=== PATIENT | male | born 1945 | race Caucasian/White ===

== ENCOUNTER → 2016-08-08 | Outpatient (CLI) | payer MEDICARE, BC ==
[~2016-08-08] MED LIST: CAPT50TA PO; HYDR-2768 PO; METO50TA PO; TRAM50 PO
[2016-08-08 08:03] LABS: MEAN CELL VOLUME 104.6 FL (80.0-100.0); MEAN CORPUSCULAR HEMOGLOBIN 34.8 PG (27.0-34.0); MEAN CORPUSCULAR HGB CONC 33.3 % (32.0-36.0); PLATELET COUNT 184 TH/MM3 (150-450); RED BLOOD COUNT 3.83 MIL/MM3 (4.50-5.90); RED CELL DISTRIBUTION WIDTH 15.1 % (11.6-17.2); REVIEW FLAG FINAL; WHITE BLOOD COUNT 9.4 TH/MM3 (4.0-11.0)
[2016-08-08 08:28] LABS: ALKALINE PHOSPHATASE 94 U/L (45-117); HDL CHOLESTEROL 29.1 MG/DL (40.0-60.0); TOTAL BILIRUBIN ADULT 0.7 MG/DL (0.2-1.0)
[2016-08-08 08:46] LABS: ALT (GPT) 36 U/L (12-78); ANION GAP 8 MEQ/L (5-15); AST (GOT) 52 U/L (15-37); BICARBONATE 21.8 MEQ/L (21.0-32.0); BLOOD UREA NITROGEN 36 MG/DL (7-18); CHLORIDE 108 MEQ/L (98-107); GLOMERULAR FILTRATION RATE 25 ML/MIN (>89); GLUCOSE,FASTING 95 MG/DL (74-99); LDL CHOLESTEROL 47 MG/DL (0-99); SODIUM (NA) 138 MEQ/L (136-145)
[2016-08-08 08:48] LABS: POTASSIUM 4.4 MEQ/L (3.5-5.1)
== END ==
LOC: CLAB 07:34
PROVIDERS: ATTEND Family Medicine
DX: I10 Essential (primary) hypertension (principal); E78.4 Other hyperlipidemia; N18.3 Chronic kidney disease, stage 3 (moderate); D64.9 Anemia, unspecified
CPT/HCPCS: 36415; 80053; 80061; 84443; 85027

== ENCOUNTER → 2017-02-06 | Outpatient (CLI) | payer MEDICARE, BC ==
[2017-02-06 09:53] LABS: AUTOMATED NEUTROPHIL # 4.1 TH/MM3 (1.8-7.7); BASOPHIL % 0.6 % (0.0-2.0); EOSINOPHIL # 0.1 TH/MM3 (0-0.4); EOSINOPHIL % 1.1 % (0.0-4.0); HEMATOCRIT 32.7 % (39.0-51.0); HEMO FLAGS DIFF FINAL; LYMPH % 32.8 % (9.0-44.0); LYMPHOCYTE # 2.5 TH/MM3 (1.0-4.8); MEAN CELL VOLUME 116.2 FL (80.0-100.0); MEAN CORPUSCULAR HGB CONC 34.4 % (32.0-36.0); MONO % 10.8 % (0.0-8.0); NEUT % 54.7 % (16.0-70.0); PLATELET COUNT 255 TH/MM3 (150-450); RED BLOOD COUNT 2.81 MIL/MM3 (4.50-5.90); RED CELL DISTRIBUTION WIDTH 12.8 % (11.6-17.2); RETIC % 1.6 % (0.4-3.0); REVIEW FLAG FINAL; WHITE BLOOD COUNT 7.5 TH/MM3 (4.0-11.0)
[2017-02-06 10:47] LABS: FERRITIN 861 NG/ML (26-388); TRANSFERRIN IRON PROFILE 172 MG/DL (200-360)
== END ==
LOC: CLAB 09:10
PROVIDERS: ATTEND Family Medicine
DX: D64.9 Anemia, unspecified (principal)
CPT/HCPCS: 36415; 82607; 82728; 82746; 83010; 83540; 83550; 85025; 85044; 86880

== ENCOUNTER 2017-02-28 07:28 | Inpatient (IN) | payer MEDICARE, BC ==
[2017-02-28] VITALS (12 sets, daily range): BP systolic 93–135; BP diastolic 58–85; PULSE 131–164; RESP 14–30; TEMP 97.8–99.4; O2SAT 96–100
[~2017-02-28] VITALS: Ht 175.3 cm; Wt 79.6 kg
[2017-02-28] MEDS ORDERED: SODIUM CHLOR 0.9% 1000 ML INJ 1,000 ML IV SCH ×2 (09:03)
[2017-02-28] MEDS ORDERED: PANTOPRAZOLE INJ 80 MG in SODIUM CHLORIDE 0.9% INJ 35 ML IV ONE (09:03)
--- NOTE | 2017-02-28 09:09 | PD ---
HPI Chief Complaint: GI Complaint Time Seen by Provider: 08:52 Travel History International Travel<30 days: No Contact w/Intl Traveler<30days: No Traveled to known affect area: No History of Present Illness HPI 71-year-old male complains of severe nausea and diarrhea and black tarry stool. Patient states that the symptoms started 2 days ago. Patient denies abdominal pain. Patient has poor appetite for the past 2 days. Patient denies any headache. Patient denies any chest pain or shortness of breath. Patient denies abdominal pain. Patient denies any focal weakness or numbness of extremity. Vision has history hypertension. Patient takes Advil occasionally. Patient has history of bleeding ulcer in the past. Patient's hearing impaired. PFSH Past Medical History Cardiovascular Problems: Yes (HTN) Diminished Hearing: Yes Gastrointestinal Disorders: Yes (bleeding ulcer) Hypertension: Yes Immune Disorder: Yes Musculoskeletal: Yes (states problems with left knee) Tetanus Vaccination: Unknown Influenza Vaccination: No ?: Not Past Surgical History Joint Replacement: Yes (LEFT KNEE) Tonsillectomy: Yes Social History Alcohol Use: No Tobacco Use: No Substance Use: No Allergies-Medications (Allergen,Severity, Reaction): Coded Allergies: No Known Allergies (Verified Allergy, Unknown, 02/28/17) Reported Meds & Prescriptions Reported Meds & Active Scripts Active Ultram (Tramadol HCl) 50 Mg Tab 50 Mg PO Q6H PRN 3 Days FOR PAIN Reported Hctz (Hydrochlorothiazide) 25 Mg Tab 25 Mg PO DAILY Metoprolol Tartrate 50 mg (Metoprolol Tartrate) 50 Mg Tab 50 Mg PO BID Capoten (Captopril) 50 Mg Tab 50 Mg PO TID Review of Systems General / Constitutional: No: Fever Eyes: No: Visual changes HENT: No: Headaches Cardiovascular: No: Chest Pain or Discomfort Respiratory: No: Shortness of Breath Gastrointestinal: Positive: Nausea, Diarrhea, Hematochezia, No: Abdominal Pain Genitourinary: No: Dysuria Musculoskeletal: No: Pain Skin: No Rash Neurologic: No: Weakness Psychiatric: No: Depression Endocrine: No: Polydipsia Hematologic/Lymphatic: No: Easy Bruising Physical Exam Narrative GENERAL: Well-nourished, well-developed patient. SKIN: Focused skin assessment warm/dry. HEAD: Normocephalic. EYES: No scleral icterus. No injection or drainage. NECK: Supple, trachea midline. No JVD or lymphadenopathy. CARDIOVASCULAR: Regular rate and rhythm without murmurs, gallops, or rubs. RESPIRATORY: Breath sounds equal bilaterally. No accessory muscle use. GASTROINTESTINAL: Abdomen soft, non-tender, nondistended. Rectal exam: Patient has black tarry stool per rectum. Hemoccult positive. MUSCULOSKELETAL: No cyanosis, or edema. BACK: Nontender without obvious deformity. No CVA tenderness. Neurologic exam normal. Data Data Last Documented VS Vital Signs Date Time Temp Pulse Resp B/P (MAP) Pulse Ox O2 Delivery O2 Flow Rate FiO2 02/28/17 11:30 154 18 126/63 (84) 99 Room Air 02/28/17 07:36 97.8 Orders Orders Electrocardiogram (02/28/17 ) Complete Blood Count With Diff (02/28/17 09:03) Comprehensive Metabolic Panel (02/28/17 09:03) Lipase (02/28/17 09:03) Prothrombin Time / Inr (Pt) (02/28/17:) Act Partial Throm Time (Ptt) (02/28/17 09:03) Urinalysis - C+S If Indicated (02/28/17 09:03) Type And Screen (02/28/17 09:03) Ecg Monitoring (02/28/17:03) Iv Access Insert/Monitor (02/28/17:) Oximetry (02/28/17 09:03) Ondansetron Inj (Zofran Inj) (02/28/17 09:15) Sodium Chlor 0.9% 1000 Ml Inj (Ns 1000 M (02/28/17 09:03) Sodium Chlor 0.9% 1000 Ml Inj (Ns 1000 M (02/28/17 09:03) Sodium Chloride 0.9% Flush (Ns Flush) (02/28/17 09:15) Sodium Chloride 0.9... W/Pantoprazole In (02/28/17 09:03) Sodium Chloride 0.9... W/Pantoprazole In (02/28/17 09:03) Sodium Bicarbonate 8.4% Inj (Sodium Bica (02/28/17 12:30) Insulin Human Regular Inj (Novolin R Inj (02/28/17 12:30) Dextrose 50% In Maciej (Vial) Inj (D50w (Vi (02/28/17 12:30) Calcium Gluconate Inj (Calcium Gluconate (02/28/17 12:30) Red Blood Cells (Rbc) (02/28/17 12:30) Blood Product Administration (02/28/17 12:30) Sodium Chlor 0.9% 250 Ml Inj (Ns 250 Ml (02/28/17 12:30) Ct Abd/Pel W/O Iv Contrast (02/28/17 12:39) Labs Laboratory Tests Test 02/28/17 09:15 White Blood Count 17.4 TH/MM3 Red Blood Count 1.96 MIL/MM3 Hemoglobin 7.6 GM/DL Hematocrit 23.1 % Mean Corpuscular Volume 117.7 FL Mean Corpuscular Hemoglobin 38.5 PG Mean Corpuscular Hemoglobin Concent 32.7 % Red Cell Distribution Width 13.1 % Platelet Count 289 TH/MM3 Mean Platelet Volume 9.2 FL Neutrophils (%) (Auto) 83.9 % Lymphocytes (%) (Auto) 11.3 % Monocytes (%) (Auto) 4.7 % Eosinophils (%) (Auto) 0.0 % Basophils (%) (Auto) 0.1 % Neutrophils # (Auto) 14.6 TH/MM3 Lymphocytes # (Auto) 2.0 TH/MM3 Monocytes # (Auto) 0.8 TH/MM3 Eosinophils # (Auto) 0.0 TH/MM3 Basophils # (Auto) 0.0 TH/MM3 CBC Comment AUTO DIFF Differential Total Cells Counted 100 Neutrophils % (Manual) 80 % Lymphocytes % 14 % Monocytes % 5 % Neutrophils # (Manual) 14.1 TH/MM3 Metamyelocytes 1 % Differential Comment FINAL DIFF MANUAL Platelet Estimate NORMAL Platelet Morphology Comment NORMAL Prothrombin Time 12.5 SEC Prothromb Time International Ratio 1.1 RATIO Activated Partial Thromboplast Time 27.5 SEC Blood Urea Nitrogen 92 MG/DL Creatinine 2.47 MG/DL Random Glucose 140 MG/DL Total Protein 5.9 GM/DL Albumin 2.6 GM/DL Calcium Level 8.7 MG/DL Alkaline Phosphatase 76 U/L Aspartate Amino Transf (AST/SGOT) 21 U/L Alanine Aminotransferase (ALT/SGPT) 18 U/L Total Bilirubin 0.4 MG/DL Sodium Level 143 MEQ/L Potassium Level 5.7 MEQ/L Chloride Level 116 MEQ/L Carbon Dioxide Level 14.0 MEQ/L Anion Gap 13 MEQ/L Estimat Glomerular Filtration Rate 26 ML/MIN Lipase 282 U/L MDM Medical Decision Making Medical Screen Exam Complete: Yes Emergency Medical Condition: Yes Interpretation(s) 12:18 PM. CBC WBC 17.4. Hemoglobin 7.6 hematocrit 23.1. MCV is 117.7. 83 neutrophil. Potassium 5.7. Chloride 116. Bicarbonate 14. BUN 92. Creatinine 2.47. Differential Diagnosis Differential diagnosis including GI bleed, anemia, dehydration, electrolyte imbalance. Narrative Course 71-year-old male with severe nausea, diarrhea and black tarry stool. Hemoccult positive. Normal saline solution 1 L IV bolus. Normal saline solution 1 25 cc an hour. Protonix bolus and drip given. PRBC, 1 unit transfusion now. Sodium bicarbonate one amp IV given now. Calcium gluconate 1 g IV now. Novolin R 10 units IV given now. D50 25 mEq IV given now. Diagnosis Primary Impression: GI bleed Qualified Codes: K92.2 - Gastrointestinal hemorrhage, unspecified Additional Impressions: Acute worsening of stage 4 chronic kidney disease Hyperkalemia Metabolic acidosis Mateo Guerin MD Feb 28, 2017 09:09
[2017-02-28] MEDS ORDERED: ONDANSETRON HCL 4 MG/2 ML VIAL IVP ONE (09:15)
[2017-02-28] MEDS ORDERED: SODIUM CHLORIDE 0.9% FLUSH 10 ML FLUSH IVF PRN (09:15)
[2017-02-28 09:39] LABS: AUTOMATED NEUTROPHIL # 14.6 TH/MM3 (1.8-7.7); BASOPHIL % 0.1 % (0.0-2.0); HEMATOCRIT 23.1 % (39.0-51.0); LYMPH % 11.3 % (9.0-44.0); MEAN CELL VOLUME 117.7 FL (80.0-100.0); MEAN CORPUSCULAR HEMOGLOBIN 38.5 PG (27.0-34.0); MEAN CORPUSCULAR HGB CONC 32.7 % (32.0-36.0); MONO % 4.7 % (0.0-8.0); NEUT % 83.9 % (16.0-70.0); PLATELET COUNT 289 TH/MM3 (150-450); RED BLOOD COUNT 1.96 MIL/MM3 (4.50-5.90); RED CELL DISTRIBUTION WIDTH 13.1 % (11.6-17.2); WHITE BLOOD COUNT 17.4 TH/MM3 (4.0-11.0)
[2017-02-28 09:41] LABS: HEMO FLAGS AUTO DIFF
[2017-02-28 09:48] LABS: APTT (PATIENT) 27.5 SEC (24.3-30.1); INTERNATIONAL NORMALIZED RATIO 1.1 RATIO; PROTHROMBIN TIME - PATIENT 12.5 SEC (9.8-11.6)
[2017-02-28 09:59] LABS: ANION GAP 13 MEQ/L (5-15); AST (GOT) 21 U/L (15-37); BLOOD UREA NITROGEN 92 MG/DL (7-18); CHLORIDE 116 MEQ/L (98-107); GLOMERULAR FILTRATION RATE 26 ML/MIN (>89); POTASSIUM 5.7 MEQ/L (3.5-5.1); SODIUM (NA) 143 MEQ/L (136-145)
[2017-02-28] MEDS: PANTOPRAZOLE INJ 80 MG in SODIUM CHLORIDE 0.9% INJ 100 ML IV SCH ×2 (09:59→20:24)
[2017-02-28 10:00] LABS: ALT (GPT) 18 U/L (12-78)
[2017-02-28 10:02] LABS: ALKALINE PHOSPHATASE 76 U/L (45-117); TOTAL BILIRUBIN ADULT 0.4 MG/DL (0.2-1.0)
[2017-02-28 10:12] LABS: METAMYELOCYTES 1 % (0-1); NEUTROPHIL # MANUAL DIFF 14.1 TH/MM3 (1.8-7.7); PLATELET ESTIMATE SMEAR NORMAL (NORMAL); PLATELET MORPHOLOGY NORMAL (NORMAL); POLYS (SEG NEUTROPHILS) 80 % (16-70); SCAN/DIFF FINAL DIFF MANUAL; WBC DIFF SAMPLE 100
[2017-02-28] MEDS ORDERED: DEXTROSE 50% IN WATER 50 ML VIAL(D50) IV PUSH ONE (12:30)
[2017-02-28] MEDS ORDERED: INSULIN HUMAN REGULAR 1,000 UNITS/10 ML VIAL IV PUSH ONE (12:30)
[2017-02-28] MEDS ORDERED: SODIUM BICARBONATE 8.4% INJ 50 MEQ/50 ML SYR IV PUSH ONE (12:30)
[2017-02-28] MEDS ORDERED: SODIUM CHLOR 0.9% 250 ML INJ 250 ML IV ONE (12:30)
[2017-02-28] MEDS ORDERED: CALCIUM GLUCONATE INJ 1 GM in DEXTROSE 5% IN WATER 100ML INJ 100 ML IV ONE ×2 (12:30)
[2017-02-28 14:09] LABS: BACTERIA, URINE MOD /hpf; BLOOD, URINE LARGE (NEG); GLUCOSE,URINE NEG (NEG); HYALINE CAST, URINE 1 /lpf (RARE); KETONE, URINE NEG (NEG); MUCUS URINE FEW /lpf (OCC); NITRITE,URINE POS (NEG); URINE COLOR LIGHT-YELLOW (YELLW/STRAW)
[2017-02-28 14:10] LABS: COMMENT (UR) CULTURE INDICATED; CULTURE IF INDICATED CULTURE INDICATED
[2017-02-28] MEDS ORDERED: NALOXONE HCL 0.4 MG/ML AMP IV PUSH PRN (14:30)
[2017-02-28] MEDS ORDERED: SODIUM CHLOR 0.9% 1000 ML INJ 1,000 ML IV ONE ×2 (14:30)
[2017-02-28] MEDS ORDERED: SODIUM CHLORIDE 0.9% FLUSH 10 ML FLUSH IV FLUSH PRN (14:30)
[2017-02-28] MEDS ORDERED: ONDANSETRON HCL 4 MG/2 ML VIAL IVP PRN (14:30)
--- NOTE | 2017-02-28 14:34 | HHI.HP ---
[facility] [place] Physician Luiza Khan MD Admission Diagnosis GI bleed. Acute and chronic kidney disease. Metabolic acidosis. Diagnoses: Chief Complaint: Weakness Travel History International Travel<30 Days: No Contact w/Intl Traveler <30 Da: No Traveled to Known Affected Are: No Sepsis Criteria SIRS Criteria (2 or more): Heart rate over 90, WBC > 15139, < 4000 or > 10% bands Severe Sepsis (+one): Organ Dysfunction, Hypotension Criteria Outcome: Meets severe sepsis criteria History of Present Illness Patient is a 71-year-old gentleman who complains of 2 days of nausea, vomiting, anorexia. Patient not having abdominal pain but did have increased emesis. He had a left knee arthritis which was causing her more pain and so he had began to the [facility] over the last several days. He does have a history of bleeding ulcer but denies any recent endoscopy. 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 He lives with his significant other who initially called 911 when the patient was so weak and dizzy and pale however the patient refused to go when able and services arrived. She was going to drive him herself to the hospital but he could not make it from the front door to the car and so 911 was called back and the patient was then brought by emergency services to the emergency room. Again he denies any pain. He has been seen in the emergency room and does have a black tarry stools on exam and these are Hemoccult positive. Patient is anemic, tachycardic, pale and complaining of nausea. He isn't started on Protonix and feels a bit better. IV fluids have been started and the patient was given calcium gluconate and insulin for hyperkalemia, the patient was admitted to the hospital for the same Review of Systems Constitutional: COMPLAINS OF: Dizziness, DENIES: Diaphoretic episodes, Fatigue , Fever, Weight gain, Weight loss, Chills, Change in appetite, Night Sweats Endocrine: DENIES: Heat/cold intolerance, Polydipsia, Polyuria, Polyphagia Eyes: DENIES: Blurred vision, Diplopia, Eye inflammation, Eye pain, Vision loss , Photosensitivity, Double Vision Ears, nose, mouth, throat: DENIES: Tinnitus, Hearing loss, Vertigo, Nasal discharge, Oral lesions, Throat pain, Hoarseness, Ear Pain, Running Nose, Epistaxis, Sinus Pain, Toothache, Odynophagia Respiratory: DENIES: Apneas, Cough, Snoring, Wheezing, Hemoptysis, Sputum production, Shortness of breath Cardiovascular: DENIES: Chest pain, Palpitations, Syncope, Dyspnea on Exertion , PND, Lower Extremity Edema, Orthopnea, Claudication Gastrointestinal: COMPLAINS OF: Black stools, Bloody stools, Diarrhea, Nausea, Vomiting, DENIES: Abdominal pain, Constipation, Difficulty Swallowing, Anorexia Genitourinary: DENIES: Sexual dysfunction, Urinary frequency, Urinary incontinence, Urgency, Hematuria, Dysuria, Nocturia, Penile Discharge, Testicular Pain, Testicular Swelling Musculoskeletal: DENIES: Joint pain, Muscle aches, Stiffness, Joint Swelling, Back pain, Neck pain Immunologic/allergic: DENIES: Eczema, Urticaria Neurologic: DENIES: Abnormal gait, Headache, Localized weakness, Paresthesias, Seizures, Speech Problems, Tremor, Poor Balance Psychiatric: DENIES: Anxiety, Confusion, Mood changes, Depression, Hallucinations, Agitation, Suicidal Ideation, Homicidal Ideation, Delusions Except as stated in HPI: all other systems reviewed are Neg Past Family Social History Past Medical History Chronic kidney disease Hypertension Arthritis Past Surgical History Left knee replacements Tonsillectomy Reported Medications Reviewed in the EMR, patient also admits to taking NSAIDs twice a day for 2 weeks due to joint pain Allergies: Coded Allergies: No Known Allergies (Verified Allergy, Unknown, 02/28/17) Active Ordered Medications Reviewed in the EMR Family History patient does not recall Social History Lives with his significant other no current tobacco or alcohol dependency although he has been sober since 2008 Physical Exam Vital Signs Vital Signs Date Time Temp Pulse Resp B/P (MAP) Pulse Ox O2 Delivery O2 Flow Rate FiO2 02/28/17 11:30 154 18 126/63 (84) 99 Room Air 02/28/17 10:03 96 Room Air 02/28/17 07:42 149 18 128/72 (90) 97 Room Air 02/28/17 07:36 97.8 157 30 128/72 (90) Physical Exam GENERAL: This is a frail, pale gentleman with dry mucous membranes SKIN: No rashes, ecchymoses or lesions. Cool and dry. HEAD: Atraumatic. Normocephalic. No temporal or scalp tenderness. EYES: Pupils equal round and reactive. Extraocular motions intact. No scleral icterus. No injection or drainage. ENT: Nose without bleeding, purulent drainage or septal hematoma. Throat without erythema, tonsillar hypertrophy or exudate. Uvula midline. Airway patent. NECK: Trachea midline. No JVD or lymphadenopathy. Supple, nontender, no meningeal signs. CARDIOVASCULAR: Regular rate and rhythm without murmurs, gallops, or rubs. RESPIRATORY: Clear to auscultation. Breath sounds equal bilaterally. No wheezes , rales, or rhonchi. GASTROINTESTINAL: Abdomen soft, non-tender, nondistended. No hepato-splenomegaly , or palpable masses. No guarding. MUSCULOSKELETAL: Extremities without clubbing, cyanosis, or edema. No joint tenderness, effusion, or edema noted. No calf tenderness. Negative Homans sign bilaterally. NEUROLOGICAL: Awake and alert. Cranial nerves II through XII intact. Motor and sensory grossly within normal limits. Five out of 5 muscle strength in all muscle groups. Normal speech. Laboratory Laboratory Tests Test 02/28/17 09:15 02/28/17 13:30 White Blood Count 17.4 Red Blood Count 1.96 Hemoglobin 7.6 Hematocrit 23.1 Mean Corpuscular Volume 117.7 Mean Corpuscular Hemoglobin 38.5 Mean Corpuscular Hemoglobin Concent 32.7 Red Cell Distribution Width 13.1 Platelet Count 289 Mean Platelet Volume 9.2 Neutrophils (%) (Auto) 83.9 Lymphocytes (%) (Auto) 11.3 Monocytes (%) (Auto) 4.7 Eosinophils (%) (Auto) 0.0 Basophils (%) (Auto) 0.1 Neutrophils # (Auto) 14.6 Lymphocytes # (Auto) 2.0 Monocytes # (Auto) 0.8 Eosinophils # (Auto) 0.0 Basophils # (Auto) 0.0 CBC Comment AUTO DIFF Differential Total Cells Counted 100 Neutrophils % (Manual) 80 Lymphocytes % 14 Monocytes % 5 Neutrophils # (Manual) 14.1 Metamyelocytes 1 Differential Comment FINAL DIFF MANUAL Platelet Estimate NORMAL Platelet Morphology Comment NORMAL Prothrombin Time 12.5 Prothromb Time International Ratio 1.1 Activated Partial Thromboplast Time 27.5 Blood Urea Nitrogen 92 Creatinine 2.47 Random Glucose 140 Total Protein 5.9 Albumin 2.6 Calcium Level 8.7 Alkaline Phosphatase 76 Aspartate Amino Transf (AST/SGOT) 21 Alanine Aminotransferase (ALT/SGPT) 18 Total Bilirubin 0.4 Sodium Level 143 Potassium Level 5.7 Chloride Level 116 Carbon Dioxide Level 14.0 Anion Gap 13 Estimat Glomerular Filtration Rate 26 Lipase 282 Urine Color LIGHT-YELLOW Urine Turbidity HAZY Urine pH 5.0 Urine Specific [place] 1.013 Urine Protein NEG Urine Glucose (UA) NEG Urine Ketones NEG Urine Occult Blood LARGE Urine Nitrite POS Urine Bilirubin NEG Urine Urobilinogen LESS THAN 2.0 Urine Leukocyte Esterase LARGE Urine RBC 16 Urine WBC 52 Urine Bacteria MOD Urine Hyaline Casts 1 Urine Mucus FEW Microscopic Urinalysis Comment CULTURE INDICATED Date/Time Source Procedure Growth Status 02/28/17 13:30 Urine Clean Catch Urine Culture Pending Received Result Diagram: 02/28/1791402/28/[address] abdomen and pelvis Caprini VTE Risk Assessment Caprini VTE Risk Assessment: Mod/High Risk (score >= 2) VTE Pharm Contraindication: Active bleeding Caprini Risk Assessment Model Point Value = 1 Point Value = 2 Point Value = 3 Point Value = 5 Age 41-60 Minor surgery BMI > 25 kg/m2 Swollen legs Varicose veins or History of unexplained or recurrent spontaneous Oral contraceptives or hormone replacement Sepsis (< 1 month) Serious lung disease, including pneumonia (< 1 month) Abnormal pulmonary function Acute myocardial infarction Congestive heart failure (< 1 month) History of inflammatory bowel disease Medical patient at bed rest Age 61-74 Arthroscopic surgery Major open surgery (> 45 min) Laparoscopic surgery (> 45 min) Malignancy Confined to bed (> 72 hours) Immobilizing plaster cast Central venous access Age >= 75 History of VTE Family history of VTE Factor V Leiden Prothrombin [id number] Lupus anticoagulant Anticardiolipin antibodies Elevated serum homocysteine Heparin-induced thrombocytopenia Other congenital or acquired thrombophilia Stroke (< 1 month) Elective arthroplasty Hip, pelvis, or leg fracture Acute spinal cord injury (< 1 month) Prophylaxis Regimen Total Risk Factor Score Risk Level Prophylaxis Regimen 0-1 Low Early ambulation 2 Moderate Order ONE of the following: *Sequential Compression Device (SCD) *Heparin 5000 units SQ BID 3-4 Higher Order ONE of the following medications: *Heparin 5000 units SQ TID *Enoxaparin/Lovenox 40 mg SQ daily (WT < 150 kg, CrCl > 30 mL/min) *Enoxaparin/Lovenox 30 mg SQ daily (WT < 150 kg, CrCl > 10-29 mL/min) *Enoxaparin/Lovenox 30 mg SQ BID (WT < 150 kg, CrCl > 30 mL/min) AND/OR *Sequential Compression Device (SCD) 5 or more Highest Order ONE of the following medications: *Heparin 5000 units SQ TID (Preferred with Epidurals) *Enoxaparin/Lovenox 40 mg SQ daily (WT < 150 kg, CrCl > 30 mL/min) *Enoxaparin/Lovenox 30 mg SQ daily (WT < 150 kg, CrCl > 10-29 mL/min) *Enoxaparin/Lovenox 30 mg SQ BID (WT < 150 kg, CrCl > 30 mL/min) AND *Sequential Compression Device (SCD) Assessment and Plan Problem List: (1) Volume depletion ICD Code: E86.9 - Volume depletion, unspecified Plan: Continue aggressive hydration and follow electrolytes Patient currently meets severe sepsis per protocol with hypotension, leukocytosis and tachycardia and evidence of worsening renal function. 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 Probably due to prerenal issues related to volume loss as well NSAID use DC NSAIDs, continue IV hydration Avoid further nephrotoxic injury (4) Tachycardia ICD Code: R00.0 - Tachycardia, unspecified Plan: Continue with telemetry Correct electrolytes Continue volume replacement (5) HTN (hypertension) ICD Code: I10 - Essential (primary) hypertension Plan: Relative hypotension due to volume loss, continue to hold metoprolol, Capoten and hydrochlorothiazide and resume when patient stable (6) GI bleed ICD Code: K92.2 - Gastrointestinal hemorrhage, unspecified Status: Acute Plan: Likely due to NSAIDs Patient with a history of ulcers related to aspirin Patient never had an endoscopy done per his own report Consult GI, continue Protonix drip and follow hemoglobin for transfusion needs (7) Metabolic acidosis ICD Code: E87.2 - Acidosis; N18.4 - Chronic kidney disease, stage 4 (severe) Status: Acute Plan: Secondary to acute kidney injury continue to replace hydration and to recover kidney Bicarbonate (8) Hyperkalemia ICD Code: E87.5 - Hyperkalemia; N18.4 - Chronic kidney disease, stage 4 (severe ) Status: Acute Plan: secondary to acute kidney injury, Status post insulin dextrose in the ER, will follow to correct Assessment and Plan Plan of care to be determined by Hospital course Code Status Full code Discussed Condition With ER Murray Guerin Patient and significant other Physician Certification 2 Midnight Certification Type: Admission for Inpatient Services Order for Inpatient Services The services are ordered in accordance with Medicare regulations or non- Medicare payer requirements, as applicable. In the case of services not specified as inpatient-only, they are appropriately provided as inpatient services in accordance with the 2-midnight benchmark. Estimated LOS (days): 4 4 days is the estimated time the patient will need to remain in the hospital, assuming treatment plan goals are met and no additional complications. Post-Hospital Plan: Home Problem Qualifiers (1) GI bleed: Qualified Codes: K92.2 - Gastrointestinal hemorrhage, unspecified Kayla Neal MD Feb 28, 2017 14:34
[2017-02-28] MEDS ORDERED: cefTRIAXone INJ 1,000 MG in SODIUM CHLORIDE 0.9% INJ 100 ML IV SCH (15:00)
[2017-02-28 15:28] LABS: MEAN CELL VOLUME 111.8 FL (80.0-100.0); MEAN CORPUSCULAR HGB CONC 33.1 % (32.0-36.0); PLATELET COUNT 171 TH/MM3 (150-450); RED CELL DISTRIBUTION WIDTH 16.7 % (11.6-17.2); WHITE BLOOD COUNT 13.5 TH/MM3 (4.0-11.0)
[2017-02-28 15:29] LABS: REVIEW FLAG FINAL
[2017-02-28 15:31] LABS: HEMATOCRIT 20.2 % (39.0-51.0)
[2017-02-28] MEDS: SODIUM CHLOR 0.9% 1000 ML INJ 1,000 ML IV SCH (15:40)
--- NOTE | 2017-02-28 15:48 | RADRPT ---
EXAM DATE/TIME: 02/28/2017 15:14 [facility] COMPARISON: No previous studies available for comparison. INDICATIONS : Abdomen pain. ORAL CONTRAST: No oral contrast ingested. RADIATION DOSE: 6.67 CTDIvol (mGy) MEDICAL HISTORY : Cardiovascular disease. Hypertension. SURGICAL HISTORY : None. ENCOUNTER: Initial ACUITY: 1 day PAIN SCALE: 4/10 LOCATION: Bilateral abdomen TECHNIQUE: Volumetric scanning of the abdomen and pelvis was performed. Using automated exposure control and ad justment of the mA and/or kV according to patient size, radiation dose was kept as low as reasonably achievable to obtain optimal diagnostic quality images. DICOM format image data is available electro nically for review and comparison. FINDINGS: LOWER LUNGS: The visualized lower lungs are clear. LIVER: Homogeneous density without lesion. There is no dilation of the biliary tree. Innumerable gallstones in the dependent portion of the gallbladder lumen. SPLEEN: Normal size without lesion. PANCREAS: Within normal limits. KIDNEYS: Normal in size and shape. There is no mass, stone, or hydronephrosis. ADRENAL GLANDS: Within normal limits. VASCULAR: There is no aortic aneurysm. BOWEL/MESENTERY: The stomach, small bowel, and colon demonstrate no acute abnormality. There is no free intraperitone al air or fluid. Diverticular disease throughout the colon without concomitant evidence of diverticul itis. ABDOMINAL WALL: Within normal limits. RETROPERITONEUM: There is no lymphadenopathy. BLADDER: No wall thickening or mass. REPRODUCTIVE: Within normal limits. INGUINAL: There is no lymphadenopathy or hernia. MUSCULOSKELETAL: Suspect bilateral pars fractures at L5. Otherwise intact. CONCLUSION: 1. Cholelithiasis with mild gallbladder distention but no pericholecystic fluid. 2. Diverticular disease throughout the colon without concomitant evidence of diverticulitis. 3. 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 Onesimo Oliveira MD on February 28, 2017 at 15:41 Board Certified Radiologist. This report was verified electronically.
[2017-02-28 15:51] LABS: BICARBONATE 16.1 MEQ/L (21.0-32.0); POTASSIUM 4.3 MEQ/L (3.5-5.1)
[2017-02-28] MEDS ORDERED: SODIUM BICARBONATE 8.4% INJ 75 MEQ in SODIUM CHLOR 0.45% 1000 ML INJ 1,000 ML IV SCH (16:00)
--- NOTE | 2017-02-28 16:18 | RADRPT ---
EXAM DATE/TIME: 02/28/2017 15:56 [facility] COMPARISON: CT ABDOMEN & PELVIS W/O CONTRAST, February 28, 2017, 15:14. INDICATIONS : Increased BUN/creatinine. MEDICAL HISTORY : Hypertension. Bleeding ulcer. SURGICAL HISTORY : Thyroidectomy. Total knee replacement, left. ENCOUNTER: Initial ACUITY: 1 day PAIN SCORE: 0/10 LOCATION: Bilateral flank MEASUREMENTS: RIGHT KIDNEY: 10.3 x 4.0 x 4.4 cm LEFT KIDNEY: 10.2 x 4.5 x 5.1 cm FINDINGS: RIGHT KIDNEY: Renal cortex is normal in thickness and echotexture. No hydronephrosis, stone, or mass. LEFT KIDNEY: Renal cortex is normal in thickness and echotexture. No hydronephrosis, stone, or mass. BLADDER: Within normal limits given the degree of distension. There is a stone in the gallbladder. CONCLUSION: 1. Normal ultrasound of the urinary system. There is no hydronephrosis. 2. Cholelithiasis. Roger Rosas MD on February 28, 2017 at 16:15 Board Certified Radiologist. This report was verified electronically.
[2017-02-28] MEDS: SODIUM CHLORIDE 0.9% FLUSH 10 ML FLUSH IV FLUSH SCH (20:24)
[2017-02-28 20:31] LABS: HEMATOCRIT 21.9 % (39.0-51.0)
[2017-02-28 20:32] LABS: REVIEW FLAG FINAL
[2017-02-28] MEDS ORDERED: METOPROLOL TARTRATE 5 MG/5 ML VIAL IV PUSH ONE (21:45)
[2017-03-01] VITALS (20 sets, daily range): BP systolic 100–147; BP diastolic 55–85; PULSE 101–156; RESP 10–33; TEMP 98–99.4; O2SAT 94–100
[2017-03-01] MEDS: SODIUM CHLOR 0.9% 1000 ML INJ 1,000 ML IV SCH (01:17)
[2017-03-01 04:57] LABS: AUTOMATED NEUTROPHIL # 13.3 TH/MM3 (1.8-7.7); BASOPHIL # 0.1 TH/MM3 (0-0.2); BASOPHIL % 0.3 % (0.0-2.0); HEMATOCRIT 22.8 % (39.0-51.0); HEMO FLAGS DIFF FINAL; LYMPH % 9.3 % (9.0-44.0); LYMPHOCYTE # 1.5 TH/MM3 (1.0-4.8); MEAN CELL VOLUME 102.9 FL (80.0-100.0); MEAN CORPUSCULAR HEMOGLOBIN 35.4 PG (27.0-34.0); MEAN CORPUSCULAR HGB CONC 34.3 % (32.0-36.0); MONO % 5.1 % (0.0-8.0); NEUT % 85.3 % (16.0-70.0); PLATELET COUNT 147 TH/MM3 (150-450); RED BLOOD COUNT 2.21 MIL/MM3 (4.50-5.90); RED CELL DISTRIBUTION WIDTH 23.1 % (11.6-17.2); WHITE BLOOD COUNT 15.7 TH/MM3 (4.0-11.0)
[2017-03-01 06:30] LABS: BICARBONATE 16.5 MEQ/L (21.0-32.0); POTASSIUM 4.6 MEQ/L (3.5-5.1)
[2017-03-01] MEDS: PANTOPRAZOLE INJ 80 MG in SODIUM CHLORIDE 0.9% INJ 100 ML IV SCH ×2 (06:43→18:12)
[2017-03-01] MEDS: SODIUM CHLORIDE 0.9% FLUSH 10 ML FLUSH IV FLUSH SCH (09:13)
[2017-03-01] MEDS: PIPERACIL-TAZO 2.25 GM PREMIX 50 ML IV SCH ×2 (09:53→17:45)
[2017-03-01] MEDS: SODIUM BICARBONATE 8.4% INJ 100 MEQ in DEXTROSE 5% IN WATE 1000ML INJ 1,000 ML IV SCH ×2 (09:54)
[2017-03-01] MEDS ORDERED: PROPOFOL 200 MG/20 ML AMP IV ONE (12:00)
[2017-03-01] MEDS ORDERED: ESMOLOL HCL 100 MG/10 ML VIAL IV ONE (12:00)
[2017-03-01] MEDS ORDERED: ROCURONIUM INJ 50 MG/5 ML SYRINGE IV PUSH ONE (12:00)
[2017-03-01] MEDS ORDERED: PHENYLEPH/NS 1000 MCG/10 ML SYR IV ONE (12:00)
[2017-03-01] MEDS ORDERED: SUCCINYLCHOLINE CHLORIDE 100 MG/5 ML SYRINGE IV PUSH ONE (12:00)
[2017-03-01] MEDS ORDERED: LIDOCAINE HCL 1% PF 5 ML SYRINGE OTHER ONE (12:00)
--- NOTE | 2017-03-01 13:02 | EKG ---
Date Performed: 02/28/2017 Time Performed: 07:44:54 PTAGE: 71 years EKG: Supraventricular tachycardia with rate of 149; this could be either sinus tachycardia or a paroxysmal supraventricular tachycardia Nonspecific ST-T changes, which may be rate related PREVIOUS TRACING : 03/01/2009 13.53 Since previous tracing, heart rate has increased from 115 to 149. Kevin no longer borderline leftward. There are no findings here to suggest inferior infar ct age indeterminate as read on previous tracing or possible anteroseptal infarct of undetermined age . Clinical correlation is recommended. DOCTOR: Haseeb Grimes Interpretating Date/Time 03/01/2017 13:00:59
--- NOTE | 2017-03-01 13:03 | EKG ---
Date Performed: 02/28/2017 Time Performed: 19:14:58 PTAGE: 71 years EKG: Sinus tachycardia Poor initial anterior forces in V1 and V2 with small Q-wave in V3 Cannot exclude septal myocardial infarction of undetermined age Nonspecific ST-T changes Abnormal ECG PREVIOUS TRACING : 02/28/2017 07.44 Since previous tracing, heart rate has decreaesd from 149 t o 129, and the rhythm is sinus. There are poor initial anteroseptal forces are still present. DOCTOR: Haseeb Grimes Interpretating Date/Time 03/01/2017 13:02:24
--- NOTE | 2017-03-01 13:04 | EKG ---
Date Performed: 02/28/2017 Time Performed: 20:44:44 PTAGE: 71 years EKG: Probable sinus tachycardia. Possible anteroseptal infarct - age undetermined Abnormal ECG PREVIOUS TRACING : 02/28/2017 19.14 Since previous tracing, heart rate has increased from 129 t o 144; otherwise, no significant change. DOCTOR: Haseeb Grimes Interpretating Date/Time 03/01/2017 13:03:01
--- NOTE | 2017-03-01 13:10 | PD.CONS ---
HPI Service Nephrology Consult Requested By Dr. Neal Reason for Consult Acute renal failure Primary Care Physician Luiza Khan MD History of Present Illness Patient is a 71-year-old male with history of osteoarthritis left knee injury in his younger years and he has severe arthritis which was not controlled with Ultram started using Advil and noticed to have increasing heart rate, he noticed the black stools as well and this has been going on for the past 3 days, patient came in with a creatinine of 2.47 and it has declined to 1.9 after receiving blood transfusion for hemoglobin of 6.7, he denies knowledge of kidney stones he states he has been passing urine Review of Systems Constitutional: COMPLAINS OF: Fatigue Respiratory: COMPLAINS OF: Shortness of breath Cardiovascular: COMPLAINS OF: Palpitations Gastrointestinal: COMPLAINS OF: Nausea Psychiatric: COMPLAINS OF: Anxiety Past Family Social History Allergies: Coded Allergies: Fish Containing Products (Verified Allergy, Unknown, Skin Discoloration, 02/28/17) Red all over No Known Allergies (Verified Allergy, Unknown, 02/28/17) broccoli (Verified Allergy, Unknown, 02/28/17) Past Medical History Chronic kidney disease Hypertension Arthritis Past Surgical History Left knee surgery Tonsillectomy Reported Medications Reported Meds & Active Scripts Active Ultram (Tramadol HCl) 50 Mg Tab 50 Mg PO Q6H PRN 3 Days FOR PAIN Reported Hctz (Hydrochlorothiazide) 25 Mg Tab 25 Mg PO DAILY Metoprolol Tartrate 50 mg (Metoprolol Tartrate) 50 Mg Tab 50 Mg PO BID Capoten (Captopril) 50 Mg Tab 50 Mg PO TID Active Ordered Medications Current Medications Medications (Trade) Dose Ordered Sig/Mary Route Start Time Stop Time Status Last Admin Pantoprazole Sodium 80 mg/ Sodium Chloride 100 ml @ 10 mls/hr Q10H IV 02/28/17 09:03 03/01/17 06:43 (NS Flush) 2 ml UNSCH PRN IV FLUSH 02/28/17 14:30 (NS Flush) 2 ml BID IV FLUSH 02/28/17 21:00 03/01/17 09:13 (Tylenol) 650 mg Q4H PRN PO 02/28/17 14:30 (Zofran Inj) 4 mg Q6H PRN IVP 02/28/17 14:30 (Narcan Inj) 0.4 mg UNSCH PRN IV PUSH 02/28/17 14:30 Piperacillin Sod/ Tazobactam Sod 50 ml @ 100 mls/hr Q8H IV 03/01/17 09:00 03/01/17 09:53 Sodium Bicarbonate 100 meq/Dextrose 1,100 ml @ 42 mls/hr Q24H IV 03/01/17 09:00 03/01/17 09:54 Family History Noncontributory Social History He used to drink but quit in 2008 Denies Smoking Physical Exam Vital Signs Vital Signs Date Time Temp Pulse Resp B/P (MAP) Pulse Ox O2 Delivery O2 Flow Rate FiO2 03/01/17 09:00 99 21 03/01/17 07:00 99 Room Air 21 03/01/17 04:00 99.3 129 23 108/69 (82) 100 03/01/17 00:15 99.4 130 22 105/69 100 03/01/17 00:00 99.4 130 22 105/69 (81) 100 02/28/17 23:15 100 21 02/28/17 23:15 99.4 131 21 93/58 100 02/28/17 20:00 97.9 154 21 130/85 (100) 100 02/28/17 19:00 100 Room Air 02/28/17 18:25 99.0 135 14 133/66 (88) 100 02/28/17 14:58 98.4 138 18 132/64 100 02/28/17 14:42 98.5 146 18 135/61 98 02/28/17 14:30 98.4 164 18 135/61 (85) 100 Room Air 02/28/17 13:30 98.5 157 18 115/65 (82) 100 Room Air Physical Exam GENERAL: Well-nourished, well-developed patient. SKIN: Warm and dry. HEAD: Normocephalic. EYES: No scleral icterus. No injection or drainage. NECK: Supple, trachea midline. No JVD or lymphadenopathy. CARDIOVASCULAR: Tachycardia. RESPIRATORY: Breath sounds equal bilaterally. No accessory muscle use. GASTROINTESTINAL: Abdomen soft, mild epigastric tenderness, nondistended. EXTREMITIES: No cyanosis, or edema. NEUROLOGICAL: Awake, alert, and oriented x 3. Non-focal. Laboratory Laboratory Tests Test 02/28/17 13:30 02/28/17 15:03 02/28/17 20:10 03/01/17 04:39 Urine Color LIGHT-YELLOW Urine Turbidity HAZY Urine pH 5.0 Urine Specific [place] 1.013 Urine Protein NEG Urine Glucose (UA) NEG Urine Ketones NEG Urine Occult Blood LARGE Urine Nitrite POS Urine Bilirubin NEG Urine Urobilinogen LESS THAN 2.0 Urine Leukocyte Esterase LARGE Urine RBC 16 Urine WBC 52 Urine Bacteria MOD Urine Hyaline Casts 1 Urine Mucus FEW Microscopic Urinalysis Comment CULTURE INDICATED White Blood Count 13.5 15.7 Red Blood Count 1.80 2.21 Hemoglobin 6.7 7.2 7.8 Hematocrit 20.2 21.9 22.8 Mean Corpuscular Volume 111.8 102.9 Mean Corpuscular Hemoglobin 37.0 35.4 Mean Corpuscular Hemoglobin Concent 33.1 34.3 Red Cell Distribution Width 16.7 23.1 Platelet Count 171 147 Mean Platelet Volume 9.4 9.9 Blood Urea Nitrogen 87 79 Creatinine 2.22 1.99 Random Glucose 141 106 Calcium Level 8.5 7.6 Sodium Level 146 151 Potassium Level 4.3 4.6 Chloride Level 118 123 Carbon Dioxide Level 16.1 16.5 Anion Gap 12 12 Estimat Glomerular Filtration Rate 29 33 Lactic Acid Level 3.3 Total Creatine Kinase 43 Neutrophils (%) (Auto) 85.3 Lymphocytes (%) (Auto) 9.3 Monocytes (%) (Auto) 5.1 Eosinophils (%) (Auto) 0.0 Basophils (%) (Auto) 0.3 Neutrophils # (Auto) 13.3 Lymphocytes # (Auto) 1.5 Monocytes # (Auto) 0.8 Eosinophils # (Auto) 0.0 Basophils # (Auto) 0.1 CBC Comment DIFF FINAL Differential Comment Date/Time Source Procedure Growth Status 02/28/17 15:05 Blood Peripheral Aerobic Blood Culture - Preliminary NO GROWTH IN 1 DAY Resulted 02/28/17 15:05 Blood Peripheral Anaerobic Blood Culture - Preliminary NO GROWTH IN 1 DAY Resulted 02/28/17 13:30 Urine Clean Catch Urine Culture Pending Received Result Diagram: 03/01/17 0439 03/01/17 0439 Imaging Last Impressions Abdomen/Pelvis CT 02/28/17 9109 Signed Impressions: Service Date/Time: Thursday, February 28, 2017 15:14 - CONCLUSION: 1. Cholelithiasis with mild gallbladder distention but no pericholecystic fluid. 2. Diverticular disease throughout the colon without concomitant evidence of diverticulitis. 3. 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 Onesimo Oliveira MD Renal Ultrasound 02/28/17 0000 Signed Impressions: Service Date/Time: Thursday, February 28, 2017 15:56 - CONCLUSION: 1. Normal ultrasound of the urinary system. There is no hydronephrosis. 2. Cholelithiasis. 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
[2017-03-01] MEDS ORDERED: FUROSEMIDE 20 MG/2 ML VIAL IV PUSH ONE (14:45)
[2017-03-01 14:46] LABS: REVIEW FLAG FINAL
[2017-03-01] MEDS ORDERED: ACETAMINOPHEN 325 MG TAB PO PRN (15:00)
[2017-03-01] MEDS ORDERED: SODIUM CHLOR 0.9% 250 ML INJ 250 ML IV ONE ×3 (15:00→21:15)
[2017-03-01] MEDS ORDERED: diphenhydrAMINE HCL 25 MG CAP PO PRN (15:00)
--- NOTE | 2017-03-01 15:34 | HHI.PR ---
Subjective Remarks PAtient is having dark tarry stools. Patient feels very tired, denies cp/sob. Significant other is at bedside. Objective Vitals Vital Signs Date Time Temp Pulse Resp B/P (MAP) Pulse Ox O2 Delivery O2 Flow Rate FiO2 03/01/17 12:00 98.9 144 26 106/65 (79) 99 03/01/17 09:00 99 21 03/01/17 08:00 98.3 132 33 109/75 (86) 100 03/01/17 07:00 99 Room Air 21 03/01/17 04:00 99.3 129 23 108/69 (82) 100 03/01/17 00:15 99.4 130 22 105/69 100 03/01/17 00:00 99.4 130 22 105/69 (81) 100 02/28/17 23:15 100 21 02/28/17 23:15 99.4 131 21 93/58 100 02/28/17 20:00 97.9 154 21 130/85 (100) 100 02/28/17 19:00 100 Room Air 02/28/17 18:25 99.0 135 14 133/66 (88) 100 I/O 02/28/17 02/28/17 02/28/17 03/01/17 03/01/17 03/01/17 07:00 15:00 23:00 07:00 15:00 23:00 Intake Total 1035 ml 5320 ml 500 ml 631 ml Output Total 125 ml 1000 ml Balance 1035 ml 5195 ml -500 ml 631 ml Intake IV Total 1035 ml 4670 ml 100 ml 631 ml Packed Cells 400 ml 400 ml Blood Product IV Normal Saline Flush 250 ml Output Urine Total 125 ml 1000 ml # Bowel Movements 1 10 Result Diagram: 03/01/17 1420 03/01/17 0439 Imaging Last Impressions Abdomen/Pelvis CT 02/28/17 1239 Signed Impressions: Service Date/Time: Tuesday, February 28, 2017 15:14 - CONCLUSION: 1. Cholelithiasis with mild gallbladder distention but no pericholecystic fluid. 2. Diverticular disease throughout the colon without concomitant evidence of diverticulitis. 3. 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 Onesimo Oliveira MD Renal Ultrasound 02/28/17 0000 Signed Impressions: Service Date/Time: Tuesday, February 28, 2017 15:56 - CONCLUSION: 1. Normal ultrasound of the urinary system. There is no hydronephrosis. 2. Cholelithiasis. Roger Rosas MD Objective Remarks Awake and alert, nad Pale skin and conjunctiva S1S2 RRR, no MRG Clear lungs BL Abdomen soft, nt, nd no edema in lower extremities Medications and IVs Current Medications Medications (Trade) Dose Ordered Sig/Mary Route Start Time Stop Time Status Last Admin Pantoprazole Sodium 80 mg/ Sodium Chloride 100 ml @ 10 mls/hr Q10H IV 02/28/17 09:03 03/01/17 06:43 (NS Flush) 2 ml UNSCH PRN IV FLUSH 02/28/17 14:30 (NS Flush) 2 ml BID IV FLUSH 02/28/17 21:00 03/01/17 09:13 (Tylenol) 650 mg Q4H PRN PO 02/28/17 14:30 (Zofran Inj) 4 mg Q6H PRN IVP 02/28/17 14:30 (Narcan Inj) 0.4 mg UNSCH PRN IV PUSH 02/28/17 14:30 Piperacillin Sod/ Tazobactam Sod 50 ml @ 100 mls/hr Q8H IV 03/01/17 09:00 03/01/17 09:53 Sodium Bicarbonate 100 meq/Dextrose 1,100 ml @ 42 mls/hr Q24H IV 03/01/17 09:00 03/01/17 09:54 Sodium Chloride 250 ml @ 15 mls/hr ONCE ONCE IV 03/01/17 15:00 03/02/17 07:39 (Tylenol) 650 mg Q4H PRN PO 03/01/17 15:00 (Benadryl) 25 mg Q4H PRN PO 03/01/17 15:00 Urinary Catheter: No Vascular Central Line Catheter: No A/P Problem List: (1) Volume depletion ICD Code: E86.9 - Volume depletion, unspecified Plan: Continue aggressive hydration and follow electrolytes Patient currently meets severe sepsis per protocol with hypotension, leukocytosis and tachycardia and evidence of worsening renal function. 03/01 urine culture is growing gram-negative rods. The patient initially has been started on IV Rocephin, I will switch the antibiotics to IV Zosyn. (2) Anemia due to GI blood loss ICD Code: D50.0 - Iron deficiency anemia secondary to blood loss (chronic) Plan: 03/01 the patient is status post fusion of 2 units of packed blood cells with appropriate response initially. Patient still tachycardic with normal globin dropped from 7.8-6.1. I will order the transfusion of 2 units of leukocyte reduced packed red blood cells. I will also give 2 units of FFP and 2 g of IV calcium chloride after the transfusion of 2 units of packed red blood cells. (3) CRISTOBAL (acute kidney injury) ICD Code: N17.9 - Acute kidney failure, unspecified Plan: patient with chronic kidney disease and evidence acute kidney injury with hyperkalemia and acidosis Will discuss with nephrology Renal ultrasound showed normal ultrasound of the urinary systems and no hydronephrosis. Probably due to prerenal issues related to volume loss as well NSAID use DC NSAIDs, continue IV fluids Monitor BUN/creatinine, strict I's and O's, avoid nephrotoxins. (4) Tachycardia ICD Code: R00.0 - Tachycardia, unspecified Plan: Continue with telemetry Correct electrolytes Continue volume replacement (5) HTN (hypertension) ICD Code: I10 - Essential (primary) hypertension Plan: Relative hypotension due to volume loss, continue to hold metoprolol, Capoten and hydrochlorothiazide and resume when patient stable. 03/01 will give 500 mL of IV normal saline bolus. (6) GI bleed ICD Code: K92.2 - Gastrointestinal hemorrhage, unspecified Status: Acute Plan: Likely due to NSAIDs Patient with a history of ulcers related to aspirin Patient never had an endoscopy done per his own report Consult GI, continue Protonix drip and follow hemoglobin for transfusion needs (7) Metabolic acidosis ICD Code: E87.2 - Acidosis; N18.4 - Chronic kidney disease, stage 4 (severe) Status: Acute Plan: Secondary to acute kidney injury continue to replace hydration and to recover kidney Bicarbonate (8) Hyperkalemia ICD Code: E87.5 - Hyperkalemia; N18.4 - Chronic kidney disease, stage 4 (severe ) Status: Acute Plan: secondary to acute kidney injury, Status post insulin dextrose in the ER, potassium now within normal range. Assessment and Plan on PPI for GI prophylaxis. DVT prophylaxis: SCD's, chemoprophylaxis contraindicated given active GI bleed. Problem Qualifiers (1) HTN (hypertension): Qualified Codes: I10 - Essential (primary) hypertension (2) GI bleed: Qualified Codes: K92.2 - Gastrointestinal hemorrhage, unspecified Fred Ramirez MD Mar 01, 2017 15:33
--- NOTE | 2017-03-01 17:18 | PD.CONS ---
HPI History of Present Illness This is a 71 year old male with a history of bleeding ulcer, who came to the emergency room for severe generalized fatigue, nausea, decreased appetite, and black tarry stool. He reports a history of left knee pain related to arthritis and has been taking Advil 1 tab twice a day for the pain. On , he was having severe generalized weakness with associated dizziness. Around that same time, he started having nausea without vomiting and black tarry stool. He denies any heartburn or reflux and denies any abdominal pain. His significant other called 911 and they came and recommended him going to the emergency room, but he refused to go. He was going to have his bring him, but he was so weak, that he could not ambulate to the car and therefore they called [facility] back to transport him to the hospital. On admission (02/28), he was noted to have H/ H of 7.6/23.1. This then dropped to 6.7/20.2 a few hours later and he was transfused 2 units of PRBC. His H/H came up to 7.8/22.8, but then dropped to 6.1/18.0. An additional 2 units of PRBC have been ordered. The patient is not having any nausea or vomiting. The nurse reports that he is having black tarry stool. He is in Sinus Tach with a HR of 140's. B/P 106/65. He has a remote history of bleeding ulcer, but states this was years ago and has not had a recent EGD. (Devi Rolon) PFSH Past Medical History Chronic kidney disease Hypertension Arthritis PUD Past Surgical History Left knee replacements Tonsillectomy EGD (Devi Rolon) Coded Allergies: Fish Containing Products (Verified Allergy, Unknown, Skin Discoloration, 02/28/17) Red all over No Known Allergies (Verified Allergy, Unknown, 02/28/17) broccoli (Verified Allergy, Unknown, 02/28/17) Medications Allergies Coded Allergies Type Severity Reaction Last Updated Verified Fish Containing Products Allergy Unknown Skin Discoloration 02/28/17 Yes No Known Allergies Allergy Unknown 02/28/17 Yes broccoli Allergy Unknown 02/28/17 Yes Active Scripts Medications Dose Route/Sig Max Daily Dose Days Date Category Dose Instructions Ultram (Tramadol HCl) 50 Mg Tab 50 Mg PO Q6H PRN 3 03/29/15 Rx FOR PAIN Hctz (Hydrochlorothiazide) 25 Mg Tab 25 Mg PO DAILY 03/29/15 Reported Metoprolol Tartrate 50 mg (Metoprolol Tartrate) 50 Mg Tab 50 Mg PO BID 03/29/15 Reported Capoten (Captopril) 50 Mg Tab 50 Mg PO TID 02/20/09 Reported Advil 1 tab BID Family History Mother from [place] Father from complications after a fall Social History No tobacco, ETOH, illicit drug use. (Devi Rolon) Review of Systems Constitutional: COMPLAINS OF: Fatigue Cardiovascular: COMPLAINS OF: Palpitations, DENIES: Chest pain Gastrointestinal: COMPLAINS OF: Black stools, Diarrhea, Nausea, DENIES: Abdominal pain, Bloody stools, Constipation, Vomiting, Heartburn, Hematemesis Musculoskeletal: COMPLAINS OF: Joint pain Hematologic/lymphatic: COMPLAINS OF: Bruising Neurologic: DENIES: Headache Psychiatric: DENIES: Confusion (Devi Rolon) GI Exam Vitals I&O Vital Signs Date Time Temp Pulse Resp B/P (MAP) Pulse Ox O2 Delivery O2 Flow Rate FiO2 03/01/17 12:00 98.9 144 26 106/65 (79) 99 03/01/17 09:00 99 21 03/01/17 08:00 98.3 132 33 109/75 (86) 100 03/01/17 07:00 99 Room Air 21 03/01/17 04:00 99.3 129 23 108/69 (82) 100 03/01/17 00:15 99.4 130 22 105/69 100 03/01/17 00:00 99.4 130 22 105/69 (81) 100 02/28/17 23:15 100 21 02/28/17 23:15 99.4 131 21 93/58 100 02/28/17 20:00 97.9 154 21 130/85 (100) 100 02/28/17 19:00 100 Room Air 02/28/17 18:25 99.0 135 14 133/66 (88) 100 I/O 02/28/17 02/28/17 02/28/17 03/01/17 03/01/17 03/01/17 07:00 15:00 23:00 07:00 15:00 23:00 Intake Total 1035 ml 5320 ml 500 ml 631 ml Output Total 125 ml 1000 ml Balance 1035 ml 5195 ml -500 ml 631 ml Intake IV Total 1035 ml 4670 ml 100 ml 631 ml Packed Cells 400 ml 400 ml Blood Product IV Normal Saline Flush 250 ml Output Urine Total 125 ml 1000 ml # Bowel Movements 1 10 Imaging Last Impressions Abdomen/Pelvis CT 02/28/17 1239 Signed Impressions: Service Date/Time: Tuesday, February 28, 2017 15:14 - CONCLUSION: 1. Cholelithiasis with mild gallbladder distention but no pericholecystic fluid. 2. Diverticular disease throughout the colon without concomitant evidence of diverticulitis. 3. 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 Onesimo Oliveira MD Renal Ultrasound 02/28/17 0000 Signed Impressions: Service Date/Time: Tuesday, February 28, 2017 15:56 - CONCLUSION: 1. Normal ultrasound of the urinary system. There is no hydronephrosis. 2. Cholelithiasis. Roger Rosas MD Laboratory Test 02/28/17 20:10 03/01/17 04:39 03/01/17 14:20 Hemoglobin 7.2 GM/DL 7.8 GM/DL 6.1 GM/DL Hematocrit 21.9 % 22.8 % 18.0 % White Blood Count 15.7 TH/MM3 Red Blood Count 2.21 MIL/MM3 Mean Corpuscular Volume 102.9 FL Mean Corpuscular Hemoglobin 35.4 PG Mean Corpuscular Hemoglobin Concent 34.3 % Red Cell Distribution Width 23.1 % Platelet Count 147 TH/MM3 Mean Platelet Volume 9.9 FL Neutrophils (%) (Auto) 85.3 % Lymphocytes (%) (Auto) 9.3 % Monocytes (%) (Auto) 5.1 % Eosinophils (%) (Auto) 0.0 % Basophils (%) (Auto) 0.3 % Neutrophils # (Auto) 13.3 TH/MM3 Lymphocytes # (Auto) 1.5 TH/MM3 Monocytes # (Auto) 0.8 TH/MM3 Eosinophils # (Auto) 0.0 TH/MM3 Basophils # (Auto) 0.1 TH/MM3 CBC Comment DIFF FINAL Differential Comment Blood Urea Nitrogen 79 MG/DL Creatinine 1.99 MG/DL Random Glucose 106 MG/DL Calcium Level 7.6 MG/DL Sodium Level 151 MEQ/L Potassium Level 4.6 MEQ/L Chloride Level 123 MEQ/L Carbon Dioxide Level 16.5 MEQ/L Anion Gap 12 MEQ/L Estimat Glomerular Filtration Rate 33 ML/MIN Date/Time Source Procedure Growth Status 02/28/17 15:05 Blood Peripheral Aerobic Blood Culture - Preliminary NO GROWTH IN 1 DAY Resulted 02/28/17 15:05 Blood Peripheral Anaerobic Blood Culture - Preliminary NO GROWTH IN 1 DAY Resulted 02/28/17 13:30 Urine Clean Catch Urine Culture - Preliminary Gram Negative [place] Resulted Physical Examination HEENT: Normocephalic; atraumatic; no jaundice. CHEST: CTA CARDIAC: ST 140's, 106/65 ABDOMEN: Soft, nondistended, nontender; no hepatosplenomegaly; bowel sounds are present in all four quadrants. EXTREMITIES: No clubbing, cyanosis, or edema. SKIN: Generalized pallor MET[employer] PR[employer]IVE COATING: Lethargic. (Devi Rolon) Assessment and Plan Plan ASSESSMENT: - Upper GIB. Remote hx of bleeding ulcer. Pt has been taking Advil for knee pain (1 tab BID). Started having severe fatigue and lightheadedness with nausea and black tarry stools on . On admission (02/28), he was noted to have H/H of 7.6/23.1---> 6.7/20.2 a few hours later, s/p 2 units of PRBC. His H/H came up to 7.8/22.8, but then dropped to 6.1/18.0. An additional 2 units of PRBC have been ordered. Nurse reports black tarry stool today. Tachycardic with HR in 140's, B/P 106/65. Protonix Gtt. - Severe anemia, acute blood loss. S/P 2 units, getting additional 2 today for HH of 6.1/18.0, pt is tachycardic. - Acute on chronic kidney disease. Creat 1.99. IVF. - HTN, now borderline hypotensive PLAN: - Plan for egd - Obtain consents - NPO - Protonix Gtt - Monitor HH q6h - Transfuse as needed - Supportive care - Further recommendations to follow based on results of above - Pt seen and examined by Dr. Queen and myself and this note is written on his behalf (Devi Rolon) Physician Comments Seen and examined, plan as above. Will follow up with you Thank you for the consult. (Therese Queen MD) Devi Rolon Mar 01, 2017 17:18 Therese Queen MD Mar 01, 2017 18:21
[2017-03-01] MEDS: CALCIUM CHLORIDE INJ 2 GM in SODIUM CHLORIDE 0.9% INJ 100 ML IV ONE ×2 (17:45→23:22)
--- NOTE | 2017-03-01 19:57 | PD.PROCEDR ---
GI Procedure PROCEDURE PERFORMED upper endoscopy with bleeding control by injection of Epi and ablation with heat , Bx INDICATION FOR PROCEDURE I was called because the patient is tachycardic and blood heme was checked hemoglobin was still low consistent with active bleeding PROCEDURE: The procedure, risks and benefits were discussed with Mr. Zepeda and informed consent was obtained. Anesthesia sedated him with Diprivan. He was placed in the left lateral decubitus position. EGD: The Pentax videoscope was introduced through the oropharynx and advanced to the second portion of the duodenum under direct visualization. Retroflexion was performed in the stomach, there was significant blood in the stomach and in the duodenum after cleaning the blood carefully in the stomach and the duodenum there was a large ulcer in the duodenum actively bleeding with large amount this was injected with 12 cc of epinephrine then ablated with heat multiple application with complete control of the bleeding site looked good without any active bleeding, biopsy was done from antrum from the gastric ulcer. FINDINGS: Gastric ulcer no active bleeding biopsy from the antrum Large duodenal ulcers one was actively bleeding this was treated with ablation by heat and injection with epinephrine with complete control of the bleeding ESTIMATED BLOOD LOSS: 15-20 cc SPECIMENS REMOVED: Antrum COMPLICATIONS: None IMPRESSION: Gastric ulcers nonbleeding Multiple large duodenal ulcers with active bleeding treated as above with ablation and injection PLAN: Keep patient intubated Keep nothing by mouth Continue PPI Will give patient 2 units of packed RBC and 1 unit of FFP's Monitor H&H Tomasz Thornton MD Mar 01, 2017 19:57
[2017-03-01] MEDS ORDERED: PROPOFOL 500 MG/50 ML INJ 50 ML ONE (20:21)
[2017-03-01] MEDS ORDERED: PROPOFOL 1000 MG/100 ML INJ 100 ML IV PRN (21:00)
[2017-03-01] MEDS ORDERED: DILTIAZEM HCL 25 MG/5 ML VIAL IV ONE (21:30)
[2017-03-01] MEDS: PROPOFOL 1000 MG/100 ML INJ 100 ML IV PRN (21:30)
[2017-03-01 21:47] LABS: BLOOD GAS BASE EXCESS -10.5 mmol/L (-2-2); BLOOD GAS CARBOXYHEMOGLOBIN 1.4 % (0-4); BLOOD GAS HCO3 14 mmol/L (22-26); BLOOD GAS METHEMOGLOBIN 1.1 % (0-2); BLOOD GAS O2 HGB SATURATION 95 % (90-100); BLOOD GAS OXYGEN CONTENT 14.6 Vol % (12.0-20.0); BLOOD GAS PCO2 23 mmHg (38-42); BLOOD GAS PO2 94 mmHg (61-120); BLOOD GAS TOTAL HGB 10.8 G/DL (12.0-16.0); CRITICAL VALUE YES; DRAW SITE LT FEMORAL; FIO2 40 %; NUMBER OF ARTERIAL PUNCTURES 1; OXYGEN DEVICE VENTILATOR; STAT NO; TEMP CORR TO 98.6; VENT SETTINGS 10/450/IT0.9/6PEEP
--- NOTE | 2017-03-01 21:59 | PD.CONS ---
[facility] Service Critical Care Medicine Consult Requested By Primary Care Physician Luiza Khan MD History of Present Illness History of Present Illness 71-year-old male who presented with 2 days of nausea vomiting. He had been taking Advil for a few days for knee pain. He has a history of bleeding peptic ulcers previously and a prior history of alcohol abuse however has been sober since 2008. Patient was also tachycardic since arrival with heart rate 130s to 150s sinus tachycardia. Patient was hyperkalemic on arrival. His hemoglobin dropped and he was transfused 2 units PRBCs and subsequently was evaluated by GI and underwent EGD which revealed multiple bleeding gastric ulcers which were cauterized. Patient was left intubated and transferred back to [facility]. Dr. Kebede from anesthesia contacted me regarding leaving him intubated overnight in view of concern for rebleeding and significant tachycardia. When I evaluated the patient in the ICU he was sedated with propofol, orally intubated on mechanical ventilation. He was getting his third unit of PRBCs with orders for 2 more units to be transfused. His heart rate was in the 150s. He was given Cardizem 20 mg IV with which his ventricular rate came down to 120s and he was noted to be in sinus tachycardia as evidenced by presence of P waves on EKG. Jimenez catheter was placed for accurate intake output. Critical care consult was requested by [facility] for respiratory failure requiring mechanical ventilation. History was obtained by reviewing records and discussion with Dr. Kebede and ICU nursing staff. ROS - General unable to be obtained as patient is sedated, orally intubated on mechanical ventilation. PFSH Past Family Social History Past Medical History Chronic kidney disease Hypertension Arthritis Past Surgical History Left knee replacements Tonsillectomy Reported Medications Reviewed in the EMR, patient also admits to taking NSAIDs twice a day for 2 weeks due to joint pain Allergies: Coded Allergies: No Known Allergies (Verified Allergy, Unknown, 02/28/17) Active Ordered Medications Reviewed in the EMR Family History patient does not recall Social History Lives with his significant other no current tobacco or alcohol dependency although he has been sober since 2008 Physical Exam Vital Signs Vital Signs Date Time Temp Pulse Resp B/P (MAP) Pulse Ox O2 Delivery O2 Flow Rate FiO2 03/01/17 21:08 98.0 154 21 147/ 98 03/01/17 18:05 98.4 141 19 105/66 100 03/01/17 17:50 98.2 141 22 108/65 100 03/01/17 16:15 98.6 145 16 100/60 100 03/01/17 16:00 99.2 150 23 100/55 100 03/01/17 16:00 98.4 154 24 101/61 (74) 100 03/01/17 12:00 98.9 144 26 106/65 (79) 99 03/01/17 09:00 99 21 03/01/17 08:00 98.3 132 33 109/75 (86) 100 03/01/17 07:00 99 Room Air 21 03/01/17 04:00 99.3 129 23 108/69 (82) 100 03/01/17 00:15 99.4 130 22 105/69 100 03/01/17 00:00 99.4 130 22 105/69 (81) 100 02/28/17 23:15 100 21 02/28/17 23:15 99.4 131 21 93/58 100 Physical Exam HEENT/ Neuro: Sedated, orally intubated, Pallor present, no icterus, tongue/ mucosa moist Neck: No JVD Chest/Pulm: on mech vent, good air entry bilaterally, no wheezing or crackles CVS: S1-S2 regular, no murmur GI/abdomen: soft, nontender, bowel sounds sluggish Extremities: warm bilaterally, no edema Laboratory Laboratory Tests Test 03/01/17 04:39 03/01/17 14:20 White Blood Count 15.7 Red Blood Count 2.21 Hemoglobin 7.8 6.1 Hematocrit 22.8 18.0 Mean Corpuscular Volume 102.9 Mean Corpuscular Hemoglobin 35.4 Mean Corpuscular Hemoglobin Concent 34.3 Red Cell Distribution Width 23.1 Platelet Count 147 Mean Platelet Volume 9.9 Neutrophils (%) (Auto) 85.3 Lymphocytes (%) (Auto) 9.3 Monocytes (%) (Auto) 5.1 Eosinophils (%) (Auto) 0.0 Basophils (%) (Auto) 0.3 Neutrophils # (Auto) 13.3 Lymphocytes # (Auto) 1.5 Monocytes # (Auto) 0.8 Eosinophils # (Auto) 0.0 Basophils # (Auto) 0.1 CBC Comment DIFF FINAL Differential Comment Blood Urea Nitrogen 79 Creatinine 1.99 Random Glucose 106 Calcium Level 7.6 Sodium Level 151 Potassium Level 4.6 Chloride Level 123 Carbon Dioxide Level 16.5 Anion Gap 12 Estimat Glomerular Filtration Rate 33 Date/Time Source Procedure Growth Status 02/28/17 15:05 Blood Peripheral Aerobic Blood Culture - Preliminary NO GROWTH IN 1 DAY Resulted 02/28/17 15:05 Blood Peripheral Anaerobic Blood Culture - Preliminary NO GROWTH IN 1 DAY Resulted 02/28/17 13:30 Urine Clean Catch Urine Culture - Preliminary Gram Negative Chito Resulted Result Diagram: 03/01/17 1420 03/01/17 0439 Imaging CXR portable which was personally reviewed: ET tube above glenis, lung berry with no obvious infiltrates. Last Impressions Abdomen/Pelvis CT 02/28/17 1239 Signed Impressions: Service Date/Time: Tuesday, February 28, 2017 15:14 - CONCLUSION: 1. Cholelithiasis with mild gallbladder distention but no pericholecystic fluid. 2. Diverticular disease throughout the colon without concomitant evidence of diverticulitis. 3. 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 Onesimo Oliveira MD Renal Ultrasound 02/28/17 0000 Signed Impressions: Service Date/Time: Tuesday, February 28, 2017 15:56 - CONCLUSION: 1. Normal ultrasound of the urinary system. There is no hydronephrosis. 2. Cholelithiasis. Roger Rosas MD Assessment and Plan Assessment and Plan Upper GI bleed Gastric ulcers Sinus tachycardia Respiratory failure on mechanical ventilation Hyperchloremic non-anion gap metabolic acidosis Arthritis CKD Plan: Neuro: Sedation with propofol, daily sedation vacation. Neurochecks. Cardiovascular: IV hydration, watch for hypotension. Appears to be in sinus tachycardia. Check TSH to evaluate for hyperthyroidism. Is on beta mandy at home. We will initiate Lopressor 2.5 mg IV every 6 hourly. Pulmonary: Continue mechanical ventilation, vent bundle. Bronchodilators as needed. C Pap trials daily starting tomorrow to decide extubation. GI/liver: Nothing by mouth for now. GI following. Status post EGD which revealed bleeding gastric ulcers status post cauterization. Continue Protonix drip Renal/: IV hydration, strict intake output, monitor and replete electrolytes, follow BUN/creatinine. Jimenez catheterization for accurate intake output. Repeat UA and urine culture. Continue bicarbonate drip ID: Continue Zosyn for empiric antibiotic coverage for gram-negative UTI. Follow-up cultures. Endocrine: Check TSH to evaluate for hyperthyroidism due to tachycardia with heart rate 150s. SSI for glycemic control if needed Heme: Follow CBC Prophylaxis: SCDs. No heparin or Lovenox in view of GI bleed. Protonix gtt. Condition critical. Time spent on critical care excluding procedures 50 minutes Jean Ballard MD Mar 01, 2017 21:59
[2017-03-01] MEDS: METOPROLOL TARTRATE 5 MG/5 ML VIAL IV PUSH SCH (22:04)
--- NOTE | 2017-03-01 22:11 | RADRPT ---
EXAM DATE/TIME: 03/01/2017 21:42 [place] COMPARISON: CT ABDOMEN & PELVIS W/O CONTRAST, February 28, 2017, 15:14. INDICATIONS : Post intubation. MEDICAL HISTORY : Cardiovascular disease. Hypertension. SURGICAL HISTORY : None. ENCOUNTER: Subsequent ACUITY: 2 days PAIN SCORE: 0/10 LOCATION: Bilateral chest FINDINGS: Portable AP view of the chest demonstrates a normal-sized cardiac silhouette. Endotracheal tube is pr esent with distal tip at the aortic knob level measuring approximately 5.7 cm from the glenis. Lungs are underinflated with atelectasis at the bases. No effusion or pneumothorax is appreciated. The bone s and soft tissues demonstrate no acute finding. CONCLUSION: Endotracheal tube in appropriate position with tip measuring 5.7 cm from the glenis. Roger Rosas MD on March 01, 2017 at 22:08 Board Certified Radiologist. This report was verified electronically.
[2017-03-01 22:39] LABS: BACTERIA, URINE MANY /hpf; BLOOD, URINE LARGE (NEG); COMMENT (UR) CATH-CULTURE IND; CULTURE IF INDICATED CATH CULTURE IND; GLUCOSE,URINE NEG (NEG); KETONE, URINE NEG (NEG); NITRITE,URINE NEG (NEG); URINE COLOR RED (YELLW/STRAW)
[2017-03-02] VITALS (16 sets, daily range): BP systolic 94–121; BP diastolic 56–85; PULSE 69–105; RESP 12–20; TEMP 98–99; O2SAT 97–100
[2017-03-02 00:19] LABS: AUTOMATED NEUTROPHIL # 24.3 TH/MM3 (1.8-7.7); BASOPHIL % 0.1 % (0.0-2.0); HEMATOCRIT 41.1 % (39.0-51.0); LYMPH % 4.5 % (9.0-44.0); LYMPHOCYTE # 1.2 TH/MM3 (1.0-4.8); MEAN CELL VOLUME 91.3 FL (80.0-100.0); MEAN CORPUSCULAR HGB CONC 32.8 % (32.0-36.0); MONO % 7.4 % (0.0-8.0); PLATELET COUNT 137 TH/MM3 (150-450); RED CELL DISTRIBUTION WIDTH 18.4 % (11.6-17.2); WHITE BLOOD COUNT 27.6 TH/MM3 (4.0-11.0)
[2017-03-02 00:22] LABS: HEMO FLAGS AUTO DIFF
[2017-03-02 00:42] LABS: CREATINE KINASE 231 U/L (39-308)
[2017-03-02] MEDS: PANTOPRAZOLE INJ 80 MG in SODIUM CHLORIDE 0.9% INJ 100 ML IV SCH ×2 (01:07→14:15)
[2017-03-02 01:09] LABS: CKMB 22.9 NG/ML (0.5-3.6)
[2017-03-02 01:21] LABS: SCAN/DIFF AUTO DIFF CONFIRMED
[2017-03-02] MEDS: PIPERACIL-TAZO 2.25 GM PREMIX 50 ML IV SCH ×2 (01:32→08:53)
[2017-03-02] MEDS: PROPOFOL 1000 MG/100 ML INJ 100 ML IV PRN ×3 (02:22→21:05)
[2017-03-02] MEDS: METOPROLOL TARTRATE 5 MG/5 ML VIAL IV PUSH SCH ×5 (04:38→22:03)
[2017-03-02 05:23] LABS: AUTOMATED NEUTROPHIL # 17.7 TH/MM3 (1.8-7.7); BASOPHIL % 0.2 % (0.0-2.0); EOSINOPHIL % 0.2 % (0.0-4.0); HEMATOCRIT 37.3 % (39.0-51.0); LYMPH % 7.1 % (9.0-44.0); LYMPHOCYTE # 1.5 TH/MM3 (1.0-4.8); MEAN CELL VOLUME 88.1 FL (80.0-100.0); MEAN CORPUSCULAR HEMOGLOBIN 31.1 PG (27.0-34.0); MEAN CORPUSCULAR HGB CONC 35.3 % (32.0-36.0); MONO % 7.5 % (0.0-8.0); PLATELET COUNT 92 TH/MM3 (150-450); RED BLOOD COUNT 4.23 MIL/MM3 (4.50-5.90); RED CELL DISTRIBUTION WIDTH 17.5 % (11.6-17.2); WHITE BLOOD COUNT 20.8 TH/MM3 (4.0-11.0)
[2017-03-02 05:39] LABS: BICARBONATE 13.8 MEQ/L (21.0-32.0); CALCIUM-PROTEIN CORRECTED 8.7 MG/DL (8.5-10.1); MAGNESIUM 1.1 MG/DL (1.5-2.5); POTASSIUM 3.4 MEQ/L (3.5-5.1)
[2017-03-02 05:53] LABS: HEMO FLAGS AUTO DIFF
[2017-03-02 07:55] LABS: BANDS 4 % (0-6); BLASTS 1 % (0-0); CORRECTED NUCLEATED RBC 2 /100 WBC (0-0); METAMYELOCYTES 2 % (0-1); NEUTROPHIL # MANUAL DIFF 17.3 TH/MM3 (1.8-7.7); OVALOCYTES 2+ (NORMAL); POLYS (SEG NEUTROPHILS) 77 % (16-70); WBC DIFF SAMPLE 100
[2017-03-02 07:56] LABS: PLATELET ESTIMATE SMEAR LOW (NORMAL); PLATELET MORPHOLOGY NORMAL (NORMAL)
[2017-03-02 07:57] LABS: BURR CELLS 1+ (NORMAL); SCAN/DIFF FINAL DIFF MANUAL
[2017-03-02] MEDS ORDERED: EPINEPHrine HCL (1:10,000) 1 MG/10 ML SYRINGE OTHER ONE (08:13)
--- NOTE | 2017-03-02 08:29 | MB ---
cc: MADISON WATERS MD DATE OF CONSULTATION: 03/02/2017 DATE OF : 1945 REASON FOR CONSULTATION Elevated cardiac enzymes. HISTORY OF PRESENT ILLNESS Mr. Zepeda is a 71-year-old man you has prior history of alcohol abuse. He presented with nausea and vomiting. He was found to have bleeding peptic ulcers and has received multiple transfusions this visit. He was scoped by GI and found to have multiple bleeding gastric ulcers that were cauterized. Cardiology was consulted for evaluation of his elevated troponin. The patient after his GI procedure was quite tachycardic with heart rate into the 150s. He remains intubated at this time and thus is unable to give any history. PAST MEDICAL HISTORY Per the record includes: 1. Chronic kidney disease. 2. Hypertension. 3. Arthritis. PAST SURGICAL HISTORY 1. Left knee replacement. 2. Tonsillectomy. ALLERGIES No known drug allergies. MEDICATIONS Current medications: Per the record. SOCIAL HISTORY Positive for former alcohol dependency, though he has reportedly been sober since 2008. FAMILY HISTORY Unable to obtain. REVIEW OF SYSTEMS Unable to obtain. PHYSICAL EXAMINATION VITAL SIGNS: 98.4, 103, 16, 118/72. GENERAL: In general he is a well-appearing man who is in no apparent distress on the ventilator. He is arousable. NECK: Free from JVD. LUNGS: Clear to auscultation. CARDIOVASCULAR: Normal S1 and S2, mildly tachycardic. ABDOMEN: Soft. EXTREMITIES: Free from edema. LABORATORY Lab values are significant for: White count 7.9, hemoglobin 12. Creatinine 1.99. AST 52, ALT 36. LDL is 47. Vitamin-B12 greater than 2000. Folate greater than 20. Total CK 231, CK-MB 23. Troponin 5.7. EKG EKG from 02/28/2017 does show probable sinus tachycardia and possible anteroseptal infarct age indeterminate. IMPRESSIONS/RECOMMENDATIONS 1. Elevated troponin: The patient clearly has had a non-ST elevation WA. It appears most likely to be a secondary WA related to tachycardia, GI bleed with a hemoglobin as low as 6.1, and renal insufficiency with a creatinine of 2.5 on 02/28/2017. The patient is currently a poor/not revascularization candidate secondary to these co-morbid conditions. Thus at this time I would continue medical management. Aspirin and Plavix are felt relatively contraindicated given his GI bleed and multiple transfusions, particularly as this seems to be a demand-mediated situation. I would consider stress testing prior to discharge if he is stable, though we may elect to do this as an outpatient pending the patient's preference once he has recovered. 2. GI bleed: As above. The patient is status post GI bleed, multiple transfusions and cautery of a gastric ulcer. 3. Renal insufficiency: This is being managed by the primary team and is slowly improving. 4. Respiratory failure: The patient remains sedated and intubated per critical care medicine. Murray Mishra/RUDI /8:04 AM /8:16 AM
--- NOTE | 2017-03-02 09:32 | HHI.CCPN ---
Subjective Remarks/Hospital Course 71-year-old male who presented with 2 days of nausea vomiting. He had been taking Advil for a few days for knee pain. He has a history of bleeding peptic ulcers previously and a prior history of alcohol abuse however has been sober since 2008. Patient was also tachycardic since arrival with heart rate 130s to 150s sinus tachycardia. Patient was hyperkalemic on arrival. His hemoglobin dropped and he was transfused 2 units PRBCs and subsequently was evaluated by GI and underwent EGD which revealed multiple bleeding gastric ulcers which were cauterized. Patient was left intubated and transferred back to [facility]. Dr. Kebede from anesthesia contacted me regarding leaving him intubated overnight in view of concern for rebleeding and significant tachycardia. When I evaluated the patient in the ICU he was sedated with propofol, orally intubated on mechanical ventilation. He was getting his third unit of PRBCs with orders for 2 more units to be transfused. His heart rate was in the 150s. He was given Cardizem 20 mg IV with which his ventricular rate came down to 120s and he was noted to be in sinus tachycardia as evidenced by presence of P waves on EKG. Jimenez catheter was placed for accurate intake output. Critical care consult was requested by [facility] for respiratory failure requiring mechanical ventilation. History was obtained by reviewing records and discussion with Dr. Kebede and ICU nursing staff. 03/02: Pulse rate decreasing after multiple transfusions of RBCs and FFP. CRISTOBAL persists but resolving. Enzyme spill from demand ischemia but underlying CAD is likely. Gas exchange acceptable. Patient has a painful left knee operated [place] [address] Kartik Wiggins, for which he consumes NSAIDs. Objective Vital Signs Date Time Temp Pulse Resp B/P (MAP) Pulse Ox O2 Delivery O2 Flow Rate FiO2 03/02/17 07:00 100 Mechanical Ventilator 40 03/02/17 04:00 99.0 101 16 109/75 (86) Intake and Output 03/02/17 03/02/17 03/03/17 08:00 16:00 00:00 Intake Total 1083 ml Output Total 800 ml Balance 283 ml Result Diagram: 03/02/17 0415 03/02/17 0415 Other Results Laboratory Tests Test 03/01/17 21:35 Blood Gas Puncture Site LT FEMORAL Blood Gas Patient Temperature 98.6 Blood Gas HCO3 14 mmol/L (22-26) Blood Gas Base Excess -10.5 mmol/L (-2-2) Blood Gas Oxygen Saturation 95 % (90-100) Arterial Blood pH 7.39 (7.380-7.420) Arterial Blood Partial Pressure CO2 23 mmHg (38-42) Arterial Blood Partial Pressure O2 94 mmHg (61-120) Arterial Blood Oxygen Content 14.6 Vol % (12.0-20.0) Arterial Blood Carboxyhemoglobin 1.4 % (0-4) Arterial Blood Methemoglobin 1.1 % (0-2) Blood Gas Hemoglobin 10.8 G/DL (12.0-16.0) Oxygen Delivery Device VENTILATOR Blood Gas Ventilator Setting 10/450/IT0.9/6PEEP Blood Gas Inspired Oxygen 40 % Imaging CXR portable which was personally reviewed: ET tube above glenis, lung berry with no obvious infiltrates. Last Impressions Abdomen/Pelvis CT 02/28/17 1239 Signed Impressions: Service Date/Time: Tuesday, February 28, 2017 15:14 - CONCLUSION: 1. Cholelithiasis with mild gallbladder distention but no pericholecystic fluid. 2. Diverticular disease throughout the colon without concomitant evidence of diverticulitis. 3. 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 Onesimo Oliveira MD Renal Ultrasound 02/28/17 0000 Signed Impressions: Service Date/Time: Tuesday, February 28, 2017 15:56 - CONCLUSION: 1. Normal ultrasound of the urinary system. There is no hydronephrosis. 2. Cholelithiasis. Roger Rosas MD Objective Remarks HEENT/ Neuro: Sedated, orally intubated,no icterus, tongue/ mucosa moist Neck: Orally intubated. No JVD Chest/Pulm: On mech vent, good air entry bilaterally, no wheezing or crackles CVS: S1-S2 regular, no murmur or rub. No JVD. GI/abdomen: soft, nontender, bowel sounds present, no guarding. Extremities: warm bilaterally, no edema, well perfused. Neuro: Moves 4 limbs. KAVITA. A/P Assessment and Plan Assessment: Upper GI bleed, duodenal, active Gastric ulcers Sinus tachycardia, NSTEMI Respiratory failure on mechanical ventilation Hyperchloremic non-anion gap metabolic acidosis Arthritis CKD Plan: Neuro: Sedation with propofol, daily sedation vacation. Neurochecks. Cardiovascular: IV hydration, watch for hypotension. Appears to be in sinus tachycardia. Continue beta mandy. We will initiate Lopressor 5 mg IV every 6 hourly. Pulmonary: Continue mechanical ventilation, vent bundle. Bronchodilators as needed. C Pap trials daily. GI/liver: Nothing by mouth for now. GI following. Status post EGD which revealed bleeding duodenal ulcers status post cauterization. Continue Protonix drip Renal/: IV hydration, strict intake output, monitor and replete electrolytes, follow BUN/creatinine. Jimenez catheterization for accurate intake output. Repeat UA and urine culture. ID: Continue Zosyn for empiric antibiotic coverage for gram-negative UTI. Follow-up cultures. Endocrine: Check TSH to evaluate for hyperthyroidism due to tachycardia with heart rate 150s. SSI for glycemic control if needed Heme: Follow CBC Prophylaxis: SCDs. No heparin or Lovenox in view of GI bleed. Protonix gtt. Overall impression: Patient critically ill after massive UGI hemorrhage and hypovolemic shock with cardiac enzyme spill and metabolic acidosis. Will restart beta mandy, follow Trop, confirm if colonoscopy still necessary, watch for new bleeding. Critical care 44 mins Sukhjinder Kimble MD Mar 02, 2017 09:32
[2017-03-02] MEDS: cefTRIAXone INJ 1,000 MG in SODIUM CHLORIDE 0.9% INJ 100 ML IV SCH (10:14)
[2017-03-02] MEDS: MAGNESIUM SULFATE 1 GM PREMIX 100 ML IV SCH ×2 (10:14→12:24)
[2017-03-02 11:25] LABS: HEMATOCRIT 35.3 % (39.0-51.0); REVIEW FLAG FINAL
[2017-03-02] MEDS: HYDROmorphone HCL PF 1 MG/ML VIAL IV PUSH PRN (12:23)
[2017-03-02 14:40] LABS: BICARBONATE 17.7 MEQ/L (21.0-32.0); POTASSIUM 3.6 MEQ/L (3.5-5.1)
[2017-03-02] MEDS ORDERED: LACTATED RINGER'S 1000 ML INJ 1,000 ML IV ONE (17:00)
--- NOTE | 2017-03-02 18:13 | HHI.NPPN ---
Subjective History of Present Illness 71 Year old with ARF/CKD GI bleed Additional Remarks post EGD Review of Systems General Constitutional: Fatigue Objective Data Data 03/02/17 03/03/17 19:00 07:00 Intake Total 96 ml Balance 96 ml IV Total 96 ml Vital Signs Date Time Temp Pulse Resp B/P (MAP) Pulse Ox O2 Delivery O2 Flow Rate FiO2 03/02/17 16:08 100 40 03/02/17 16:00 40 03/02/17 16:00 98.3 69 12 96/58 (71) 100 03/02/17 12:30 40 03/02/17 12:00 40 03/02/17 12:00 98.0 98 18 113/74 (87) 100 03/02/17 11:35 100 40 03/02/17 09:38 97 40 03/02/17 09:37 40 03/02/17 09:37 40 03/02/17 09:33 100 40 03/02/17 09:00 40 03/02/17 08:00 40 03/02/17 08:00 98.4 93 16 110/71 (84) 100 03/02/17 07:00 100 Mechanical Ventilator 40 03/02/17 04:12 100 40 03/02/17 04:00 40 03/02/17 04:00 99.0 101 16 109/75 (86) 100 03/02/17 01:25 100 40 03/02/17 00:40 98.4 103 16 118/72 100 03/02/17 00:01 98.2 104 20 121/85 03/02/17 00:00 98.7 105 18 113/78 (90) 100 03/02/17 00:00 40 03/01/17 23:04 98.3 101 22 103/74 100 03/01/17 22:43 100 40 03/01/17 22:33 98.1 102 18 101/71 100 03/01/17 22:01 98.0 130 25 114/77 100 03/01/17 21:46 98.0 135 24 122/85 94 03/01/17 21:45 97 40 03/01/17 21:08 98.0 154 21 147/ 98 03/01/17 21:08 100 40 03/01/17 20:15 Mechanical Ventilator 40 03/01/17 20:15 40 03/01/17 20:15 98.0 156 10 111/69 (83) 100 -: 03/02/17 1045 03/02/17 1045 Microbiology 03/01/17 Urine Culture - Preliminary, Resulted No growth. Physical Exam General Appearance: Well Developed, Well Nourished Neck Neck Exam: Neck Supple Pulmonary Resp Exam: Clear Bilaterally, Breath Sounds Equal Cardiology CV Exam: Regular, Normal Sinus Rhythm Gastrointestinal/Abdomen GI Exam: Soft, Non-Tender, Bowel Sounds Present Extremeties Extremities Exam: No Edema Assessment/Plan Problem List: (1) CRISTOBAL (acute kidney injury) ICD Codes: N17.9 - Acute kidney failure, unspecified Plan: His creatinine has been fluctuating it was high in March at 2.36 Patient has CKD which is improving showing a combination of acute renal failure due to GI bleed Gastric and Duodenal ulcer Intubated Cr 1.9 Metabolic acidosis due to volume loss hyperchloremic on NaHCO3 150 CC/HR (2) Anemia due to GI blood loss 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
[2017-03-02] MEDS: CHLORHEXIDINE 0.12% (ORAL KIT) 15 ML CUP MT SCH (20:00)
[2017-03-02] MEDS: SODIUM CHLORIDE 0.9% FLUSH 10 ML FLUSH IV FLUSH SCH ×2 (21:00→22:04)
[2017-03-02 21:49] LABS: HEMATOCRIT 33.3 % (39.0-51.0)
[2017-03-02 21:50] LABS: REVIEW FLAG FINAL
[2017-03-02] MEDS: SODIUM BICARBONATE 8.4% INJ 100 MEQ in DEXTROSE 5% IN WATE 1000ML INJ 1,000 ML IV SCH ×2 (22:03)
--- NOTE | 2017-03-02 23:46 | HHI.GIFU ---
Subjective Remarks Intubated and sedated Objective Vitals I&O Vital Signs Date Time Temp Pulse Resp B/P (MAP) Pulse Ox O2 Delivery O2 Flow Rate FiO2 03/02/17 20:15 100 40 03/02/17 20:15 100 Ventilator 40 03/02/17 16:08 100 40 03/02/17 16:00 40 03/02/17 16:00 98.3 69 12 96/58 (71) 100 03/02/17 12:30 40 03/02/17 12:00 40 03/02/17 12:00 98.0 98 18 113/74 (87) 100 03/02/17 11:35 100 40 03/02/17 09:38 97 40 03/02/17 09:37 40 03/02/17 09:37 40 03/02/17 09:33 100 40 03/02/17 09:00 40 03/02/17 08:00 40 03/02/17 08:00 98.4 93 16 110/71 (84) 100 03/02/17 07:00 100 Mechanical Ventilator 40 03/02/17 04:12 100 40 03/02/17 04:00 40 03/02/17 04:00 99.0 101 16 109/75 (86) 100 03/02/17 01:25 100 40 03/02/17 00:40 98.4 103 16 118/72 100 03/02/17 00:01 98.2 104 20 121/85 03/02/17 00:00 98.7 105 18 113/78 (90) 100 03/02/17 00:00 40 I/O 03/02/17 03/02/17 03/02/17 03/03/17 03/03/17 03/03/17 07:00 15:00 23:00 07:00 15:00 23:00 Intake Total 1597 ml 96 ml 2238 ml Output Total 800 ml 800 ml Balance 797 ml 96 ml 1438 ml IV Total 698 ml 96 ml 2238 ml Packed Cells 400 ml FFP 199 ml Blood Product IV Normal Saline Flush 300 ml Output Urine Total 800 ml 800 ml # Bowel Movements 1 1 Laboratory Laboratory Tests Test 03/02/17 00:07 03/02/17 04:15 03/02/17 05:05 03/02/17 10:45 White Blood Count 27.6 20.8 Red Blood Count 4.50 4.23 Hemoglobin 13.5 13.2 12.3 Hematocrit 41.1 37.3 35.3 Mean Corpuscular Volume 91.3 88.1 Mean Corpuscular Hemoglobin 30.0 31.1 Mean Corpuscular Hemoglobin Concent 32.8 35.3 Red Cell Distribution Width 18.4 17.5 Platelet Count 137 92 Mean Platelet Volume 9.5 10.4 Neutrophils (%) (Auto) 88.0 85.0 Lymphocytes (%) (Auto) 4.5 7.1 Monocytes (%) (Auto) 7.4 7.5 Eosinophils (%) (Auto) 0.0 0.2 Basophils (%) (Auto) 0.1 0.2 Neutrophils # (Auto) 24.3 17.7 Lymphocytes # (Auto) 1.2 1.5 Monocytes # (Auto) 2.0 1.6 Eosinophils # (Auto) 0.0 0.0 Basophils # (Auto) 0.0 0.0 CBC Comment AUTO DIFF AUTO DIFF Differential Comment AUTO DIFF CONFIRMED FINAL DIFF MANUAL Total Creatine Kinase 231 Creatine Kinase MB 22.9 Troponin I 5.73 5.97 5.72 Thyroid Stimulating Hormone 3rd Gen 0.968 Differential Total Cells Counted 100 Neutrophils % (Manual) 77 Band Neutrophils % 4 Lymphocytes % 9 Monocytes % 7 Neutrophils # (Manual) 17.3 Metamyelocytes 2 Nucleated Red Blood Cells 2 Atypical Lymphocytes Blastocytes 1 Platelet Estimate LOW Platelet Morphology Comment NORMAL Ovalocytes 2+ Grey Cells 1+ Blood Urea Nitrogen 56 60 Creatinine 1.55 1.93 Random Glucose 98 112 Total Protein 4.1 Albumin 2.0 Calcium Level 7.0 8.3 Phosphorus Level 2.6 Magnesium Level 1.1 Alkaline Phosphatase 57 Aspartate Amino Transf (AST/SGOT) 73 Alanine Aminotransferase (ALT/SGPT) 39 Total Bilirubin 1.0 Sodium Level 151 148 Potassium Level 3.4 3.6 Chloride Level 123 120 Carbon Dioxide Level 13.8 17.7 Anion Gap 14 10 Estimat Glomerular Filtration Rate 44 34 Protein Corrected Calcium 8.7 Nasal Screen MRSA (PCR) MRSA NOT DETECTED Test 03/02/17 21:18 Hemoglobin 11.7 Hematocrit 33.3 Date/Time Source Procedure Growth Status 02/28/17 15:05 Blood Peripheral Aerobic Blood Culture - Preliminary NO GROWTH IN 2 DAYS Resulted 02/28/17 15:05 Blood Peripheral Anaerobic Blood Culture - Preliminary NO GROWTH IN 2 DAYS Resulted 03/01/17 21:20 Urine Catheterized Urine Urine Culture - Preliminary No growth. Resulted Imaging Last Impressions Chest X-Ray 03/01/17 0000 Signed Impressions: Service Date/Time: Wednesday, March 01, 2017 21:42 - CONCLUSION: Endotracheal tube in appropriate position with tip measuring 5.7 cm from the glenis. Roger Rosas MD Abdomen/Pelvis CT 02/28/17 1239 Signed Impressions: Service Date/Time: Tuesday, February 28, 2017 15:14 - CONCLUSION: 1. Cholelithiasis with mild gallbladder distention but no pericholecystic fluid. 2. Diverticular disease throughout the colon without concomitant evidence of diverticulitis. 3. 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 Onesimo Oliveira MD Renal Ultrasound 02/28/17 0000 Signed Impressions: Service Date/Time: Tuesday, February 28, 2017 15:56 - CONCLUSION: 1. Normal ultrasound of the urinary system. There is no hydronephrosis. 2. Cholelithiasis. Roger Rosas MD Physical Exam HEENT: normocephalic; atraumatic; no jaundice. NECK: Neck is supple. CHEST: Chest is clear to auscultation and percussion. CARDIAC: Regular rate and rhythm with no murmur gallop or rubs. ABDOMEN: Soft, nondistended, nontender; no hepatosplenomegaly; bowel sounds are present in all four quadrants. EXTREMITIES: No clubbing, cyanosis, or edema. SKIN: Normal; no rash; no jaundice. Assessment and Plan Plan ASSESSMENT: - Upper GIB. Remote hx of bleeding ulcer. Pt has been taking Advil for knee pain (1 tab BID). Started having severe fatigue and lightheadedness with nausea and black tarry stools on . On admission (02/28), he was noted to have H/H of 7.6/23.1---> 6.7/20.2 a few hours later, s/p 2 units of PRBC. His H/H came up to 7.8/22.8, but then dropped to 6.1/18.0. An additional 2 units of PRBC have been ordered. Nurse reports black tarry stool today. Tachycardic with HR in 140's, B/P 106/65. Protonix Gtt. - Severe anemia, acute blood loss. S/P 2 units, getting additional 2 today for HH of 6.1/18.0, pt is tachycardic. - Acute on chronic kidney disease. Creat 1.99. IVF. - HTN, now borderline hypotensive PLAN: -Patient was found to have a gastric ulcer and duodenal ulcer on EGD, no evidence of active bleeding at this point - Protonix Gtt - Monitor HH q6h - Transfuse as needed - Supportive care - Further recommendations to follow based on results of above Joe Awad MD Mar 02, 2017 23:46
[2017-03-03] VITALS (18 sets, daily range): BP systolic 91–113; BP diastolic 53–69; PULSE 66–91; RESP 12–22; TEMP 98.4–98.8; O2SAT 96–100
[2017-03-03] MEDS: METOPROLOL TARTRATE 5 MG/5 ML VIAL IV PUSH SCH ×4 (03:09→21:59)
[2017-03-03] MEDS: PANTOPRAZOLE INJ 80 MG in SODIUM CHLORIDE 0.9% INJ 100 ML IV SCH ×3 (03:10→16:30)
[2017-03-03] MEDS: PROPOFOL 1000 MG/100 ML INJ 100 ML IV PRN (03:17)
[2017-03-03] MEDS: HYDROmorphone HCL PF 1 MG/ML VIAL IV PUSH PRN ×4 (03:34→23:27)
[2017-03-03 04:13] LABS: HEMATOCRIT 32.3 % (39.0-51.0); REVIEW FLAG FINAL
[2017-03-03 04:34] LABS: BICARBONATE 23.6 MEQ/L (21.0-32.0); POTASSIUM 3.1 MEQ/L (3.5-5.1)
[2017-03-03] MEDS: POTASSIUM CHLOR 10 MEQ PREMIX 100 ML IV SCH ×3 (05:23→09:39)
[2017-03-03] MEDS: SODIUM BICARBONATE 8.4% INJ 100 MEQ in DEXTROSE 5% IN WATE 1000ML INJ 1,000 ML IV SCH ×4 (05:25→13:00)
[2017-03-03 05:42] LABS: MAGNESIUM 1.5 MG/DL (1.5-2.5)
--- NOTE | 2017-03-03 07:43 | PD.CARD.PN ---
Subjective Subjective Remarks On vent Objective Medications Current Medications Medications (Trade) Dose Ordered Sig/Mary Route Start Time Stop Time Status Last Admin Pantoprazole Sodium 80 mg/ Sodium Chloride 100 ml @ 10 mls/hr Q10H IV 02/28/17 09:03 03/03/17 03:10 (NS Flush) 2 ml UNSCH PRN IV FLUSH 02/28/17 14:30 (NS Flush) 2 ml BID IV FLUSH 02/28/17 21:00 03/02/17 22:04 (Tylenol) 650 mg Q4H PRN PO 02/28/17 14:30 (Zofran Inj) 4 mg Q6H PRN IVP 02/28/17 14:30 (Narcan Inj) 0.4 mg UNSCH PRN IV PUSH 02/28/17 14:30 Sodium Bicarbonate 100 meq/Dextrose 1,100 ml @ 150 mls/hr Q7H20M IV 03/01/17 09:00 03/03/17 05:25 (Tylenol) 650 mg Q4H PRN PO 03/01/17 15:00 (Benadryl) 25 mg Q4H PRN PO 03/01/17 15:00 (Peridex 0.12% Liq) 15 ml BID@08,20 MT 03/02/17 08:00 03/02/17 20:00 Propofol 100 ml @ 7.944 mls/ hr TITRATE PRN IV 03/01/17 21:45 03/03/17 03:17 (Lopressor Inj) 5 mg Q6H IV PUSH 03/02/17 10:00 03/03/17 03:09 Ceftriaxone Sodium 1000 mg/ Sodium Chloride 100 ml @ 200 mls/hr Q24H IV 03/02/17 10:00 03/02/17 10:14 (Dilaudid Pf Inj) 1 mg Q3H PRN IV PUSH 03/02/17 12:30 03/03/17 03:34 Potassium Chloride 100 ml @ 100 mls/hr Q1H IV 03/03/17 06:00 03/03/17 08:59 03/03/17 06:55 Vital Signs / I&O Vital Signs Date Time Temp Pulse Resp B/P (MAP) Pulse Ox O2 Delivery O2 Flow Rate FiO2 03/03/17 07:24 100 35 03/03/17 06:00 74 03/03/17 04:02 100 40 03/03/17 04:00 98.5 74 16 91/53 (66) 100 03/03/17 04:00 74 03/03/17 04:00 40 03/03/17 02:00 66 03/03/17 00:56 100 40 03/03/17 00:00 98.6 84 12 94/56 (69) 100 03/03/17 00:00 40 03/03/17 00:00 82 03/02/17 22:00 88 03/02/17 20:15 100 40 03/02/17 20:15 100 Ventilator 40 03/02/17 20:00 99.0 84 12 94/56 (69) 100 03/02/17 20:00 100 Mechanical Ventilator 40 03/02/17 20:00 84 03/02/17 20:00 40 03/02/17 16:08 100 40 03/02/17 16:00 40 03/02/17 16:00 98.3 69 12 96/58 (71) 100 03/02/17 12:30 40 03/02/17 12:00 40 03/02/17 12:00 98.0 98 18 113/74 (87) 100 03/02/17 11:35 100 40 03/02/17 09:38 97 40 03/02/17 09:37 40 03/02/17 09:37 40 03/02/17 09:33 100 40 03/02/17 09:00 40 03/02/17 08:00 40 03/02/17 08:00 98.4 93 16 110/71 (84) 100 I/O 03/02/17 03/02/17 03/02/17 03/03/17 03/03/17 03/03/17 07:00 15:00 23:00 07:00 15:00 23:00 Intake Total 1597 ml 96 ml 2304 ml 776 ml Output Total 800 ml 800 ml 450 ml Balance 797 ml 96 ml 1504 ml 326 ml IV Total 698 ml 96 ml 2304 ml 776 ml Packed Cells 400 ml FFP 199 ml Blood Product IV Normal Saline Flush 300 ml Output Urine Total 800 ml 800 ml 450 ml # Bowel Movements 1 1 1 Physical Exam GENERAL: Well developed, well nourished. No acute distress. HEENT: Jugular venous pressure is normal. CHEST: Lungs clear to auscultation bilaterally. Unlabored respiratory effort. CARDIAC: Regular rate and rhythm without S3, S4, or murmur. ABDOMEN: Soft, nontender, no hepatosplenomegaly. Bowel sounds present. EXTREMITIES: No clubbing, cyanosis, or edema. Laboratory Laboratory Tests Test 03/02/17 10:45 03/02/17 21:18 03/03/17 03:56 Hemoglobin 12.3 GM/DL 11.7 GM/DL 11.3 GM/DL Hematocrit 35.3 % 33.3 % 32.3 % Blood Urea Nitrogen 60 MG/DL 43 MG/DL Creatinine 1.93 MG/DL 1.91 MG/DL Random Glucose 112 MG/DL 120 MG/DL Calcium Level 8.3 MG/DL 7.7 MG/DL Sodium Level 148 MEQ/L 147 MEQ/L Potassium Level 3.6 MEQ/L 3.1 MEQ/L Chloride Level 120 MEQ/L 113 MEQ/L Carbon Dioxide Level 17.7 MEQ/L 23.6 MEQ/L Anion Gap 10 MEQ/L 10 MEQ/L Estimat Glomerular Filtration Rate 34 ML/MIN 35 ML/MIN Troponin I 5.72 NG/ML 5.08 NG/ML Magnesium Level 1.5 MG/DL Imaging Last 72 hours Impressions Chest X-Ray 03/01/17 0000 Signed Impressions: Service Date/Time: Wednesday, March 01, 2017 21:42 - CONCLUSION: Endotracheal tube in appropriate position with tip measuring 5.7 cm from the glenis. Roger Rosas MD Abdomen/Pelvis CT 02/28/17 1239 Signed Impressions: Service Date/Time: Tuesday, February 28, 2017 15:14 - CONCLUSION: 1. Cholelithiasis with mild gallbladder distention but no pericholecystic fluid. 2. Diverticular disease throughout the colon without concomitant evidence of diverticulitis. 3. 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 Onesimo Oliveira MD Assessment and Plan Assessment and Plan 1. NSTEMI: Etiology: Ischemia vs Secondary--tachycardia, GI bleed -ECHO pending -BP too low for BB, aspirin contraindicated with GIB 2. GI bleed: GIB multiple transfusions and cautery of a gastric ulcer. 3. Renal insufficiency: slowly improving. 4. Respiratory failure: vent 5. Lipids- NPO-so no statin, check labs Lili Jean MD Mar 03, 2017 07:43
[2017-03-03] MEDS: CHLORHEXIDINE 0.12% (ORAL KIT) 15 ML CUP MT SCH ×2 (08:00→20:00)
[2017-03-03] MEDS: SODIUM CHLORIDE 0.9% FLUSH 10 ML FLUSH IV FLUSH SCH (09:00)
[2017-03-03] MEDS: cefTRIAXone INJ 1,000 MG in SODIUM CHLORIDE 0.9% INJ 100 ML IV SCH (09:41)
[2017-03-03 10:03] LABS: HEMATOCRIT 34.2 % (39.0-51.0)
[2017-03-03 10:06] LABS: REVIEW FLAG FINAL
[2017-03-03 10:11] LABS: HDL CHOLESTEROL 23.3 MG/DL (40.0-60.0)
[2017-03-03 10:12] LABS: LDL CHOLESTEROL ND MG/DL (0-99)
--- NOTE | 2017-03-03 12:32 | HHI.CCPN ---
Subjective Remarks/Hospital Course 71-year-old male who presented with 2 days of nausea vomiting. He had been taking Advil for a few days for knee pain. He has a history of bleeding peptic ulcers previously and a prior history of alcohol abuse however has been sober since 2008. Patient was also tachycardic since arrival with heart rate 130s to 150s sinus tachycardia. Patient was hyperkalemic on arrival. His hemoglobin dropped and he was transfused 2 units PRBCs and subsequently was evaluated by GI and underwent EGD which revealed multiple bleeding gastric ulcers which were cauterized. Patient was left intubated and transferred back to [facility]. Dr. Kebede from anesthesia contacted me regarding leaving him intubated overnight in view of concern for rebleeding and significant tachycardia. When I evaluated the patient in the ICU he was sedated with propofol, orally intubated on mechanical ventilation. He was getting his third unit of PRBCs with orders for 2 more units to be transfused. His heart rate was in the 150s. He was given Cardizem 20 mg IV with which his ventricular rate came down to 120s and he was noted to be in sinus tachycardia as evidenced by presence of P waves on EKG. Jimenez catheter was placed for accurate intake output. Critical care consult was requested by [facility] for respiratory failure requiring mechanical ventilation. History was obtained by reviewing records and discussion with Dr. Kebede and ICU nursing staff. 03/02: Pulse rate decreasing after multiple transfusions of RBCs and FFP. CRISTOBAL persists but resolving. Enzyme spill from demand ischemia but underlying CAD is likely. Gas exchange acceptable. Patient has a painful left knee [place] [address] Kartik Wiggins, for which he consumes NSAIDs. 03/03: Extubated, breathing comfortably. Renal function slowly improving - still reflects renal injury. Pulse rate well controlled. Hgb consistent. Objective Vital Signs Date Time Temp Pulse Resp B/P (MAP) Pulse Ox O2 Delivery O2 Flow Rate FiO2 03/03/17 12:00 98.4 66 16 108/69 (82) 100 03/03/17 10:35 Nasal Cannula 4.00 03/03/17 08:29 35 Intake and Output 03/03/17 03/03/17 03/04/17 08:00 16:00 00:00 Intake Total 776 ml Output Total 450 ml Balance 326 ml Result Diagram: 03/03/17 0937 03/03/17 0356 Other Results Microbiology Date/Time Source Procedure Growth Status 03/01/17 21:20 Urine Catheterized Urine Urine Culture - Final NO GROWTH IN 48 HOURS. Complete 02/28/17 13:30 Urine Clean Catch Urine Culture - Final Escherichia Coli Klebsiella Pneumoniae Complete Imaging CXR portable which was personally reviewed: ET tube above glenis, lung berry with no obvious infiltrates. Last Impressions Abdomen/Pelvis CT 02/28/17 1239 Signed Impressions: Service Date/Time: Tuesday, February 28, 2017 15:14 - CONCLUSION: 1. Cholelithiasis with mild gallbladder distention but no pericholecystic fluid. 2. Diverticular disease throughout the colon without concomitant evidence of diverticulitis. 3. 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 Onesimo Oliveira MD Renal Ultrasound 02/28/17 0000 Signed Impressions: Service Date/Time: Tuesday, February 28, 2017 15:56 - CONCLUSION: 1. Normal ultrasound of the urinary system. There is no hydronephrosis. 2. Cholelithiasis. Roger Rosas MD Objective Remarks HEENT: Normal. Neck: Airway widely patent. No JVD Chest/Pulm: Few secretions, good air entry bilaterally, no wheezing or crackles CVS: S1-S2 regular, no murmur or rub. No JVD. GI/abdomen: Soft, nontender, bowel sounds present, no guarding. Extremities: Warm bilaterally, no edema, well perfused. Neuro: Moves 4 limbs. KAVITA. Conversant. A/P Assessment and Plan Assessment: Upper GI bleed, duodenal, active Gastric ulcers Sinus tachycardia, NSTEMI Respiratory failure on mechanical ventilation Hyperchloremic non-anion gap metabolic acidosis Arthritis CKD Plan: Neuro: Hold sedation. Cardiovascular: Continue IV beta mandy; lopressor 5 mg IV every 6 hourly. Convert to PO when OK with GI for meds. Pulmonary: Continue mechanical ventilation, vent bundle. Bronchodilators as needed. C Pap trials daily. GI/liver: Nothing by mouth for now. GI following. Status post EGD which revealed bleeding duodenal ulcers status post cauterization. Continue Protonix drip Renal/: IV hydration, strict intake output, monitor and replete electrolytes, follow BUN/creatinine. Jimenez catheterization for accurate intake output. Repeat UA and urine culture. ID: Continue Ceftriaxone for empiric antibiotic coverage for gram-negative UTI X 5 days. Follow-up cultures. Endocrine: SSI for glycemic control if needed Heme: Follow Hgb Prophylaxis: SCDs. No heparin or Lovenox in view of GI bleed. Protonix gtt. Overall impression: Patient was critically ill after massive UGI hemorrhage and hypovolemic shock with cardiac enzyme spill. Will restart beta mandy, follow Trop, confirm if colonoscopy still necessary, watch for new bleeding. Breathing well after extubation. Chronic left knee pain - neeeds ortho outpatient appt for left knee pain/arthritis. Transfer in [facility]. Sukhjinder Kimble MD Mar 03, 2017 12:32
--- NOTE | 2017-03-03 14:28 | HHI.NPPN ---
Subjective History of Present Illness 71 Year old with ARF/CKD GI bleed Additional Remarks doing well Review of Systems General Constitutional: Fatigue Objective Data Data Vital Signs Date Time Temp Pulse Resp B/P (MAP) Pulse Ox O2 Delivery O2 Flow Rate FiO2 03/03/17 12:00 98.4 66 16 108/69 (82) 100 03/03/17 12:00 76 03/03/17 10:35 100 Nasal Cannula 4.00 03/03/17 10:35 100 Nasal Cannula 4 03/03/17 10:35 100 Nasal Cannula 4.00 03/03/17 10:00 70 03/03/17 08:29 35 03/03/17 08:00 35 03/03/17 08:00 98.8 74 12 113/68 (83) 100 03/03/17 08:00 74 03/03/17 07:45 Nasal Cannula 35 03/03/17 07:45 100 35 03/03/17 07:24 100 35 03/03/17 07:00 100 Mechanical Ventilator 35 03/03/17 06:00 74 03/03/17 04:02 100 40 03/03/17 04:00 98.5 74 16 91/53 (66) 100 03/03/17 04:00 74 03/03/17 04:00 40 03/03/17 02:00 66 03/03/17 00:56 100 40 03/03/17 00:00 98.6 84 12 94/56 (69) 100 03/03/17 00:00 40 03/03/17 00:00 82 03/02/17 22:00 88 03/02/17 20:15 100 40 03/02/17 20:15 100 Ventilator 40 03/02/17 20:00 99.0 84 12 94/56 (69) 100 03/02/17 20:00 100 Mechanical Ventilator 40 03/02/17 20:00 84 03/02/17 20:00 40 03/02/17 16:08 100 40 03/02/17 16:00 40 03/02/17 16:00 98.3 69 12 96/58 (71) 100 -: 03/03/17 0937 03/03/17 0356 Physical Exam General Appearance: Well Developed, Well Nourished Neck Neck Exam: Neck Supple Pulmonary Resp Exam: Clear Bilaterally, Breath Sounds Equal Cardiology CV Exam: Regular, Normal Sinus Rhythm Gastrointestinal/Abdomen GI Exam: Soft, Non-Tender, Bowel Sounds Present Extremeties Extremities Exam: No Edema Assessment/Plan Problem List: (1) CRISTOBAL (acute kidney injury) ICD Codes: N17.9 - Acute kidney failure, unspecified Plan: His creatinine has been fluctuating it was high in March at 2.36 Patient has CKD which is improving showing a combination of acute renal failure due to GI bleed Gastric and Duodenal ulcer extubated UTI dark colored urine on Ceftriaxone Cr 1.9 Metabolic acidosis resolved change IVF NS (2) Anemia due to GI blood loss 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
--- NOTE | 2017-03-03 14:34 | EKG ---
Date Performed: 03/02/2017 Time Performed: 10:32:14 PTAGE: 71 years EKG: Sinus rhythm . Anteroseptal infarct - age undetermined Lateral T wave changes may be due to myocardial ischemia Lo w QRS voltages in limb leads Abnormal ECG PREVIOUS TRACING : 03/02/2017 10.29 Compared to prior tracing no significant change DOCTOR: Korey Prasad Interpretating Date/Time 03/03/2017 14:27:04
[2017-03-03] MEDS: SODIUM CHLOR 0.9% 1000 ML INJ 1,000 ML IV SCH (15:06)
--- NOTE | 2017-03-03 16:23 | HHI.GIFU ---
Subjective Remarks Resting in bed. No active bleeding. Wants to eat. Nurse reports that he was extubated earlier today. (Devi Rolon) Objective Vitals I&O Vital Signs Date Time Temp Pulse Resp B/P (MAP) Pulse Ox O2 Delivery O2 Flow Rate FiO2 03/03/17 12:00 98.4 66 16 108/69 (82) 100 03/03/17 12:00 76 03/03/17 10:35 100 Nasal Cannula 4.00 03/03/17 10:35 100 Nasal Cannula 4 03/03/17 10:35 100 Nasal Cannula 4.00 03/03/17 10:00 70 03/03/17 08:29 35 03/03/17 08:00 35 03/03/17 08:00 98.8 74 12 113/68 (83) 100 03/03/17 08:00 74 03/03/17 07:45 Nasal Cannula 35 03/03/17 07:45 100 35 03/03/17 07:24 100 35 03/03/17 07:00 100 Mechanical Ventilator 35 03/03/17 06:00 74 03/03/17 04:02 100 40 03/03/17 04:00 98.5 74 16 91/53 (66) 100 03/03/17 04:00 74 03/03/17 04:00 40 03/03/17 02:00 66 03/03/17 00:56 100 40 03/03/17 00:00 98.6 84 12 94/56 (69) 100 03/03/17 00:00 40 03/03/17 00:00 82 03/02/17 22:00 88 03/02/17 20:15 100 40 03/02/17 20:15 100 Ventilator 40 03/02/17 20:00 99.0 84 12 94/56 (69) 100 03/02/17 20:00 100 Mechanical Ventilator 40 03/02/17 20:00 84 03/02/17 20:00 40 I/O 03/02/17 03/02/17 03/02/17 03/03/17 03/03/17 03/03/17 07:00 15:00 23:00 07:00 15:00 23:00 Intake Total 1597 ml 96 ml 2304 ml 776 ml 1276 ml Output Total 800 ml 800 ml 450 ml Balance 797 ml 96 ml 1504 ml 326 ml 1276 ml IV Total 698 ml 96 ml 2304 ml 776 ml 1276 ml Packed Cells 400 ml FFP 199 ml Blood Product IV Normal Saline Flush 300 ml Output Urine Total 800 ml 800 ml 450 ml # Bowel Movements 1 1 1 Laboratory Laboratory Tests Test 03/02/17 21:18 03/03/17 03:56 03/03/17 09:37 Hemoglobin 11.7 11.3 12.0 Hematocrit 33.3 32.3 34.2 Blood Urea Nitrogen 43 Creatinine 1.91 Random Glucose 120 Calcium Level 7.7 Magnesium Level 1.5 Sodium Level 147 Potassium Level 3.1 Chloride Level 113 Carbon Dioxide Level 23.6 Anion Gap 10 Estimat Glomerular Filtration Rate 35 Troponin I 5.08 Triglycerides Level 302 Cholesterol Level 73 LDL Cholesterol HDL Cholesterol 23.3 Cholesterol/HDL Ratio 3.13 Date/Time Source Procedure Growth Status 02/28/17 15:05 Blood Peripheral Aerobic Blood Culture - Preliminary NO GROWTH IN 3 DAYS Resulted 02/28/17 15:05 Blood Peripheral Anaerobic Blood Culture - Preliminary NO GROWTH IN 3 DAYS Resulted 03/01/17 21:20 Urine Catheterized Urine Urine Culture - Final NO GROWTH IN 48 HOURS. Complete Imaging Last Impressions Chest X-Ray 03/01/17 0000 Signed Impressions: Service Date/Time: Wednesday, March 01, 2017 21:42 - CONCLUSION: Endotracheal tube in appropriate position with tip measuring 5.7 cm from the glenis. Roger Rosas MD Abdomen/Pelvis CT 02/28/17 1239 Signed Impressions: Service Date/Time: Tuesday, February 28, 2017 15:14 - CONCLUSION: 1. Cholelithiasis with mild gallbladder distention but no pericholecystic fluid. 2. Diverticular disease throughout the colon without concomitant evidence of diverticulitis. 3. 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 Onesimo Oliveira MD Renal Ultrasound 02/28/17 0000 Signed Impressions: Service Date/Time: Tuesday, February 28, 2017 15:56 - CONCLUSION: 1. Normal ultrasound of the urinary system. There is no hydronephrosis. 2. Cholelithiasis. Roger Rosas MD Physical Exam HEENT: Normocephalic; atraumatic; no jaundice. NECK: Neck is supple. CHEST: CTA CARDIAC: Regular rate and rhythm with no murmur gallop or rubs. ABDOMEN: Soft, nondistended, nontender; no hepatosplenomegaly; bowel sounds are present in all four quadrants. : Jimenez catheter with dark urine with large amount black sediment EXTREMITIES: No clubbing, cyanosis, or edema. SKIN: Normal; no rash; no jaundice. (Devi Rolon) Assessment and Plan Plan ASSESSMENT: - Upper GIB. Remote hx of bleeding ulcer. Pt has been taking Advil for knee pain (1 tab BID). Started having severe fatigue and lightheadedness with nausea and black tarry stools on . On admission (02/28), he was noted to have H/H of 7.6/23.1---> 6.7/20.2 a few hours later, s/p 2 units of PRBC. His H/H came up to 7.8/22.8, but then dropped to 6.1/18.0. S/P EGD (03/01/17)---> Gastric ulcers nonbleeding Multiple large duodenal ulcers with active bleeding treated as above with ablation and injection. Pt was extubated earlier today. Clear liquid diet ordered, but has not started yet. Protonix Gtt. S /P 7 units PRBC, 1 unit FFP. HH is stable 12.0/34.2. No active bleeding. - Severe anemia, acute blood loss. S/P 6 units PRBC, 1 unit FFP. HH 12.0/ 34.2. - Acute on chronic kidney disease. Creat 1.91. IVF. - Elevated Troponin. 5.08. Per attending. - HTN, now borderline hypotensive PLAN: - Clear liquids - D/C Protonix Gtt - Protonix 40mg IV BID - Monitor HH - Transfuse as needed - Supportive care - Further recommendations to follow based on results of above - Pt seen and examined by Dr. Awad and myself and this note is written on his behalf (Devi Rolon) Physician Comments Patient seen and examined Agree with above Continue with current supportive care Monitor labs (Joe Awad MD) Devi Rolon Mar 03, 2017 16:23 Joe Awad MD Mar 03, 2017 23:39
[2017-03-03 21:36] LABS: REVIEW FLAG FINAL
[2017-03-03 22:01] LABS: BICARBONATE 24.3 MEQ/L (21.0-32.0); POTASSIUM 3.3 MEQ/L (3.5-5.1)
[2017-03-03 22:28] LABS: CALCIUM-PROTEIN CORRECTED 8.7 MG/DL (8.5-10.1)
[2017-03-04] VITALS (9 sets, daily range): BP systolic 101–131; BP diastolic 58–85; PULSE 86–111; RESP 20–26; TEMP 98.3–99.8; O2SAT 89–96
[2017-03-04] MEDS: SODIUM CHLOR 0.9% 1000 ML INJ 1,000 ML IV SCH ×3 (01:16→21:00)
[2017-03-04] MEDS: METOPROLOL TARTRATE 5 MG/5 ML VIAL IV PUSH SCH ×2 (03:17→08:23)
[2017-03-04] MEDS: HYDROmorphone HCL PF 1 MG/ML VIAL IV PUSH PRN ×6 (03:35→21:48)
[2017-03-04 05:14] LABS: BASOPHIL % 0.2 % (0.0-2.0); EOSINOPHIL % 0.4 % (0.0-4.0); HEMATOCRIT 32.6 % (39.0-51.0); LYMPH % 13.1 % (9.0-44.0); LYMPHOCYTE # 1.2 TH/MM3 (1.0-4.8); MEAN CELL VOLUME 91.5 FL (80.0-100.0); MEAN CORPUSCULAR HEMOGLOBIN 31.3 PG (27.0-34.0); MEAN CORPUSCULAR HGB CONC 34.2 % (32.0-36.0); MONO % 7.7 % (0.0-8.0); NEUT % 78.6 % (16.0-70.0); PLATELET COUNT 99 TH/MM3 (150-450); RED BLOOD COUNT 3.56 MIL/MM3 (4.50-5.90); RED CELL DISTRIBUTION WIDTH 17.9 % (11.6-17.2); WHITE BLOOD COUNT 8.9 TH/MM3 (4.0-11.0)
[2017-03-04 05:26] LABS: HEMO FLAGS AUTO DIFF
[2017-03-04 05:30] LABS: BICARBONATE 25.9 MEQ/L (21.0-32.0); POTASSIUM 3.2 MEQ/L (3.5-5.1)
[2017-03-04 05:42] LABS: CALCIUM-PROTEIN CORRECTED 8.6 MG/DL (8.5-10.1)
[2017-03-04] MEDS: PANTOPRAZOLE SODIUM 40 MG VIAL IV PUSH SCH ×2 (06:00→17:31)
[2017-03-04] MEDS: PANTOPRAZOLE INJ 80 MG in SODIUM CHLORIDE 0.9% INJ 100 ML IV SCH ×3 (07:16→23:03)
--- NOTE | 2017-03-04 07:31 | PD.CARD.PN ---
Subjective Subjective Remarks pt without complaints- denies CP prior to event Objective Medications Current Medications Medications (Trade) Dose Ordered Sig/Mary Route Start Time Stop Time Status Last Admin Pantoprazole Sodium 80 mg/ Sodium Chloride 100 ml @ 10 mls/hr Q10H IV 02/28/17 09:03 03/04/17 07:16 (NS Flush) 2 ml UNSCH PRN IV FLUSH 02/28/17 14:30 (NS Flush) 2 ml BID IV FLUSH 02/28/17 21:00 03/03/17 09:00 (Tylenol) 650 mg Q4H PRN PO 02/28/17 14:30 (Zofran Inj) 4 mg Q6H PRN IVP 02/28/17 14:30 (Narcan Inj) 0.4 mg UNSCH PRN IV PUSH 02/28/17 14:30 (Tylenol) 650 mg Q4H PRN PO 03/01/17 15:00 (Benadryl) 25 mg Q4H PRN PO 03/01/17 15:00 (Peridex 0.12% Liq) 15 ml BID@08,20 MT 03/02/17 08:00 03/02/17 20:00 Propofol 100 ml @ 7.944 mls/ hr TITRATE PRN IV 03/01/17 21:45 03/03/17 03:17 (Lopressor Inj) 5 mg Q6H IV PUSH 03/02/17 10:00 03/04/17 03:17 Ceftriaxone Sodium 1000 mg/ Sodium Chloride 100 ml @ 200 mls/hr Q24H IV 03/02/17 10:00 03/03/17 09:41 (Dilaudid Pf Inj) 1 mg Q3H PRN IV PUSH 03/02/17 12:30 03/04/17 06:59 Sodium Chloride 1,000 ml @ 100 mls/hr Q10H IV 03/03/17 15:00 03/04/17 01:16 (Protonix Inj) 40 mg Q12H IV PUSH 03/03/17 18:00 Vital Signs / I&O Vital Signs Date Time Temp Pulse Resp B/P (MAP) Pulse Ox O2 Delivery O2 Flow Rate FiO2 03/04/17 06:00 94 03/04/17 04:00 99.8 90 20 101/58 (72) 89 03/04/17 04:00 90 03/04/17 02:00 86 03/04/17 00:00 98.8 90 26 110/62 (78) 96 03/04/17 00:00 90 03/03/17 22:00 90 03/03/17 21:46 98 21 03/03/17 20:00 86 22 103/59 (74) 96 03/03/17 20:00 86 03/03/17 20:00 Room Air 03/03/17 18:00 87 03/03/17 16:00 98.8 91 20 107/61 (76) 100 03/03/17 16:00 91 03/03/17 14:00 81 03/03/17 12:00 98.4 66 16 108/69 (82) 100 03/03/17 12:00 76 03/03/17 10:35 100 Nasal Cannula 4.00 03/03/17 10:35 100 Nasal Cannula 4 03/03/17 10:35 100 Nasal Cannula 4.00 03/03/17 10:00 70 03/03/17 08:29 35 03/03/17 08:00 35 03/03/17 08:00 98.8 74 12 113/68 (83) 100 03/03/17 08:00 74 03/03/17 07:45 Nasal Cannula 35 03/03/17 07:45 100 35 I/O 03/03/17 03/03/17 03/03/17 03/04/17 03/04/17 03/04/17 07:00 15:00 23:00 07:00 15:00 23:00 Intake Total 776 ml 2564 ml 480 ml Output Total 450 ml 525 ml 450 ml Balance 326 ml 2039 ml 30 ml Intake Oral 480 ml 480 ml IV Total 776 ml 2084 ml Output Urine Total 450 ml 525 ml 450 ml # Bowel Movements 1 0 1 Physical Exam GENERAL: Well developed, well nourished. No acute distress. HEENT: Jugular venous pressure is normal. CHEST: Lungs clear to auscultation bilaterally. Unlabored respiratory effort. CARDIAC: Regular rate and rhythm without S3, S4, or murmur. ABDOMEN: Soft, nontender, no hepatosplenomegaly. Bowel sounds present. EXTREMITIES: No clubbing, cyanosis, or edema. Laboratory Laboratory Tests Test 03/03/17 09:37 03/03/17 20:33 03/04/17 04:17 Hemoglobin 12.0 GM/DL 11.0 GM/DL 11.1 GM/DL Hematocrit 34.2 % 32.0 % 32.6 % Blood Urea Nitrogen 34 MG/DL 29 MG/DL Creatinine 1.75 MG/DL 1.64 MG/DL Random Glucose 94 MG/DL 90 MG/DL Total Protein 4.4 GM/DL 4.4 GM/DL Calcium Level 7.2 MG/DL 7.1 MG/DL Sodium Level 143 MEQ/L 144 MEQ/L Potassium Level 3.3 MEQ/L 3.2 MEQ/L Chloride Level 108 MEQ/L 109 MEQ/L Carbon Dioxide Level 24.3 MEQ/L 25.9 MEQ/L Anion Gap 11 MEQ/L 9 MEQ/L Estimat Glomerular Filtration Rate 39 ML/MIN 42 ML/MIN Protein Corrected Calcium 8.7 MG/DL 8.6 MG/DL White Blood Count 8.9 TH/MM3 Red Blood Count 3.56 MIL/MM3 Mean Corpuscular Volume 91.5 FL Mean Corpuscular Hemoglobin 31.3 PG Mean Corpuscular Hemoglobin Concent 34.2 % Red Cell Distribution Width 17.9 % Platelet Count 99 TH/MM3 Mean Platelet Volume 10.5 FL Neutrophils (%) (Auto) 78.6 % Lymphocytes (%) (Auto) 13.1 % Monocytes (%) (Auto) 7.7 % Eosinophils (%) (Auto) 0.4 % Basophils (%) (Auto) 0.2 % Neutrophils # (Auto) 7.0 TH/MM3 Lymphocytes # (Auto) 1.2 TH/MM3 Monocytes # (Auto) 0.7 TH/MM3 Eosinophils # (Auto) 0.0 TH/MM3 Basophils # (Auto) 0.0 TH/MM3 CBC Comment AUTO DIFF Phosphorus Level 2.8 MG/DL Assessment and Plan Assessment and Plan 1. NSTEMI: Etiology: Ischemia vs Secondary--tachycardia, GI bleed -ECHO still pending -BP too low for BB, aspirin contraindicated with GIB - consider nuc or cath when recovered, consider out patient 2. GI bleed: GIB multiple transfusions and cautery of a gastric ulcer. 3. Renal insufficiency: slowly improving. 4. Respiratory failure: extubated 5. Lipids- Lili Jean MD Mar 04, 2017 07:30
[2017-03-04 07:48] LABS: PLATELET ESTIMATE SMEAR LOW (NORMAL); PLATELET MORPHOLOGY ENLARGED (NORMAL); SCAN/DIFF AUTO DIFF CONFIRMED
[2017-03-04] MEDS: CHLORHEXIDINE 0.12% (ORAL KIT) 15 ML CUP MT SCH ×3 (08:00→23:12)
[2017-03-04] MEDS: cefTRIAXone INJ 1,000 MG in SODIUM CHLORIDE 0.9% INJ 100 ML IV SCH (08:23)
[2017-03-04] MEDS: SODIUM CHLORIDE 0.9% FLUSH 10 ML FLUSH IV FLUSH SCH ×2 (08:23→21:00)
--- NOTE | 2017-03-04 10:33 | HHI.CCPN ---
Subjective Remarks/Hospital Course 71-year-old male who presented with 2 days of nausea vomiting. He had been taking Advil for a few days for knee pain. He has a history of bleeding peptic ulcers previously and a prior history of alcohol abuse however has been sober since 2008. Patient was also tachycardic since arrival with heart rate 130s to 150s sinus tachycardia. Patient was hyperkalemic on arrival. His hemoglobin dropped and he was transfused 2 units PRBCs and subsequently was evaluated by GI and underwent EGD which revealed multiple bleeding gastric ulcers which were cauterized. Patient was left intubated and transferred back to [facility]. Dr. Kebede from anesthesia contacted me regarding leaving him intubated overnight in view of concern for rebleeding and significant tachycardia. When I evaluated the patient in the ICU he was sedated with propofol, orally intubated on mechanical ventilation. He was getting his third unit of PRBCs with orders for 2 more units to be transfused. His heart rate was in the 150s. He was given Cardizem 20 mg IV with which his ventricular rate came down to 120s and he was noted to be in sinus tachycardia as evidenced by presence of P waves on EKG. Jimenez catheter was placed for accurate intake output. Critical care consult was requested by [facility] for respiratory failure requiring mechanical ventilation. History was obtained by reviewing records and discussion with Dr. Kebede and ICU nursing staff. 03/02: Pulse rate decreasing after multiple transfusions of RBCs and FFP. CRISTOBAL persists but resolving. Enzyme spill from demand ischemia but underlying CAD is likely. Gas exchange acceptable. Patient has a painful left knee [place] [address] Kartik Wiggins, for which he consumes NSAIDs. 03/03: Extubated, breathing comfortably. Renal function slowly improving - still reflects renal injury. Pulse rate well controlled. Hgb consistent. 03/04: Hgb stable s/p massive duodenal ulcer bleed and NSTEMI. He was in profound shock on arrival. Platelets 99,000. CRISTOBAL resolving. Patient has been consuming NSAID for chronic left knee pain. Needs ortho referral - seen by [facility] in past. Multiple gastric and duodenal ulcers found at EGD. Objective Vital Signs Date Time Temp Pulse Resp B/P (MAP) Pulse Ox O2 Delivery O2 Flow Rate FiO2 03/04/17 09:10 95 21 03/04/17 08:00 98.6 108 21 109/60 (76) 03/04/17 08:00 Room Air 03/03/17 10:35 4.00 Intake and Output 03/04/17 03/04/17 03/05/17 08:00 16:00 00:00 Intake Total 480 ml Output Total 450 ml Balance 30 ml Result Diagram: 03/04/17 0417 03/04/17 0417 Other Results Microbiology Date/Time Source Procedure Growth Status 03/01/17 21:20 Urine Catheterized Urine Urine Culture - Final NO GROWTH IN 48 HOURS. Complete Imaging CXR portable which was personally reviewed: ET tube above glenis, lung berry with no obvious infiltrates. Last Impressions Abdomen/Pelvis CT 02/28/17 1239 Signed Impressions: Service Date/Time: Tuesday, February 28, 2017 15:14 - CONCLUSION: 1. Cholelithiasis with mild gallbladder distention but no pericholecystic fluid. 2. Diverticular disease throughout the colon without concomitant evidence of diverticulitis. 3. 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 Onesimo Oliveira MD Renal Ultrasound 02/28/17 0000 Signed Impressions: Service Date/Time: Tuesday, February 28, 2017 15:56 - CONCLUSION: 1. Normal ultrasound of the urinary system. There is no hydronephrosis. 2. Cholelithiasis. Roger Rosas MD Objective Remarks HEENT: Normal. Neck: Airway widely patent. Supple. Chest/Pulm: Few secretions, good air entry bilaterally, no wheezing or crackles CVS: S1-S2 regular, no murmur or rub. No JVD. GI/abdomen: Soft, nontender, bowel sounds present, no guarding. Extremities: Warm bilaterally, no edema, well perfused. Neuro: Moves 4 limbs. KAVITA. Conversant. Alert. A/P Assessment and Plan Assessment: Upper GI bleed, duodenal, active -> EGD, laser Gastric ulcers Sinus tachycardia, NSTEMI Respiratory failure on mechanical ventilation Hyperchloremic non-anion gap metabolic acidosis Arthritis CKD Plan: Neuro: Hold sedation. Cardiovascular: Continue IV beta mandy; lopressor 5 mg IV every 6 hourly. Convert to PO when OK with GI for meds. Pulmonary: Continue mechanical ventilation, vent bundle. Bronchodilators as needed. C Pap trials daily. GI/liver: Nothing by mouth for now. GI following. Status post EGD which revealed bleeding duodenal ulcers status post cauterization. Continue Protonix drip Renal/: IV hydration, strict intake output, monitor and replete electrolytes, follow BUN/creatinine. Jimenez catheterization for accurate intake output. Repeat UA and urine culture. ID: Continue Ceftriaxone for empiric antibiotic coverage for gram-negative UTI X 5 days. Follow-up cultures. Endocrine: SSI for glycemic control if needed Heme: Follow Hgb Prophylaxis: SCDs. No heparin or Lovenox in view of GI bleed. Protonix gtt. Overall impression: Patient was critically ill after massive UGI hemorrhage and hypovolemic shock with cardiac enzyme spill. Will restart beta mandy, follow Trop, confirm if colonoscopy still necessary, watch for new bleeding. Breathing well after extubation. Chronic left knee pain - needs ortho outpatient appt for left knee pain/arthritis. Transfer. Sukhjinder Kimble MD Mar 04, 2017 10:33
[2017-03-04] MEDS: METOPROLOL TARTRATE 25 MG TAB PO SCH ×2 (11:00→21:07)
--- NOTE | 2017-03-04 14:52 | HHI.NPPN ---
Subjective History of Present Illness 71 Year old with ARF/CKD GI bleed Additional Remarks doing well Review of Systems General Constitutional: Fatigue Objective Data Data Vital Signs Date Time Temp Pulse Resp B/P (MAP) Pulse Ox O2 Delivery O2 Flow Rate FiO2 03/04/17 14:00 20 03/04/17 12:00 98.3 90 21 115/69 (84) 95 03/04/17 09:10 95 21 03/04/17 08:00 98.6 108 21 109/60 (76) 92 03/04/17 08:00 Room Air 03/04/17 08:00 109 03/04/17 06:00 94 03/04/17 04:00 99.8 90 20 101/58 (72) 89 03/04/17 04:00 90 03/04/17 02:00 86 03/04/17 00:00 98.8 90 26 110/62 (78) 96 03/04/17 00:00 90 03/03/17 22:00 90 03/03/17 21:46 98 21 03/03/17 20:00 86 22 103/59 (74) 96 03/03/17 20:00 86 03/03/17 20:00 Room Air 03/03/17 18:00 87 03/03/17 16:00 98.8 91 20 107/61 (76) 100 03/03/17 16:00 91 -: 03/04/17 0417 03/04/17 0417 Physical Exam General Appearance: Well Developed, Well Nourished Neck Neck Exam: Neck Supple Pulmonary Resp Exam: Clear Bilaterally, Breath Sounds Equal Cardiology CV Exam: Regular, Normal Sinus Rhythm Gastrointestinal/Abdomen GI Exam: Soft, Non-Tender, Bowel Sounds Present Extremeties Extremities Exam: No Edema Assessment/Plan Problem List: (1) CRISTOBAL (acute kidney injury) ICD Codes: N17.9 - Acute kidney failure, unspecified Plan: His creatinine has been fluctuating it was high in March at 2.36 Patient has CKD which is improving showing a combination of acute renal failure due to GI bleed Gastric and Duodenal ulcer extubated UTI dark colored urine on Ceftriaxone Cr 1.6 K low replace will follow as needed (2) Anemia due to GI blood loss 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
[2017-03-04] MEDS ORDERED: POTASSIUM CHLORIDE 8 MEQ CONTROLLED RELEASE TAB PO ONE (15:00)
--- NOTE | 2017-03-04 16:21 | HHI.GIFU ---
Subjective Remarks Pt resting in bed in NAD, family at bedside. Denies bleeding, abd pain. Tolerating clears. (Serena Anton) Objective Vitals I&O Vital Signs Date Time Temp Pulse Resp B/P (MAP) Pulse Ox O2 Delivery O2 Flow Rate FiO2 03/04/17 14:00 20 03/04/17 12:00 98.3 90 21 115/69 (84) 95 03/04/17 09:10 95 21 03/04/17 08:00 98.6 108 21 109/60 (76) 92 03/04/17 08:00 Room Air 03/04/17 08:00 109 03/04/17 06:00 94 03/04/17 04:00 99.8 90 20 101/58 (72) 89 03/04/17 04:00 90 03/04/17 02:00 86 03/04/17 00:00 98.8 90 26 110/62 (78) 96 03/04/17 00:00 90 03/03/17 22:00 90 03/03/17 21:46 98 21 03/03/17 20:00 86 22 103/59 (74) 96 03/03/17 20:00 86 03/03/17 20:00 Room Air 03/03/17 18:00 87 I/O 03/03/17 03/03/17 03/03/17 03/04/17 03/04/17 03/04/17 07:00 15:00 23:00 07:00 15:00 23:00 Intake Total 776 ml 2564 ml 480 ml Output Total 450 ml 525 ml 450 ml Balance 326 ml 2039 ml 30 ml Intake Oral 480 ml 480 ml IV Total 776 ml 2084 ml Output Urine Total 450 ml 525 ml 450 ml # Bowel Movements 1 0 1 Laboratory Laboratory Tests Test 03/03/17 20:33 03/04/17 04:17 Hemoglobin 11.0 11.1 Hematocrit 32.0 32.6 Blood Urea Nitrogen 34 29 Creatinine 1.75 1.64 Random Glucose 94 90 Total Protein 4.4 4.4 Calcium Level 7.2 7.1 Sodium Level 143 144 Potassium Level 3.3 3.2 Chloride Level 108 109 Carbon Dioxide Level 24.3 25.9 Anion Gap 11 9 Estimat Glomerular Filtration Rate 39 42 Protein Corrected Calcium 8.7 8.6 White Blood Count 8.9 Red Blood Count 3.56 Mean Corpuscular Volume 91.5 Mean Corpuscular Hemoglobin 31.3 Mean Corpuscular Hemoglobin Concent 34.2 Red Cell Distribution Width 17.9 Platelet Count 99 Mean Platelet Volume 10.5 Neutrophils (%) (Auto) 78.6 Lymphocytes (%) (Auto) 13.1 Monocytes (%) (Auto) 7.7 Eosinophils (%) (Auto) 0.4 Basophils (%) (Auto) 0.2 Neutrophils # (Auto) 7.0 Lymphocytes # (Auto) 1.2 Monocytes # (Auto) 0.7 Eosinophils # (Auto) 0.0 Basophils # (Auto) 0.0 CBC Comment AUTO DIFF Differential Comment AUTO DIFF CONFIRMED Platelet Estimate LOW Platelet Morphology Comment ENLARGED Phosphorus Level 2.8 Date/Time Source Procedure Growth Status 02/28/17 15:05 Blood Peripheral Aerobic Blood Culture - Preliminary NO GROWTH IN 4 DAYS Resulted 02/28/17 15:05 Blood Peripheral Anaerobic Blood Culture - Preliminary NO GROWTH IN 4 DAYS Resulted 03/01/17 21:20 Urine Catheterized Urine Urine Culture - Final NO GROWTH IN 48 HOURS. Complete Physical Exam HEENT: Normocephalic; atraumatic; no jaundice. CHEST: CTA CARDIAC: Regular rate and rhythm with no murmur gallop or rubs. ABDOMEN: Soft, nondistended, nontender; no hepatosplenomegaly; bowel sounds are present in all four quadrants. : Jimenez catheter with dark urine with large amount black sediment EXTREMITIES: No clubbing, cyanosis; BUE edema SKIN: Normal; no rash; no jaundice. (Serena Anton [facility]) Assessment and Plan Plan ASSESSMENT: - Upper GIB. Remote hx of bleeding ulcer. Pt has been taking Advil for knee pain (1 tab BID). Started having severe fatigue and lightheadedness with nausea and black tarry stools on . On admission (02/28), he was noted to have H/H of 7.6/23.1---> 6.7/20.2 a few hours later, s/p 2 units of PRBC. His H/H came up to 7.8/22.8, but then dropped to 6.1/18.0. S/P EGD (03/01/17)---> Gastric ulcers nonbleeding Multiple large duodenal ulcers with active bleeding treated as above with ablation and injection. path benign No abd pain today, tolerating clears. on IV protonix - Severe anemia, acute blood loss. HH stable - Acute on chronic kidney disease. - Elevated Troponin. 5.08. Per attending. - HTN, now borderline hypotensive PLAN: - full liquids - cont IV protonix - Monitor HH - Transfuse as needed - Supportive care - Pt seen and examined by Dr. Awad and myself and this note is written on his behalf (Serena Anton) Physician Comments Patient seen and examined Agree with above Continue with current supportive care Monitor labs Patient stable from a GI standpoint therefore we shall sign off Patient to follow-up with GI post discharge (Joe Awad MD) Serena Anton Mar 04, 2017 16:21 Joe Awad MD Mar 04, 2017 22:32
--- NOTE | 2017-03-04 17:15 | ECHRPT ---
Indication: ?LV FUNC, EVAL WALL MOTION ABNORMALITIES CONCLUSIONS Normal left ventricular size. Wall thickness is normal. The left ventricular systolic function is severely reduced with an estimated ejection fraction in th e range of 30-35%. There is diffuse global hypokinesis with distinct regional wall motion abnormalities. [id number] mitral valve regurgitation. Mild mitral annular calcification. Mild thickening of the mitral valve leaflets. Aortic valve sclerosis is present. Mild aortic valve regurgitation. There is mild to moderate tricuspid valve regurgitation. The estimated pulmonary arterial pressure is 56.8 mmHg. BP: 113 / 74 HR: Rhythm: Sinus MEASUREMENTS (Male / Female) Normal Values Technical Quality:Fair 2D ECHO LV Diastolic Diameter PLAX 5.1 cm 4.2 - 5.9 / 3.9 - 5.3 cm LV Systolic Diameter PLAX 4.5 cm IVS Diastolic Thickness 0.8 cm 0.6 - 1.0 / 0.6 - 0.9 cm LVPW Diastolic Thickness 0.8 cm 0.6 - 1.0 / 0.6 - 0.9 cm LV Relative Wall Thickness 0.3 LVOT Diameter 1.7 cm Aortic Root Diameter 3.4 cm LA Systolic Diameter LX 3.1 cm 3.0 - 4.0 / 2.7 - 3.8 cm M-MODE AV Cusp Separation MM 2.0 cm DOPPLER AV Peak Velocity 111.0 cm/s AV Peak Gradient 4.9 mmHg AV Mean Gradient 3.0 mmHg AV Velocity Time Integral 19.9 cm AI Peak Velocity 332.0 cm/s AI Peak Gradient 44.1 mmHg AI Pressure Half Time 176.0 ms LVOT Peak Velocity 66.2 cm/s LVOT Peak Gradient 1.8 mmHg LVOT Velocity Time Integral 12.6 cm AV Area Cont Eq vti 1.4 cm AV Area Cont Eq pk 1.4 cm Mitral E Point Velocity 74.0 cm/s Mitral A Point Velocity 94.8 cm/s Mitral E to A Ratio 0.8 LV E' Lateral Velocity 12.7 cm/s Mitral E to LV E' Lateral Ratio 5.8 LV E' Septal Velocity 18.7 cm/s Mitral E to LV E' Septal Ratio 4.0 TR Peak Velocity 342.0 cm/s TR Peak Gradient 46.8 mmHg Right Atrial Pressure 10.0 mmHg Pulmonary Artery Systolic Pressu 56.8 mmHg Right Ventricular Systolic Press 56.8 mmHg PV Peak Velocity 59.4 cm/s PV Peak Gradient 1.4 mmHg FINDINGS LEFT VENTRICLE Normal left ventricular size. Wall thickness is normal. The left ventricular systolic function is severely reduced with an estimated ejection fraction of 20 %. There is extensive apical akinesis, the base is spared. Appears sggestive of apical ballooning syndr ome. RIGHT VENTRICLE Normal right ventricular size and systolic function. LEFT ATRIUM The left atrial size is normal. RIGHT ATRIUM The right atrial size is normal. ATRIAL SEPTUM Normal atrial septal thickness without atrial level shunting by limited color doppler interrogation. AORTA The aortic root and proximal ascending aorta are normal in size on limited imaging. MITRAL VALVE [id number] mitral valve regurgitation. Mild mitral annular calcification. Mild thickening of the mitral valve leaflets. AORTIC VALVE Aortic valve sclerosis is present. Mild aortic valve regurgitation. TRICUSPID VALVE There is mild to moderate tricuspid valve regurgitation. The estimated pulmonary arterial pressure is 56.8 mmHg. PULMONARY VALVE No pulmonary valve regurgitation or stenosis. VESSELS The inferior vena cava is normal in size. PERICARDIUM No pericardial effusion. James Martini MD (Electronically Signed) Final Date:04 March 2017 17:14
--- NOTE | 2017-03-04 18:51 | RADRPT ---
EXAM DATE/TIME: 03/04/2017 17:29 [place] COMPARISON: No previous studies available for comparison. INDICATIONS : Bilateral arm swelling. MEDICAL HISTORY : Renal calculi. Arthritis. Palpitations. HTN. Dyspnea. Joint pain. Anxiety. SURGICAL HISTORY : Tonsillectomy.Total knee replacement, left. Blood transfusions. ENCOUNTER: Initial ACUITY: 4 - 6 days PAIN SCORE: 8/10 LOCATION: Bilateral arm. FINDINGS: RIGHT UPPER EXTREMITY: There is spontaneous flow documented in the brachial, basilic, cephalic, axillary, and subclavian vei ns. The vessels are compressible and augmentation response is documented. No filling defects are se en. The flow is phasic with respiration. Direction of flow in the jugular vein is caudal. LEFT UPPER EXTREMITY: There is thrombus seen in the left basilic and cephalic veins. There is spontaneous flow documented i n the brachial, axillary, and subclavian veins. Direction of flow in the jugular vein is caudal. CONCLUSION: Occlusive thrombus seen in the left basilic and cephalic veins. No thrombus is seen on the right side . Roger Key MD on March 04, 2017 at 18:47 Board Certified Radiologist. This report was verified electronically.
[2017-03-05] VITALS (8 sets, daily range): BP systolic 96–128; BP diastolic 54–81; PULSE 96–120; RESP 17–23; TEMP 98.9–100.9; O2SAT 94–98
[2017-03-05 04:54] LABS: AUTOMATED NEUTROPHIL # 12.1 TH/MM3 (1.8-7.7); BASOPHIL # 0.1 TH/MM3 (0-0.2); BASOPHIL % 0.5 % (0.0-2.0); EOSINOPHIL % 0.2 % (0.0-4.0); HEMATOCRIT 37.2 % (39.0-51.0); LYMPH % 8.1 % (9.0-44.0); LYMPHOCYTE # 1.2 TH/MM3 (1.0-4.8); MEAN CELL VOLUME 90.7 FL (80.0-100.0); MEAN CORPUSCULAR HEMOGLOBIN 31.2 PG (27.0-34.0); MEAN CORPUSCULAR HGB CONC 34.4 % (32.0-36.0); NEUT % 82.2 % (16.0-70.0); PLATELET COUNT 81 TH/MM3 (150-450); RED CELL DISTRIBUTION WIDTH 19.5 % (11.6-17.2); WHITE BLOOD COUNT 14.8 TH/MM3 (4.0-11.0)
[2017-03-05 04:56] LABS: HEMO FLAGS AUTO DIFF
[2017-03-05 05:17] LABS: BICARBONATE 21.7 MEQ/L (21.0-32.0); POTASSIUM 3.8 MEQ/L (3.5-5.1)
[2017-03-05] MEDS: PANTOPRAZOLE SODIUM 40 MG VIAL IV PUSH SCH ×2 (05:28→18:01)
[2017-03-05] MEDS: HYDROmorphone HCL PF 1 MG/ML VIAL IV PUSH PRN ×5 (05:34→21:02)
[2017-03-05 05:36] LABS: CALCIUM-PROTEIN CORRECTED 8.2 MG/DL (8.5-10.1)
[2017-03-05 06:38] LABS: PLATELET ESTIMATE SMEAR LOW (NORMAL); PLATELET MORPHOLOGY ENLARGED (NORMAL); SCAN/DIFF AUTO DIFF CONFIRMED
--- NOTE | 2017-03-05 06:48 | PD.CARD.PN ---
Subjective Subjective Remarks pt without complaints- denies CP prior to event Objective Medications Current Medications Medications (Trade) Dose Ordered Sig/Mary Route Start Time Stop Time Status Last Admin Pantoprazole Sodium 80 mg/ Sodium Chloride 100 ml @ 10 mls/hr Q10H IV 02/28/17 09:03 03/04/17 07:16 (NS Flush) 2 ml UNSCH PRN IV FLUSH 02/28/17 14:30 (NS Flush) 2 ml BID IV FLUSH 02/28/17 21:00 03/03/17 09:00 (Tylenol) 650 mg Q4H PRN PO 02/28/17 14:30 (Zofran Inj) 4 mg Q6H PRN IVP 02/28/17 14:30 (Narcan Inj) 0.4 mg UNSCH PRN IV PUSH 02/28/17 14:30 (Tylenol) 650 mg Q4H PRN PO 03/01/17 15:00 (Benadryl) 25 mg Q4H PRN PO 03/01/17 15:00 (Peridex 0.12% Liq) 15 ml BID@08,20 MT 03/02/17 08:00 03/02/17 20:00 Propofol 100 ml @ 7.944 mls/ hr TITRATE PRN IV 03/01/17 21:45 03/03/17 03:17 Ceftriaxone Sodium 1000 mg/ Sodium Chloride 100 ml @ 200 mls/hr Q24H IV 03/02/17 10:00 03/04/17 08:23 (Dilaudid Pf Inj) 1 mg Q3H PRN IV PUSH 03/02/17 12:30 03/05/17 05:34 Sodium Chloride 1,000 ml @ 100 mls/hr Q10H IV 03/03/17 15:00 03/04/17 10:23 (Protonix Inj) 40 mg Q12H IV PUSH 03/03/17 18:00 03/05/17 05:28 (Lopressor) 25 mg Q12HR PO 03/04/17 10:30 03/04/17 21:07 Vital Signs / I&O Vital Signs Date Time Temp Pulse Resp B/P (MAP) Pulse Ox O2 Delivery O2 Flow Rate FiO2 03/05/17 04:00 100.9 116 20 109/71 (84) 94 03/05/17 00:00 99.8 96 20 124/73 (90) 95 03/04/17 20:00 99.2 111 20 127/75 (92) 96 03/04/17 19:00 96 Room Air 03/04/17 16:00 98.4 100 22 131/85 (100) 96 03/04/17 14:00 20 03/04/17 12:00 98.3 90 21 115/69 (84) 95 03/04/17 09:10 95 21 03/04/17 08:00 98.6 108 21 109/60 (76) 92 03/04/17 08:00 Room Air 03/04/17 08:00 109 I/O 03/04/17 03/04/17 03/04/17 03/05/17 03/05/17 03/05/17 07:00 15:00 23:00 07:00 15:00 23:00 Intake Total 480 ml 2150 ml 1072 ml Output Total 450 ml 525 ml 400 ml Balance 30 ml 1625 ml 672 ml Intake Oral 480 ml 1000 ml 200 ml IV Total 1150 ml 872 ml Output Urine Total 450 ml 525 ml 400 ml # Bowel Movements 1 0 0 Physical Exam GENERAL: Well developed, well nourished. No acute distress. HEENT: Jugular venous pressure is normal. CHEST: Lungs clear to auscultation bilaterally. Unlabored respiratory effort. CARDIAC: Regular rate and rhythm without S3, S4, or murmur. ABDOMEN: Soft, nontender, no hepatosplenomegaly. Bowel sounds present. EXTREMITIES: No clubbing, cyanosis, + edema. Laboratory Laboratory Tests Test 03/05/17 04:39 White Blood Count 14.8 TH/MM3 Red Blood Count 4.10 MIL/MM3 Hemoglobin 12.8 GM/DL Hematocrit 37.2 % Mean Corpuscular Volume 90.7 FL Mean Corpuscular Hemoglobin 31.2 PG Mean Corpuscular Hemoglobin Concent 34.4 % Red Cell Distribution Width 19.5 % Platelet Count 81 TH/MM3 Mean Platelet Volume 10.3 FL Neutrophils (%) (Auto) 82.2 % Lymphocytes (%) (Auto) 8.1 % Monocytes (%) (Auto) 9.0 % Eosinophils (%) (Auto) 0.2 % Basophils (%) (Auto) 0.5 % Neutrophils # (Auto) 12.1 TH/MM3 Lymphocytes # (Auto) 1.2 TH/MM3 Monocytes # (Auto) 1.3 TH/MM3 Eosinophils # (Auto) 0.0 TH/MM3 Basophils # (Auto) 0.1 TH/MM3 CBC Comment AUTO DIFF Differential Comment AUTO DIFF CONFIRMED Platelet Estimate LOW Platelet Morphology Comment ENLARGED Hematology Comments Blood Urea Nitrogen 22 MG/DL Creatinine 1.52 MG/DL Random Glucose 92 MG/DL Total Protein 4.9 GM/DL Calcium Level 7.0 MG/DL Sodium Level 141 MEQ/L Potassium Level 3.8 MEQ/L Chloride Level 108 MEQ/L Carbon Dioxide Level 21.7 MEQ/L Anion Gap 11 MEQ/L Estimat Glomerular Filtration Rate 45 ML/MIN Protein Corrected Calcium 8.2 MG/DL Imaging Last 72 hours Impressions Upper Extremity Ultrasound 03/04/17 0000 Signed Impressions: Service Date/Time: Saturday, March 04, 2017 17:29 - CONCLUSION: Occlusive thrombus seen in the left basilic and cephalic veins. No thrombus is seen on the right side. Roger Key MD Assessment and Plan Assessment and Plan 1. NSTEMI: Etiology: Ischemia vs Secondary--tachycardia, GI bleed -ECHO EF= 35%global HK, flat elevation of trop @5 -BP too low for BB, aspirin contraindicated with GIB - out patient ischemia work up as he is not a cath candidate with active GIB 2. Cardiomyopathy- on BB change to coreg -no BREANNE with CKD -sodium and fluid limitations=> decrease IVF -add lasix 3. GI bleed: GIB multiple transfusions and cautery of a gastric ulcer. 4. Renal insufficiency: slowly improving. 5. Respiratory failure: extubated Lili Jean MD Mar 05, 2017 06:48
[2017-03-05] MEDS: SODIUM CHLOR 0.9% 1000 ML INJ 1,000 ML IV SCH (07:00)
[2017-03-05] MEDS: PANTOPRAZOLE INJ 80 MG in SODIUM CHLORIDE 0.9% INJ 100 ML IV SCH ×2 (09:03→18:01)
[2017-03-05] MEDS: CARVEDILOL 6.25 MG TAB PO SCH ×3 (10:10→21:02)
[2017-03-05] MEDS: cefTRIAXone INJ 1,000 MG in SODIUM CHLORIDE 0.9% INJ 100 ML IV SCH (10:11)
[2017-03-05] MEDS: POTASSIUM CHLORIDE 10 MEQ CONTROLLED RELEASE TAB PO SCH (10:11)
[2017-03-05] MEDS: FUROSEMIDE 20 MG TAB PO SCH (10:11)
[2017-03-05] MEDS: SODIUM CHLORIDE 0.9% FLUSH 10 ML FLUSH IV FLUSH SCH ×2 (10:15→21:00)
--- NOTE | 2017-03-05 11:22 | HHI.PR ---
Subjective Remarks Patient's cognition is improving. He has bilateral upper extremity swelling. Occlusive Thrombus is present at the left cephalic and basilic arteries, patient is not a good candidate for blood thinners recent GI hemorrhage and hemorrhagic shock. Objective Vital Signs Date Time Temp Pulse Resp B/P (MAP) Pulse Ox O2 Delivery O2 Flow Rate FiO2 03/05/17 08:08 96 03/05/17 04:00 100.9 116 20 109/71 (84) 94 03/05/17 00:00 99.8 96 20 124/73 (90) 95 03/04/17 20:00 99.2 111 20 127/75 (92) 96 03/04/17 19:00 96 Room Air 03/04/17 16:00 98.4 100 22 131/85 (100) 96 03/04/17 14:00 20 03/04/17 12:00 98.3 90 21 115/69 (84) 95 I/O 03/04/17 03/04/17 03/04/17 03/05/17 03/05/17 03/05/17 07:00 15:00 23:00 07:00 15:00 23:00 Intake Total 480 ml 2150 ml 1072 ml Output Total 450 ml 525 ml 400 ml Balance 30 ml 1625 ml 672 ml Intake Oral 480 ml 1000 ml 200 ml IV Total 1150 ml 872 ml Output Urine Total 450 ml 525 ml 400 ml # Bowel Movements 1 0 0 Result Diagram: 03/05/179 03/05/17438 Objective Remarks GENERAL: NAD, A&Ox3 HEAD: Normocephalic. NECK: Supple, trachea midline. No lymphadenopathy. EYES: No scleral icterus. No injection or drainage. CARDIOVASCULAR: Regular rate and rhythm without murmurs, gallops, or rubs. RESPIRATORY: Breath sounds equal bilaterally. No accessory muscle use. GASTROINTESTINAL: Abdomen soft, non-tender, nondistended. MUSCULOSKELETAL: No cyanosis, or edema. Upper extremity edema SKIN: Warm and dry. NEURO: No focal neurological deficitis. 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) (4) HTN (hypertension) ICD Code: I10 - Essential (primary) hypertension Assessment and Plan Assessment and Plan 71-year-old male admitted secondary to acute upper GI bleed with hemorrhagic shock Upper GI bleed Acute blood loss anemia Hemorrhagic shock Gastric ulcers Status post EGD with laser therapy Bleeding appears to have stopped Continue to monitor CBC Sinus tachycardia, NSTEMI Hemorrhagic related Follow on telemetry Continue beta mandy Left cephalic thrombus Left basilic thrombus Not a candidate for blood thinners at this point Follow clinically Respiratory failure on mechanical ventilation Status post extubation Doing well off vent Stable for transfer out of ICU Upper extremity edema Discontinue IV fluids 1 time IV Lasix Hyperchloremic non-anion gap metabolic acidosis Resolving well Follow labs Left knee osteoarthritis Follows outpatient Acute kidney injury on chronic kidney disease Improving Discontinue Jimenez catheter Continue to monitor renal function DVT prophylaxis SCDs Problem Qualifiers (1) HTN (hypertension): Qualified Codes: I10 - Essential (primary) hypertension Moo Lozada MD Mar 05, 2017 11:22
[2017-03-05] MEDS ORDERED: FUROSEMIDE 20 MG/2 ML VIAL IV PUSH ONE (12:00)
[2017-03-05] MEDS: ACETAMINOPHEN 325 MG TAB PO PRN (15:41)
[2017-03-05] MEDS: CHLORHEXIDINE 0.12% (ORAL KIT) 15 ML CUP MT SCH (19:47)
[2017-03-06] VITALS (8 sets, daily range): BP systolic 105–118; BP diastolic 47–76; PULSE 88–123; RESP 14–24; TEMP 98.9–102.3; O2SAT 93–99
[2017-03-06] MEDS: HYDROmorphone HCL PF 1 MG/ML VIAL IV PUSH PRN ×7 (00:06→21:24)
[2017-03-06] MEDS: PANTOPRAZOLE INJ 80 MG in SODIUM CHLORIDE 0.9% INJ 100 ML IV SCH ×2 (04:42→14:27)
[2017-03-06 05:43] LABS: HEMATOCRIT 35.7 % (39.0-51.0); MEAN CELL VOLUME 91.2 FL (80.0-100.0); MEAN CORPUSCULAR HEMOGLOBIN 30.7 PG (27.0-34.0); MEAN CORPUSCULAR HGB CONC 33.7 % (32.0-36.0); PLATELET COUNT 100 TH/MM3 (150-450); RED BLOOD COUNT 3.92 MIL/MM3 (4.50-5.90); RED CELL DISTRIBUTION WIDTH 20.2 % (11.6-17.2); WHITE BLOOD COUNT 16.3 TH/MM3 (4.0-11.0)
[2017-03-06 05:45] LABS: HEMO FLAGS AUTO DIFF
[2017-03-06] MEDS: PANTOPRAZOLE SODIUM 40 MG VIAL IV PUSH SCH ×2 (05:49→17:21)
[2017-03-06 06:09] LABS: BICARBONATE 22.6 MEQ/L (21.0-32.0); CALCIUM-PROTEIN CORRECTED 8.1 MG/DL (8.5-10.1); POTASSIUM 4.2 MEQ/L (3.5-5.1); TOTAL BILIRUBIN ADULT 1.2 MG/DL (0.2-1.0)
--- NOTE | 2017-03-06 07:24 | PD.CARD.PN ---
Subjective Subjective Remarks pt without complaints Objective Medications Current Medications Medications (Trade) Dose Ordered Sig/Mary Route Start Time Stop Time Status Last Admin Pantoprazole Sodium 80 mg/ Sodium Chloride 100 ml @ 10 mls/hr Q10H IV 02/28/17 09:03 03/04/17 07:16 (NS Flush) 2 ml UNSCH PRN IV FLUSH 02/28/17 14:30 (NS Flush) 2 ml BID IV FLUSH 02/28/17 21:00 03/05/17 21:00 (Tylenol) 650 mg Q4H PRN PO 02/28/17 14:30 03/05/17 15:41 (Zofran Inj) 4 mg Q6H PRN IVP 02/28/17 14:30 (Narcan Inj) 0.4 mg UNSCH PRN IV PUSH 02/28/17 14:30 (Tylenol) 650 mg Q4H PRN PO 03/01/17 15:00 (Benadryl) 25 mg Q4H PRN PO 03/01/17 15:00 (Peridex 0.12% Liq) 15 ml BID@08,20 MT 03/02/17 08:00 03/02/17 20:00 Propofol 100 ml @ 7.944 mls/ hr TITRATE PRN IV 03/01/17 21:45 03/03/17 03:17 Ceftriaxone Sodium 1000 mg/ Sodium Chloride 100 ml @ 200 mls/hr Q24H IV 03/02/17 10:00 03/05/17 10:11 (Dilaudid Pf Inj) 1 mg Q3H PRN IV PUSH 03/02/17 12:30 03/06/17 05:50 (Protonix Inj) 40 mg Q12H IV PUSH 03/03/17 18:00 03/06/17 05:49 (Coreg) 6.25 mg Q12HR PO 03/05/17 09:00 03/05/17 10:10 (Lasix) 20 mg DAILY PO 03/05/17 09:00 03/05/17 10:11 (KCl) 10 meq DAILY PO 03/05/17 09:00 03/05/17 10:11 Vital Signs / I&O Vital Signs Date Time Temp Pulse Resp B/P (MAP) Pulse Ox O2 Delivery O2 Flow Rate FiO2 03/06/17 07:00 97 Room Air 03/06/17 04:00 99.8 113 21 114/69 (84) 94 03/06/17 00:00 99.4 109 24 105/67 (80) 96 03/05/17 20:19 96 21 03/05/17 20:00 98.9 103 17 96/54 (68) 98 03/05/17 19:00 98 Room Air 03/05/17 16:08 100.8 120 23 118/66 (83) 96 03/05/17 12:26 99.5 110 20 118/73 (88) 98 03/05/17 10:15 96 Room Air 03/05/17 08:08 96 03/05/17 08:00 99.2 117 23 128/81 (97) 96 I/O 03/05/17 03/05/17 03/05/17 03/06/17 03/06/17 03/06/17 07:00 15:00 23:00 07:00 15:00 23:00 Intake Total 1072 ml 580 ml 667 ml 1381 ml Output Total 400 ml 1750 ml 825 ml Balance 672 ml -1170 ml 667 ml 556 ml Intake Oral 200 ml 480 ml 240 ml IV Total 872 ml 100 ml 667 ml 1141 ml Output Urine Total 400 ml 1750 ml 825 ml # Bowel Movements 0 1 0 Physical Exam GENERAL: Well developed, well nourished. No acute distress. HEENT: Jugular venous pressure is normal. CHEST: Lungs clear to auscultation bilaterally. Unlabored respiratory effort. CARDIAC: Regular rate and rhythm without S3, S4, or murmur. ABDOMEN: Soft, nontender, no hepatosplenomegaly. Bowel sounds present. EXTREMITIES: No clubbing, cyanosis, + edema in hands. not legs Laboratory Laboratory Tests Test 03/06/17 05:20 White Blood Count 16.3 TH/MM3 Red Blood Count 3.92 MIL/MM3 Hemoglobin 12.0 GM/DL Hematocrit 35.7 % Mean Corpuscular Volume 91.2 FL Mean Corpuscular Hemoglobin 30.7 PG Mean Corpuscular Hemoglobin Concent 33.7 % Red Cell Distribution Width 20.2 % Platelet Count 100 TH/MM3 Mean Platelet Volume 10.5 FL CBC Comment AUTO DIFF Hematology Comments Blood Urea Nitrogen 22 MG/DL Creatinine 1.55 MG/DL Random Glucose 79 MG/DL Total Protein 4.7 GM/DL Albumin 1.7 GM/DL Calcium Level 6.8 MG/DL Alkaline Phosphatase 106 U/L Aspartate Amino Transf (AST/SGOT) 38 U/L Alanine Aminotransferase (ALT/SGPT) 26 U/L Total Bilirubin 1.2 MG/DL Sodium Level 140 MEQ/L Potassium Level 4.2 MEQ/L Chloride Level 106 MEQ/L Carbon Dioxide Level 22.6 MEQ/L Anion Gap 11 MEQ/L Estimat Glomerular Filtration Rate 44 ML/MIN Protein Corrected Calcium 8.1 MG/DL Imaging Last 72 hours Impressions Upper Extremity Ultrasound 03/04/17 0000 Signed Impressions: Service Date/Time: Saturday, March 04, 2017 17:29 - CONCLUSION: Occlusive thrombus seen in the left basilic and cephalic veins. No thrombus is seen on the right side. Roger Key MD Assessment and Plan Assessment and Plan 1. NSTEMI: Etiology: Ischemia vs Secondary--tachycardia, GI bleed -ECHO EF= 35%global HK, flat elevation of trop @5 - aspirin contraindicated with GIB - out patient ischemia work up as he is not a cath candidate with active GIB - on BB 2. Cardiomyopathy- on BB change to coreg -no BREANNE with CKD -sodium and fluid limitations -good on lasix and low dose IVF 3. GI bleed: GIB multiple transfusions and cautery of a gastric ulcer. 4. Renal insufficiency: slowly improving. 5. Respiratory failure: extubated Lili Jean MD Mar 06, 2017 07:24
[2017-03-06 07:52] LABS: NEUTROPHIL # MANUAL DIFF 14.2 TH/MM3 (1.8-7.7); PLATELET ESTIMATE SMEAR LOW (NORMAL); PLATELET MORPHOLOGY NORMAL (NORMAL); POLYS (SEG NEUTROPHILS) 87 % (16-70); SCAN/DIFF FINAL DIFF MANUAL; WBC DIFF SAMPLE 100
[2017-03-06] MEDS: CHLORHEXIDINE 0.12% (ORAL KIT) 15 ML CUP MT SCH ×2 (08:00→20:00)
[2017-03-06] MEDS: FUROSEMIDE 20 MG TAB PO SCH (08:54)
[2017-03-06] MEDS: CARVEDILOL 3.125 MG TAB PO SCH ×2 (08:54→21:24)
[2017-03-06] MEDS: SODIUM CHLORIDE 0.9% FLUSH 10 ML FLUSH IV FLUSH SCH ×2 (08:54→21:24)
[2017-03-06] MEDS: POTASSIUM CHLORIDE 10 MEQ CONTROLLED RELEASE TAB PO SCH (08:55)
[2017-03-06] MEDS: cefTRIAXone INJ 1,000 MG in SODIUM CHLORIDE 0.9% INJ 100 ML IV SCH (08:55)
--- NOTE | 2017-03-06 10:00 | HHI.PR ---
Subjective Remarks Left arm swelling significantly improved. Right arm remains swollen. No new complaints. Diet has been tolerated. Objective Vital Signs Date Time Temp Pulse Resp B/P (MAP) Pulse Ox O2 Delivery O2 Flow Rate FiO2 03/06/17 08:05 97 03/06/17 08:00 99.0 123 19 118/76 (90) 96 03/06/17 07:00 97 Room Air 03/06/17 04:00 99.8 113 21 114/69 (84) 94 03/06/17 00:00 99.4 109 24 105/67 (80) 96 03/05/17 20:19 96 21 03/05/17 20:00 98.9 103 17 96/54 (68) 98 03/05/17 19:00 98 Room Air 03/05/17 16:08 100.8 120 23 118/66 (83) 96 03/05/17 12:26 99.5 110 20 118/73 (88) 98 03/05/17 10:15 96 Room Air I/O 03/05/17 03/05/17 03/05/17 03/06/17 03/06/17 03/06/17 07:00 15:00 23:00 07:00 15:00 23:00 Intake Total 1072 ml 580 ml 667 ml 1381 ml Output Total 400 ml 1750 ml 825 ml Balance 672 ml -1170 ml 667 ml 556 ml Intake Oral 200 ml 480 ml 240 ml IV Total 872 ml 100 ml 667 ml 1141 ml Output Urine Total 400 ml 1750 ml 825 ml # Bowel Movements 0 1 0 Result Diagram: 03/06/1751903/06/17519 Objective Remarks GENERAL: NAD, A&Ox3 HEAD: Normocephalic. NECK: Supple, trachea midline. No lymphadenopathy. EYES: No scleral icterus. No injection or drainage. CARDIOVASCULAR: Regular rate and rhythm without murmurs, gallops, or rubs. RESPIRATORY: Breath sounds equal bilaterally. No accessory muscle use. GASTROINTESTINAL: Abdomen soft, non-tender, nondistended. MUSCULOSKELETAL: No cyanosis, or edema. Edema at right upper extremity decreased edema left upper extremity SKIN: Warm and dry. NEURO: No focal neurological deficitis. 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 Advance diet soft mechanical. Labs reviewed. Continue to monitor hemoglobin, renal function, and electrolytes. Labs ordered for further monitoring. Upper GI bleed Acute blood loss anemia Hemorrhagic shock Gastric ulcers Status post EGD with laser therapy Bleeding appears to have stopped Continue to monitor CBC Sinus tachycardia, NSTEMI Hemorrhagic related Follow on telemetry Continue beta mandy Left cephalic thrombus Left basilic thrombus Not a candidate for blood thinners at this point Follow clinically Respiratory failure on mechanical ventilation Status post extubation Doing well off vent Stable for transfer out of ICU Upper extremity edema Discontinued IV fluids Monitor right upper extremity Left upper extremity has thromboses, right upper extremity did not show thromboses Hyperchloremic non-anion gap metabolic acidosis Resolving well Follow labs Left knee osteoarthritis Follows outpatient Acute kidney injury on chronic kidney disease Improving Discontinue Jimenez catheter Continue to monitor renal function DVT prophylaxis SCDs Problem Qualifiers (1) HTN (hypertension): Qualified Codes: I10 - Essential (primary) hypertension Moo Lozada MD Mar 06, 2017 10:00
[2017-03-06] MEDS: ACETAMINOPHEN 325 MG TAB PO PRN (12:17)
[2017-03-06] MEDS: PIPERACIL-TAZO 3.375 GM PREMIX 50 ML IV SCH ×2 (14:27→21:24)
[2017-03-06] MEDS: LACTOBACILLUS ACIDOPHILUS TAB PO SCH (17:21)
[2017-03-07] VITALS: BP 124/49; PULSE 96; RESP 20; TEMP 97; O2SAT 96
[2017-03-07] MEDS: HYDROmorphone HCL PF 1 MG/ML VIAL IV PUSH PRN ×4 (00:42→10:18)
[2017-03-07] MEDS: PANTOPRAZOLE INJ 80 MG in SODIUM CHLORIDE 0.9% INJ 100 ML IV SCH ×3 (01:03→21:03)
[2017-03-07] MEDS: PANTOPRAZOLE SODIUM 40 MG VIAL IV PUSH SCH ×2 (06:35→17:46)
[2017-03-07] MEDS: PIPERACIL-TAZO 3.375 GM PREMIX 50 ML IV SCH ×3 (06:35→23:13)
[2017-03-07 07:36] LABS: AUTOMATED NEUTROPHIL # 8.4 TH/MM3 (1.8-7.7); BASOPHIL % 0.2 % (0.0-2.0); EOSINOPHIL # 0.2 TH/MM3 (0-0.4); EOSINOPHIL % 2.1 % (0.0-4.0); HEMATOCRIT 31.1 % (39.0-51.0); HEMO FLAGS DIFF FINAL; LYMPH % 7.3 % (9.0-44.0); LYMPHOCYTE # 0.7 TH/MM3 (1.0-4.8); MEAN CELL VOLUME 90.9 FL (80.0-100.0); MEAN CORPUSCULAR HEMOGLOBIN 31.2 PG (27.0-34.0); MEAN CORPUSCULAR HGB CONC 34.4 % (32.0-36.0); MONO % 7.8 % (0.0-8.0); NEUT % 82.6 % (16.0-70.0); PLATELET COUNT 133 TH/MM3 (150-450); RED BLOOD COUNT 3.42 MIL/MM3 (4.50-5.90); RED CELL DISTRIBUTION WIDTH 19.8 % (11.6-17.2); WHITE BLOOD COUNT 10.1 TH/MM3 (4.0-11.0)
[2017-03-07 08:00] VITALS: BP 119/55; PULSE 95; RESP 16; TEMP 99.8; O2SAT 96
[2017-03-07] MEDS: CHLORHEXIDINE 0.12% (ORAL KIT) 15 ML CUP MT SCH ×2 (08:00→20:00)
[2017-03-07 08:09] LABS: BICARBONATE 24.2 MEQ/L (21.0-32.0); CALCIUM-PROTEIN CORRECTED 8.1 MG/DL (8.5-10.1); POTASSIUM 3.3 MEQ/L (3.5-5.1); TOTAL BILIRUBIN ADULT 0.7 MG/DL (0.2-1.0)
[2017-03-07] MEDS: FUROSEMIDE 20 MG TAB PO SCH (08:25)
[2017-03-07] MEDS: LACTOBACILLUS ACIDOPHILUS TAB PO SCH ×3 (08:25→17:46)
[2017-03-07] MEDS: SODIUM CHLORIDE 0.9% FLUSH 10 ML FLUSH IV FLUSH SCH ×2 (08:25→21:13)
[2017-03-07] MEDS: POTASSIUM CHLORIDE 10 MEQ CONTROLLED RELEASE TAB PO SCH (08:25)
[2017-03-07] MEDS: cefTRIAXone INJ 1,000 MG in SODIUM CHLORIDE 0.9% INJ 100 ML IV SCH (08:33)
[2017-03-07 08:41] VITALS: O2SAT 95
[2017-03-07] MEDS: CARVEDILOL 3.125 MG TAB PO SCH ×2 (09:00→21:12)
[2017-03-07] MEDS ORDERED: POTASSIUM CHLORIDE 10 MEQ CONTROLLED RELEASE TAB PO ONE (09:15)
--- NOTE | 2017-03-07 10:30 | PD.CARD.PN ---
Subjective Subjective Remarks No dyspnea, PND, CP, dizziness, palpitations, nausea. Objective Medications Item Value Date Time Carvedilol 3.125 mg 03/06/17 0900 (Coreg) Q12HR/PO 03/06/172123 Furosemide 20 mg 03/05/17 0900 (Lasix) DAILY/PO 03/07/17 0825 Potassium Chloride 10 meq 03/05/17 0900 (KCl) DAILY/PO 03/07/17 0825 Current Medications Medications (Trade) Dose Ordered Sig/Mary Route Start Time Stop Time Status Last Admin Pantoprazole Sodium 80 mg/ Sodium Chloride 100 ml @ 10 mls/hr Q10H IV 02/28/17 09:03 03/04/17 07:16 (NS Flush) 2 ml UNSCH PRN IV FLUSH 02/28/17 14:30 (NS Flush) 2 ml BID IV FLUSH 02/28/17 21:00 03/07/17 08:25 (Tylenol) 650 mg Q4H PRN PO 02/28/17 14:30 03/06/17 12:17 (Zofran Inj) 4 mg Q6H PRN IVP 02/28/17 14:30 (Narcan Inj) 0.4 mg UNSCH PRN IV PUSH 02/28/17 14:30 (Tylenol) 650 mg Q4H PRN PO 03/01/17 15:00 (Benadryl) 25 mg Q4H PRN PO 03/01/17 15:00 (Peridex 0.12% Liq) 15 ml BID@08,20 MT 03/02/17 08:00 03/02/17 20:00 Propofol 100 ml @ 7.944 mls/ hr TITRATE PRN IV 03/01/17 21:45 03/03/17 03:17 Ceftriaxone Sodium 1000 mg/ Sodium Chloride 100 ml @ 200 mls/hr Q24H IV 03/02/17 10:00 03/07/17 08:33 (Dilaudid Pf Inj) 1 mg Q3H PRN IV PUSH 03/02/17 12:30 03/07/17 10:18 (Protonix Inj) 40 mg Q12H IV PUSH 03/03/17 18:00 03/07/17 06:35 (Lasix) 20 mg DAILY PO 03/05/17 09:00 03/07/17 08:25 (KCl) 10 meq DAILY PO 03/05/17 09:00 03/07/17 08:25 (Coreg) 3.125 mg Q12HR PO 03/06/17 09:00 03/06/17 21:24 Piperacillin Sod/ Tazobactam Sod 50 ml @ 100 mls/hr Q8HR IV 03/06/17 14:00 03/07/17 06:35 (Lactinex) 1 tab TID PO 03/06/17 18:00 03/07/17 08:25 Vital Signs / I&O Vital Signs Date Time Temp Pulse Resp B/P (MAP) Pulse Ox O2 Delivery O2 Flow Rate FiO2 03/07/17 08:00 99.8 95 16 119/55 (76) 96 03/07/17 00:00 97.0 96 20 124/49 (74) 96 03/06/17 21:27 99 21 03/06/17 20:00 93 Room Air 03/06/17 20:00 99.3 117 24 118/56 (76) 93 03/06/17 16:00 98.9 88 14 112/47 (68) 96 03/06/17 12:00 102.3 114 17 114/60 (78) 95 I/O 03/06/17 03/06/17 03/06/17 03/07/17 03/07/17 03/07/17 07:00 15:00 23:00 07:00 15:00 23:00 Intake Total 1381 ml 790 ml 240 ml Output Total 825 ml 1200 ml 100 ml Balance 556 ml -410 ml 140 ml Intake Oral 240 ml 740 ml 240 ml IV Total 1141 ml 50 ml Output Urine Total 825 ml 1200 ml 100 ml # Bowel Movements 0 1 Physical Exam GENERAL: Well developed, well nourished. No acute distress. HEENT: Jugular venous pressure is normal. CHEST: Lungs clear to auscultation bilaterally. Unlabored respiratory effort. CARDIAC: Regular rate and rhythm without S3, S4, or murmur. ABDOMEN: Soft, nontender, no hepatosplenomegaly. Bowel sounds present. EXTREMITIES: No clubbing, cyanosis, or edema. Laboratory Laboratory Tests Test 03/07/17 06:53 White Blood Count 10.1 TH/MM3 Red Blood Count 3.42 MIL/MM3 Hemoglobin 10.7 GM/DL Hematocrit 31.1 % Mean Corpuscular Volume 90.9 FL Mean Corpuscular Hemoglobin 31.2 PG Mean Corpuscular Hemoglobin Concent 34.4 % Red Cell Distribution Width 19.8 % Platelet Count 133 TH/MM3 Mean Platelet Volume 10.7 FL Neutrophils (%) (Auto) 82.6 % Lymphocytes (%) (Auto) 7.3 % Monocytes (%) (Auto) 7.8 % Eosinophils (%) (Auto) 2.1 % Basophils (%) (Auto) 0.2 % Neutrophils # (Auto) 8.4 TH/MM3 Lymphocytes # (Auto) 0.7 TH/MM3 Monocytes # (Auto) 0.8 TH/MM3 Eosinophils # (Auto) 0.2 TH/MM3 Basophils # (Auto) 0.0 TH/MM3 CBC Comment DIFF FINAL Differential Comment Blood Urea Nitrogen 22 MG/DL Creatinine 1.67 MG/DL Random Glucose 90 MG/DL Total Protein 5.2 GM/DL Albumin 1.6 GM/DL Calcium Level 7.1 MG/DL Alkaline Phosphatase 107 U/L Aspartate Amino Transf (AST/SGOT) 35 U/L Alanine Aminotransferase (ALT/SGPT) 26 U/L Total Bilirubin 0.7 MG/DL Sodium Level 138 MEQ/L Potassium Level 3.3 MEQ/L Chloride Level 104 MEQ/L Carbon Dioxide Level 24.2 MEQ/L Anion Gap 10 MEQ/L Estimat Glomerular Filtration Rate 41 ML/MIN Protein Corrected Calcium 8.1 MG/DL Assessment and Plan Problem List: (1) Non-ST elevation DE (NSTEMI) ICD Codes: I21.4 - Non-ST elevation (NSTEMI) myocardial infarction Status: Acute Plan: Stable overnight. No definite angina symptoms. EF 30-35% by echo. Patient not good candidate at this time for invasive cardiac evaluation/therapy with recent GI bleeding. REC continue medical therapy, continue beta mandy daily baby aspirin when OK from GI standpoint will see patient PRN tomorrow (2) Ischemic cardiomyopathy ICD Codes: I25.5 - Ischemic cardiomyopathy Status: Chronic Plan: Overall stable. Compensated. EF 30-35%. REC continue beta mandy; no BREANNE-I with relatively low BP's and his renal insufficiency Code Status full code Discussed Condition With patient and family Jimmy Galeana MD Mar 07, 2017 10:30
[2017-03-07 12:00] VITALS: BP 138/78; PULSE 96; RESP 18; TEMP 100.2; O2SAT 96
--- NOTE | 2017-03-07 12:11 | HHI.PR ---
Subjective Remarks Patient reports he is feeling ok today. No more episodes of bleeding. However there has been a 2 points drop in hemoglobin Objective Vitals Vital Signs Date Time Temp Pulse Resp B/P (MAP) Pulse Ox O2 Delivery O2 Flow Rate FiO2 03/07/17 08:00 99.8 95 16 119/55 (76) 96 03/07/17 00:00 97.0 96 20 124/49 (74) 96 03/06/17 21:27 99 21 03/06/17 20:00 93 Room Air 03/06/17 20:00 99.3 117 24 118/56 (76) 93 03/06/17 16:00 98.9 88 14 112/47 (68) 96 I/O 03/06/17 03/06/17 03/06/17 03/07/17 03/07/17 03/07/17 07:00 15:00 23:00 07:00 15:00 23:00 Intake Total 1381 ml 790 ml 240 ml Output Total 825 ml 1200 ml 100 ml Balance 556 ml -410 ml 140 ml Intake Oral 240 ml 740 ml 240 ml IV Total 1141 ml 50 ml Output Urine Total 825 ml 1200 ml 100 ml # Bowel Movements 0 1 Result Diagram: 03/07/17 0653 03/07/17 0653 Objective Remarks GENERAL: Patient appear frail. CARDIOVASCULAR: Normal rate and regular rhythm without murmurs, gallops, or rubs. RESPIRATORY: Good respiratory efforts. Breath sounds equal and clear to auscultation bilaterally. GASTROINTESTINAL: Abdomen soft, non-tender, non-distended. Normal active bowel sounds MUSCULOSKELETAL: Bilateral upper extremity edema, right a little worse compared to the left. Has been improving per the patient NEURO: Alert & Oriented x4 to person, place, time, situation. Moves all ext x4. Generalized weakness PSYCH: Appropriate mood and affect. 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) (3) CRISTOBAL (acute kidney injury) ICD Code: N17.9 - Acute kidney failure, unspecified (4) Tachycardia ICD Code: R00.0 - Tachycardia, unspecified (5) HTN (hypertension) ICD Code: I10 - Essential (primary) hypertension (6) GI bleed ICD Code: K92.2 - Gastrointestinal hemorrhage, unspecified Status: Acute (7) Metabolic acidosis ICD Code: E87.2 - Acidosis; N18.4 - Chronic kidney disease, stage 4 (severe) Status: Acute (8) Hyperkalemia ICD Code: E87.5 - Hyperkalemia; N18.4 - Chronic kidney disease, stage 4 (severe ) Status: Acute Assessment and Plan 71-year-old male admitted secondary to acute upper GI bleed with hemorrhagic shock. Upper GI bleed Acute blood loss anemia Hemorrhagic shock Gastric ulcers Multiple duodenal ulcers with active bleeding was found on EGD, status post injection and laser therapy Bleeding appears to have stopped. However there has been no 2 point drop in hemoglobin today. Monitor serial H&H today. Monitor for bleeding. Sinus tachycardia, NSTEMI, cardiomyopathy Hemorrhagic related Cardiology followed the patient. No BREANNE inhibitor due to renal functions. Continue Lasix and Coreg Outpatient follow-up for ischemic workup was advised per cardiology. Left cephalic thrombus Left basilic thrombus Not a candidate for blood thinners at this point given bleeding Follow clinically Respiratory failure on mechanical ventilation Status post extubation Doing well off vent. Wean off nasal cannula as tolerated. Upper extremity edema Monitor right upper extremity Left upper extremity has thromboses, right upper extremity did not show thromboses. Edema overall improving. Left knee osteoarthritis Follows outpatient Acute kidney injury on chronic kidney disease Improving Continue to monitor renal function DVT prophylaxis SCDs Discharge Planning Monitor H&H to ensure no further drops. Problem Qualifiers (1) HTN (hypertension): Qualified Codes: I10 - Essential (primary) hypertension (2) GI bleed: Qualified Codes: K92.2 - Gastrointestinal hemorrhage, unspecified Cosmo Schultz MD Mar 07, 2017 12:11
[2017-03-07 12:25] LABS: HEMATOCRIT 31.5 % (39.0-51.0); REVIEW FLAG FINAL
[2017-03-07] MEDS: ACETAMINOPHEN/HYDROcodone 325 MG/7.5 MG TAB PO PRN ×3 (14:38→23:48)
[2017-03-07 16:00] VITALS: BP 107/43; PULSE 95; RESP 18; TEMP 98.6; O2SAT 94
[2017-03-07 20:00] VITALS: BP 131/95; PULSE 85; RESP 17; TEMP 99.4; O2SAT 96
[2017-03-08] VITALS: BP 124/81; PULSE 80; RESP 17; TEMP 98.7; O2SAT 96
[2017-03-08] MEDS: ACETAMINOPHEN/HYDROcodone 325 MG/7.5 MG TAB PO PRN ×5 (03:50→19:26)
[2017-03-08] MEDS: PANTOPRAZOLE SODIUM 40 MG VIAL IV PUSH SCH ×2 (05:03→17:31)
[2017-03-08] MEDS: PIPERACIL-TAZO 3.375 GM PREMIX 50 ML IV SCH (05:03)
[2017-03-08] MEDS: PANTOPRAZOLE INJ 80 MG in SODIUM CHLORIDE 0.9% INJ 100 ML IV SCH (07:03)
[2017-03-08] MEDS: CHLORHEXIDINE 0.12% (ORAL KIT) 15 ML CUP MT SCH (07:50)
[2017-03-08 08:00] VITALS: BP 104/64; PULSE 85; RESP 17; TEMP 99.3; O2SAT 95
[2017-03-08] MEDS: cefTRIAXone INJ 1,000 MG in SODIUM CHLORIDE 0.9% INJ 100 ML IV SCH (09:34)
[2017-03-08] MEDS: FUROSEMIDE 20 MG TAB PO SCH (09:34)
[2017-03-08] MEDS: CARVEDILOL 3.125 MG TAB PO SCH (09:34)
[2017-03-08] MEDS: SODIUM CHLORIDE 0.9% FLUSH 10 ML FLUSH IV FLUSH SCH (09:34)
[2017-03-08] MEDS: POTASSIUM CHLORIDE 10 MEQ CONTROLLED RELEASE TAB PO SCH (09:34)
[2017-03-08] MEDS: LACTOBACILLUS ACIDOPHILUS TAB PO SCH ×3 (09:34→17:31)
[2017-03-08 12:00] VITALS: BP_SYST 106; BP_SYST 116; BP_DIAS 66; BP_DIAS 73; PULSE 85; PULSE 93; RESP 20; TEMP 97.2; TEMP 98.7; O2SAT 92; O2SAT 97
[2017-03-08] MEDS ORDERED: CARV3.125 PO (13:23)
[2017-03-08] MEDS ORDERED: FURO20TA PO (13:23)
[2017-03-08] MEDS ORDERED: PROT40TA PO (13:23)
[2017-03-08] MEDS ORDERED: NORC5TAB PO (13:24)
--- NOTE | 2017-03-08 13:24 | HHI.DS ---
Discharge Summary Admission Date Feb 28, 2017 at 13:31 Discharge Date: Mar 08, 2017 Admitting Diagnosis GI bleed. Acute and chronic kidney disease. Metabolic acidosis. (1) Volume depletion ICD Code: E86.9 - Volume depletion, unspecified (2) Anemia due to GI blood loss ICD Code: D50.0 - Iron deficiency anemia secondary to blood loss (chronic) (3) CRISTOBAL (acute kidney injury) ICD Code: N17.9 - Acute kidney failure, unspecified (4) Tachycardia ICD Code: R00.0 - Tachycardia, unspecified (5) HTN (hypertension) ICD Code: I10 - Essential (primary) hypertension (6) GI bleed ICD Code: K92.2 - Gastrointestinal hemorrhage, unspecified Status: Acute (7) Metabolic acidosis ICD Code: E87.2 - Acidosis; N18.4 - Chronic kidney disease, stage 4 (severe) Status: Acute (8) Hyperkalemia ICD Code: E87.5 - Hyperkalemia; N18.4 - Chronic kidney disease, stage 4 (severe ) Status: Acute Procedures Intubation/extubation EGD Brief History - From Admission History of present illness from the admitting physician Patient is a 71-year-old gentleman who complains of 2 days of nausea, vomiting, anorexia. Patient not having abdominal pain but did have increased emesis. He had a left knee arthritis which was causing her more pain and so he had began to the Advil over the last several days. He does have a history of bleeding ulcer but denies any recent endoscopy. 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 He lives with his significant other who initially called 911 when the patient was so weak and dizzy and pale however the patient refused to go when able and services arrived. She was going to drive him herself to the hospital but he could not make it from the front door to the car and so 911 was called back and the patient was then brought by emergency services to the emergency room. Again he denies any pain. He has been seen in the emergency room and does have a black tarry stools on exam and these are Hemoccult positive. Patient is anemic, tachycardic, pale and complaining of nausea. He isn't started on Protonix and feels a bit better. IV fluids have been started and the patient was given calcium gluconate and insulin for hyperkalemia, the patient was admitted to the hospital for the same CBC/BMP: 03/07/17 1207 03/07/17 0653 Significant Findings Laboratory Tests Test 03/06/17 05:20 03/07/17 06:53 03/07/17 12:07 White Blood Count 16.3 TH/MM3 (4.0-11.0) Red Blood Count 3.92 MIL/MM3 (4.50-5.90) 3.42 MIL/MM3 (4.50-5.90) Hemoglobin 12.0 GM/DL (13.0-17.0) 10.7 GM/DL (13.0-17.0) 10.7 GM/DL (13.0-17.0) Hematocrit 35.7 % (39.0-51.0) 31.1 % (39.0-51.0) 31.5 % (39.0-51.0) Red Cell Distribution Width 20.2 % (11.6-17.2) 19.8 % (11.6-17.2) Platelet Count 100 TH/MM3 (150-450) 133 TH/MM3 (150-450) Neutrophils % (Manual) 87 % (16-70) Neutrophils # (Manual) 14.2 TH/MM3 (1.8-7.7) Platelet Estimate LOW (NORMAL) Blood Urea Nitrogen 22 MG/DL (7-18) 22 MG/DL (7-18) Creatinine 1.55 MG/DL (0.60-1.30) 1.67 MG/DL (0.60-1.30) Total Protein 4.7 GM/DL (6.4-8.2) 5.2 GM/DL (6.4-8.2) Albumin 1.7 GM/DL (3.4-5.0) 1.6 GM/DL (3.4-5.0) Calcium Level 6.8 MG/DL (8.5-10.1) 7.1 MG/DL (8.5-10.1) Aspartate Amino Transf (AST/SGOT) 38 U/L (15-37) Total Bilirubin 1.2 MG/DL (0.2-1.0) Estimat Glomerular Filtration Rate 44 ML/MIN (>89) 41 ML/MIN (>89) Protein Corrected Calcium 8.1 MG/DL (8.5-10.1) 8.1 MG/DL (8.5-10.1) Neutrophils (%) (Auto) 82.6 % (16.0-70.0) Lymphocytes (%) (Auto) 7.3 % (9.0-44.0) Neutrophils # (Auto) 8.4 TH/MM3 (1.8-7.7) Lymphocytes # (Auto) 0.7 TH/MM3 (1.0-4.8) Potassium Level 3.3 MEQ/L (3.5-5.1) Imaging Last Impressions Upper Extremity Ultrasound 03/04/17 0000 Signed Impressions: Service Date/Time: Saturday, March 04, 2017 17:29 - CONCLUSION: Occlusive thrombus seen in the left basilic and cephalic veins. No thrombus is seen on the right side. Roger Key MD Chest X-Ray 03/01/17 0000 Signed Impressions: Service Date/Time: Wednesday, March 01, 2017 21:42 - CONCLUSION: Endotracheal tube in appropriate position with tip measuring 5.7 cm from the glenis. Roger Rosas MD Abdomen/Pelvis CT 02/28/17 1239 Signed Impressions: Service Date/Time: Tuesday, February 28, 2017 15:14 - CONCLUSION: 1. Cholelithiasis with mild gallbladder distention but no pericholecystic fluid. 2. Diverticular disease throughout the colon without concomitant evidence of diverticulitis. 3. 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 Onesimo Oliveira MD Renal Ultrasound 02/28/17 0000 Signed Impressions: Service Date/Time: Tuesday, February 28, 2017 15:56 - CONCLUSION: 1. Normal ultrasound of the urinary system. There is no hydronephrosis. 2. Cholelithiasis. Roger Rosas MD PE at Discharge GENERAL: Patient appear frail. CARDIOVASCULAR: Normal rate and regular rhythm without murmurs, gallops, or rubs. RESPIRATORY: Good respiratory efforts. Breath sounds equal and clear to auscultation bilaterally. GASTROINTESTINAL: Abdomen soft, non-tender, non-distended. Normal active bowel sounds MUSCULOSKELETAL: Bilateral upper extremity edema, right a little worse compared to the left. Has been improving per the patient NEURO: Alert & Oriented x4 to person, place, time, situation. Moves all ext x4. Generalized weakness PSYCH: Appropriate mood and affect. Pt update on day of discharge Patient reports is feeling better. No more episodes of melena or bleeding.. Hospital Course 71-year-old male admitted secondary to acute upper GI bleed with hemorrhagic shock. Patient was under the care of critical care medicine. He improved and subsequently transferred to the hospitalist service. Evaluation and treatment course detailed below: Upper GI bleed Acute blood loss anemia Hemorrhagic shock Gastric ulcers Multiple duodenal ulcers with active bleeding was found on EGD, status post injection and laser therapy Bleeding appears to have stopped. H&H stabilized. Sinus tachycardia, NSTEMI, cardiomyopathy Hemorrhagic related Cardiology followed the patient. No BREANNE inhibitor due to renal functions. Continue Lasix and Coreg Outpatient follow-up for ischemic workup was advised per cardiology. Left cephalic thrombus Left basilic thrombus Not a candidate for blood thinners at this point given bleeding Follow clinically outpatient Respiratory failure on mechanical ventilation Status post extubation Doing well off vent. Wean off nasal cannula as tolerated. Upper extremity edema Monitor right upper extremity Left upper extremity has thromboses, right upper extremity did not show thromboses. Edema overall improving. Left knee osteoarthritis Follows outpatient Acute kidney injury on chronic kidney disease Improving Continue to monitor renal function outpatient Pt Condition on Discharge: Good Discharge Disposition: Discharge to SNF Discharge Time: > 30 minutes Discharge Instructions DIET: Follow Instructions for: As Tolerated, No Restrictions Activities you can perform: Regular-No Restrictions Follow up Referrals: Cardiology Gastroenterology PCP Follow-up SNF/[facility]/ with [facility] New Medications: Hydrocodone-Acetaminophen ([place]) 5 Mg-325 Mg Tab 1 TAB PO Q4H PRN for PAIN, #15 TAB 0 Refills Pantoprazole (Protonix) 40 Mg Tab 40 MG PO DAILY for Ulcer Prevention, #30 TAB 0 Refills Carvedilol (Coreg) 3.125 Mg Tab 3.125 MG PO Q12HR, #60 TAB Furosemide (Furosemide) 20 Mg Tab 20 MG PO DAILY, #30 TAB Continued Medications: Captopril (Capoten) 50 Mg Tab 50 MG PO TID Discontinued Medications: Hydrochlorothiazide (Hctz) 25 Mg Tab 25 MG PO DAILY, TAB Metoprolol Tartrate 50 mg (Metoprolol Tartrate 50 mg) 50 Mg Tab 50 MG PO BID, TAB Tramadol Hcl (Ultram) 50 Mg Tab 50 MG PO Q6H PRN for PAIN for 3 Days, TAB FOR PAIN Cosmo Schultz MD Mar 08, 2017 13:24
[2017-03-08 16:00] VITALS: BP 114/56; PULSE 87; RESP 18; TEMP 99; O2SAT 96
[2017-03-08 17:14] LABS: BICARBONATE 25.1 MEQ/L (21.0-32.0); POTASSIUM 3.5 MEQ/L (3.5-5.1)
[2017-03-08 17:18] LABS: AUTOMATED NEUTROPHIL # 7.8 TH/MM3 (1.8-7.7); BASOPHIL # 0.1 TH/MM3 (0-0.2); BASOPHIL % 0.7 % (0.0-2.0); EOSINOPHIL # 0.4 TH/MM3 (0-0.4); HEMATOCRIT 29.3 % (39.0-51.0); LYMPH % 13.9 % (9.0-44.0); LYMPHOCYTE # 1.5 TH/MM3 (1.0-4.8); MEAN CELL VOLUME 91.1 FL (80.0-100.0); MEAN CORPUSCULAR HEMOGLOBIN 29.7 PG (27.0-34.0); MEAN CORPUSCULAR HGB CONC 32.6 % (32.0-36.0); MONO % 8.1 % (0.0-8.0); NEUT % 73.3 % (16.0-70.0); PLATELET COUNT 140 TH/MM3 (150-450); RED BLOOD COUNT 3.22 MIL/MM3 (4.50-5.90); RED CELL DISTRIBUTION WIDTH 20.5 % (11.6-17.2)
[2017-03-08 17:38] LABS: CALCIUM-PROTEIN CORRECTED 8.2 MG/DL (8.5-10.1)
[2017-03-08 17:54] LABS: WHITE BLOOD COUNT 10.6 TH/MM3 (4.0-11.0)
[2017-03-08 17:55] LABS: HEMO FLAGS AUTO DIFF; PLATELET ESTIMATE SMEAR LOW (NORMAL); SCAN/DIFF AUTO DIFF CONFIRMED
[2017-03-08 17:56] LABS: PLATELET MORPHOLOGY GIANT (NORMAL)
[2017-03-08 18:44] VITALS: O2SAT 96
== END 2017-03-08 19:36 | DRG 377 ==
LOC: NEPE 07:28 → NEDA 13:31 → N03A 18:14 → N03B 03-04 19:20 → N07B 03-06 22:37
PROVIDERS: ADMIT Family Medicine; ATTEND Family Medicine
PROC: 30233N1 Transfusion of Nonautologous Red Blood Cells into Peripheral Vein, Percutaneous Approach (ICD-10-PCS; 2017-02-28)
PROC: 5A1945Z Respiratory Ventilation, 24-96 Consecutive Hours (ICD-10-PCS; 2017-03-01)
PROC: 3E0G8GC Introduction of Other Therapeutic Substance into Upper GI, Via Natural or Artificial Opening Endoscopic (ICD-10-PCS; 2017-03-01)
PROC: 0DB68ZX Excision of Stomach, Via Natural or Artificial Opening Endoscopic, Diagnostic (ICD-10-PCS; 2017-03-01)
PROC: 0W3P8ZZ Control Bleeding in Gastrointestinal Tract, Via Natural or Artificial Opening Endoscopic (ICD-10-PCS; principal; 2017-03-01 19:07)
PROC: 30233K1 Transfusion of Nonautologous Frozen Plasma into Peripheral Vein, Percutaneous Approach (ICD-10-PCS; 2017-03-02)
DX: K26.4 Chronic or unspecified duodenal ulcer with hemorrhage (principal); I21.4 Non-ST elevation (NSTEMI) myocardial infarction; J96.90 Respiratory failure, unspecified, unspecified whether with hypoxia or hypercapnia; E87.2 Acidosis; I95.9 Hypotension, unspecified; R57.8 Other shock; R57.1 Hypovolemic shock; N17.9 Acute kidney failure, unspecified; N18.4 Chronic kidney disease, stage 4 (severe); K25.9 Gastric ulcer, unspecified as acute or chronic, without hemorrhage or perforation; D62 Acute posthemorrhagic anemia; N39.0 Urinary tract infection, site not specified; I82.612 Acute embolism and thrombosis of superficial veins of left upper extremity; E87.5 Hyperkalemia; E86.9 Volume depletion, unspecified; I12.9 Hypertensive chronic kidney disease with stage 1 through stage 4 chronic kidney disease, or unspecified chronic kidney disease; M17.12 Unilateral primary osteoarthritis, left knee; R00.0 Tachycardia, unspecified; E87.8 Other disorders of electrolyte and fluid balance, not elsewhere classified; T39.395A Adverse effect of other nonsteroidal anti-inflammatory drugs [NSAID], initial encounter; B96.20 Unspecified Escherichia coli [E. coli] as the cause of diseases classified elsewhere; I25.5 Ischemic cardiomyopathy; B96.1 Klebsiella pneumoniae [K. pneumoniae] as the cause of diseases classified elsewhere; R60.0 Localized edema; Z87.11 Personal history of peptic ulcer disease
CPT/HCPCS: 36430; 36600; 71010; 74176; 76775; 76937; 80048; 80053; 80061; 81001; 82550; 82552; 82805; 83605; 83690; 83735; 84100; 84155; 84443; 84484; 85007; 85014; 85018; 85025; 85027; 85610; 85730; 86850; 86900; 86901; 86920; 86927; 87040; 87077; 87086; 87186; 87641; 88305; 88312; 93005; 93306; 93970; 94002; 94003; 94150; 96365; 96367; 96375; C9113; J0171; J0330; J0610; J0696; J1170; J1815; J1940; J2370; J2405; J2543; J3475; J3480; J7030; J7050; J7070; J7120; P9016; P9017

== ENCOUNTER 2017-06-06 19:02 | Emergency (ER) | payer MEDICARE, BC ==
[~2017-06-06] VITALS: Ht 175.3 cm; Wt 60.0 kg
[~2017-06-06 19:02] MED LIST changes: +CARV3.125 PO; +FURO20TA PO; -HYDR-2768 PO; -METO50TA PO; +NORC5TAB PO; +PROT40TA PO; -TRAM50 PO
[2017-06-06] MEDS ORDERED: IOHEXOL 350 MG/ML 10 ML VIAL (for RAD DIAG) IVCONTRAST ONE (19:03)
[2017-06-06 19:07] VITALS: BP 143/90; PULSE 103; RESP 16; TEMP 97.7; O2SAT 100
[2017-06-06] MEDS ORDERED: MULTTAB67 PO (19:41)
[2017-06-06] MEDS ORDERED: MAGN400T24 PO (19:41)
[2017-06-06] MEDS ORDERED: DIAZEPAM 5 MG TAB PO ONE (20:00)
[2017-06-06] MEDS ORDERED: KETOROLAC TROMETHAMINE 30 MG/ML (IVP) VIAL IVP ONE (20:00)
[2017-06-06] MEDS ORDERED: KETOROLAC TROMETHAMINE 30 MG/ML (IVP) VIAL IV PUSH ONE (20:00)
[2017-06-06] MEDS ORDERED: HYDROmorphone HCL PF 1 MG/ML VIAL IV PUSH ONE (20:00)
[2017-06-06 20:20] LABS: AUTOMATED NEUTROPHIL # 3.7 TH/MM3 (1.8-7.7); BASOPHIL # 0.1 TH/MM3 (0-0.2); BASOPHIL % 0.8 % (0.0-2.0); EOSINOPHIL # 0.3 TH/MM3 (0-0.4); EOSINOPHIL % 3.1 % (0.0-4.0); HEMATOCRIT 35.5 % (39.0-51.0); HEMOGLOBIN 11.6 GM/DL (13.0-17.0); LYMPH % 43.1 % (9.0-44.0); LYMPHOCYTE # 3.6 TH/MM3 (1.0-4.8); MEAN CELL VOLUME 93.9 FL (80.0-100.0); MEAN CORPUSCULAR HEMOGLOBIN 30.5 PG (27.0-34.0); MEAN CORPUSCULAR HGB CONC 32.5 % (32.0-36.0); MEAN PLATELET VOLUME 9.2 FL (7.0-11.0); MONO % 7.5 % (0.0-8.0); MONOCYTE # 0.6 TH/MM3 (0-0.9); NEUT % 45.5 % (16.0-70.0); PLATELET COUNT 267 TH/MM3 (150-450); RED BLOOD COUNT 3.78 MIL/MM3 (4.50-5.90); RED CELL DISTRIBUTION WIDTH 18.4 % (11.6-17.2); WHITE BLOOD COUNT 8.2 TH/MM3 (4.0-11.0)
[2017-06-06 20:30] LABS: CALCIUM 9.7 MG/DL (8.5-10.1); CREATININE 1.5 MG/DL (0.60-1.30)
[2017-06-06 20:35] LABS: PROTHROMBIN TIME - PATIENT 10.4 SEC (9.8-11.6)
[2017-06-06] MEDS ORDERED: HYDROmorphone HCL PF 2 MG/ML VIAL IV PUSH ONE (21:00)
--- NOTE | 2017-06-06 21:04 | PD ---
HPI Chief Complaint: Medical Clearance Time Seen by Provider: 19:38 Travel History International Travel<30 days: No Contact w/Intl Traveler<30days: No Traveled to known affect area: No History of Present Illness HPI 71-year-old male presents emergency department complaining of right testicular pain that began as he was sitting this afternoon. States about 4:56 PM he went to sit at the table and developed right testicular pain that has been unrelieved. States the pain is sharp and constant. States he last urinated about 3 PM this this afternoon. His assists in the history of this patient. States that he was recently in rehab for 81 days after an in-hospital stay for bleeding ulcers. Patient denies any previous history of this problem. Patient denies fever, chills, chest pain, shortness of breath. Denies abdominal pain. PFSH Past Medical History Arthritis: Yes Heart Rhythm Problems: No Cancer: No Cardiovascular Problems: Yes High Cholesterol: No Chest Pain: No Congestive Heart Failure: No Diminished Hearing: Yes Endocrine: No Gastrointestinal Disorders: Yes (bleeding ulcer) Genitourinary: Yes Hypertension: Yes Immune Disorder: No Kidney Stones: Yes (1976) Medical other: Yes (c. diff) Musculoskeletal: Yes Neurologic: No Psychiatric: No Reproductive: No Respiratory: No Renal Failure: No Influenza Vaccination: No Past Surgical History Abdominal Surgery: No Cardiac Surgery: No Ear Surgery: No Endocrine Surgery: No Eye Surgery: No Genitourinary Surgery: No Gynecologic Surgery: No Joint Replacement: Yes (LEFT KNEE) Oral Surgery: Yes (Tonsils) Thoracic Surgery: No Tonsillectomy: Yes Other Surgery: Yes Social History Alcohol Use: No Tobacco Use: No Substance Use: No Allergies-Medications (Allergen,Severity, Reaction): Coded Allergies: Fish Containing Products (Verified Allergy, Unknown, Skin Discoloration, ) Red all over No Known Allergies (Verified Allergy, Unknown, 06/06/17) broccoli (Verified Allergy, Unknown, 06/06/17) Reported Meds & Prescriptions Reported Meds & Active Scripts Active [place] (Hydrocodone-Acetaminophen) 5 Mg-325 Mg Tab 1 Tab PO Q4H PRN Coreg (Carvedilol) 3.125 Mg Tab 3.125 Mg PO Q12HR Reported Magnesium (Magnesium Oxide) 400 Mg Tablet 1 Tab PO DAILY Multiple Vitamin 1 Tab 1 Tab PO DAILY Review of Systems Except as stated in HPI: all other systems reviewed are Neg Physical Exam Narrative GENERAL: WD, WN in NAD SKIN: Focused skin assessment warm/dry. HEAD: Atraumatic. Normocephalic. EYES: Pupils equal and round. No scleral icterus. No injection or drainage. ENT: No nasal bleeding or discharge. Mucous membranes pink and moist. NECK: Trachea midline. No JVD. CARDIOVASCULAR: Regular rate and rhythm. No murmur appreciated. RESPIRATORY: No accessory muscle use. Clear to auscultation. Breath sounds equal bilaterally. GASTROINTESTINAL: Abdomen soft, non-tender, nondistended. - Testicles without obvious masses or enlargement, large mass protruding through apparent inguinal hernia, TTP to area. MUSCULOSKELETAL: No obvious deformities. No clubbing. No cyanosis. No edema. NEUROLOGICAL: Awake and alert. No obvious cranial nerve deficits. Motor grossly within normal limits. Normal speech. PSYCHIATRIC: Appropriate mood and affect; insight and judgment normal. Data Data Last Documented VS Vital Signs Date Time Temp Pulse Resp B/P (MAP) Pulse Ox O2 Delivery O2 Flow Rate FiO2 06/06/17 21:30 92 18 133/66 (88) 98 06/06/17 19:07 97.7 Room Air Orders Orders Us Testicles W Doppler (06/06/17 ) Ct Abd/Pel W Iv Contrast(Rout) (06/06/17 ) Basic Metabolic Panel (Bmp) (06/06/17 19:50) Complete Blood Count With Diff (06/06/17 19:50) Urinalysis - C+S If Indicated (06/06/17 19:50) Ketorolac Inj (Toradol Inj) (06/06/17 20:00) Act Partial Throm Time (Ptt) (06/06/17 19:50) Prothrombin Time / Inr (Pt) (06/06/17 19:50) Diazepam (Valium) (06/06/17 20:00) Ketorolac Inj (Toradol Inj) (06/06/17 20:00) Hydromorphone Pf Inj (Dilaudid Pf Inj) (06/06/17 20:00) Hydromorphone Pf Inj (Dilaudid Pf Inj) (06/06/17 21:00) Iohexol 350 Inj (Omnipaque 350 Inj) (06/06/17 19:03) Ed Discharge Order (06/06/17 22:39) Labs Laboratory Tests Test 06/06/17 19:45 White Blood Count 8.2 TH/MM3 Red Blood Count 3.78 MIL/MM3 Hemoglobin 11.6 GM/DL Hematocrit 35.5 % Mean Corpuscular Volume 93.9 FL Mean Corpuscular Hemoglobin 30.5 PG Mean Corpuscular Hemoglobin Concent 32.5 % Red Cell Distribution Width 18.4 % Platelet Count 267 TH/MM3 Mean Platelet Volume 9.2 FL Neutrophils (%) (Auto) 45.5 % Lymphocytes (%) (Auto) 43.1 % Monocytes (%) (Auto) 7.5 % Eosinophils (%) (Auto) 3.1 % Basophils (%) (Auto) 0.8 % Neutrophils # (Auto) 3.7 TH/MM3 Lymphocytes # (Auto) 3.6 TH/MM3 Monocytes # (Auto) 0.6 TH/MM3 Eosinophils # (Auto) 0.3 TH/MM3 Basophils # (Auto) 0.1 TH/MM3 CBC Comment DIFF FINAL Differential Comment Prothrombin Time 10.4 SEC Prothromb Time International Ratio 1.0 RATIO Activated Partial Thromboplast Time 27.9 SEC Blood Urea Nitrogen 19 MG/DL Creatinine 1.50 MG/DL Random Glucose 110 MG/DL Calcium Level 9.7 MG/DL Sodium Level 138 MEQ/L Potassium Level 4.0 MEQ/L Chloride Level 105 MEQ/L Carbon Dioxide Level 25.0 MEQ/L Anion Gap 8 MEQ/L Estimat Glomerular Filtration Rate 46 ML/MIN MDM Medical Decision Making Medical Screen Exam Complete: Yes Emergency Medical Condition: Yes Differential Diagnosis right inguinal hernia, testicular torsion, hydrocele Narrative Course 71-year-old male presents emergency department complaining of right testicular pain that began as he was sitting this afternoon. States about 4:56 PM he went to sit at the table and developed right testicular pain that has been unrelieved. States the pain is sharp and constant. States he last urinated about 3 PM this this afternoon. His assists in the history of this patient. States that he was recently in rehab for 81 days after an in-hospital stay for bleeding ulcers. Patient denies any previous history of this problem. Patient denies fever, chills, chest pain, shortness of breath. Denies abdominal pain. Physical exam demonstrates a mass protruding through the inguinal canal. Unable to really reduce upon initial evaluation. Ice, Valium, Dilaudid administered for assistance to reduce the hernia. CT abdomen pelvis with IV contrast and ultrasound ordered to evaluate for scrotal mass or strangulation. Laboratory Tests Test 06/06/17 19:45 White Blood Count 8.2 TH/MM3 Red Blood Count 3.78 MIL/MM3 Hemoglobin 11.6 GM/DL Hematocrit 35.5 % Mean Corpuscular Volume 93.9 FL Mean Corpuscular Hemoglobin 30.5 PG Mean Corpuscular Hemoglobin Concent 32.5 % Red Cell Distribution Width 18.4 % Platelet Count 267 TH/MM3 Mean Platelet Volume 9.2 FL Neutrophils (%) (Auto) 45.5 % Lymphocytes (%) (Auto) 43.1 % Monocytes (%) (Auto) 7.5 % Eosinophils (%) (Auto) 3.1 % Basophils (%) (Auto) 0.8 % Neutrophils # (Auto) 3.7 TH/MM3 Lymphocytes # (Auto) 3.6 TH/MM3 Monocytes # (Auto) 0.6 TH/MM3 Eosinophils # (Auto) 0.3 TH/MM3 Basophils # (Auto) 0.1 TH/MM3 CBC Comment DIFF FINAL Differential Comment Prothrombin Time 10.4 SEC Prothromb Time International Ratio 1.0 RATIO Activated Partial Thromboplast Time 27.9 SEC Blood Urea Nitrogen 19 MG/DL Creatinine 1.50 MG/DL Random Glucose 110 MG/DL Calcium Level 9.7 MG/DL Sodium Level 138 MEQ/L Potassium Level 4.0 MEQ/L Chloride Level 105 MEQ/L Carbon Dioxide Level 25.0 MEQ/L Anion Gap 8 MEQ/L Estimat Glomerular Filtration Rate 46 ML/MIN It appears that the medication along with the ice and rest has spontaneously reduced his hernia. The CT and testicular ultrasound did not demonstrate a strangulated hernia. A wet read in the ER today demonstrates a possible fat- containing hernia in the right inguinal canal. No evidence of testicular torsion. Upon reassessment, pt states he is pain free. Patient admits to having multiple bowel movements and straining. He had a BM today in the ED without issue or recurrence. Pt refused UA today. He will be discharged with instructions to see a General Surgeon. Diagnosis Primary Impression: Inguinal hernia Qualified Codes: K40.90 - Unilateral inguinal hernia, without obstruction or gangrene, not specified as recurrent Referrals: General Surgeon Additional Instructions: Follow up with a general surgeon for hernia evaluation. Ensure you avoid straining while having bowel movements. If your symptoms recur, apply ice to the area for 15 min and return to the emergency department. Disposition: 01 DISCHARGE HOME Condition: Stable Iris Snow Jun 06, 2017 21:04
--- NOTE | 2017-06-06 21:17 | RADRPT ---
EXAM DATE/TIME: 06/06/2017 20:20 [facility] COMPARISON: CT ABDOMEN & PELVIS W CONTRAST, June 06, 2017, 20:59. INDICATIONS : Testicular pain. MEDICAL HISTORY : Hypertension. Hearing loss. Kidney stones. Arthritis. C-diff. SURGICAL HISTORY : Tonsillectomy. Left knee replacement. ENCOUNTER: Initial ACUITY: 3 days PAIN SCORE: 10/10 LOCATION: Bilateral testicles. MEASUREMENTS: RIGHT TESTICLE: 3.3 x 1.9 x 3.8cm LEFT TESTICLE: 3.3 x 1.9 x 1.4cm FINDINGS: RIGHT TESTICLE: Homogeneous echotexture without intra or extratesticular mass. There is an echogenic focus in the ri ght hemiscrotum measuring 3 mm. Blood flow is symmetric and within normal limits. No hydrocele or va ricocele. Epididymis contains a cyst measuring 3 mm. LEFT TESTICLE: Homogeneous echotexture without intra or extratesticular mass. Blood flow is symmetric and within no rmal limits. No hydrocele or varicocele. Epididymis is heterogeneous and contains a cyst measuring 6 mm. SCROTUM: Within normal limits. CONCLUSION: 1. No acute finding is identified to explain the testicle pain. There is symmetric blood flow that is within normal limits without findings to indicate torsion at this time. 2. There are incidentally detected bilateral epididymal head cysts. Echogenic focus in the right jay scrotum could represent a calcification. Roger Rosas MD on June 06, 2017 at 21:12 Board Certified Radiologist. This report was verified electronically.
--- NOTE | 2017-06-06 21:25 | RADRPT ---
EXAM DATE/TIME: 06/06/2017 20:59 [facility] COMPARISON: CT ABDOMEN & PELVIS W/O CONTRAST, February 28, 2017, 15:14. INDICATIONS : Right groin pain. Possible hernia. IV CONTRAST: 97 cc Omnipaque 350 (iohexol) IV ORAL CONTRAST: No oral contrast ingested. RADIATION DOSE: 5.18 CTDIvol (mGy) MEDICAL HISTORY : Cardiovascular disease. Hypertension. SURGICAL HISTORY : None. ENCOUNTER: Initial ACUITY: 1 day PAIN SCALE: 10/10 LOCATION: Right groin TECHNIQUE: Volumetric scanning of the abdomen and pelvis was performed. Using automated exposure control and ad justment of the mA and/or kV according to patient size, radiation dose was kept as low as reasonably achievable to obtain optimal diagnostic quality images. DICOM format image data is available electro nically for review and comparison. FINDINGS: LOWER LUNGS: The visualized lower lungs are clear. LIVER: Homogeneous density without lesion. There is no dilation of the biliary tree. There are calcified s tones layering in the gallbladder. No gallbladder wall thickening or inflammation is present. SPLEEN: Normal size without lesion. PANCREAS: Within normal limits. KIDNEYS: Normal in size and shape. There is no mass, stone or hydronephrosis. ADRENAL GLANDS: Within normal limits. VASCULAR: There is no aortic aneurysm. There is moderate atherosclerotic disease. BOWEL/MESENTERY: The stomach and proximal small bowel demonstrate no abnormality. The distal ileum is abnormal and mil dly distended measuring up to 2.5 cm with small bowel feces sign. However, no transition point is anushka reciated. Sigmoid colon demonstrates wall thickening and diverticulosis. There is a small volume of f ree fluid in the pelvis and right paracolic gutter. No free intraperitoneal air is visualized. ABDOMINAL WALL: Within normal limits. RETROPERITONEUM: There is no lymphadenopathy. BLADDER: There is air in the urinary bladder lumen. No wall thickening or mass is seen. REPRODUCTIVE: Within normal limits. INGUINAL: There is no lymphadenopathy or hernia. MUSCULOSKELETAL: There are degenerative changes of the lumbar spine with pars defects at L5. CONCLUSION: 1. There is small volume of free fluid in the pelvis with findings suspicious for an inflammatory pro cess potentially of the sigmoid colon given the wall thickening and diverticulosis. The adjacent dist al ileum is mildly distended with air fluid level and small bowel feces sign suggesting that it is ab normal. However, no transition point is present to indicate obstruction so this could represent ileus related to adjacent inflammation of the colon. Suggest followup to confirm resolution. 2. There is persistent air within the urinary bladder lumen. Although a definite fistula is not ident ified, one is suspected given the chronic urinary bladder air. 3. Non acute findings include moderate atherosclerotic disease and cholelithiasis. Roger Rosas MD on June 06, 2017 at 21:15 Board Certified Radiologist. This report was verified electronically.
[2017-06-06 21:30] VITALS: BP 133/66; PULSE 92; RESP 18; O2SAT 98
== END 2017-06-06 23:22 | disposition home or self-care (01) ==
LOC: NEPC 19:02
DX: K40.90 Unilateral inguinal hernia, without obstruction or gangrene, not specified as recurrent (principal); M19.90 Unspecified osteoarthritis, unspecified site; I10 Essential (primary) hypertension; Z87.442 Personal history of urinary calculi; Z79.899 Other long term (current) drug therapy
CPT/HCPCS: 74177; 76870; 80048; 85025; 85610; 85730; 93975; 96374; 99285; J1885; Q9967

== ENCOUNTER → 2017-06-10 | Outpatient (CLI) | payer MEDICARE, BC ==
[~2017-06-10] MED LIST changes: -CAPT50TA PO; -FURO20TA PO; +MAGN400T24 PO; +MULTTAB67 PO; -PROT40TA PO
[2017-06-10 08:39] LABS: AUTOMATED NEUTROPHIL # 2.2 TH/MM3 (1.8-7.7); BASOPHIL # 0.1 TH/MM3 (0-0.2); BASOPHIL % 0.9 % (0.0-2.0); EOSINOPHIL # 0.3 TH/MM3 (0-0.4); EOSINOPHIL % 4.3 % (0.0-4.0); HEMATOCRIT 33.7 % (39.0-51.0); HEMOGLOBIN 11.2 GM/DL (13.0-17.0); LYMPH % 56.9 % (9.0-44.0); LYMPHOCYTE # 4.3 TH/MM3 (1.0-4.8); MEAN CELL VOLUME 93.5 FL (80.0-100.0); MEAN CORPUSCULAR HGB CONC 33.1 % (32.0-36.0); MEAN PLATELET VOLUME 8.5 FL (7.0-11.0); MONOCYTE # 0.7 TH/MM3 (0-0.9); NEUT % 28.9 % (16.0-70.0); PLATELET COUNT 305 TH/MM3 (150-450); RED CELL DISTRIBUTION WIDTH 18.5 % (11.6-17.2); WHITE BLOOD COUNT 7.6 TH/MM3 (4.0-11.0)
[2017-06-10 09:03] LABS: ALBUMIN 2.6 GM/DL (3.4-5.0); AST (GOT) 19 U/L (15-37); BICARBONATE 27.2 MEQ/L (21.0-32.0); BLOOD UREA NITROGEN 16 MG/DL (7-18); CALCIUM 9.8 MG/DL (8.5-10.1); CHLORIDE 103 MEQ/L (98-107); GLOMERULAR FILTRATION RATE 40 ML/MIN (>89); GLUCOSE,FASTING 87 MG/DL (74-99); SODIUM (NA) 138 MEQ/L (136-145)
[2017-06-10 09:04] LABS: ALT (GPT) 12 U/L (12-78); CHOLESTEROL 140 MG/DL (120-200); TRIGLYCERIDES 267 MG/DL (42-150)
[2017-06-10 09:14] LABS: ALKALINE PHOSPHATASE 185 U/L (45-117); HDL CHOLESTEROL 31.1 MG/DL (40.0-60.0); LDL CHOLESTEROL 56 MG/DL (0-99); TOTAL BILIRUBIN ADULT 0.5 MG/DL (0.2-1.0); TOTAL PROTEIN 6.8 GM/DL (6.4-8.2)
== END ==
LOC: CLAB 08:02
PROVIDERS: ATTEND Family Medicine
DX: I12.9 Hypertensive chronic kidney disease with stage 1 through stage 4 chronic kidney disease, or unspecified chronic kidney disease (principal); N18.9 Chronic kidney disease, unspecified; E78.5 Hyperlipidemia, unspecified; Z79.891 Long term (current) use of opiate analgesic
CPT/HCPCS: 36415; 80053; 80061; 84443; 85025

== ENCOUNTER → 2017-08-19 | Outpatient (CLI) | payer MEDICARE, BC ==
[2017-08-19 08:41] LABS: AUTOMATED NEUTROPHIL # 2.4 TH/MM3 (1.8-7.7); BASOPHIL % 0.8 % (0.0-2.0); EOSINOPHIL # 0.2 TH/MM3 (0-0.4); EOSINOPHIL % 3.1 % (0.0-4.0); HEMATOCRIT 32.9 % (39.0-51.0); LYMPHOCYTE # 2.9 TH/MM3 (1.0-4.8); MEAN CELL VOLUME 90.6 FL (80.0-100.0); MEAN CORPUSCULAR HEMOGLOBIN 30.2 PG (27.0-34.0); MEAN CORPUSCULAR HGB CONC 33.4 % (32.0-36.0); MEAN PLATELET VOLUME 9.4 FL (7.0-11.0); MONO % 9.4 % (0.0-8.0); MONOCYTE # 0.6 TH/MM3 (0-0.9); NEUT % 39.7 % (16.0-70.0); PLATELET COUNT 170 TH/MM3 (150-450); RED BLOOD COUNT 3.64 MIL/MM3 (4.50-5.90); RED CELL DISTRIBUTION WIDTH 13.4 % (11.6-17.2); WHITE BLOOD COUNT 6.1 TH/MM3 (4.0-11.0)
[2017-08-19 09:02] LABS: ALBUMIN 3.4 GM/DL (3.4-5.0); AST (GOT) 25 U/L (15-37); BICARBONATE 27.4 MEQ/L (21.0-32.0); BLOOD UREA NITROGEN 27 MG/DL (7-18); CALCIUM 10.3 MG/DL (8.5-10.1); CHLORIDE 107 MEQ/L (98-107); CREATININE 1.89 MG/DL (0.60-1.30); GLOMERULAR FILTRATION RATE 35 ML/MIN (>89); GLUCOSE,FASTING 93 MG/DL (74-99); SODIUM (NA) 141 MEQ/L (136-145)
[2017-08-19 09:05] LABS: ALKALINE PHOSPHATASE 95 U/L (45-117); ALT (GPT) 14 U/L (12-78); TOTAL BILIRUBIN ADULT 0.9 MG/DL (0.2-1.0); TOTAL PROTEIN 7.5 GM/DL (6.4-8.2)
== END ==
LOC: CLAB 08:15
PROVIDERS: ATTEND Family Medicine
DX: K92.89 Other specified diseases of the digestive system (principal); I10 Essential (primary) hypertension
CPT/HCPCS: 36415; 80053; 85025

== ENCOUNTER → 2017-08-27 | Outpatient (CLI) | payer MEDICARE, BC ==
[2017-08-27 13:17] LABS: MAGNESIUM 2.4 MG/DL (1.5-2.5)
== END ==
LOC: CLAB 12:12
PROVIDERS: ATTEND Family Medicine
DX: E61.2 Magnesium deficiency (principal); E55.9 Vitamin D deficiency, unspecified
CPT/HCPCS: 36415; 82310; 82652; 83735; 83970

== ENCOUNTER 2018-01-08 15:48 | Inpatient (IN) ==
[2018-01-08] MEDS ORDERED: Morphine Inj 4 MG/ML Vial IV.PUSH ONE (16:16)
--- NOTE | 2018-01-08 16:39 | ED ---
HPI General Chief complaint: Abdominal Pain Stated complaint: Gallbladder complaint doctor sent Time Seen by Provider: 01/08/18 15:59 History of Present Illness HPI narrative: Patient is a 72-year-old male presents emergency department from Dr. Jarrell office for consideration of cholecystectomy. Per the patient he had an ultrasound today of [facility] which showed acute cholecystitis , Dr. Jarrell spoke with Dr. Danielle who recommended he come here. I spoke with Dr. Danielle on arrival this patient who states that he is planning on taking his gallbladder out about 8 AM tomorrow morning. Patient does not take any blood thinners, last date at 1300 and tolerated a small few bites of scrambled eggs. No chest pain no shortness of breath. Patient does see Dr. mcconnell but has no specific heart diagnoses other than hypertension. The patient has a history of hypotension following GI bleeding ulcers, was told to avoid ibuprofen, this was several years ago and was the history that led to him seeing Dr. Mcconnell. Also during his rehabilitation stay in facility he was diagnosed with C. difficile which is also resolved. Patient states his current symptoms started about 5 6 days ago the morning after he ate a very fatty meal for dinner. Mild nausea but no vomiting no diarrhea no constipation. No fevers. Pain currently 8/10, RUQ, no radiation, Associated S/S and context as above. Related Data Home Medications Medication Instructions Recorded Confirmed ascorbic acid (vitamin C) [Vitamin 500 mg PO BID 01/08/18 01/08/18 C] carvedilol 3.125 mg PO BID 01/08/18 01/08/18 hydrocodone-acetaminophen [Gray] 1 tab PO HS PRN 01/08/18 01/08/18 magnesium 400 mg PO QID 01/08/18 01/08/18 multivitamin 1 cap PO DAILY 01/08/18 01/08/18 Previous Rx's Medication Instructions Recorded oxycodone-acetaminophen 1 tab PO Q6H PRN #12 tab 01/10/18 sennosides-docusate sodium [Senna 1 tab PO BID #120 tab 01/10/18 Plus] Allergies Allergy/AdvReac Type Severity Reaction Status Date / Time broccoli Allergy Intermediate Itching Verified 01/08/18 16:49 Fish Containing Products Allergy Intermediate Hives Verified 01/08/18 16:49 Review of Systems ROS: all other systems reviewed are negative [facility] Medical History Medical History Diminished hearing (Acute) Gallbladder disease (Acute) HBP (high blood pressure) (Acute) History of Clostridium difficile infection (Acute) History of bleeding ulcers (Acute) Joint pain (Acute) Myocardial infarction (Acute) Presence of orthopedic joint implant (Acute) Rheumatoid arthritis (Acute) Surgical History Surgical History History of cardiac cath (Acute) Hx of knee surgery (Acute) Hx of tonsillectomy (Acute) Social History Social History Substance History: No History of Abuse Second Hand Smoke Exposure: No Smoking Status: Never smoker How Often Do You Have a Drink Containing Alcohol: Never Hx Recent Travel: No Recent Travel in [facility] within the Last 8 Weeks: No Recent Out of Country Travel within the Last 8 Weeks: No Exam Narrative Exam Narrative: GENERAL: Well-developed thin male in no obvious distress. SKIN: Focused skin assessment warm/dry. HEAD: Atraumatic. Normocephalic. EYES: Pupils equal and round. No scleral icterus. No injection or drainage. ENT: No nasal bleeding or discharge. Mucous membranes pink and moist. NECK: Trachea midline. No JVD. CARDIOVASCULAR: Regular rate and rhythm. No murmur appreciated. RESPIRATORY: No accessory muscle use. Clear to auscultation. Breath sounds equal bilaterally. GASTROINTESTINAL: Abdomen is soft, no rebound no percussive tenderness, there is some tenderness in the right upper quadrant, Thomas sign is weakly positive. No CVA tenderness. No tenderness in the right lower quadrant. Psoas and obturator signs negative. MUSCULOSKELETAL: No obvious deformities. No clubbing. No cyanosis. No edema. NEUROLOGICAL: Awake and alert. No obvious cranial nerve deficits. Motor grossly within normal limits. Normal speech. PSYCHIATRIC: Appropriate mood and affect; insight and judgment normal. Course Initial Documented Vital Signs Temperature 98.3 F 01/08/18 15:52 Pulse Rate 84 01/08/18 15:52 Respiratory Rate 18 01/08/18 15:52 Blood Pressure 132/62 01/08/18 15:52 Pulse Oximetry 98 01/08/18 15:52 Last Documented Vital Signs Temperature 98.6 F 01/10/18 12:00 Pulse Rate 92 H 01/10/18 12:00 Respiratory Rate 18 01/10/18 12:00 Blood Pressure 150/72 H 01/10/18 12:00 Pulse Oximetry 98 01/10/18 12:00 Medical Decision Making MDM Narrative Medical decision making narrative: Patient room to the emergency department, discussed with Dr. Danielle, plan is for cholecystectomy tomorrow morning he would like patient admitted to medicine. patient appears to have acute on chronic kidney insufficiency, he has been taking less p.o. fluids. 500 cc bolus of fluids been ordered. Creatinine in August was 1.89, creatinine today is 2.4. Peers those been creeping up throughout the month of December. I reviewed the report from [facility] which does show multiple gallstones and thickened gallbladder wall without pericholecystic fluid consistent with cholecystitis. I think this would fit his clinical picture. Patient will be started on Ancef and Flagyl per Dr. Danielle, discussed with Dr. Sorensen for admission who is agreeable. Chest x-ray and EKG were performed as part of preoperative screening. Some mild peribronchial thickening but otherwise negative on a chest x-ray, EKG shows no signs of active ischemia. Medical Screen Exam Complete: Yes Emergency Medical Condition: Yes Differential Diagnosis Differential Diagnosis: Acute cholecystitis, chronic cholecystitis, pancreatitis , gastritis, gastroenteritis. Lab Data Result diagrams: 01/10/18 04:11 01/10/18 04:11 Lab Results 01/08/18 01/08/18 01/08/18 Range/Units 16:20 16:20 17:50 WBC 11.9 H (4.0-11.0) th/mm3 RBC 3.27 L (4.50-5.90) mil/mm3 Hgb 11.0 L (13.0-17.0) gm/dL Hct 31.7 L (39.0-51.0) % MCV 97.1 (80.0-100.0) fL MCH 33.6 (27.0-34.0) pg MCHC 34.7 (32.0-36.0) % RDW 16.1 (11.6-17.2) % Plt Count 177 (150-450) th/mm3 MPV 9.2 (7.0-11.0) fL Neut % (Auto) 72.3 H (16.0-70.0) % Lymph % (Auto) 17.9 (9.0-44.0) % Duval % (Auto) 7.4 (0.0-8.0) % Eos % (Auto) 2.3 (0.0-4.0) % Baso % (Auto) 0.1 (0.0-2.0) % Neut # (Auto) 8.6 H (1.8-7.7) th/mm3 Lymph # (Auto) 2.1 (1.0-4.8) th/mm3 Duval # (Auto) 0.9 (0.0-0.9) th/mm3 Eos # (Auto) 0.3 (0.0-0.4) th/mm3 Baso # (Auto) 0.0 (0.0-0.2) th/mm3 WBC Differential . Differential Comment Auto diff final PT (9.8-11.6) sec INR Ratio Sodium 137 (136-145) meq/L Potassium 4.4 (3.5-5.1) meq/L Chloride 104 (98-107) meq/L Carbon Dioxide 24.4 (21.0-32.0) meq/L Anion Gap 9 (5-15) meq/L BUN 58 H (7-18) mg/dL Creatinine 2.42 H (0.60-1.30) mg/dL Estimated GFR 26 L (>89) mL/min Random Glucose 88 (74-106) mg/dL Hemoglobin A1c (4.3-6.0) % Calcium 9.2 (8.5-10.1) mg/dL Phosphorus (2.5-4.9) mg/dL Magnesium (1.5-2.5) mg/dL Total Bilirubin 1.1 H (0.2-1.0) mg/dL AST 23 (15-37) U/L ALT 20 (12-78) U/L Alkaline Phosphatase 269 H (45-117) U/L Total Protein 7.7 D (6.4-8.2) g/dL Albumin 3.4 (3.4-5.0) g/dL Lipase 128 (73-393) U/L TSH (0.358-3.740) uIU/mL Free T4 (0.76-1.46) ng/dL Urine Color Yellow (Yellw/Straw) Urine Clarity Hazy H (Clear) Urine pH 5.0 (5.0-8.5) Ur Specific Russell 1.010 (1.002-1.035) Urine Protein Negative (Neg-Trace) mg/dL Urine Glucose (UA) Negative (Negative) mg/dL Urine Ketones Trace H (Negative) mg/dL Urine Occult Blood Small H (Negative) Urine Nitrate Negative (Negative) Urine Bilirubin Negative (Negative) Urine Urobilinogen Less than 2 (Less than 2) mg/dL Ur Leukocyte Esterase Large H (Negative) Urine RBC 5 H (0-3) /hpf Urine WBC 77 H (0-5) /hpf Urine WBC Clumps Few H (None) Urine Bacteria Rare H (None) /hpf Micro UA Comment Culture indicated Ur Microscopic Review Not Reportable Urine Culture Comments Culture indicated Blood Type Antibody Screen 01/09/18 01/09/18 01/09/18 Range/Units 03:10 03:10 03:10 WBC 8.1 (4.0-11.0) th/mm3 RBC 3.14 L (4.50-5.90) mil/mm3 Hgb 10.5 L (13.0-17.0) gm/dL Hct 30.9 L (39.0-51.0) % MCV 98.5 (80.0-100.0) fL MCH 33.5 (27.0-34.0) pg MCHC 34.0 (32.0-36.0) % RDW 16.7 (11.6-17.2) % Plt Count 159 (150-450) th/mm3 MPV 9.4 (7.0-11.0) fL Neut % (Auto) 68.8 (16.0-70.0) % Lymph % (Auto) 20.1 (9.0-44.0) % Duval % (Auto) 9.0 H (0.0-8.0) % Eos % (Auto) 2.0 (0.0-4.0) % Baso % (Auto) 0.1 (0.0-2.0) % Neut # (Auto) 5.5 (1.8-7.7) th/mm3 Lymph # (Auto) 1.6 (1.0-4.8) th/mm3 Duval # (Auto) 0.7 (0.0-0.9) th/mm3 Eos # (Auto) 0.2 (0.0-0.4) th/mm3 Baso # (Auto) 0.0 (0.0-0.2) th/mm3 WBC Differential . Differential Comment Auto diff final PT 10.0 (9.8-11.6) sec INR 1.0 Ratio Sodium (136-145) meq/L Potassium (3.5-5.1) meq/L Chloride (98-107) meq/L Carbon Dioxide (21.0-32.0) meq/L Anion Gap (5-15) meq/L BUN (7-18) mg/dL Creatinine (0.60-1.30) mg/dL Estimated GFR (>89) mL/min Random Glucose (74-106) mg/dL Hemoglobin A1c 5.0 (4.3-6.0) % Calcium (8.5-10.1) mg/dL Phosphorus (2.5-4.9) mg/dL Magnesium (1.5-2.5) mg/dL Total Bilirubin (0.2-1.0) mg/dL AST (15-37) U/L ALT (12-78) U/L Alkaline Phosphatase (45-117) U/L Total Protein (6.4-8.2) g/dL Albumin (3.4-5.0) g/dL Lipase (73-393) U/L TSH (0.358-3.740) uIU/mL Free T4 (0.76-1.46) ng/dL Urine Color (Yellw/Straw) Urine Clarity (Clear) Urine pH (5.0-8.5) Ur Specific Russell (1.002-1.035) Urine Protein (Neg-Trace) mg/dL Urine Glucose (UA) (Negative) mg/dL Urine Ketones (Negative) mg/dL Urine Occult Blood (Negative) Urine Nitrate (Negative) Urine Bilirubin (Negative) Urine Urobilinogen (Less than 2) mg/dL Ur Leukocyte Esterase (Negative) Urine RBC (0-3) /hpf Urine WBC (0-5) /hpf Urine WBC Clumps (None) Urine Bacteria (None) /hpf Micro UA Comment Ur Microscopic Review Urine Culture Comments Blood Type Antibody Screen 01/09/18 01/09/18 01/10/18 Range/Units 03:10 03:10 04:11 WBC 7.7 (4.0-11.0) th/mm3 RBC 2.55 L (4.50-5.90) mil/mm3 Hgb 8.6 L (13.0-17.0) gm/dL Hct 24.8 L (39.0-51.0) % MCV 97.4 (80.0-100.0) fL MCH 33.7 (27.0-34.0) pg MCHC 34.6 (32.0-36.0) % RDW 16.3 (11.6-17.2) % Plt Count 159 (150-450) th/mm3 MPV 9.3 (7.0-11.0) fL Neut % (Auto) 80.0 H (16.0-70.0) % Lymph % (Auto) 14.2 (9.0-44.0) % Duval % (Auto) 5.8 (0.0-8.0) % Eos % (Auto) 0.0 (0.0-4.0) % Baso % (Auto) 0.0 (0.0-2.0) % Neut # (Auto) 6.2 (1.8-7.7) th/mm3 Lymph # (Auto) 1.1 (1.0-4.8) th/mm3 Duval # (Auto) 0.5 (0.0-0.9) th/mm3 Eos # (Auto) 0.0 (0.0-0.4) th/mm3 Baso # (Auto) 0.0 (0.0-0.2) th/mm3 WBC Differential . Differential Comment Auto diff final PT (9.8-11.6) sec INR Ratio Sodium 143 (136-145) meq/L Potassium 3.9 (3.5-5.1) meq/L Chloride 110 H (98-107) meq/L Carbon Dioxide 20.9 L (21.0-32.0) meq/L Anion Gap 12 (5-15) meq/L BUN 48 H (7-18) mg/dL Creatinine 2.04 H (0.60-1.30) mg/dL Estimated GFR 32 L (>89) mL/min Random Glucose 79 (74-106) mg/dL Hemoglobin A1c (4.3-6.0) % Calcium 8.5 (8.5-10.1) mg/dL Phosphorus 3.1 (2.5-4.9) mg/dL Magnesium 2.2 (1.5-2.5) mg/dL Total Bilirubin 1.4 H (0.2-1.0) mg/dL AST 161 H (15-37) U/L ALT 102 H (12-78) U/L Alkaline Phosphatase 555 H (45-117) U/L Total Protein 6.9 D (6.4-8.2) g/dL Albumin 2.8 L D (3.4-5.0) g/dL Lipase (73-393) U/L TSH 1.230 (0.358-3.740) uIU/mL Free T4 1.28 (0.76-1.46) ng/dL Urine Color (Yellw/Straw) Urine Clarity (Clear) Urine pH (5.0-8.5) Ur Specific Russell (1.002-1.035) Urine Protein (Neg-Trace) mg/dL Urine Glucose (UA) (Negative) mg/dL Urine Ketones (Negative) mg/dL Urine Occult Blood (Negative) Urine Nitrate (Negative) Urine Bilirubin (Negative) Urine Urobilinogen (Less than 2) mg/dL Ur Leukocyte Esterase (Negative) Urine RBC (0-3) /hpf Urine WBC (0-5) /hpf Urine WBC Clumps (None) Urine Bacteria (None) /hpf Micro UA Comment Ur Microscopic Review Urine Culture Comments Blood Type O Positive Antibody Screen Negative 01/10/18 Range/Units 04:11 WBC (4.0-11.0) th/mm3 RBC (4.50-5.90) mil/mm3 Hgb (13.0-17.0) gm/dL Hct (39.0-51.0) % MCV (80.0-100.0) fL MCH (27.0-34.0) pg MCHC (32.0-36.0) % RDW (11.6-17.2) % Plt Count (150-450) th/mm3 MPV (7.0-11.0) fL Neut % (Auto) (16.0-70.0) % Lymph % (Auto) (9.0-44.0) % Duval % (Auto) (0.0-8.0) % Eos % (Auto) (0.0-4.0) % Baso % (Auto) (0.0-2.0) % Neut # (Auto) (1.8-7.7) th/mm3 Lymph # (Auto) (1.0-4.8) th/mm3 Duval # (Auto) (0.0-0.9) th/mm3 Eos # (Auto) (0.0-0.4) th/mm3 Baso # (Auto) (0.0-0.2) th/mm3 WBC Differential Differential Comment PT (9.8-11.6) sec INR Ratio Sodium 141 (136-145) meq/L Potassium 4.2 (3.5-5.1) meq/L Chloride 111 H (98-107) meq/L Carbon Dioxide 20.5 L (21.0-32.0) meq/L Anion Gap 10 (5-15) meq/L BUN 45 H (7-18) mg/dL Creatinine 1.99 H (0.60-1.30) mg/dL Estimated GFR 33 L (>89) mL/min Random Glucose 127 H (74-106) mg/dL Hemoglobin A1c (4.3-6.0) % Calcium 8.2 L (8.5-10.1) mg/dL Phosphorus (2.5-4.9) mg/dL Magnesium (1.5-2.5) mg/dL Total Bilirubin 0.7 (0.2-1.0) mg/dL AST 54 H (15-37) U/L ALT 43 (12-78) U/L Alkaline Phosphatase 368 H (45-117) U/L Total Protein 6.2 L D (6.4-8.2) g/dL Albumin 2.8 L (3.4-5.0) g/dL Lipase (73-393) U/L TSH (0.358-3.740) uIU/mL Free T4 (0.76-1.46) ng/dL Urine Color (Yellw/Straw) Urine Clarity (Clear) Urine pH (5.0-8.5) Ur Specific Russell (1.002-1.035) Urine Protein (Neg-Trace) mg/dL Urine Glucose (UA) (Negative) mg/dL Urine Ketones (Negative) mg/dL Urine Occult Blood (Negative) Urine Nitrate (Negative) Urine Bilirubin (Negative) Urine Urobilinogen (Less than 2) mg/dL Ur Leukocyte Esterase (Negative) Urine RBC (0-3) /hpf Urine WBC (0-5) /hpf Urine WBC Clumps (None) Urine Bacteria (None) /hpf Micro UA Comment Ur Microscopic Review Urine Culture Comments Blood Type Antibody Screen Imaging Data Radiologist's impression: Chest X-Ray 01/08/18 16:01 CONCLUSION: Mild peribronchial thickening otherwise negative Discharge Plan Discharge Disposition Patient Disposition: 01 Discharge Home Discharge Condition Condition: Good Discharge Order Discharge Orders: Discharge Order (Routine); Ordered 01/10/18 Ordered By: Bernardino Sorensen Discharge Details Anticipated Discharge Date: 01/10/18 Discharge Comment: dc to home today Physicians Team ED Provider: Maxime Giang Primary Care Provider: UNKNOWN, Attending Provider: Bernardino Sorensen Other Providers: Amarjit Parekh Status ED Status: Left Department Discharge Information Discharge Date/Time: 01/08/18 19:00
[2018-01-08 16:44] LABS: Baso % (Auto) 0.1 % (0.0-2.0); Eos # (Auto) 0.3 th/mm3 (0.0-0.4); Eos % (Auto) 2.3 % (0.0-4.0); Hematocrit 31.7 % (39.0-51.0); Lymph # (Auto) 2.1 th/mm3 (1.0-4.8); Lymph % (Auto) 17.9 % (9.0-44.0); Mean Corpuscular HGB Conc 34.7 % (32.0-36.0); Mean Corpuscular Hemoglobin 33.6 pg (27.0-34.0); Mean Corpuscular Volume 97.1 fL (80.0-100.0); Mean Platelet Volume 9.2 fL (7.0-11.0); Mono # (Auto) 0.9 th/mm3 (0.0-0.9); Mono % (Auto) 7.4 % (0.0-8.0); Neut # (Auto) 8.6 th/mm3 (1.8-7.7); Neut % (Auto) 72.3 % (16.0-70.0); Platelet Count 177 th/mm3 (150-450); Red Blood Count 3.27 mil/mm3 (4.50-5.90); Red Cell Distribution Width 16.1 % (11.6-17.2); White Blood Count 11.9 th/mm3 (4.0-11.0)
[2018-01-08 17:15] LABS: Albumin 3.4 g/dL (3.4-5.0); Anion Gap 9 meq/L (5-15); Aspartate Aminotransferase 23 U/L (15-37); Blood Urea Nitrogen 58 mg/dL (7-18); Calcium 9.2 mg/dL (8.5-10.1); Carbon Dioxide 24.4 meq/L (21.0-32.0); Chloride 104 meq/L (98-107); Glomerular Filtration Rate 26 mL/min (>89); Glucose,Random 88 mg/dL (74-106); Lipase 128 U/L (73-393); Potassium 4.4 meq/L (3.5-5.1); Sodium 137 meq/L (136-145)
[2018-01-08 17:18] LABS: Alanine Aminotransferase 20 U/L (12-78); Alkaline Phosphatase 269 U/L (45-117); Total Protein 7.7 g/dL (6.4-8.2)
[2018-01-08] MEDS ORDERED: Acetaminophen 325 MG Tablet PO PRN (17:43)
[2018-01-08] MEDS ORDERED: Morphine Sulfate Inj 2 MG/ML Vial IV.PUSH PRN (17:43)
[2018-01-08] MEDS ORDERED: Morphine Inj 4 MG/ML Vial IV.PUSH PRN (17:43)
[2018-01-08] MEDS ORDERED: Naloxone Inj 0.4 MG/ML Vial IV.PUSH PRN (17:43)
[2018-01-08] MEDS ORDERED: Zolpidem Tartrate 5 MG Tablet PO PRN (17:44)
[2018-01-08] MEDS ORDERED: Bisacodyl 10 MG Supp RECTAL PRN (17:44)
[2018-01-08] MEDS ORDERED: Sodium Chlor 0.9% Inj 500 ML IV.SIG SCH ×2 (18:00→23:00)
[2018-01-08] MEDS: Sod Chloride 0.9% Inj 1,000 ML IV.CONT SCH (18:10)
[2018-01-08 18:51] LABS: Bacteria,Urine Rare /hpf; Bilirubin,Urine Negative (Negative); Clarity,Urine Hazy (Clear); Color,Urine Yellow (Yellw/Straw); Glucose,Urine (UA) Negative (Negative); Leukocyte Esterase,Urine Large (Negative); Nitrite,Urine Negative (Negative)
[2018-01-08] MEDS: Senna/Docusate Sodium 8.6/50 MG Tablet PO SCH (21:16)
[2018-01-08] MEDS: Famotidine PF Inj 20 MG/2 ML Vial IV.PUSH SCH (21:16)
[2018-01-08] MEDS: Morphine Inj 4 MG/ML Vial IV.PUSH PRN (21:17)
[2018-01-08] MEDS ORDERED: Chlorhexidine Gluconate 2% 1 Pack (2 Cloths) TOPICAL ONE (22:06)
[2018-01-09] MEDS: Morphine Inj 4 MG/ML Vial IV.PUSH PRN ×3 (03:25→06:14)
[2018-01-09 05:11] LABS: Baso % (Auto) 0.1 % (0.0-2.0); Eos # (Auto) 0.2 th/mm3 (0.0-0.4); Hematocrit 30.9 % (39.0-51.0); Hemoglobin 10.5 gm/dL (13.0-17.0); Lymph # (Auto) 1.6 th/mm3 (1.0-4.8); Lymph % (Auto) 20.1 % (9.0-44.0); Mean Corpuscular Hemoglobin 33.5 pg (27.0-34.0); Mean Corpuscular Volume 98.5 fL (80.0-100.0); Mean Platelet Volume 9.4 fL (7.0-11.0); Mono # (Auto) 0.7 th/mm3 (0.0-0.9); Neut # (Auto) 5.5 th/mm3 (1.8-7.7); Neut % (Auto) 68.8 % (16.0-70.0); Platelet Count 159 th/mm3 (150-450); Red Blood Count 3.14 mil/mm3 (4.50-5.90); Red Cell Distribution Width 16.7 % (11.6-17.2); White Blood Count 8.1 th/mm3 (4.0-11.0)
[2018-01-09 05:33] LABS: Alanine Aminotransferase 102 U/L (12-78); Albumin 2.8 g/dL (3.4-5.0); Anion Gap 12 meq/L (5-15); Aspartate Aminotransferase 161 U/L (15-37); Blood Urea Nitrogen 48 mg/dL (7-18); Calcium 8.5 mg/dL (8.5-10.1); Carbon Dioxide 20.9 meq/L (21.0-32.0); Chloride 110 meq/L (98-107); Glomerular Filtration Rate 32 mL/min (>89); Glucose,Random 79 mg/dL (74-106); Magnesium 2.2 mg/dL (1.5-2.5); Phosphorus 3.1 mg/dL (2.5-4.9); Potassium 3.9 meq/L (3.5-5.1); Sodium 143 meq/L (136-145)
[2018-01-09 05:49] LABS: Alkaline Phosphatase 555 U/L (45-117); Free T4 (Free Thyroxine) 1.28 ng/dL (0.76-1.46); Total Protein 6.9 g/dL (6.4-8.2)
[2018-01-09] MEDS: Sod Chloride 0.9% Inj 1,000 ML IV.CONT SCH (08:09)
[2018-01-09] MEDS ORDERED: Labetalol HCl Inj 100 MG/20 ML Vial IV.CONT ONE (08:15)
[2018-01-09] MEDS ORDERED: Bupivacaine/Epinephrine Inj 0.25% 50 ML Vial INFILTRATN ONE ×2 (08:41→08:45)
[2018-01-09] MEDS ORDERED: fentaNYL Citrate Inj 100 MCG/2 ML Ampul ONE (10:17)
[2018-01-09] MEDS ORDERED: Post-op Orders (for Pharmacy) OTHER ONE (10:29)
[2018-01-09] MEDS: Famotidine PF Inj 20 MG/2 ML Vial IV.PUSH SCH ×2 (11:10→21:24)
[2018-01-09] MEDS: Senna/Docusate Sodium 8.6/50 MG Tablet PO SCH ×2 (11:10→21:24)
--- NOTE | 2018-01-09 14:19 | ECG ---
Date Performed: 01/08/2018 Time Performed: 16:31:37 PTAGE: 72 years EKG: Sinus rhythm WITH FIRST DEGREE AV BLOCK ABNORMAL ECG PREVIOUS TRACING : 03/02/2017 10.32 Compared to previous tracing, prior EKG showed an evolving anteroseptal myocardial infarction present and current EKG show no evidence of prior myocardial infar ction. DOCTOR: Humberto Mcconnell Interpretating Date/Time 01/09/2018 14:17:34
[2018-01-09] MEDS: oxyCODONE/Acetaminophen 10/325 Tablet PO PRN ×2 (15:12→21:22)
[2018-01-10] MEDS: oxyCODONE/Acetaminophen 10/325 Tablet PO PRN ×3 (02:54→15:01)
[2018-01-10 05:34] LABS: Hematocrit 24.8 % (39.0-51.0); Hemoglobin 8.6 gm/dL (13.0-17.0); Lymph # (Auto) 1.1 th/mm3 (1.0-4.8); Lymph % (Auto) 14.2 % (9.0-44.0); Mean Corpuscular HGB Conc 34.6 % (32.0-36.0); Mean Corpuscular Hemoglobin 33.7 pg (27.0-34.0); Mean Corpuscular Volume 97.4 fL (80.0-100.0); Mean Platelet Volume 9.3 fL (7.0-11.0); Mono # (Auto) 0.5 th/mm3 (0.0-0.9); Mono % (Auto) 5.8 % (0.0-8.0); Neut # (Auto) 6.2 th/mm3 (1.8-7.7); Platelet Count 159 th/mm3 (150-450); Red Blood Count 2.55 mil/mm3 (4.50-5.90); Red Cell Distribution Width 16.3 % (11.6-17.2); White Blood Count 7.7 th/mm3 (4.0-11.0)
[2018-01-10 06:03] LABS: Albumin 2.8 g/dL (3.4-5.0); Anion Gap 10 meq/L (5-15); Aspartate Aminotransferase 54 U/L (15-37); Blood Urea Nitrogen 45 mg/dL (7-18); Calcium 8.2 mg/dL (8.5-10.1); Carbon Dioxide 20.5 meq/L (21.0-32.0); Chloride 111 meq/L (98-107); Glomerular Filtration Rate 33 mL/min (>89); Glucose,Random 127 mg/dL (74-106); Potassium 4.2 meq/L (3.5-5.1); Sodium 141 meq/L (136-145)
[2018-01-10 06:04] LABS: Alanine Aminotransferase 43 U/L (12-78)
[2018-01-10 06:07] LABS: Alkaline Phosphatase 368 U/L (45-117); Total Protein 6.2 g/dL (6.4-8.2)
[2018-01-10] MEDS: Enoxaparin Inj 30 MG/0.3 ML Syringe SQ SCH ×2 (08:29→09:10)
[2018-01-10] MEDS: Famotidine PF Inj 20 MG/2 ML Vial IV.PUSH SCH (09:08)
[2018-01-10] MEDS: Senna/Docusate Sodium 8.6/50 MG Tablet PO SCH (09:09)
== END 2018-01-10 15:30 | disposition home or self-care (01) ==
LOC: NEPC 15:48 → NEDA 17:27 → N06 19:00
PROVIDERS: ADMIT Hospitalist; ATTEND Hospitalist

== ENCOUNTER 2018-01-16 22:29 | Inpatient (IN) ==
[2018-01-16] MEDS ORDERED: Piperacil/Tazo 3.375 GM Premix 50 ML IV.SIG ONE (23:07)
[2018-01-16 23:29] LABS: Baso % (Auto) 0.2 % (0.0-2.0); Eos # (Auto) 0.1 th/mm3 (0.0-0.4); Eos % (Auto) 0.8 % (0.0-4.0); Hematocrit 29.7 % (39.0-51.0); Hemoglobin 9.8 gm/dL (13.0-17.0); Lymph # (Auto) 1.5 th/mm3 (1.0-4.8); Lymph % (Auto) 8.4 % (9.0-44.0); Mean Corpuscular Hemoglobin 32.1 pg (27.0-34.0); Mean Corpuscular Volume 97.3 fL (80.0-100.0); Mono # (Auto) 1.3 th/mm3 (0.0-0.9); Mono % (Auto) 7.4 % (0.0-8.0); Neut # (Auto) 14.6 th/mm3 (1.8-7.7); Neut % (Auto) 83.2 % (16.0-70.0); Platelet Count 329 th/mm3 (150-450); Red Blood Count 3.05 mil/mm3 (4.50-5.90); White Blood Count 17.5 th/mm3 (4.0-11.0)
[2018-01-16 23:53] LABS: Alanine Aminotransferase 21 U/L (12-78); Albumin 2.8 g/dL (3.4-5.0); Anion Gap 10 meq/L (5-15); Aspartate Aminotransferase 24 U/L (15-37); Blood Urea Nitrogen 22 mg/dL (7-18); Calcium 8.3 mg/dL (8.5-10.1); Carbon Dioxide 21.9 meq/L (21.0-32.0); Chloride 110 meq/L (98-107); Glomerular Filtration Rate 36 mL/min (>89); Glucose,Random 126 mg/dL (74-106); Lipase 156 U/L (73-393); Potassium 3.9 meq/L (3.5-5.1); Sodium 142 meq/L (136-145)
[2018-01-16 23:55] LABS: Alkaline Phosphatase 372 U/L (45-117)
--- NOTE | 2018-01-17 00:38 | CT ---
EXAM DATE: 01/17/2018 12:06 AM EDT AGE/SEX: 72 years / Male INDICATIONS: Abdominal pain and fever. CLINICAL DATA: This is the patient's initial encounter. Patient reports that signs and symptoms have been present for 1 day and indicates a pain score of 8/10. MEDICAL/SURGICAL HISTORY: Myocardial infarction. Rheumatoid arthritis. Ulcers. Gallbladder d isease. C-Diff. . Cardiac Cath. ORAL CONTRAST: No oral contrast ingested. RADIATION DOSE: 7.61 CTDI (mGy) COMPARISON: [facility] [place], CT ABDOMEN & PELVIS W CONTRAST, 06/06/2017. . TECHNIQUE: Multiple contiguous axial images were obtained through the abdomen and pelvis following b olus infusion of 50 ml Visipaque 320 (iodixanol) nonionic water-soluble contrast as a single exam d ose. No oral contrast ingested. Using automated exposure control and adjustment of the mA and/or kV according to patient size, radiation dose was kept as low as reasonably achievable to obtain optimal diagnostic quality images. DICOM format image data is available electronically for review and compar jazlyn. FINDINGS: Lower Lungs: There is a minimal right pleural effusion. Liver: The liver has a homogeneous density without space-occupying lesion. . The gallbladder is diste nded. There is air within the gallbladder lumen. There is dilatation of the common bile duct. There a re 2 stones seen in the distal common bile duct measuring 1.2 and 0.8 cm in diameter. There also appe ars to be a small 4 mm calcification in the region of the cystic duct. Spleen: Homogeneous density without enlargement. Pancreas: Unremarkable without mass or calcification. Kidneys: Normal in size and shape. No evidence of mass or hydronephrosis. Adrenal Glands: Unremarkable. Aorta: The aorta and proximal iliac vessels are grossly unremarkable without aneurysmal dilation. A therosclerotic calcifications are present. Bowel/Mesentery: There is a right inguinal hernia containing a segment of small bowel extending into the right hemiscrotum. There are colonic diverticula particularly in the sigmoid region. Abdominal Wall: Intact. Retroperitoneum: No evidence of adenopathy in the retrocrural, para-aortic, or deep pelvic regions. Bladder: Air seen within the urinary bladder. Reproductive Organs: No abnormal masses or calcifications seen. Inguinal: The inguinal region is unremarkable without evidence of adenopathy. Bony Structures: There is degenerative change in the lower lumbar spine. Pars defects are seen at L5 with mild anterior spondylolisthesis of L5 on S1. CONCLUSION: 1. Choledocholithiasis with at least 2 stones in the distal common bile duct. There appears to be a small stone in the cystic duct region. The gallbladder is distended. Air seen within the gallbladder lumen. 2. Right inguinal hernia containing a nondilated segment of small bowel. 3. Colonic diverticula particularly in the sigmoid region. 4. Air within the urinary bladder. Electronically signed by: Roger Key MD 01/17/2018 12:36 AM EDT
[2018-01-17 02:05] LABS: Bacteria,Urine Rare /hpf; Bilirubin,Urine Negative (Negative); Clarity,Urine Hazy (Clear); Color,Urine Yellow (Yellw/Straw); Glucose,Urine (UA) Negative (Negative); Leukocyte Esterase,Urine Large (Negative); Nitrite,Urine Negative (Negative); Renal Epithelial Cells,Urine 1 /hpf; Specific Gravity,Urine 1.042 (1.002-1.035); Transitional Epi Cells,Urine <1 /hpf
[2018-01-17] MEDS ORDERED: Acetaminophen 325 MG Tablet PO PRN (04:32)
--- NOTE | 2018-01-17 05:10 | MB ---
cc: Mejia Tirado MD DATE: 01/17/2018 CHIEF COMPLAINT: Fever. HISTORY OF PRESENT ILLNESS: The patient is a 72-year-old male with a recent history of acute cholecystitis, status post laparoscopic cholecystectomy 5 days ago, on 01/09/2018. The patient was noted to have a significantly infected gallbladder for which a ADRIEL drain was placed and anticoagulant was placed in the gallbladder fossa as well. The patient was on hospital antibiotics, but has not been currently on outpatient antibiotics. He was seen recently in the clinic on Thursday with drain removal and noted to be doing relatively well. The patient noted the last 24 hours developing a fever of 103 and having significant chills. He denies any significant abdominal pain. He is complaining of some left knee pain and otherwise has decreased p.o. intake. Denies nausea or vomiting. Mild constipation, but otherwise normal stools. He came to the emergency department. Further evaluation included a CT scan showing a questionable abscess of the gallbladder fossa and concern for common bile duct stones. His lipase is 156 and his bilirubin is 0.5. He otherwise has no significant complaints. PAST MEDICAL HISTORY: Arthritis, hypertension, chronic kidney disease, history of gastric ulcer, GI bleed, history of anemia, history of [place]. PAST SURGICAL HISTORY: Left knee surgery, tonsillectomy, laparoscopic cholecystectomy on 01/09/2018 MEDICATIONS: See EMR. ALLERGIES: BROCCOLI AND FISH. FAMILY HISTORY: Denies diabetes or hypertension. SOCIAL HISTORY: Denies current ETOH, previous history of ETOH. Denies smoking or IVDA. REVIEW OF SYSTEMS: A general 12-point review of system is negative except as above. PHYSICAL EXAMINATION: GENERAL: The patient is in no acute distress. CURRENT VITAL SIGNS: Temperature 100.6, pulse 93, respirations 18, blood pressure 129/65, saturation 98%. HEENT: Pupils equal, round and reactive. NECK: Supple. Trachea midline. LUNGS: Bilateral expansion, clear. HEART: S2, S1, regular. ABDOMEN: Soft, nondistended. Well healing surgical incisions. No evidence of obvious infection. EXTREMITIES: Warm and well perfused. NEUROLOGIC: GCS 15, 5/5 motor in all extremities. INTEGUMENT: No masses or lesions. PSYCHIATRIC: Appropriate mood. Appropriate judgment. LABORATORY AND DIAGNOSTIC DATA: WBC 17.5, hemoglobin 9.8, hematocrit 29.7, platelets 329. Sodium 142, potassium 3.9, chloride 110, BUN is 22, creatinine 1.8, total bilirubin 0.5, AST 24, ALT 21, alkaline phosphatase 372, lipase is 156. CT reviewed by myself showing concern for choledocholithiasis with 2 stones in distal common bile duct, questionable gallbladder abscess, colonic diverticula. ASSESSMENT: The patient is a 72-year-old male who presents with a fever of reported 103, currently temperature of 100.6, leukocytosis 17.5, CT finding of choledocholithiasis and possible fluid in the gallbladder fossa. PLAN: After a full workup, the patient with the above-named issues. At this point, unlikely definable abscess in gallbladder fossa. There is some fluid collection and noted hemostatic agent was placed during time of surgery. Further, the patient does have concern for choledocholithiasis. At this point, we will get a definitive study including MRCP to further evaluate this. Discussed with the patient that if the stones are indeed in the common bile duct, he will likely need ERCP with a Gastroenterology consult. The patient does have leukocytosis, WBC of 17.5, and a fever of 103 at home. Would recommend a dose of antibiotics. Stones do appear possibly nonobstructing as total bilirubin is normal at 0.5, and lipase is 156. Will continue to follow. Thank you for the consultation. ASSOCIATE SOFTWARE ENGINEER: Leno Arshad MD MD ROB Stafford/karin , 03:39 AM , 03:52 AM
[2018-01-17] MEDS: Morphine Sulfate Inj 2 MG/ML Vial IV.PUSH PRN (05:37)
--- NOTE | 2018-01-17 06:33 | XR ---
EXAM DATE: 01/17/2018 5:35 AM EDT AGE/SEX: 72 years / Male INDICATIONS: Fever. CLINICAL DATA: This is the patient's initial encounter. Patient reports that signs and symptoms have been present for 1 day and indicates a pain score of 0/10. MEDICAL/SURGICAL HISTORY: Myocardial infarction. Rheumatoid arthritis. Ulcers. None. [place] [facility] [place]/08/2018. . FINDINGS: A single AP view of the chest demonstrates the lungs to be symmetrically aerated without evidence of mass, infiltrate or effusion. The cardiomediastinal contours are unremarkable. Osseous structures a re intact. CONCLUSION: No acute cardiopulmonary process. Electronically signed by: Roger Key MD 01/17/2018 6:32 AM EDT
--- NOTE | 2018-01-17 09:43 | MR ---
EXAM DATE: 01/17/2018 7:50 AM EDT AGE/SEX: 72 years / Male INDICATIONS: Abdominal pain. Pain and fever s/p cholecystectomy 01/09/18. CLINICAL DATA: This is the patient's subsequent encounter. Patient reports that signs and symptoms h ave been present for 2 days and indicates a pain score of 4/10. MEDICAL/SURGICAL HISTORY: Cholelithiasis. Hypertension. Cholecystectomy. Tonsillectomy. [place] [facility] [place]AST[place] 01/17/2018. . TECHNIQUE: Multiplanar, multisequence images of the abdomen were obtained without contrast including dedicated cholangiographic images. FINDINGS: Liver: Liver demonstrates a normal signal intensity without fat or deposition and is normal in size. There is mild increased T2 signal within segment 4 adjacent to the inflamed appearing gallbladder. No liver lesion is seen on this noncontrast examination. Central intrahepatic bile ducts are prominent but not definitively dilated. Gallbladder: Patient reports that the gallbladder has been removed. There is an ovoid fluid-shaped st ructure in the gallbladder fossa that resembles a gallbladder with a mildly thickened wall. Signal vo id in the superior aspect of the fluid collection correlates with the air documented on earlier CT. T here is surrounding inflammation. There is a questionable small stone in the cystic duct. As demonstr ated on the recent CT, there are 2 stones/filling defects in the distal common bile duct with the mor e proximal being larger and elongated measuring 13 mm has smaller more distal measuring approximately 5 mm. The common bile duct and common hepatic duct measures between 8 and 9 mm throughout. Spleen: Within normal limits. Pancreas: No acute abnormality. Main pancreatic duct is normal in size. Adrenals: Within normal limits. Kidneys: Symmetric size and enhancement. No hydronephrosis or mass. Other: Aorta is nonaneurysmal. There is trace perihepatic free fluid and there is edema in the upper abdomen bilaterally, right greater than left. CONCLUSION: 1. There are 2 distal common bile duct stones correlating with the earlier CT findings. These measur e 13 mm and 5 mm. Questionable small filling defect is also seen in the region of the cystic duct. 2. There is an ovoid fluid collection in the region of the gallbladder fossa that has the shape of t he gallbladder. However, by history the patient is postcholecystectomy. Therefore, this must represen t a postoperative fluid collection, potentially biloma. It contains air which could indicate infectio n. There is surrounding inflammatory change, edema in the adjacent liver, and trace perihepatic free fluid. If the patient is definitely postcholecystectomy, consider drainage of this fluid collection. Electronically signed by: Roger Rosas MD 01/17/2018 9:41 AM EDT
--- NOTE | 2018-01-17 11:41 | P.CONGI ---
History of Present Illness Consult date: 01/17/18 Consult reason: Common bile duct stones Chief complaint: peritonitis post operative infection History of Present Illness: This is a 72-year-old male who came to the hospital on 11/16/2017 with chief complaints of fever proximally 24 hours ago with chills. Patient states his temperature was 101 and insisted that he come to the hospital. Patient had cholecystectomy on 01/09/2018 which according to the record was significantly infected and ADRIEL drain was placed. Patient states the ADRIEL drain was taken out 3 days ago on 01/13/2018. Currently patient denies any acute abdominal pain just some mild minimal soreness status post his surgery. Patient denies any nausea or vomiting no dyspepsia and no dysphasia. Patient does note he was in the hospital this past February 2017 for gastric ulcer and GI bleed with history of anemia and had EGD during that time. Patient denies any family history of colon cancer has had no previous colonoscopy for review. Gastroenterology was consulted due to the findings on CT scan with 2 stones in the common bile measuring 13 mm and 5 mm. There was a questionable small filling defect which was also seen in the region of the cystic duct. Current labs reviewed showed hemoglobin 9.8, WBC count 17.5, bilirubin 0.5, normal LFTs with AST 24, ALT 21, and alkaline phosphatase 372, lipase level 156. <Ivy Tran - Last Filed: 01/17/18 11:34> Review of Systems All other systems reviewed negative except as stated in HPI <Ivy Tran - Last Filed: 01/17/18 11:34> PMFSH - History History Provided By: Patient - Medical History Medical History: Medical History (Last Reviewed 01/16/18 @ 22:40 by Isa Doyle) Diminished hearing Gallbladder disease HBP (high blood pressure) History of Clostridium difficile infection History of bleeding ulcers Joint pain Myocardial infarction Presence of orthopedic joint implant Rheumatoid arthritis - Surgical History Surgical History: Surgical History (Last Updated 01/16/18 @ 22:40 by Isa Doyle) History of cholecystectomy History of cardiac cath Hx of knee surgery Hx of tonsillectomy - Family History Family History: Family History (Last Reviewed 01/08/18 @ 17:52 by Bernardino Sorensen DO) Other Family history of hypertension - Tobacco History Second Hand Smoke Exposure: No Tobacco Use In Past 30 Days: No Smoking Status: Never smoker - Alcohol History How Often Do You Have a Drink Containing Alcohol: Never - Substance Use History Substance History: No History of Abuse - Travel History History of Recent Travel: No Recent Travel in the [place] Within the Last 8 Weeks: No Recent Travel Out of the Country Within the Last 8 Weeks: No - Immunization History Tetanus Immunization: Unsure Hx Influenza Vaccine This Season: No <Ivy Tran - Last Filed: 01/17/18 11:34> - Medical History Medical History: Medical History (Last Reviewed 01/16/18 @ 22:40 by Isa Doyle) Diminished hearing Gallbladder disease HBP (high blood pressure) History of Clostridium difficile infection History of bleeding ulcers Joint pain Myocardial infarction Presence of orthopedic joint implant Rheumatoid arthritis - Surgical History Surgical History: Surgical History (Last Updated 01/16/18 @ 22:40 by Isa Doyle) History of cholecystectomy History of cardiac cath Hx of knee surgery Hx of tonsillectomy - Family History Family History: Family History (Last Reviewed 01/08/18 @ 17:52 by Bernardino Sorensen DO) Other Family history of hypertension <Mirella Mcduffie - Last Filed: 01/17/18 11:59> Medications and Allergies Active Medications: Active Medications Acetaminophen (Tylenol) 650 mg PO Q4H PRN PRN Reason: Acute Pain Morphine Sulfate (Morphine Inj) 2 mg IV.PUSH Q3H PRN PRN Reason: PAIN SCALE 6-10 OR SEVERE SOB Last Admin: 01/17/18 05:37 Dose: 2 mg <Ivy Tran - Last Filed: 01/17/18 11:34> Active Medications: Active Medications Acetaminophen (Tylenol) 650 mg PO Q4H PRN PRN Reason: Acute Pain Morphine Sulfate (Morphine Inj) 2 mg IV.PUSH Q3H PRN PRN Reason: PAIN SCALE 6-10 OR SEVERE SOB Last Admin: 01/17/18 05:37 Dose: 2 mg <Mirella Mcduffie - Last Filed: 01/17/18 11:59> Allergies Allergy/AdvReac Type Severity Reaction Status Date / Time broccoli Allergy Intermediate Itching Verified 01/08/18 16:49 Fish Containing Products Allergy Intermediate Hives Verified 01/08/18 16:49 Home Medications Medication Instructions Recorded Confirmed Type ascorbic acid (vitamin C) [Vitamin 500 mg PO BID 01/08/18 01/16/18 History C] carvedilol 3.125 mg PO BID 01/08/18 01/16/18 History magnesium 400 mg PO QID 01/08/18 01/16/18 History multivitamin 1 cap PO DAILY 01/08/18 01/16/18 History cetirizine [Zyrtec] 10 mg PO DAILY 01/16/18 01/16/18 History Exam Vital signs: Vital Signs 01/16/18 22:37 01/16/18 22:56 01/17/18 01:37 Temperature 100.6 F H Pulse Rate 93 H 92 H 92 H Respiratory Rate 18 14 16 Blood Pressure 129/65 136/64 122/59 L Pulse Oximetry 98 97 95 01/17/18 01:53 01/17/18 05:38 01/17/18 07:09 Temperature 98.2 F 98.7 F Pulse Rate 80 87 Respiratory Rate 16 20 Blood Pressure 150/67 H 136/60 Pulse Oximetry 95 01/17/18 08:00 Temperature 99.0 F Pulse Rate 87 Respiratory Rate 18 Blood Pressure 129/60 Pulse Oximetry 99 Intake & Output 01/16/18 01/17/18 01/17/18 18:59 06:59 18:59 Intake Total 50 / 50 Balance 50 / 50 Weight 66.678 kg Intake: IV 50 / 50 Zosyn 3.375 GM Premix 50 ML @ 50 / 50 100 mls/hr IV.SIG ONCE ONE Rx#: [id number] - Constitutional mild distress (Secondary to knee pain which appears to be chronic) - Routine HEENT Exam Head: Present: normocephalic ENT: Present: mucous membranes moist - Routine Respiratory Exam Present: accessory muscle use (No obvious shortness of breath wheezing or rhonchi) - Routine Cardiovascular Exam Present: S1, S2 - Routine Abdominal Exam Present: soft, normoactive bowel sounds (Soft bowel sounds minimal discomfort related to recent surgical procedure and ADRIEL drain) - Routine Skin Exam Present: scars (Abdomen healing) <Ivy Tran - Last Filed: 01/17/18 11:34> Vital signs: Vital Signs 01/16/18 22:37 01/16/18 22:56 01/17/18 01:37 Temperature 100.6 F H Pulse Rate 93 H 92 H 92 H Respiratory Rate 18 14 16 Blood Pressure 129/65 136/64 122/59 L Pulse Oximetry 98 97 95 01/17/18 01:53 01/17/18 05:38 01/17/18 07:09 Temperature 98.2 F 98.7 F Pulse Rate 80 87 Respiratory Rate 16 20 Blood Pressure 150/67 H 136/60 Pulse Oximetry 95 01/17/18 08:00 Temperature 99.0 F Pulse Rate 87 Respiratory Rate 18 Blood Pressure 129/60 Pulse Oximetry 99 Intake & Output 01/16/18 01/17/18 01/17/18 18:59 06:59 18:59 Intake Total 50 / 50 Balance 50 / 50 Weight 66.678 kg Intake: IV 50 / 50 Zosyn 3.375 GM Premix 50 ML @ 50 / 50 100 mls/hr IV.SIG ONCE ONE Rx#: [id number] <Mirella Mcduffie - Last Filed: 01/17/18 11:59> Results - Labs CBC & Chem 7: 01/16/18 23:05 01/16/18 23:05 Labs: Laboratory Results - last 24 hr 01/16/18 01/16/18 01/16/18 23:05 23:05 23:05 WBC 17.5 H RBC 3.05 L Hgb 9.8 L Hct 29.7 L MCV 97.3 MCH 32.1 MCHC 33.0 RDW 15.0 Plt Count 329 D MPV 9.0 Neut % (Auto) 83.2 H Lymph % (Auto) 8.4 L [place] % (Auto) 7.4 Eos % (Auto) 0.8 Baso % (Auto) 0.2 Neut # (Auto) 14.6 H Lymph # (Auto) 1.5 [place] # (Auto) 1.3 H Eos # (Auto) 0.1 Baso # (Auto) 0.0 WBC Differential . Differential Comment Auto diff final Sodium 142 Potassium 3.9 Chloride 110 H Carbon Dioxide 21.9 Anion Gap 10 BUN 22 H Creatinine 1.86 H Estimated GFR 36 L Random Glucose 126 H Lactic Acid 1.7 Calcium 8.3 L Total Bilirubin 0.5 AST 24 ALT 21 Alkaline Phosphatase 372 H Total Protein 7.0 D Albumin 2.8 L Lipase 156 Urine Color Urine Clarity Urine pH Ur Specific [place] Urine Protein Urine Glucose (UA) Urine Ketones Urine Occult Blood Urine Nitrate Urine Bilirubin Urine Urobilinogen Ur Leukocyte Esterase Urine RBC Urine WBC Ur Transition Epith Cell Ur Renal Epithelial Cell Urine Bacteria Ur Microscopic Review 01/17/18 01:50 WBC RBC Hgb Hct MCV MCH MCHC RDW Plt Count MPV Neut % (Auto) Lymph % (Auto) [place] % (Auto) Eos % (Auto) Baso % (Auto) Neut # (Auto) Lymph # (Auto) [place] # (Auto) Eos # (Auto) Baso # (Auto) WBC Differential Differential Comment Sodium Potassium Chloride Carbon Dioxide Anion Gap BUN Creatinine Estimated GFR Random Glucose Lactic Acid Calcium Total Bilirubin AST ALT Alkaline Phosphatase Total Protein Albumin Lipase Urine Color Yellow Urine Clarity Hazy H Urine pH 5.0 Ur Specific [place] 1.042 H Urine Protein Negative Urine Glucose (UA) Negative Urine Ketones Negative Urine Occult Blood Small H Urine Nitrate Negative Urine Bilirubin Negative Urine Urobilinogen Less than 2 Ur Leukocyte Esterase Large H Urine RBC 7 H Urine WBC Ur Transition Epith Cell <1 Ur Renal Epithelial Cell 1 Urine Bacteria Rare H Ur Microscopic Review Not Reportable - Imaging Impressions Abdomen/Pelvis CT 01/17/18 00:00 CONCLUSION: 1. Choledocholithiasis with at least 2 stones in the distal common bile duct. There appears to be a small stone in the cystic duct region. The gallbladder is distended. Air seen within the gallbladder lumen. 2. Right inguinal hernia containing a nondilated segment of small bowel. 3. Colonic diverticula particularly in the sigmoid region. 4. Air within the urinary bladder. Cholangiopancreatography MRI 01/17/18 00:00 CONCLUSION: 1. There are 2 distal common bile duct stones correlating with the earlier CT findings. These measure 13 mm and 5 mm. Questionable small filling defect is also seen in the region of the cystic duct. 2. There is an ovoid fluid collection in the region of the gallbladder fossa that has the shape of the gallbladder. However, by history the patient is postcholecystectomy. Therefore, this must represent a postoperative fluid collection, potentially biloma. It contains air which could indicate infection. There is surrounding inflammatory change, edema in the adjacent liver, and trace perihepatic free fluid. If the patient is definitely postcholecystectomy, consider drainage of this fluid collection. Chest X-Ray 01/17/18 05:35 CONCLUSION: No acute cardiopulmonary process. <Ivy Tran - Last Filed: 01/17/18 11:34> - Labs CBC & Chem 7: 01/16/18 23:05 01/16/18 23:05 Labs: Laboratory Results - last 24 hr 01/16/18 01/16/18 01/16/18 23:05 23:05 23:05 WBC 17.5 H RBC 3.05 L Hgb 9.8 L Hct 29.7 L MCV 97.3 MCH 32.1 MCHC 33.0 RDW 15.0 Plt Count 329 D MPV 9.0 Neut % (Auto) 83.2 H Lymph % (Auto) 8.4 L [place] % (Auto) 7.4 Eos % (Auto) 0.8 Baso % (Auto) 0.2 Neut # (Auto) 14.6 H Lymph # (Auto) 1.5 [place] # (Auto) 1.3 H Eos # (Auto) 0.1 Baso # (Auto) 0.0 WBC Differential . Differential Comment Auto diff final Sodium 142 Potassium 3.9 Chloride 110 H Carbon Dioxide 21.9 Anion Gap 10 BUN 22 H Creatinine 1.86 H Estimated GFR 36 L Random Glucose 126 H Lactic Acid 1.7 Calcium 8.3 L Total Bilirubin 0.5 AST 24 ALT 21 Alkaline Phosphatase 372 H Total Protein 7.0 D Albumin 2.8 L Lipase 156 Urine Color Urine Clarity Urine pH Ur Specific [place] Urine Protein Urine Glucose (UA) Urine Ketones Urine Occult Blood Urine Nitrate Urine Bilirubin Urine Urobilinogen Ur Leukocyte Esterase Urine RBC Urine WBC Ur Transition Epith Cell Ur Renal Epithelial Cell Urine Bacteria Ur Microscopic Review 01/17/18 01:50 WBC RBC Hgb Hct MCV MCH MCHC RDW Plt Count MPV Neut % (Auto) Lymph % (Auto) [place] % (Auto) Eos % (Auto) Baso % (Auto) Neut # (Auto) Lymph # (Auto) [place] # (Auto) Eos # (Auto) Baso # (Auto) WBC Differential Differential Comment Sodium Potassium Chloride Carbon Dioxide Anion Gap BUN Creatinine Estimated GFR Random Glucose Lactic Acid Calcium Total Bilirubin AST ALT Alkaline Phosphatase Total Protein Albumin Lipase Urine Color Yellow Urine Clarity Hazy H Urine pH 5.0 Ur Specific [place] 1.042 H Urine Protein Negative Urine Glucose (UA) Negative Urine Ketones Negative Urine Occult Blood Small H Urine Nitrate Negative Urine Bilirubin Negative Urine Urobilinogen Less than 2 Ur Leukocyte Esterase Large H Urine RBC 7 H Urine WBC Ur Transition Epith Cell <1 Ur Renal Epithelial Cell 1 Urine Bacteria Rare H Ur Microscopic Review Not Reportable - Imaging Impressions Abdomen/Pelvis CT 01/17/18 00:00 CONCLUSION: 1. Choledocholithiasis with at least 2 stones in the distal common bile duct. There appears to be a small stone in the cystic duct region. The gallbladder is distended. Air seen within the gallbladder lumen. 2. Right inguinal hernia containing a nondilated segment of small bowel. 3. Colonic diverticula particularly in the sigmoid region. 4. Air within the urinary bladder. Cholangiopancreatography MRI 01/17/18 00:00 CONCLUSION: 1. There are 2 distal common bile duct stones correlating with the earlier CT findings. These measure 13 mm and 5 mm. Questionable small filling defect is also seen in the region of the cystic duct. 2. There is an ovoid fluid collection in the region of the gallbladder fossa that has the shape of the gallbladder. However, by history the patient is postcholecystectomy. Therefore, this must represent a postoperative fluid collection, potentially biloma. It contains air which could indicate infection. There is surrounding inflammatory change, edema in the adjacent liver, and trace perihepatic free fluid. If the patient is definitely postcholecystectomy, consider drainage of this fluid collection. Chest X-Ray 01/17/18 05:35 CONCLUSION: No acute cardiopulmonary process. <Mirella Mcduffie - Last Filed: 01/17/18 11:59> Assessment and Plan - Plan 72-year-old male who came to the hospital on 11/16/2017 with chief complaints of fever proximally 24 hours ago with chills. Patient states his temperature was 101 and insisted that he come to the hospital. Patient had cholecystectomy on 01/09/2018 which according to the record was significantly infected and ADRIEL drain was placed. Patient states the ADRIEL drain was taken out 3 days ago on 01/13/2018. Currently patient denies any acute abdominal pain just some mild minimal soreness status post his surgery. Patient denies any nausea or vomiting no dyspepsia and no dysphasia. Patient does note he was in the hospital this past February 2017 for gastric ulcer and GI bleed with history of anemia and had EGD during that time. Patient denies any family history of colon cancer has had no previous colonoscopy for review. Gastroenterology was consulted due to the findings on CT scan with 2 stones in the common bile measuring 13 mm and 5 mm. There was a questionable small filling defect which was also seen in the region of the cystic duct. Current labs reviewed showed hemoglobin 9.8, WBC count 17.5, bilirubin 0.5, normal LFTs with AST 24, ALT 21, and alkaline phosphatase 372, lipase level 156. Common bile duct stones, patient is status post cholecystectomy on 01/09/2018. Patient's chief complaint to me is chronic left knee pain in which she takes hydrocodone this was reported to the nurse Plan Clear liquids today N.p.o. at midnight Consent for ERCP to be done in a.m. PPI Bowel regimen Supportive care Further recommendations to follow Patient was seen per myself and Dr. 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 Repeat labs ordered. ID consulted. ? IR consult for drainage of ? abscess discussed with Drs. Saldivar/Celestino. Dr. Danielle to address this tomorrow. ERCP planned for tomorrow. Not cholangitis based on CT and labs and physical exam. Stones are non obstructing. Dr Awad will follow. thank you The exam, history, and the medical decision-making described in the above note were completed with the assistance of the mid-level provider. I reviewed and agree with the findings presented. I attest that I had a [id number] encounter with the patient on the same day, and personally performed and documented my assessment and findings in the medical record. <Mirella Mcduffie - Last Filed: 01/17/18 11:59>
[2018-01-17 12:01] LABS: Baso % (Auto) 0.1 % (0.0-2.0); Eos # (Auto) 0.1 th/mm3 (0.0-0.4); Eos % (Auto) 0.6 % (0.0-4.0); Hematocrit 27.6 % (39.0-51.0); Hemoglobin 9.1 gm/dL (13.0-17.0); Lymph # (Auto) 1.4 th/mm3 (1.0-4.8); Lymph % (Auto) 7.1 % (9.0-44.0); Mean Corpuscular HGB Conc 32.9 % (32.0-36.0); Mean Corpuscular Hemoglobin 32.3 pg (27.0-34.0); Mono # (Auto) 1.3 th/mm3 (0.0-0.9); Mono % (Auto) 6.6 % (0.0-8.0); Neut # (Auto) 17.2 th/mm3 (1.8-7.7); Neut % (Auto) 85.6 % (16.0-70.0); Platelet Count 306 th/mm3 (150-450); Red Blood Count 2.81 mil/mm3 (4.50-5.90); White Blood Count 20.1 th/mm3 (4.0-11.0)
[2018-01-17 12:19] LABS: Alanine Aminotransferase 19 U/L (12-78); Albumin 2.5 g/dL (3.4-5.0); Anion Gap 9 meq/L (5-15); Aspartate Aminotransferase 21 U/L (15-37); Blood Urea Nitrogen 22 mg/dL (7-18); Calcium 8.4 mg/dL (8.5-10.1); Carbon Dioxide 24.4 meq/L (21.0-32.0); Chloride 109 meq/L (98-107); Glomerular Filtration Rate 39 mL/min (>89); Glucose,Random 97 mg/dL (74-106); Sodium 142 meq/L (136-145)
[2018-01-17 12:22] LABS: Alkaline Phosphatase 333 U/L (45-117); Total Protein 6.8 g/dL (6.4-8.2)
[2018-01-17] MEDS: metroNIDAZOLE 500 MG Tablet PO SCH ×3 (14:15→21:26)
[2018-01-17] MEDS: Ampicillin/Sulbactam Inj 3 GM in Sodium Chloride 0.9% Inj 100 ML IV.SIG SCH ×2 (14:16→20:16)
--- NOTE | 2018-01-17 15:10 | MB ---
cc: Frantz Galicia MD DATE: 01/17/2018 REQUESTING PHYSICIAN: Mirella Mcduffie MD REASON FOR REFERRAL: Abscess. HISTORY OF PRESENT ILLNESS: This is a 72-year-old white male who underwent laparoscopic cholecystectomy on 01/09/2018. The patient was at home watching television yesterday afternoon and he suddenly developed a cold chill. His temperature was taken at home and it was 101, and his significant other convinced him to come to the hospital for evaluation. In the emergency department, the patient was noted to have temperature of 100.6 degrees and laboratory work revealed elevated white count of 17.5. He underwent CT scan of the abdomen in the very cloth dye range operator hours today and it showed cholelithiasis with at least 2 stones in the distal common bile duct and a small stone in the cystic duct region. Subsequently, MRI was performed and it showed a questionable small filling defect in the region of the cystic duct and an ovoid fluid collection in the region of the gallbladder fossa with the shape of the gallbladder. There was noted within the collection and also surrounding it, inflammatory change and edema in the adjacent liver and trace perihepatic free fluid. The patient's temperature has improved. His white count, however, is higher today than it was yesterday. White count today is 20,000. The patient states to me that he had no pain at all at home after the surgery. He had a drain catheter, which was removed shortly after the surgery, before being discharged to home post-procedure. Blood culture was taken on admission and has had no growth in 1 day. The patient has no nausea or vomiting and states that he was eating well at home and had no diarrhea. He also denied sweats. Currently, he states that he feels okay. PAST MEDICAL HISTORY: Rheumatoid arthritis, gallbladder disease, hypertension, history of bleeding ulcers, history of Clostridium difficile, history of myocardial infarction, history of left knee surgery, history of tonsillectomy. ALLERGIES: BROCCOLI, FISH CONTAINING PRODUCTS. MEDICATIONS: 1. Tylenol p.r.n. 2. Morphine sulfate. SOCIAL HISTORY: No tobacco, no alcohol. No drug abuse. FAMILY HISTORY: Noncontributory. REVIEW OF SYSTEMS: All systems have been reviewed and negative, except for left knee pain. PHYSICAL EXAMINATION: GENERAL: This is a well-developed male who is in no acute distress. He is awake and alert. VITAL SIGNS: Temperature 99 degrees, BP 129/60, respirations 18, heart rate 87. HEENT: The head is atraumatic. Extraocular movements grossly intact. Pupils reactive to light. No icterus. Oropharynx moist mucosa without lesions. NECK: Supple without adenopathy. LUNGS: Clear breath sounds. HEART: Regular S1, S2, without murmurs, rubs or gallops. ABDOMEN: Bowel sounds present. flat, soft, nontender. The incision from the laparoscopic procedure appears intact at the abdomen. RECTAL: Not performed. EXTREMITIES: No clubbing, cyanosis or edema. No swelling at the left knee. SKIN: No rash. NEUROLOGIC: No gross focal finding. PSYCHIATRIC: The patient is calm and cooperative. LABORATORY DATA: WBC 20.1, platelets 306, hemoglobin 9.1, 85% neutrophils, 77% lymphocytes. Creatinine 1.75, BUN 22. Estimated GFR of 39. IMPRESSION: 1. Fever, postoperative, in patient who is status post laparoscopic cholecystectomy. 2. Perihepatic fluid collection gallbladder fossa fluid collection with air suggesting potential infection. 3. Leukocytosis. 4. Chronic kidney disease. RECOMMENDATIONS: 1. Continue to treat the patient with antibiotics since the white blood cell count remained elevated and it is not clear whether his temperature has resolved. 2. Begin Unasyn intravenous. 3. Add Flagyl p.o. 4. Monitor blood cultures. 5. Consider obtaining drainage of the fluid within the abdomen, which was noted on the MRI. Thank you for this consultation. I will follow the patient's progress along with you, and will make further recommendations and followup if necessary. MD KARTHIK Vinson/francoise , 12:32 PM , 12:46 PM
--- NOTE | 2018-01-17 15:48 | P.HP ---
History of Present Illness Primary Care Physician: Luiza Khan MD History of Present Illness: This is a 72-year-old male who came to the hospital on 11/16/2017 with chief complaints of fever proximally 24 hours ago with chills. Patient states his temperature was 101 and insisted that he come to the hospital. Patient had cholecystectomy on 01/09/2018 which according to the record was significantly infected and ADRIEL drain was placed. Patient states the ADRIEL drain was taken out 3 days ago on 01/13/2018. Currently patient denies any acute abdominal pain just some mild minimal soreness status post his surgery. Patient denies any nausea or vomiting no dyspepsia and no dysphasia. Patient does note he was in the hospital this past February 2017 for gastric ulcer and GI bleed with history of anemia and had EGD during that time. Patient denies any family history of colon cancer has had no previous colonoscopy for review. Gastroenterology was consulted due to the findings on CT scan with 2 stones in the common bile measuring 13 mm and 5 mm. There was a questionable small filling defect which was also seen in the region of the cystic duct. Elevated alkaline phosphatase 372 and lipase level 156. GI consulted plan for ERCP. Inpatient Certification: I certify that the inpatient services were ordered in accordance with Medicare regulations governing the order. This includes certification that hospital inpatient services are reasonable and necessary and in the case of services not specified as inpatient-only under 42 CFR 419.22(n), that they are appropriately provided as inpatient services in accordance to with the 2-midnight benchmark under 43 CFR 412.3(e) Review of Systems All other systems reviewed negative except as stated in HPI PMFSH - History History Provided By: Patient - Medical History Medical History: Medical History (Last Reviewed 01/17/18 @ 15:48 by Britney Otoole MD) Diminished hearing Gallbladder disease HBP (high blood pressure) History of Clostridium difficile infection History of bleeding ulcers Joint pain Myocardial infarction Presence of orthopedic joint implant Rheumatoid arthritis - Surgical History Surgical History: Surgical History (Last Reviewed 01/17/18 @ 15:48 by Britney Otoole MD) History of cholecystectomy History of cardiac cath Hx of knee surgery Hx of tonsillectomy - Family History Family History: Family History (Last Reviewed 01/17/18 @ 15:48 by Britney Ootole MD) Other Family history of hypertension - Tobacco History Second Hand Smoke Exposure: No Tobacco Use In Past 30 Days: No Smoking Status: Never smoker - Alcohol History How Often Do You Have a Drink Containing Alcohol: Never - Substance Use History Substance History: No History of Abuse - Travel History History of Recent Travel: No Recent Travel in the [place] Within the Last 8 Weeks: No Recent Travel Out of the Country Within the Last 8 Weeks: No - Immunization History Tetanus Immunization: Unsure Hx Influenza Vaccine This Season: No Medications and Allergies Active Medications: Active Medications Acetaminophen (Tylenol) 650 mg PO Q4H PRN PRN Reason: Acute Pain Hydrocodone Bitart/Acetaminophen ([place]iddle 5/325) 1 tab PO Q4H PRN PRN Reason: PAIN SCALE 1 TO 10 Ampicillin Sodium/Sulbactam (Sodium 3 gm/ Sodium Chloride) 100 mls @ 200 mls/ hr IV.SIG Q8H [facility] Last Infusion: 01/17/18 15:44 Dose: Infused Metronidazole (Flagyl) 500 mg PO Q8HR [facility] Last Admin: 01/17/18 14:15 Dose: 500 mg Morphine Sulfate (Morphine Inj) 2 mg IV.PUSH Q3H PRN PRN Reason: PAIN SCALE 6-10 OR SEVERE SOB Last Admin: 01/17/18 05:37 Dose: 2 mg Allergies Allergy/AdvReac Type Severity Reaction Status Date / Time broccoli Allergy Intermediate Itching Verified 01/08/18 16:49 Fish Containing Products Allergy Intermediate Hives Verified 01/08/18 16:49 Home Medications Medication Instructions Recorded Confirmed Type ascorbic acid (vitamin C) [Vitamin 500 mg PO BID 01/08/18 01/16/18 History C] carvedilol 3.125 mg PO BID 01/08/18 01/16/18 History magnesium 400 mg PO QID 01/08/18 01/16/18 History multivitamin 1 cap PO DAILY 01/08/18 01/16/18 History cetirizine [Zyrtec] 10 mg PO DAILY 01/16/18 01/16/18 History Exam Vital signs: Vital Signs 01/16/18 22:37 01/16/18 22:56 01/17/18 01:37 Temperature 100.6 F H Pulse Rate 93 H 92 H 92 H Respiratory Rate 18 14 16 Blood Pressure 129/65 136/64 122/59 L Pulse Oximetry 98 97 95 01/17/18 01:53 01/17/18 05:38 01/17/18 07:09 Temperature 98.2 F 98.7 F Pulse Rate 80 87 Respiratory Rate 16 20 Blood Pressure 150/67 H 136/60 Pulse Oximetry 95 01/17/18 08:00 01/17/18 12:00 Temperature 99.0 F 99.2 F Pulse Rate 87 90 Respiratory Rate 18 17 Blood Pressure 129/60 141/66 H Pulse Oximetry 99 100 Intake & Output 01/16/18 01/17/18 01/17/18 18:59 06:59 18:59 Intake Total 50 / 50 100 / 100 Balance 50 / 50 100 / 100 Weight 66.678 kg Intake: IV 50 / 50 100 / 100 Unasyn Inj 3 GM In NS Inj 100 100 / 100 ML @ 200 mls/hr IV.SIG Q8H [facility] Rx#:[id number] Zosyn 3.375 GM Premix 50 ML @ 50 / 50 100 mls/hr IV.SIG ONCE ONE Rx#: [id number] Narrative: GENERAL: Pleasant 72 yo male, well nourished well developed patient, with some abd pain. SKIN: Warm and dry. HEAD: Atraumatic. Normocephalic. EYES: Pupils equal and round. No scleral icterus. No injection or drainage. ENT: No nasal bleeding or discharge. Mucous membranes pink and moist. NECK: Trachea midline. No JVD. CARDIOVASCULAR: Regular rate and rhythm. RESPIRATORY: No accessory muscle use. Clear to auscultation. Breath sounds equal bilaterally. No rebound. Hepatic and splenic margins not palpable. MUSCULOSKELETAL: Extremities without clubbing, cyanosis, or edema. No obvious deformities. NEUROLOGICAL: Awake and alert. No obvious cranial nerve deficits. Motor grossly within normal limits. Five out of 5 muscle strength in the arms and legs. Normal speech. PSYCHIATRIC: Appropriate mood and affect; insight and judgment normal. Results - Labs CBC & Chem 7: 01/19/18 05:00 01/19/18 05:00 Labs: Laboratory Results - last 24 hr 01/16/18 01/16/18 01/16/18 23:05 23:05 23:05 WBC 17.5 H RBC 3.05 L Hgb 9.8 L Hct 29.7 L MCV 97.3 MCH 32.1 MCHC 33.0 RDW 15.0 Plt Count 329 D MPV 9.0 Neut % (Auto) 83.2 H Lymph % (Auto) 8.4 L [place] % (Auto) 7.4 Eos % (Auto) 0.8 Baso % (Auto) 0.2 Neut # (Auto) 14.6 H Lymph # (Auto) 1.5 [place] # (Auto) 1.3 H Eos # (Auto) 0.1 Baso # (Auto) 0.0 WBC Differential . Differential Comment Auto diff final Sodium 142 Potassium 3.9 Chloride 110 H Carbon Dioxide 21.9 Anion Gap 10 BUN 22 H Creatinine 1.86 H Estimated GFR 36 L Random Glucose 126 H Lactic Acid 1.7 Calcium 8.3 L Total Bilirubin 0.5 AST 24 ALT 21 Alkaline Phosphatase 372 H Total Protein 7.0 D Albumin 2.8 L Lipase 156 Urine Color Urine Clarity Urine pH Ur Specific [place] Urine Protein Urine Glucose (UA) Urine Ketones Urine Occult Blood Urine Nitrate Urine Bilirubin Urine Urobilinogen Ur Leukocyte Esterase Urine RBC Urine WBC Ur Transition Epith Cell Ur Renal Epithelial Cell Urine Bacteria Ur Microscopic Review 01/17/18 01/17/18 01/17/18 01:50 11:05 11:06 WBC 20.1 H RBC 2.81 L Hgb 9.1 L Hct 27.6 L MCV 98.0 MCH 32.3 MCHC 32.9 RDW 15.0 Plt Count 306 MPV 9.0 Neut % (Auto) 85.6 H Lymph % (Auto) 7.1 L [place] % (Auto) 6.6 Eos % (Auto) 0.6 Baso % (Auto) 0.1 Neut # (Auto) 17.2 H Lymph # (Auto) 1.4 [place] # (Auto) 1.3 H Eos # (Auto) 0.1 Baso # (Auto) 0.0 WBC Differential . Differential Comment Auto diff final Sodium 142 Potassium 4.0 Chloride 109 H Carbon Dioxide 24.4 Anion Gap 9 BUN 22 H Creatinine 1.75 H Estimated GFR 39 L Random Glucose 97 Lactic Acid Calcium 8.4 L Total Bilirubin 0.7 AST 21 ALT 19 Alkaline Phosphatase 333 H Total Protein 6.8 Albumin 2.5 L Lipase Urine Color Yellow Urine Clarity Hazy H Urine pH 5.0 Ur Specific [place] 1.042 H Urine Protein Negative Urine Glucose (UA) Negative Urine Ketones Negative Urine Occult Blood Small H Urine Nitrate Negative Urine Bilirubin Negative Urine Urobilinogen Less than 2 Ur Leukocyte Esterase Large H Urine RBC 7 H Urine WBC Ur Transition Epith Cell <1 Ur Renal Epithelial Cell 1 Urine Bacteria Rare H Ur Microscopic Review Not Reportable - Imaging Impressions Abdomen/Pelvis CT 01/17/18 00:00 CONCLUSION: 1. Choledocholithiasis with at least 2 stones in the distal common bile duct. There appears to be a small stone in the cystic duct region. The gallbladder is distended. Air seen within the gallbladder lumen. 2. Right inguinal hernia containing a nondilated segment of small bowel. 3. Colonic diverticula particularly in the sigmoid region. 4. Air within the urinary bladder. Cholangiopancreatography MRI 01/17/18 00:00 CONCLUSION: 1. There are 2 distal common bile duct stones correlating with the earlier CT findings. These measure 13 mm and 5 mm. Questionable small filling defect is also seen in the region of the cystic duct. 2. There is an ovoid fluid collection in the region of the gallbladder fossa that has the shape of the gallbladder. However, by history the patient is postcholecystectomy. Therefore, this must represent a postoperative fluid collection, potentially biloma. It contains air which could indicate infection. There is surrounding inflammatory change, edema in the adjacent liver, and trace perihepatic free fluid. If the patient is definitely postcholecystectomy, consider drainage of this fluid collection. Chest X-Ray 01/17/18 05:35 CONCLUSION: No acute cardiopulmonary process. Caprini VTE Risk Assessment Caprini VTE Risk Assessment: Moderate/High Risk (score >= 2) Caprini Risk Assessment Model: Point Value = 1 Point Value = 2 Point Value = 3 Point Value = 5 Age 41-60 Minor surgery BMI > 25 kg/m2 Swollen legs Varicose veins or History of unexplained or recurrent spontaneous Oral contraceptives or hormone replacement Sepsis (< 1 month) Serious lung disease, including pneumonia (< 1 month) Abnormal pulmonary function Acute myocardial infarction Congestive heart failure (< 1 month) History of inflammatory bowel disease Medical patient at bed rest Age 61-74 Arthroscopic surgery Major open surgery (> 45 min) Laparoscopic surgery (> 45 min) Malignancy Confined to bed (> 72 hours) Immobilizing plaster cast Central venous access Age >= 75 History of VTE Family history of VTE Factor V Leiden Prothrombin [id number] Lupus anticoagulant Anticardiolipin antibodies Elevated serum homocysteine Heparin-induced thrombocytopenia Other congenital or acquired thrombophilia Stroke (< 1 month) Elective arthroplasty Hip, pelvis, or leg fracture Acute spinal cord injury (< 1 month) Prophylaxis Regimen: Total Risk Factor Score Risk Level Prophylaxis Regimen 0-1 Low Early ambulation 2 Moderate Order ONE of the following: *Sequential Compression Device (SCD) *Heparin 5000 units SQ BID 3-4 Higher Order ONE of the following medications: *Heparin 5000 units SQ TID *Enoxaparin/Lovenox 40 mg SQ daily (WT < 150 kg, CrCl > 30 mL/min) *Enoxaparin/Lovenox 30 mg SQ daily (WT < 150 kg, CrCl > 10-29 mL/min) *Enoxaparin/Lovenox 30 mg SQ BID (WT < 150 kg, CrCl > 30 mL/min) AND/OR *Sequential Compression Device (SCD) 5 or more Highest Order ONE of the following medications: *Heparin 5000 units SQ TID (Preferred with Epidurals) *Enoxaparin/Lovenox 40 mg SQ daily (WT < 150 kg, CrCl > 30 mL/min) *Enoxaparin/Lovenox 30 mg SQ daily (WT < 150 kg, CrCl > 10-29 mL/min) *Enoxaparin/Lovenox 30 mg SQ BID (WT < 150 kg, CrCl > 30 mL/min) AND *Sequential Compression Device (SCD) Assessment and Plan - Plan 72-year-old male with multiple medical problems, who came to the hospital with chief complaints of fever 24 hours ago with chills. Patient states his temperature was 101 and insisted that he come to the hospital. Patient had recent cholecystectomy on 01/09/2018 which according to the record was significantly infected and ADRIEL drain was placed. Patient states the ADRIEL drain was taken out 3 days ago on 01/13/2018. Currently patient denies any acute abdominal pain just some mild minimal soreness status post his surgery. Patient denies any nausea or vomiting no dyspepsia and no dysphasia. Patient does note he was in the hospital this past February 2017 for gastric ulcer and GI bleed with history of anemia and had EGD during that time. Patient denies any family history of colon cancer has had no previous colonoscopy for review. Gastroenterology was consulted due to the findings on CT scan with 2 stones in the common bile measuring 13 mm and 5 mm. There was a questionable small filling defect which was also seen in the region of the cystic duct. Elevated alkaline phosphatase 372 and lipase level 156. S/P MRCP reviewed. GI consulted , plan for ERCP Common bile duct stones, patient is status post cholecystectomy on 01/09/2018. MRCP reviewed Clear liquids today N.p.o. at midnight Consent for ERCP to be done in a.m. PPI Pain management per pain scale. Bowel regimen ID consulted. Consider IR consult for drainage of possible abscess. However gen surg following at this time, no intervention planned. Recent Upper GI bleed / Acute blood loss anemia / Hemorrhagic shock . Patient with Gastric ulcers Multiple duodenal ulcers with active bleeding was found on EGD, status post injection and laser therapy last admission H/H stable monitor Recent NSTEMI, cardiomyopathy Hemorrhagic related Continue home meds . Monitor clesely. Asymptomatic at this time. Recent Left cephalic thrombus/ Left basilic thrombus Not a candidate for blood thinners as recent bleeding Follow clinically Respiratory failure on mechanical ventilation Status post extubation Doing well off vent. Wean off nasal cannula as tolerated. Upper extremity edema Monitor right upper extremity Left upper extremity has thromboses, right upper extremity did not show thromboses. Edema overall improving. Left knee osteoarthritis Follows outpatient Chronic kidney disease, monitor kidney function avoid nephrotoxic agents Restart home meds as indicated. DVT ppx? SCD. Not a candidate for blood thinners as recent bleeding Discussed Condition With: patient, nurse
[2018-01-17] MEDS ORDERED: Metoprolol Tartrate 25 MG Tablet PO ONE (19:04)
[2018-01-17] MEDS ORDERED: Chlorhexidine Gluconate 2% 1 Pack (2 Cloths) TOPICAL ONE (19:04)
[2018-01-17] MEDS ORDERED: Sodium Chlor 0.9% Inj 500 ML IV.SIG SCH (20:00)
[2018-01-18] MEDS: Ampicillin/Sulbactam Inj 3 GM in Sodium Chloride 0.9% Inj 100 ML IV.SIG SCH ×3 (04:53→14:39)
[2018-01-18] MEDS: metroNIDAZOLE 500 MG Tablet PO SCH ×3 (05:00→22:50)
--- NOTE | 2018-01-18 09:29 | P.PNGS ---
Subjective Interval history: Resting in bed Wants to go home if able to later today Physical Exam Vital signs: Vital Signs 01/17/18 12:00 01/17/18 16:00 01/17/18 20:00 Temperature 99.2 F 99.1 F 98.2 F Pulse Rate 90 92 H 88 Respiratory Rate 17 18 17 Blood Pressure 141/66 H 131/62 143/67 H Pulse Oximetry 100 96 100 01/18/18 00:00 Temperature 99 F Pulse Rate 82 Respiratory Rate 17 Blood Pressure 127/59 L Pulse Oximetry 99 Intake & Output 01/17/18 01/18/18 01/18/18 18:59 06:59 18:59 Intake Total 820 / 820 440 / 440 Balance 820 / 820 440 / 440 Weight 66.678 kg Intake: IV 100 / 100 200 / 200 Unasyn Inj 3 GM In NS Inj 100 100 / 100 200 / 200 ML @ 200 mls/hr IV.SIG Q8H [facility] Rx#:[id number] Oral 720 / 720 240 / 240 Other: # Voids 4 2 Date of Last Bowel Movement 01/17/18 01/17/18 01/18/18 # Bowel Movements 1 1 Narrative: Alert and awake Abd: abdomen soft; bloody drainage on umbilical Steri Strip Results - Labs 01/18/18 10:23 01/17/18 11:06 Laboratory Results - last 24 hr 01/17/18 01/17/18 11:05 11:06 WBC 20.1 H RBC 2.81 L Hgb 9.1 L Hct 27.6 L MCV 98.0 MCH 32.3 MCHC 32.9 RDW 15.0 Plt Count 306 MPV 9.0 Neut % (Auto) 85.6 H Lymph % (Auto) 7.1 L [place] % (Auto) 6.6 Eos % (Auto) 0.6 Baso % (Auto) 0.1 Neut # (Auto) 17.2 H Lymph # (Auto) 1.4 [place] # (Auto) 1.3 H Eos # (Auto) 0.1 Baso # (Auto) 0.0 WBC Differential . Differential Comment Auto diff final Sodium 142 Potassium 4.0 Chloride 109 H Carbon Dioxide 24.4 Anion Gap 9 BUN 22 H Creatinine 1.75 H Estimated GFR 39 L Random Glucose 97 Calcium 8.4 L Total Bilirubin 0.7 AST 21 ALT 19 Alkaline Phosphatase 333 H Total Protein 6.8 Albumin 2.5 L - Imaging Imaging: ITS Impressions Abdomen/Pelvis CT 01/17/18 00:00 CONCLUSION: 1. Choledocholithiasis with at least 2 stones in the distal common bile duct. There appears to be a small stone in the cystic duct region. The gallbladder is distended. Air seen within the gallbladder lumen. 2. Right inguinal hernia containing a nondilated segment of small bowel. 3. Colonic diverticula particularly in the sigmoid region. 4. Air within the urinary bladder. Cholangiopancreatography MRI 01/17/18 00:00 CONCLUSION: 1. There are 2 distal common bile duct stones correlating with the earlier CT findings. These measure 13 mm and 5 mm. Questionable small filling defect is also seen in the region of the cystic duct. 2. There is an ovoid fluid collection in the region of the gallbladder fossa that has the shape of the gallbladder. However, by history the patient is postcholecystectomy. Therefore, this must represent a postoperative fluid collection, potentially biloma. It contains air which could indicate infection. There is surrounding inflammatory change, edema in the adjacent liver, and trace perihepatic free fluid. If the patient is definitely postcholecystectomy, consider drainage of this fluid collection. Chest X-Ray 01/17/18 05:35 CONCLUSION: No acute cardiopulmonary process. Assessment and Plan - Assessment (1) S/P laparoscopic cholecystectomy Code(s): Z90.49 - Acquired absence of other specified parts of digestive tract Status: Acute Plan: 72 year old male s/p lap wandy from prior admission; now back with fevers/chills -MRCP shows 2 distal common bile duct stones with a ?? filling defect -NPO -ERCP today -Will discuss today with Dr. Danielle about gallbladder fossa fluid collection - Plan Patient was personally seen by me in the PACU at [place]. The patient was just status post ERCP by Dr. Awad who happened to be at the patient's bedside as well. ERCP demonstrated a thickened narrowed scarred sphincter that was difficult to open. Apparently 2 stones were seen in the common duct and only one was retrievable. A stent was placed. There appeared to be potentially a very small bile leak. The patient was stable in PACU. His abdomen was mildly distended as expected post ERCP. His Steri-Strips are intact with no sign of surgical complication from an incisional standpoint. The plan was to keep the patient n.p.o. tonight and if he is doing well in the morning gradually advance his diet. Plans for repeat ERCP with stent removal and stone removal in 6-8 weeks. This was discussed with the patient who was still coming out of anesthesia. Apparently Dr. Awad and talk to his significant other Balbina. I went to look for Balbina but was unable to find her in the recovery area or same -day surgery area or surgical waiting room. General surgery will follow along. The exam, history, and the medical decision-making described in the above note were completed with the assistance of the mid-level provider. I reviewed and agree with the findings presented. I attest that I had a [id number] encounter with the patient on the same day, and personally performed and documented my assessment and findings in the medical record.
[2018-01-18 11:05] LABS: Baso % (Auto) 0.2 % (0.0-2.0); Eos # (Auto) 0.5 th/mm3 (0.0-0.4); Eos % (Auto) 3.2 % (0.0-4.0); Hematocrit 27.7 % (39.0-51.0); Hemoglobin 9.1 gm/dL (13.0-17.0); Lymph % (Auto) 13.4 % (9.0-44.0); Mean Corpuscular HGB Conc 32.8 % (32.0-36.0); Mean Corpuscular Hemoglobin 32.4 pg (27.0-34.0); Mean Corpuscular Volume 98.6 fL (80.0-100.0); Mean Platelet Volume 8.8 fL (7.0-11.0); Mono % (Auto) 7.1 % (0.0-8.0); Neut # (Auto) 11.1 th/mm3 (1.8-7.7); Neut % (Auto) 76.1 % (16.0-70.0); Platelet Count 328 th/mm3 (150-450); Red Blood Count 2.81 mil/mm3 (4.50-5.90); Red Cell Distribution Width 15.4 % (11.6-17.2); White Blood Count 14.6 th/mm3 (4.0-11.0)
[2018-01-18] MEDS ORDERED: Succinylcholine Inj 100 MG/5 ML Syringe IV.PUSH ONE (13:15)
[2018-01-18] MEDS ORDERED: *Meperidine Inj 25 MG/ML Vial PERIprocedural Use ONLY ONE (14:43)
[2018-01-18] MEDS ORDERED: Morphine Inj 4 MG/ML Vial ONE (14:43)
[2018-01-18] MEDS ORDERED: fentaNYL Citrate Inj 100 MCG/2 ML Ampul ONE ×3 (14:43→14:44)
[2018-01-18] MEDS ORDERED: *Labetalol HCl Inj 100 MG/20 ML Vial PERIprocedural Use ONLY IV.PUSH ONE (14:47)
[2018-01-18] MEDS ORDERED: *morphine SULFATE 4 MG/ML PERIprocedure ONLY ONE (14:57)
[2018-01-18] MEDS ORDERED: *Enalaprilat Inj 1.25 MG/ML Vial IV.PUSH ONE (14:57)
--- NOTE | 2018-01-18 15:30 | P.PNIM ---
Subjective Interval history: Patient complains of abdominal pain status post ERCP. He does not have any other complaints. Physical Exam Vital signs: Vital Signs 01/17/18 16:00 01/17/18 20:00 01/18/18 00:00 Temperature 99.1 F 98.2 F 99 F Pulse Rate 92 H 88 82 Respiratory Rate 18 17 17 Blood Pressure 131/62 143/67 H 127/59 L Pulse Oximetry 96 100 99 01/18/18 08:00 01/18/18 12:00 01/18/18 14:33 Temperature 98.8 F 98.1 F 98 F Pulse Rate 85 72 73 Respiratory Rate 17 18 20 Blood Pressure 125/62 127/58 L 157/84 H Pulse Oximetry 98 96 97 01/18/18 14:45 01/18/18 15:00 01/18/18 15:12 Temperature Pulse Rate 69 68 Respiratory Rate 19 19 Blood Pressure 186/92 H 183/87 H Pulse Oximetry 97 95 96 01/18/18 15:15 01/18/18 15:26 Temperature 98.1 F Pulse Rate 63 62 Respiratory Rate 20 20 Blood Pressure 150/80 H 155/83 H Pulse Oximetry 96 97 Intake & Output 01/17/18 01/18/18 01/18/18 18:59 06:59 18:59 Intake Total 820 / 820 440 / 440 Balance 820 / 820 440 / 440 Weight 66.678 kg Intake: IV 100 / 100 200 / 200 Unasyn Inj 3 GM In NS Inj 100 100 / 100 200 / 200 ML @ 200 mls/hr IV.SIG Q8H [facility] Rx#:[id number] Oral 720 / 720 240 / 240 Other: # Voids 4 2 Date of Last Bowel Movement 01/17/18 01/17/18 01/18/18 # Bowel Movements 1 1 Narrative: General patient is complaining of mild abdominal pain status post ERCP. HEENT extraocular movements are intact, clear oropharyngeal mucosa, no JVD Cardiovascular S1-S2 audible Respiratory clear to auscultation bilaterally Abdomen soft, complains of abdominal pain in the right upper quadrant. Normal bowel sounds Extremities no edema 2+ distal pulses in bilateral upper and lower extremities Neuro no neurological deficits Results - Labs CBC & Chem 7: 01/18/18 10:23 01/17/18 11:06 Laboratory Results - last 24 hr 10/01/18 10:23 WBC 14.6 H RBC 2.81 L Hgb 9.1 L Hct 27.7 L MCV 98.6 MCH 32.4 MCHC 32.8 RDW 15.4 Plt Count 328 MPV 8.8 Neut % (Auto) 76.1 H Lymph % (Auto) 13.4 [place] % (Auto) 7.1 Eos % (Auto) 3.2 Baso % (Auto) 0.2 Neut # (Auto) 11.1 H Lymph # (Auto) 2.0 [place] # (Auto) 1.0 H Eos # (Auto) 0.5 H Baso # (Auto) 0.0 WBC Differential . Differential Comment Auto diff final Microbiology 01/16/18 21:30 Blood - Peripheral Aerobic Blood Culture - Preliminary No growth in 2 days 01/16/18 21:30 Blood - Peripheral Anaerobic Blood Culture - Preliminary No growth in 2 days 01/16/18 23:05 Blood - Peripheral Aerobic Blood Culture - Preliminary No growth in 2 days 01/16/18 23:05 Blood - Peripheral Anaerobic Blood Culture - Preliminary No growth in 2 days Assessment and Plan - Plan This patient is a 72-year-old male with a diagnosis of hypertension, documented history of myocardial infarction, history of upper GI bleed from bleeding gastric ulcers approximately 1 year ago. He is status post lap wandy from a prior admission a few weeks ago. He presented to our emergency room with complaints of fevers and chills as well as abdominal pain. 1. Systemic inflammatory response syndrome possibly secondary to common bile duct stones. The patient has remained afebrile over the past 24 hours. Blood cultures are negative. He underwent ERCP today which demonstrated thickened narrowed scarred sphincter that was difficult to open during the procedure. There were 2 stones seen in the common bile duct and only one was retrievable. A stent was placed. The plan is to repeat ERCP in 6-8 weeks for stent removal as per GI recommendations. He will be kept n.p.o. tonight and the plan is to start the patient on a clear liquid diet tomorrow a.m. and can be advanced through the day as long as the patient can tolerate it. WBC count is downtrending. The patient will be continued on IV Rocephin and Flagyl. Infectious disease will be consulted, would appreciate the recommendations regarding possible p.o. antibiotics on discharge. 2. Hypertension The patient has had persistent elevated blood pressure since admission. He is currently on Coreg. Amlodipine will be started to the patient's medication regimen. His blood pressure medications will be adjusted as needed. 3. Chronic kidney disease It appears that the patient has some baseline chronic kidney disease. There is a slight downtrend from the patient's initial serum creatinine from 1.86-1.75. We will follow-up with an a.m. basic metabolic panel. After discharge the patient should follow-up with his primary care physician and he should also be evaluated by a spike maker in the outpatient setting. Avoid nephrotoxic agents. No pharmacotherapy for DVT prophylaxis as the patient underwent ERCP today.
[2018-01-18] MEDS: amLODIPine 5 MG Tablet PO SCH (15:46)
--- NOTE | 2018-01-18 16:00 | FL ---
EXAM DATE: 01/18/2018 12:00 AM EDT AGE/SEX: 72 years / Male INDICATIONS: Choledocolithiasis. Sphincterotomy. Stone extraction. Stent placement. CLINICAL DATA: This is the patient's subsequent encounter. Patient reports that signs and symptoms h ave been present for 3 days and indicates a pain score of Nonresponsive. MEDICAL/SURGICAL HISTORY: Cholelithasis. Non-responsive. [place] [facility] [place]17/[place]. . FINDINGS: An ERCP was performed by the ordering physician. The images demonstrate filling defects within the c ommon bile duct on the initial film. Subsequent films demonstrate internal biliary stent in good posi tion with no significant residual contrast within the extrahepatic biliary system. CONCLUSION: 1. Filling defects within the common bile duct consistent with choledocholithiasis. 2. Internal biliary stent in good position. Electronically signed by: Maxime Quinonez MD 01/18/2018 3:59 PM EDT
--- NOTE | 2018-01-18 16:05 | P.PCN ---
Date of procedure: 01/18/18 Pre-op diagnosis: Choledocholithiasis Procedure: PROCEDURE PERFORMED ERCP with sphincterotomy balloon extraction and stent placement PROCEDURE: The procedure, risks and benefits were discussed with Patient/POA and informed consent was obtained. Anesthesia sedated Patient with Diprivan he was also intubated and placed in a supine position. ERCP: Patient was placed in a prone position. The Pentax videoscope was introduced through the oropharynx and advanced to the second portion of the duodenum where the ampula was identified. FINDINGS: The ampulla appeared to be scarred and atrophied but we were able to obtain cannulation of the common bile duct with relative ease once cannulated a generous sphincterotomy was performed the bile duct appeared to be mildly to moderately dilated with filling defects a 12 mm balloon was used to extract a stone then multiple attempts were made to extract the second stone but I was unable also noted during the procedure is a small bile leak hence I opted to place a 10 [place] 9 cm stent the intrahepatics appeared to be unremarkable ESTIMATED BLOOD LOSS: None SPECIMENS REMOVED: None COMPLICATIONS: None IMPRESSION: Choledocholithiasis Bile leak PLAN: Continue with current supportive care N.p.o. for 24 hours then advance as tolerated Monitor labs ERCP in 2-3 months with dc Anesthesia: JEFF Surgeon: Joe Awad Condition: stable Disposition: floor
--- NOTE | 2018-01-18 16:27 | P.PNID ---
Subjective Remarks: Patient just came back from ERCP. He is complaining of abdominal pain. Afebrile. White blood cell count has decreased. Appears somewhat drowsy. Technique and other at bedside. This is a 72-year-old white male who underwent laparoscopic cholecystectomy on 01/09/2018. The patient was at home watching television yesterday afternoon and he suddenly developed a cold chill. His temperature was taken at home and it was 101, and his significant other convinced him to come to the hospital for evaluation. In the emergency department, the patient was noted to have temperature of 100.6 degrees and laboratory work revealed elevated white count of 17.5. He underwent CT scan of the abdomen in the very meeting/event planner hours today and it showed cholelithiasis with at least 2 stones in the distal common bile duct and a small stone in the cystic duct region. Subsequently, MRI was performed and it showed a questionable small filling defect in the region of the cystic duct and an ovoid fluid collection in the region of the gallbladder fossa with the shape of the gallbladder. There was noted within the collection and also surrounding it, inflammatory change and edema in the adjacent liver and trace perihepatic free fluid. Infectious disease consult requested for possible abscess. Past Medical History: PAST MEDICAL HISTORY: Rheumatoid arthritis, gallbladder disease, hypertension, history of bleeding ulcers, history of Clostridium difficile, history of myocardial infarction, history of left knee surgery, history of tonsillectomy. Allergies/Adverse Reactions: Allergies broccoli Allergy (Intermediate, Verified 01/08/18 16:49) Itching Fish Containing Products Allergy (Intermediate, Verified 01/08/18 16:49) Hives Red all over Objective Vital Signs 01/17/18 20:00 01/18/18 00:00 01/18/18 08:00 Temperature 98.2 F 99 F 98.8 F Pulse Rate 88 82 85 Respiratory Rate 17 17 17 Blood Pressure 143/67 H 127/59 L 125/62 Pulse Oximetry 100 99 98 01/18/18 12:00 01/18/18 14:33 01/18/18 14:45 Temperature 98.1 F 98 F Pulse Rate 72 73 69 Respiratory Rate 18 20 19 Blood Pressure 127/58 L 157/84 H 186/92 H Pulse Oximetry 96 97 97 01/18/18 15:00 01/18/18 15:12 01/18/18 15:15 Temperature Pulse Rate 68 63 Respiratory Rate 19 20 Blood Pressure 183/87 H 150/80 H Pulse Oximetry 95 96 96 01/18/18 15:26 Temperature 98.1 F Pulse Rate 62 Respiratory Rate 20 Blood Pressure 155/83 H Pulse Oximetry 97 Intake & Output 01/17/18 01/18/18 01/18/18 18:59 06:59 18:59 Intake Total 820 / 820 440 / 440 700 / 700 Balance 820 / 820 440 / 440 700 / 700 Weight 66.678 kg Intake: IV 100 / 100 200 / 200 Unasyn Inj 3 GM In NS Inj 100 100 / 100 200 / 200 ML @ 200 mls/hr IV.SIG Q8H SARA Rx#:[id number] Oral 720 / 720 240 / 240 Anesthesia Amount 700 / 700 Other: # Voids 4 2 Date of Last Bowel Movement 01/17/18 01/17/18 01/18/18 # Bowel Movements 1 1 01/16/18 21:30 Blood - Peripheral Aerobic Blood Culture - Preliminary No growth in 2 days 01/16/18 21:30 Blood - Peripheral Anaerobic Blood Culture - Preliminary No growth in 2 days 01/16/18 23:05 Blood - Peripheral Aerobic Blood Culture - Preliminary No growth in 2 days 01/16/18 23:05 Blood - Peripheral Anaerobic Blood Culture - Preliminary No growth in 2 days Lab - Hematology Results 01/16/18 01/17/18 01/18/18 23:05 11:05 10:23 WBC 17.5 H 20.1 H 14.6 H RBC 3.05 L 2.81 L 2.81 L Hgb 9.8 L 9.1 L 9.1 L Hct 29.7 L 27.6 L 27.7 L MCV 97.3 98.0 98.6 MCH 32.1 32.3 32.4 MCHC 33.0 32.9 32.8 RDW 15.0 15.0 15.4 Plt Count 329 D 306 328 MPV 9.0 9.0 8.8 Neut % (Auto) 83.2 H 85.6 H 76.1 H Lymph % (Auto) 8.4 L 7.1 L 13.4 [place] % (Auto) 7.4 6.6 7.1 Eos % (Auto) 0.8 0.6 3.2 Baso % (Auto) 0.2 0.1 0.2 Neut # (Auto) 14.6 H 17.2 H 11.1 H Lymph # (Auto) 1.5 1.4 2.0 [place] # (Auto) 1.3 H 1.3 H 1.0 H Eos # (Auto) 0.1 0.1 0.5 H Baso # (Auto) 0.0 0.0 0.0 WBC Differential . . . Differential Comment Auto diff final Auto diff final Auto diff final Lab - Chemistry Results 01/16/18 01/16/18 01/17/18 23:05 23:05 11:06 Sodium 142 142 Potassium 3.9 4.0 Chloride 110 H 109 H Carbon Dioxide 21.9 24.4 Anion Gap 10 9 BUN 22 H 22 H Creatinine 1.86 H 1.75 H Estimated GFR 36 L 39 L Random Glucose 126 H 97 Lactic Acid 1.7 Calcium 8.3 L 8.4 L Total Bilirubin 0.5 0.7 AST 24 21 ALT 21 19 Alkaline Phosphatase 372 H 333 H Total Protein 7.0 D 6.8 Albumin 2.8 L 2.5 L Lipase 156 Imaging: ITS Impressions Abdomen/Pelvis CT 01/17/18 00:00 CONCLUSION: 1. Choledocholithiasis with at least 2 stones in the distal common bile duct. There appears to be a small stone in the cystic duct region. The gallbladder is distended. Air seen within the gallbladder lumen. 2. Right inguinal hernia containing a nondilated segment of small bowel. 3. Colonic diverticula particularly in the sigmoid region. 4. Air within the urinary bladder. Cholangiopancreatography MRI 01/17/18 00:00 CONCLUSION: 1. There are 2 distal common bile duct stones correlating with the earlier CT findings. These measure 13 mm and 5 mm. Questionable small filling defect is also seen in the region of the cystic duct. 2. There is an ovoid fluid collection in the region of the gallbladder fossa that has the shape of the gallbladder. However, by history the patient is postcholecystectomy. Therefore, this must represent a postoperative fluid collection, potentially biloma. It contains air which could indicate infection. There is surrounding inflammatory change, edema in the adjacent liver, and trace perihepatic free fluid. If the patient is definitely postcholecystectomy, consider drainage of this fluid collection. Chest X-Ray 01/17/18 05:35 CONCLUSION: No acute cardiopulmonary process. GI Procedure 01/18/18 00:00 CONCLUSION: 1. Filling defects within the common bile duct consistent with choledocholithiasis. 2. Internal biliary stent in good position. Physical Exam: PHYSICAL EXAMINATION: GENERAL: Patient is drowsy. He is awake. HEENT: The head is atraumatic. Extraocular movements grossly intact. Pupils reactive to light. No icterus. Oropharynx moist mucosa without lesions. NECK: Supple without adenopathy. LUNGS: Breath sounds clear HEART: Regular S1, S2, without murmurs, rubs or gallops. ABDOMEN: Bowel sounds present. flat, soft, tender at mid abdomen. The incision from the laparoscopic procedure appears intact. EXTREMITIES: No clubbing, cyanosis or edema. No swelling at the left knee. SKIN: No rash. NEUROLOGIC: No gross focal finding. PSYCHIATRIC: Calm and cooperative. Assessment and Plan - Plan IMPRESSION: 1. Fever, postoperative, in patient who is status post laparoscopic cholecystectomy. Temperature is lower. 2. Perihepatic fluid collection gallbladder fossa fluid collection with air suggesting potential infection. Also possible postoperative changes. Status post bile duct stent placement and noted to have small bile leak. 3. Leukocytosis. WBC lower. 4. Chronic kidney disease. RECOMMENDATIONS: 1. Continue IV antibiotic. Unasyn changed to Ceftriaxone by hospitalist. 2. Continue Flagyl p.o. 3. Monitor blood cultures. 4. If he remains afebrile, may discharge with Augmentin PO and also give PO Flagyl given his history of c dif in the past. Total of 10 days. I will be off from 01/19 through 01/26. Other ID covering if needed.
[2018-01-18] MEDS: Morphine Sulfate Inj 2 MG/ML Vial IV.PUSH PRN (17:49)
[2018-01-18] MEDS ORDERED: Dextrose 5%/NaCl 0.9% Inj 1,000 ML IV.SIG ONE (20:00)
--- NOTE | 2018-01-18 20:17 | ED ---
HPI General Chief Complaint: Fever Stated Complaint: Fever Time Seen by Provider: 01/16/18 22:44 History of Present Illness HPI Narrative: Patient is a 72-year-old male coming in with right upper quadrant aching pain as well as fever of 103. Patient has a recent cholecystectomy done by Dr. Suarez patient spent 7 days out and he was fine up until today when he felt shaking chills and he was 103 orally patient is now here and he is having chills continued febrile he is not on any antibiotics he was not discharged on any antibiotics however the said they said the surgery was complicated and the gallbladder was very infected and there was some spillage according to the . Patient now again Reiger's chills temperature Related Data Home Medications Medication Instructions Recorded Confirmed ascorbic acid (vitamin C) [Vitamin 500 mg PO BID 01/08/18 01/16/18 C] carvedilol 3.125 mg PO BID 01/08/18 01/16/18 magnesium 400 mg PO QID 01/08/18 01/16/18 multivitamin 1 cap PO DAILY 01/08/18 01/16/18 cetirizine [Zyrtec] 10 mg PO DAILY 01/16/18 01/16/18 Previous Rx's Medication Instructions Recorded oxycodone-acetaminophen 1 tab PO Q6H PRN #12 tab 01/10/18 sennosides-docusate sodium [Senna 1 tab PO BID #120 tab 01/10/18 Plus] amoxicillin-pot clavulanate 1 tab PO Q12H 10 Days #20 tab 01/21/18 [Augmentin] hydrocodone-acetaminophen 1 tab PO Q4H PRN #18 tab 01/21/18 metronidazole 500 mg PO Q8HR 10 Days tab 01/21/18 Allergies Allergy/AdvReac Type Severity Reaction Status Date / Time broccoli Allergy Intermediate Itching Verified 01/08/18 16:49 Fish Containing Products Allergy Intermediate Hives Verified 01/08/18 16:49 Review of Systems ROS: all other systems reviewed are negative PMFSH Social History Social History Substance History: No History of Abuse Second Hand Smoke Exposure: No Smoking Status: Never smoker How Often Do You Have a Drink Containing Alcohol: Never Hx Recent Travel: No Recent Travel in [facility] within the Last 8 Weeks: No Recent Out of Country Travel within the Last 8 Weeks: No Immunization History Tetanus Immunization: Unsure Hx Influenza Vaccine This Season: No Exam Narrative Exam Narrative: GENERAL: SKIN: Warm and dry. HEAD: Atraumatic. Normocephalic. EYES: Pupils equal and round. No scleral icterus. No injection or drainage. ENT: No nasal bleeding or discharge. Mucous membranes pink and moist. NECK: Trachea midline. No JVD. CARDIOVASCULAR: Regular rate and rhythm. RESPIRATORY: No accessory muscle use. Clear to auscultation. Breath sounds equal bilaterally. GASTROINTESTINAL: Abdomen soft, non-tender, percussion does not elicit pain in RUG or peritoneal cavity no exam signs of peritionitis nondistended. Hepatic and splenic margins not palpable. MUSCULOSKELETAL: Extremities without clubbing, cyanosis, or edema. No obvious deformities. NEUROLOGICAL: Awake and alert. No obvious cranial nerve deficits. Motor grossly within normal limits. Five out of 5 muscle strength in the arms and legs. Normal speech. PSYCHIATRIC: Appropriate mood and affect; insight and judgment normal. Course Initial Documented Vital Signs Temperature 100.6 F H 01/16/18 22:37 Pulse Rate 93 H 01/16/18 22:37 Respiratory Rate 18 01/16/18 22:37 Blood Pressure 129/65 01/16/18 22:37 Pulse Oximetry 98 01/16/18 22:37 Last Documented Vital Signs Temperature 98.0 F 01/21/18 16:00 Pulse Rate 90 01/21/18 16:00 Respiratory Rate 18 01/21/18 16:00 Blood Pressure 133/70 01/21/18 16:00 Pulse Oximetry 99 01/21/18 16:00 Medical Decision Making [facility] Narrative Medical decision making narrative: Emperic treatement for perotinitis due to fever and wbc 17 , Zosyn 3.375gr given right away and then CT and admitted to Dr Tirado , he wants Dr Hutchins to admit, she feels it is post operative complication and shpould be surgoical admit , they will discuss who is accepting attending ,I have admitted to [facility] until further notified Medical Screen Exam Complete: Yes Emergency Medical Condition: Yes Differential Diagnosis Differential Diagnosis: retained gallstone vs post operative abscess vs peritonitis vs perforated viscous of operation vs other Lab Data Result diagrams: 01/20/18 07:29 01/20/18 07:29 Lab Results 01/16/18 01/16/18 01/16/18 Range/Units 23:05 23:05 23:05 WBC 17.5 H (4.0-11.0) th/mm3 RBC 3.05 L (4.50-5.90) mil/mm3 Hgb 9.8 L (13.0-17.0) gm/dL Hct 29.7 L (39.0-51.0) % MCV 97.3 (80.0-100.0) fL MCH 32.1 (27.0-34.0) pg MCHC 33.0 (32.0-36.0) % RDW 15.0 (11.6-17.2) % Plt Count 329 D (150-450) th/mm3 MPV 9.0 (7.0-11.0) fL Neut % (Auto) 83.2 H (16.0-70.0) % Lymph % (Auto) 8.4 L (9.0-44.0) % [place] % (Auto) 7.4 (0.0-8.0) % Eos % (Auto) 0.8 (0.0-4.0) % Baso % (Auto) 0.2 (0.0-2.0) % Neut # (Auto) 14.6 H (1.8-7.7) th/mm3 Lymph # (Auto) 1.5 (1.0-4.8) th/mm3 [place] # (Auto) 1.3 H (0.0-0.9) th/mm3 Eos # (Auto) 0.1 (0.0-0.4) th/mm3 Baso # (Auto) 0.0 (0.0-0.2) th/mm3 WBC Differential . Differential Comment Auto diff final PT (9.8-11.6) sec INR Ratio Sodium 142 (136-145) meq/L Potassium 3.9 (3.5-5.1) meq/L Chloride 110 H (98-107) meq/L Carbon Dioxide 21.9 (21.0-32.0) meq/L Anion Gap 10 (5-15) meq/L BUN 22 H (7-18) mg/dL Creatinine 1.86 H (0.60-1.30) mg/dL Estimated GFR 36 L (>89) mL/min Random Glucose 126 H (74-106) mg/dL Lactic Acid 1.7 (0.4-2.0) mmol/L Calcium 8.3 L (8.5-10.1) mg/dL Total Bilirubin 0.5 (0.2-1.0) mg/dL AST 24 (15-37) U/L ALT 21 (12-78) U/L Alkaline Phosphatase 372 H (45-117) U/L Total Protein 7.0 D (6.4-8.2) g/dL Albumin 2.8 L (3.4-5.0) g/dL Lipase 156 (73-393) U/L Urine Color (Yellw/Straw) Urine Clarity (Clear) Urine pH (5.0-8.5) Ur Specific [place] (1.002-1.035) Urine Protein (Neg-Trace) mg/dL Urine Glucose (UA) (Negative) mg/dL Urine Ketones (Negative) mg/dL Urine Occult Blood (Negative) Urine Nitrate (Negative) Urine Bilirubin (Negative) Urine Urobilinogen (Less than 2) mg/dL Ur Leukocyte Esterase (Negative) Urine RBC (0-3) /hpf Urine WBC (0-5) /hpf Ur Transition Epith Cell (None) /hpf Ur Renal Epithelial Cell (None) /hpf Urine Bacteria (None) /hpf Ur Microscopic Review 01/17/18 01/17/18 01/17/18 Range/Units 01:50 11:05 11:06 WBC 20.1 H (4.0-11.0) th/mm3 RBC 2.81 L (4.50-5.90) mil/mm3 Hgb 9.1 L (13.0-17.0) gm/dL Hct 27.6 L (39.0-51.0) % MCV 98.0 (80.0-100.0) fL MCH 32.3 (27.0-34.0) pg MCHC 32.9 (32.0-36.0) % RDW 15.0 (11.6-17.2) % Plt Count 306 (150-450) th/mm3 MPV 9.0 (7.0-11.0) fL Neut % (Auto) 85.6 H (16.0-70.0) % Lymph % (Auto) 7.1 L (9.0-44.0) % [place] % (Auto) 6.6 (0.0-8.0) % Eos % (Auto) 0.6 (0.0-4.0) % Baso % (Auto) 0.1 (0.0-2.0) % Neut # (Auto) 17.2 H (1.8-7.7) th/mm3 Lymph # (Auto) 1.4 (1.0-4.8) th/mm3 [place] # (Auto) 1.3 H (0.0-0.9) th/mm3 Eos # (Auto) 0.1 (0.0-0.4) th/mm3 Baso # (Auto) 0.0 (0.0-0.2) th/mm3 WBC Differential . Differential Comment Auto diff final PT (9.8-11.6) sec INR Ratio Sodium 142 (136-145) meq/L Potassium 4.0 (3.5-5.1) meq/L Chloride 109 H (98-107) meq/L Carbon Dioxide 24.4 (21.0-32.0) meq/L Anion Gap 9 (5-15) meq/L BUN 22 H (7-18) mg/dL Creatinine 1.75 H (0.60-1.30) mg/dL Estimated GFR 39 L (>89) mL/min Random Glucose 97 (74-106) mg/dL Lactic Acid (0.4-2.0) mmol/L Calcium 8.4 L (8.5-10.1) mg/dL Total Bilirubin 0.7 (0.2-1.0) mg/dL AST 21 (15-37) U/L ALT 19 (12-78) U/L Alkaline Phosphatase 333 H (45-117) U/L Total Protein 6.8 (6.4-8.2) g/dL Albumin 2.5 L (3.4-5.0) g/dL Lipase (73-393) U/L Urine Color Yellow (Yellw/Straw) Urine Clarity Hazy H (Clear) Urine pH 5.0 (5.0-8.5) Ur Specific [place] 1.042 H (1.002-1.035) Urine Protein Negative (Neg-Trace) mg/dL Urine Glucose (UA) Negative (Negative) mg/dL Urine Ketones Negative (Negative) mg/dL Urine Occult Blood Small H (Negative) Urine Nitrate Negative (Negative) Urine Bilirubin Negative (Negative) Urine Urobilinogen Less than 2 (Less than 2) mg/dL Ur Leukocyte Esterase Large H (Negative) Urine RBC 7 H (0-3) /hpf Urine WBC (0-5) /hpf Ur Transition Epith Cell <1 (None) /hpf Ur Renal Epithelial Cell 1 (None) /hpf Urine Bacteria Rare H (None) /hpf Ur Microscopic Review Not Reportable 01/18/18 01/19/18 01/19/18 Range/Units 10:23 05:00 05:00 WBC 14.6 H 23.4 H D (4.0-11.0) th/mm3 RBC 2.81 L 3.11 L (4.50-5.90) mil/mm3 Hgb 9.1 L 9.9 L (13.0-17.0) gm/dL Hct 27.7 L 30.8 L (39.0-51.0) % MCV 98.6 98.8 (80.0-100.0) fL MCH 32.4 31.9 (27.0-34.0) pg MCHC 32.8 32.3 (32.0-36.0) % RDW 15.4 15.3 (11.6-17.2) % Plt Count 328 367 (150-450) th/mm3 MPV 8.8 9.0 (7.0-11.0) fL Neut % (Auto) 76.1 H (16.0-70.0) % Lymph % (Auto) 13.4 (9.0-44.0) % [place] % (Auto) 7.1 (0.0-8.0) % Eos % (Auto) 3.2 (0.0-4.0) % Baso % (Auto) 0.2 (0.0-2.0) % Neut # (Auto) 11.1 H (1.8-7.7) th/mm3 Lymph # (Auto) 2.0 (1.0-4.8) th/mm3 [place] # (Auto) 1.0 H (0.0-0.9) th/mm3 Eos # (Auto) 0.5 H (0.0-0.4) th/mm3 Baso # (Auto) 0.0 (0.0-0.2) th/mm3 WBC Differential . Differential Comment Auto diff final PT (9.8-11.6) sec INR Ratio Sodium 145 (136-145) meq/L Potassium 4.0 (3.5-5.1) meq/L Chloride 111 H (98-107) meq/L Carbon Dioxide 18.9 L (21.0-32.0) meq/L Anion Gap 15 (5-15) meq/L BUN 24 H (7-18) mg/dL Creatinine 1.90 H (0.60-1.30) mg/dL Estimated GFR 35 L (>89) mL/min Random Glucose 138 H (74-106) mg/dL Lactic Acid (0.4-2.0) mmol/L Calcium 8.2 L (8.5-10.1) mg/dL Total Bilirubin 0.6 (0.2-1.0) mg/dL AST 23 (15-37) U/L ALT 16 (12-78) U/L Alkaline Phosphatase 349 H (45-117) U/L Total Protein 6.9 (6.4-8.2) g/dL Albumin 2.5 L (3.4-5.0) g/dL Lipase (73-393) U/L Urine Color (Yellw/Straw) Urine Clarity (Clear) Urine pH (5.0-8.5) Ur Specific [place] (1.002-1.035) Urine Protein (Neg-Trace) mg/dL Urine Glucose (UA) (Negative) mg/dL Urine Ketones (Negative) mg/dL Urine Occult Blood (Negative) Urine Nitrate (Negative) Urine Bilirubin (Negative) Urine Urobilinogen (Less than 2) mg/dL Ur Leukocyte Esterase (Negative) Urine RBC (0-3) /hpf Urine WBC (0-5) /hpf Ur Transition Epith Cell (None) /hpf Ur Renal Epithelial Cell (None) /hpf Urine Bacteria (None) /hpf Ur Microscopic Review 01/19/18 01/20/18 01/20/18 Range/Units 12:22 07:29 07:29 WBC 13.2 H (4.0-11.0) th/mm3 RBC 2.63 L (4.50-5.90) mil/mm3 Hgb 8.5 L (13.0-17.0) gm/dL Hct 25.8 L (39.0-51.0) % MCV 98.2 (80.0-100.0) fL MCH 32.3 (27.0-34.0) pg MCHC 32.9 (32.0-36.0) % RDW 14.8 (11.6-17.2) % Plt Count 334 (150-450) th/mm3 MPV 8.5 (7.0-11.0) fL Neut % (Auto) 83.2 H (16.0-70.0) % Lymph % (Auto) 11.2 (9.0-44.0) % [place] % (Auto) 5.2 (0.0-8.0) % Eos % (Auto) 0.2 (0.0-4.0) % Baso % (Auto) 0.2 (0.0-2.0) % Neut # (Auto) 11.0 H (1.8-7.7) th/mm3 Lymph # (Auto) 1.5 (1.0-4.8) th/mm3 [place] # (Auto) 0.7 (0.0-0.9) th/mm3 Eos # (Auto) 0.0 (0.0-0.4) th/mm3 Baso # (Auto) 0.0 (0.0-0.2) th/mm3 WBC Differential . Differential Comment Auto diff final PT 12.4 H (9.8-11.6) sec INR 1.2 Ratio Sodium 145 (136-145) meq/L Potassium 3.7 (3.5-5.1) meq/L Chloride 113 H (98-107) meq/L Carbon Dioxide 20.7 L (21.0-32.0) meq/L Anion Gap 11 (5-15) meq/L BUN 24 H (7-18) mg/dL Creatinine 1.75 H (0.60-1.30) mg/dL Estimated GFR 39 L (>89) mL/min Random Glucose 88 (74-106) mg/dL Lactic Acid (0.4-2.0) mmol/L Calcium 8.4 L (8.5-10.1) mg/dL Total Bilirubin (0.2-1.0) mg/dL AST (15-37) U/L ALT (12-78) U/L Alkaline Phosphatase (45-117) U/L Total Protein (6.4-8.2) g/dL Albumin (3.4-5.0) g/dL Lipase (73-393) U/L Urine Color (Yellw/Straw) Urine Clarity (Clear) Urine pH (5.0-8.5) Ur Specific [place] (1.002-1.035) Urine Protein (Neg-Trace) mg/dL Urine Glucose (UA) (Negative) mg/dL Urine Ketones (Negative) mg/dL Urine Occult Blood (Negative) Urine Nitrate (Negative) Urine Bilirubin (Negative) Urine Urobilinogen (Less than 2) mg/dL Ur Leukocyte Esterase (Negative) Urine RBC (0-3) /hpf Urine WBC (0-5) /hpf Ur Transition Epith Cell (None) /hpf Ur Renal Epithelial Cell (None) /hpf Urine Bacteria (None) /hpf Ur Microscopic Review Imaging Data Radiologist's impression: Abdomen/Pelvis CT 01/17/18 00:00 CONCLUSION: 1. Choledocholithiasis with at least 2 stones in the distal common bile duct. There appears to be a small stone in the cystic duct region. The gallbladder is distended. Air seen within the gallbladder lumen. 2. Right inguinal hernia containing a nondilated segment of small bowel. 3. Colonic diverticula particularly in the sigmoid region. 4. Air within the urinary bladder. Cholangiopancreatography MRI 01/17/18 00:00 CONCLUSION: 1. There are 2 distal common bile duct stones correlating with the earlier CT findings. These measure 13 mm and 5 mm. Questionable small filling defect is also seen in the region of the cystic duct. 2. There is an ovoid fluid collection in the region of the gallbladder fossa that has the shape of the gallbladder. However, by history the patient is postcholecystectomy. Therefore, this must represent a postoperative fluid collection, potentially biloma. It contains air which could indicate infection. There is surrounding inflammatory change, edema in the adjacent liver, and trace perihepatic free fluid. If the patient is definitely postcholecystectomy, consider drainage of this fluid collection. Chest X-Ray 01/17/18 05:35 CONCLUSION: No acute cardiopulmonary process. GI Procedure 01/18/18 00:00 CONCLUSION: 1. Filling defects within the common bile duct consistent with choledocholithiasis. 2. Internal biliary stent in good position. Abscess Drainage CT 01/19/18 00:00 CONCLUSION: 1. Large volume pneumoperitoneum. 2. Uncomplicated drainage of a gallbladder fossa fluid collection. This yielded 10 mL of green turbid fluid which was sent for evaluation. Discharge Plan Discharge Disposition Patient Disposition: 01 Discharge Home Discharge Condition Condition: Good Discharge Order Discharge Orders: Discharge Order (Routine); Ordered 01/21/18 Ordered By: Jose Ray Physicians Team ED Provider: Leno Arshad Primary Care Provider: Luiza Khan Attending Provider: Jose Ray Other Providers: Surgeons,[facility] ; Frantz Galicia ; Mejia Tirado ; Mirella Mcduffie Status ED Status: Left Department Discharge Information Discharge Date/Time: 01/17/18 07:35
[2018-01-19] MEDS: Morphine Sulfate Inj 2 MG/ML Vial IV.PUSH PRN ×5 (02:08→21:03)
[2018-01-19] MEDS: metroNIDAZOLE 500 MG Tablet PO SCH ×3 (05:01→21:04)
[2018-01-19 05:43] LABS: Hematocrit 30.8 % (39.0-51.0); Hemoglobin 9.9 gm/dL (13.0-17.0); Mean Corpuscular HGB Conc 32.3 % (32.0-36.0); Mean Corpuscular Hemoglobin 31.9 pg (27.0-34.0); Mean Corpuscular Volume 98.8 fL (80.0-100.0); Platelet Count 367 th/mm3 (150-450); Red Blood Count 3.11 mil/mm3 (4.50-5.90); Red Cell Distribution Width 15.3 % (11.6-17.2); White Blood Count 23.4 th/mm3 (4.0-11.0)
[2018-01-19 06:19] LABS: Alanine Aminotransferase 16 U/L (12-78); Albumin 2.5 g/dL (3.4-5.0); Anion Gap 15 meq/L (5-15); Aspartate Aminotransferase 23 U/L (15-37); Blood Urea Nitrogen 24 mg/dL (7-18); Calcium 8.2 mg/dL (8.5-10.1); Carbon Dioxide 18.9 meq/L (21.0-32.0); Chloride 111 meq/L (98-107); Glomerular Filtration Rate 35 mL/min (>89); Glucose,Random 138 mg/dL (74-106); Sodium 145 meq/L (136-145)
[2018-01-19 06:21] LABS: Alkaline Phosphatase 349 U/L (45-117); Total Protein 6.9 g/dL (6.4-8.2)
[2018-01-19] MEDS: amLODIPine 5 MG Tablet PO SCH (08:55)
--- NOTE | 2018-01-19 11:47 | P.PNGS ---
Subjective Interval history: Resting in bed Thirsty GRAYSON Bridges at bedside Physical Exam Vital signs: Vital Signs 01/18/18 12:00 01/18/18 14:33 01/18/18 14:45 Temperature 98.1 F 98 F Pulse Rate 72 73 69 Respiratory Rate 18 20 19 Blood Pressure 127/58 L 157/84 H 186/92 H Pulse Oximetry 96 97 97 01/18/18 15:00 01/18/18 15:12 01/18/18 15:15 Temperature Pulse Rate 68 63 Respiratory Rate 19 20 Blood Pressure 183/87 H 150/80 H Pulse Oximetry 95 96 96 01/18/18 15:26 01/18/18 16:00 01/18/18 20:00 Temperature 98.1 F 97.9 F 98.7 F Pulse Rate 62 76 107 H Respiratory Rate 20 18 18 Blood Pressure 155/83 H 160/72 H 155/75 H Pulse Oximetry 97 96 96 01/19/18 00:00 01/19/18 07:47 Temperature 98.6 F 98.4 F Pulse Rate 97 H 89 Respiratory Rate 19 17 Blood Pressure 161/86 H 147/75 H Pulse Oximetry 95 95 Intake & Output 01/18/18 01/19/18 01/19/18 18:59 06:59 18:59 Intake Total 800 / 800 700 / 700 Balance 800 / 800 700 / 700 Weight 69.4 kg Intake: IV 100 / 100 700 / 700 D5W/Normal Saline Inj 1,000 ML 700 / 700 @ 100 mls/hr IV.SIG .Q10H ONE Rx#:[id number] Rocephin Inj 1,000 MG In NS Inj 100 / 100 100 ML @ 200 mls/hr IV.SIG Q24H SARA Rx#:[id number] Anesthesia Amount 700 / 700 Other: # Voids 2 Date of Last Bowel Movement 01/18/18 01/18/18 Narrative: Alert and awake Abd: soft; non tender; laps sites noted Results - Labs 01/19/18 05:00 01/19/18 05:00 Laboratory Results - last 24 hr 01/19/18 01/19/18 05:00 05:00 WBC 23.4 H D RBC 3.11 L Hgb 9.9 L Hct 30.8 L MCV 98.8 MCH 31.9 MCHC 32.3 RDW 15.3 Plt Count 367 MPV 9.0 Sodium 145 Potassium 4.0 Chloride 111 H Carbon Dioxide 18.9 L Anion Gap 15 BUN 24 H Creatinine 1.90 H Estimated GFR 35 L Random Glucose 138 H Calcium 8.2 L Total Bilirubin 0.6 AST 23 ALT 16 Alkaline Phosphatase 349 H Total Protein 6.9 Albumin 2.5 L - Imaging Imaging: ITS Impressions Abdomen/Pelvis CT 01/17/18 00:00 CONCLUSION: 1. Choledocholithiasis with at least 2 stones in the distal common bile duct. There appears to be a small stone in the cystic duct region. The gallbladder is distended. Air seen within the gallbladder lumen. 2. Right inguinal hernia containing a nondilated segment of small bowel. 3. Colonic diverticula particularly in the sigmoid region. 4. Air within the urinary bladder. Cholangiopancreatography MRI 01/17/18 00:00 CONCLUSION: 1. There are 2 distal common bile duct stones correlating with the earlier CT findings. These measure 13 mm and 5 mm. Questionable small filling defect is also seen in the region of the cystic duct. 2. There is an ovoid fluid collection in the region of the gallbladder fossa that has the shape of the gallbladder. However, by history the patient is postcholecystectomy. Therefore, this must represent a postoperative fluid collection, potentially biloma. It contains air which could indicate infection. There is surrounding inflammatory change, edema in the adjacent liver, and trace perihepatic free fluid. If the patient is definitely postcholecystectomy, consider drainage of this fluid collection. Chest X-Ray 01/17/18 05:35 CONCLUSION: No acute cardiopulmonary process. GI Procedure 01/18/18 00:00 CONCLUSION: 1. Filling defects within the common bile duct consistent with choledocholithiasis. 2. Internal biliary stent in good position. Assessment and Plan - Assessment (1) S/P laparoscopic cholecystectomy Code(s): Z90.49 - Acquired absence of other specified parts of digestive tract Status: Acute Plan: 72 year old male s/p lap wandy from prior admission; now back with fevers/chills -s/p ERCP with stent placement -MRCP shows fluid collection---WBC 23K--- will ask IR if this is amendable to percutaneous drainage -HI/INR -NPO -ID following - Plan I personally evaluated the patient in room 1732 weight. Since this morning the patient has undergone a CT scan in preparation for drainage of the fluid collection in the gallbladder fossa. Dr. Peter Grider called me and indicated the patient had a large amount of free intraperitoneal air. He was hemodynamically stable and did not exhibit signs of peritonitis. I recommended that Dr. Grider go ahead and place the drain to drain the fluid and apparently removed 10 cc of turbid green fluid. The patient has now returned to his room and is hemodynamically stable. His abdominal exam is not consistent with peritonitis. He has no peritoneal irritation with percussion and with the deep Palpation he does not exhibit signs of peritonitis. The drain which have been placed only has a tiny bit of green turbid material however I was able to remove air through the accordion drain. The patient had post ERCP free intraperitoneal air. He had an elevated white count of 23,000. Had CT-guided drainage of a fluid collection in the gallbladder fossa. The etiology of the free peritoneal air is unclear but it is not appear consistent with a new perforation of the viscus and may be consistent with a small area of bile duct leak suggested on the ERCP. I discussed with the patient and his significant other, STUART, by phone, the options for urgent surgical exploration of the abdomen versus continued supportive therapy with IV fluids and antibiotics and n.p.o. except ice chips and sips of water. Due to the fact that he does not exhibit signs of peritonitis I am comfortable with trying to avoid emergent operative exploration. The patient and Stuart are comfortable with this as well. We will check laboratory values and I will reevaluate the patient's examination early tomorrow morning. The exam, history, and the medical decision-making described in the above note were completed with the assistance of the mid-level provider. I reviewed and agree with the findings presented. I attest that I had a [id number] encounter with the patient on the same day, and personally performed and documented my assessment and findings in the medical record.
[2018-01-19 12:56] LABS: INR 1.2 Ratio; Prothrombin Time 12.4 sec (9.8-11.6)
[2018-01-19] MEDS ORDERED: fentaNYL Citrate Inj 250 MCG/5 ML Ampul ONE (14:17)
[2018-01-19] MEDS ORDERED: amLODIPine 5 MG Tablet PO ONE (15:03)
--- NOTE | 2018-01-19 15:04 | P.PNIM ---
Subjective Interval history: Patient complaining of mild abdominal pain. He does not have any other complaints. Physical Exam Vital signs: Vital Signs 01/18/18 15:00 01/18/18 15:12 01/18/18 15:15 Temperature Pulse Rate 68 63 Respiratory Rate 19 20 Blood Pressure 183/87 H 150/80 H Pulse Oximetry 95 96 96 01/18/18 15:26 01/18/18 16:00 01/18/18 20:00 Temperature 98.1 F 97.9 F 98.7 F Pulse Rate 62 76 107 H Respiratory Rate 20 18 18 Blood Pressure 155/83 H 160/72 H 155/75 H Pulse Oximetry 97 96 96 01/19/18 00:00 01/19/18 07:47 01/19/18 12:00 Temperature 98.6 F 98.4 F 98.0 F Pulse Rate 97 H 89 98 H Respiratory Rate 19 17 18 Blood Pressure 161/86 H 147/75 H 161/73 H Pulse Oximetry 95 95 96 Intake & Output 01/18/18 01/19/18 01/19/18 18:59 06:59 18:59 Intake Total 800 / 800 700 / 700 Balance 800 / 800 700 / 700 Weight 69.4 kg Intake: IV 100 / 100 700 / 700 D5W/Normal Saline Inj 1,000 ML 700 / 700 @ 100 mls/hr IV.SIG .Q10H ONE Rx#:[id number] Rocephin Inj 1,000 MG In NS Inj 100 / 100 100 ML @ 200 mls/hr IV.SIG Q24H SARA Rx#:[id number] Anesthesia Amount 700 / 700 Other: # Voids 2 Date of Last Bowel Movement 01/18/18 01/18/18 Narrative: General patient is complaining of mild abdominal pain status post ERCP. HEENT extraocular movements are intact, clear oropharyngeal mucosa, no JVD Cardiovascular S1-S2 audible Respiratory clear to auscultation bilaterally Abdomen soft, complains of abdominal pain in the right upper quadrant. Normal bowel sounds Extremities no edema 2+ distal pulses in bilateral upper and lower extremities Neuro no neurological deficits Results - Labs CBC & Chem 7: 01/19/18 05:00 01/19/18 05:00 Laboratory Results - last 24 hr 01/19/18 01/19/18 01/19/18 05:00 05:00 12:22 WBC 23.4 H D RBC 3.11 L Hgb 9.9 L Hct 30.8 L MCV 98.8 MCH 31.9 MCHC 32.3 RDW 15.3 Plt Count 367 MPV 9.0 PT 12.4 H INR 1.2 Sodium 145 Potassium 4.0 Chloride 111 H Carbon Dioxide 18.9 L Anion Gap 15 BUN 24 H Creatinine 1.90 H Estimated GFR 35 L Random Glucose 138 H Calcium 8.2 L Total Bilirubin 0.6 AST 23 ALT 16 Alkaline Phosphatase 349 H Total Protein 6.9 Albumin 2.5 L Microbiology 01/16/18 21:30 Blood - Peripheral Aerobic Blood Culture - Preliminary No growth in 3 days 01/16/18 21:30 Blood - Peripheral Anaerobic Blood Culture - Preliminary No growth in 3 days 01/16/18 23:05 Blood - Peripheral Aerobic Blood Culture - Preliminary No growth in 3 days 01/16/18 23:05 Blood - Peripheral Anaerobic Blood Culture - Preliminary No growth in 3 days - Imaging Impressions GI Procedure 01/18/18 00:00 CONCLUSION: 1. Filling defects within the common bile duct consistent with choledocholithiasis. 2. Internal biliary stent in good position. Assessment and Plan - Plan This patient is a 72-year-old male with a diagnosis of hypertension, documented history of myocardial infarction, history of upper GI bleed from bleeding gastric ulcers approximately 1 year ago. He is status post lap wandy from a prior admission a few weeks ago. He presented to our emergency room with complaints of fevers and chills as well as abdominal pain. 1. Systemic inflammatory response syndrome possibly secondary to common bile duct stones status post ERCP The patient has remained afebrile over the past 24 hours. Blood cultures are negative. He underwent ERCP yesterday which demonstrated thickened narrowed scarred sphincter that was difficult to open during the procedure. There were 2 stones seen in the common bile duct and only one was retrievable. A stent was placed. The plan is to repeat ERCP in 6-8 weeks for stent removal as per GI recommendations. WBC count is elevated at 23,000 today. Continue IV antibiotics. Surgery is following the patient and will discuss the case with IR as the previous MRCP showed a fluid collection which may need to be drained. ID following. 2. Hypertension The patient has had persistent elevated blood pressure since admission. He is currently on Coreg. Amlodipine was started started to the patient's medication regimen, the dose will be increased today. His blood pressure medications will be adjusted as needed. 3. Chronic kidney disease It appears that the patient has some baseline chronic kidney disease. The patient serum creatinine has ranged between 1.7-1.9 during this admission. After discharge the patient should follow-up with his primary care physician and he should also be evaluated by a computer hardware engineer in the outpatient setting. Avoid nephrotoxic agents. Continue IV fluids. No pharmacotherapy for DVT prophylaxis as the patient underwent ERCP yesterday and may need a surgical procedure today or tomorrow.
--- NOTE | 2018-01-19 15:23 | P.RAD ---
Post CT Procedure Prog Note - Procedure Information Procedure Date: 01/19/18 Supervising Radiologist: Carlos Grider Jr, MD Anesthesia: Conscious Sedation - Plan of Activity Patient to Unit: [facility] Patient condition: Good See PACS Report for procedural detail/treatment. Drainage Procedure CT Abscess Drainage Placement Irish Tube Size: 8 Fluid Description: Bilious Findings: Large volume pneumoperitoneum noted and discussed with Dr Danielle. Placed CT guided GB fossa abscess drain which yielded 10mL of turbid, green fluid. Sample to micro as requested.
--- NOTE | 2018-01-19 16:33 | CT ---
EXAM DATE: 01/19/2018 1:38 PM EDT AGE/SEX: 72 years / Male INDICATIONS: Gallbladder fossa fluid collection. CLINICAL DATA: This is the patient's initial encounter. Patient reports that signs and symptoms have been present for 1 day and indicates a pain score of 4/10. MEDICAL/SURGICAL HISTORY: Hypertension. Cardiovascular disease. Cholecystectomy. COMPARISON: No prior exams available for comparison. BIOPSY SITE: abdominal abscess MEDICATION(S): 2mg midazolam (Versed) IV 175mcg fentanyl (Sublimaze) IV DEVICE(S): 19 gauge Introducer 8 Fr [place] FLUID: Total volume of 10 of cloudy, yellow fluid was removed. Fluid was sent to lab for ordered studies.. . . PROCEDURE : CT guided drainage of the abdominal abscess. Images of the abdomen were performed in preparation for strain age of the gallbladder fossa fluid col lection. Large volume pneumoperitoneum is observed. The fluid within the gallbladder fossa contains c ontrast and air. The fluid collection is smaller from the prior examination. I spoke with Dr. Danielle prior to the start of the procedure. Note is made of bilateral inguinal hernias containing pneumoper itoneum. The risks, benefits and alternatives to the procedure were explained and verbal and written consent was obtained. Using automated exposure control and adjustment of the mA and/or kV according t o patient size, radiation dose was kept as low as reasonably achievable to obtain optimal diagnostic quality images. The site was prepped in sterile fashion. Full sterile technique was used, includin g cap, mask, sterile gloves and gown and a large sterile sheet. Hand hygiene and 2% chlorhexidine an d/or betadine/alcohol prep was utilized per protocol for cutaneous antisepsis. The skin and subcutan eous tissues were infiltrated with local anesthetic solution. DICOM format image data is available e lectronically for review and comparison. Using CT guidance the gallbladder fossa fluid collection was localized. A 19-gauge coaxial needle was passed via an anterior approach into the fluid collection. This position was confirmed with CT. A wi re was coiled in the collection and an 8 Italian locking drainage catheter coiled in the collection. A spiration yielded 10 mL of green turbid fluid. This was sent for evaluation as requested. The patient tolerated the procedure well and there were no complications. The patient tolerated the procedure well and there were no complications. The patient was sent to post anesthesia recovery in s table condition. CONCLUSION: 1. Large volume pneumoperitoneum. 2. Uncomplicated drainage of a gallbladder fossa fluid collection. This yielded 10 mL of green turbi d fluid which was sent for evaluation. Electronically signed by: Carlos Grider MD 01/19/2018 4:31 PM EDT
[2018-01-19] MEDS: Sod Chloride 0.9% Inj 1,000 ML IV.CONT SCH (17:44)
--- NOTE | 2018-01-19 21:01 | P.PNGI ---
Subjective Interval history: Patient laying comfortably in bed denies any pain had a drain placed for abscess Physical Exam Vital signs: Vital Signs 01/19/18 00:00 01/19/18 07:47 01/19/18 12:00 Temperature 98.6 F 98.4 F 98.0 F Pulse Rate 97 H 89 98 H Respiratory Rate 19 17 18 Blood Pressure 161/86 H 147/75 H 161/73 H Pulse Oximetry 95 95 96 01/19/18 15:35 01/19/18 15:40 01/19/18 15:50 Temperature 98.2 F 98.2 F 98.2 F Pulse Rate 95 H 83 92 H Respiratory Rate 18 20 18 Blood Pressure 150/77 H 150/77 H 146/75 H Pulse Oximetry 94 L 93 L 95 01/19/18 16:44 Temperature 97.8 F Pulse Rate 100 H Respiratory Rate 17 Blood Pressure 156/79 H Pulse Oximetry 97 Intake & Output 01/19/18 01/19/18 01/20/18 06:59 18:59 06:59 Intake Total 700 / 700 100 / 100 Balance 700 / 700 100 / 100 Weight 69.4 kg Intake: IV 700 / 700 100 / 100 D5W/Normal Saline Inj 1,000 ML 700 / 700 @ 100 mls/hr IV.SIG .Q10H ONE Rx#:[id number] Rocephin Inj 1,000 MG In NS Inj 100 / 100 100 ML @ 200 mls/hr IV.SIG Q24H SARA Rx#:[id number] Other: # Voids 2 3 Date of Last Bowel Movement 01/18/18 - Constitutional no acute distress - Routine HEENT Exam Head: Present: normocephalic Eye: Present: EOMI - Routine Neck Exam Present: supple - Routine Respiratory Exam Present: CTA bilaterally - Routine Cardiovascular Exam Present: RRR - Routine Abdominal Exam Present: soft. Absent: tenderness, distended, rebound, guarding - Routine Extremities Exam Absent: cyanosis, clubbing, edema Results - Labs CBC & Chem 7: 01/19/18 05:00 01/19/18 05:00 Laboratory Results - last 24 hr 01/19/18 01/19/18 01/19/18 05:00 05:00 12:22 WBC 23.4 H D RBC 3.11 L Hgb 9.9 L Hct 30.8 L MCV 98.8 MCH 31.9 MCHC 32.3 RDW 15.3 Plt Count 367 MPV 9.0 PT 12.4 H INR 1.2 Sodium 145 Potassium 4.0 Chloride 111 H Carbon Dioxide 18.9 L Anion Gap 15 BUN 24 H Creatinine 1.90 H Estimated GFR 35 L Random Glucose 138 H Calcium 8.2 L Total Bilirubin 0.6 AST 23 ALT 16 Alkaline Phosphatase 349 H Total Protein 6.9 Albumin 2.5 L Microbiology 01/16/18 21:30 Blood - Peripheral Aerobic Blood Culture - Preliminary No growth in 3 days 01/16/18 21:30 Blood - Peripheral Anaerobic Blood Culture - Preliminary No growth in 3 days 01/16/18 23:05 Blood - Peripheral Aerobic Blood Culture - Preliminary No growth in 3 days 01/16/18 23:05 Blood - Peripheral Anaerobic Blood Culture - Preliminary No growth in 3 days - Imaging Impressions Abscess Drainage CT 01/19/18 00:00 CONCLUSION: 1. Large volume pneumoperitoneum. 2. Uncomplicated drainage of a gallbladder fossa fluid collection. This yielded 10 mL of green turbid fluid which was sent for evaluation. Assessment and Plan - Plan Patient with choledocholithiasis status post ERCP On ERCP the patient was noted to have a small bile leak. 1 of the stones was removed and there is probably a second retained stone and as such a 10 [place] 9 cm stent was placed CT today for abscess drainage revealed pneumoperitoneum this is probably air the tract from the GI tract no evidence of any peritonitis Drainage of the abscess reveals only bile no official abscess I would advance diet as tolerated as of tomorrow and continue with the antibiotics if patient tolerates intake patient then may be discharged from a GI standpoint follow-up with GI in 2-3 weeks Patient will need an ERCP in 2-3 months to reassess for the bile leak and to remove the stent and to remove any residual stones
[2018-01-19] MEDS: Vancomycin Inj 1,000 MG in Sodium Chlor 0.9% Inj 250 ML IV.SIG SCH (21:57)
[2018-01-19] MEDS: Piperacil/Tazo 2.25 GM Premix 50 ML IV.SIG SCH (22:02)
[2018-01-20] MEDS: Morphine Sulfate Inj 2 MG/ML Vial IV.PUSH PRN ×6 (01:12→22:46)
[2018-01-20] MEDS: Piperacil/Tazo 2.25 GM Premix 50 ML IV.SIG SCH ×4 (03:30→22:42)
[2018-01-20] MEDS: Sod Chloride 0.9% Inj 1,000 ML IV.CONT SCH ×3 (03:41→09:43)
[2018-01-20] MEDS: metroNIDAZOLE 500 MG Tablet PO SCH ×4 (05:33→22:43)
--- NOTE | 2018-01-20 07:14 | P.PNGS ---
Subjective Interval history: Feels hungry No issues overnight Physical Exam Vital signs: Vital Signs 01/19/18 07:47 01/19/18 12:00 01/19/18 15:35 Temperature 98.4 F 98.0 F 98.2 F Pulse Rate 89 98 H 95 H Respiratory Rate 17 18 18 Blood Pressure 147/75 H 161/73 H 150/77 H Pulse Oximetry 95 96 94 L 01/19/18 15:40 01/19/18 15:50 01/19/18 16:44 Temperature 98.2 F 98.2 F 97.8 F Pulse Rate 83 92 H 100 H Respiratory Rate 20 18 17 Blood Pressure 150/77 H 146/75 H 156/79 H Pulse Oximetry 93 L 95 97 01/19/18 20:00 01/20/18 00:00 Temperature 99 F 99.2 F Pulse Rate 109 H 103 H Respiratory Rate 17 17 Blood Pressure 153/72 H 145/72 H Pulse Oximetry 94 L 94 L Intake & Output 01/19/18 01/20/18 01/20/18 18:59 06:59 18:59 Intake Total 100 / 100 1350 / 1350 Output Total 50 / 50 Balance 100 / 100 1300 / 1300 Weight 69.4 kg Intake: IV 100 / 100 1350 / 1350 NS Inj 1,000 ML @ 125 mls/hr IV 1000 / 1000 .CONT .Q8H SARA Rx#:[id number] Zosyn 2.25 GM Premix 50 ML @ 100 / 100 100 mls/hr IV.SIG Q6H SARA Rx#: [id number] Vancomycin Inj 1,000 MG In NS 250 / 250 Inj 250 ML @ 200 mls/hr IV.SIG Q24H SARA Rx#:[id number] Rocephin Inj 1,000 MG In NS Inj 100 / 100 100 ML @ 200 mls/hr IV.SIG Q24H SARA Rx#:[id number] Output: Wound Drainage 50 / 50 Right Abdomen 50 / 50 Other: # Voids 3 2 Narrative: Alert and awake Abd: soft; non distended; minimally tender around drain insertion site; IR placed drain ---thin slightly cloudy green drainage Results - Labs 01/19/18 05:00 01/19/18 05:00 Laboratory Results - last 24 hr 01/19/18 12:22 PT 12.4 H INR 1.2 - Imaging Imaging: ITS Impressions Abdomen/Pelvis CT 01/17/18 00:00 CONCLUSION: 1. Choledocholithiasis with at least 2 stones in the distal common bile duct. There appears to be a small stone in the cystic duct region. The gallbladder is distended. Air seen within the gallbladder lumen. 2. Right inguinal hernia containing a nondilated segment of small bowel. 3. Colonic diverticula particularly in the sigmoid region. 4. Air within the urinary bladder. Cholangiopancreatography MRI 01/17/18 00:00 CONCLUSION: 1. There are 2 distal common bile duct stones correlating with the earlier CT findings. These measure 13 mm and 5 mm. Questionable small filling defect is also seen in the region of the cystic duct. 2. There is an ovoid fluid collection in the region of the gallbladder fossa that has the shape of the gallbladder. However, by history the patient is postcholecystectomy. Therefore, this must represent a postoperative fluid collection, potentially biloma. It contains air which could indicate infection. There is surrounding inflammatory change, edema in the adjacent liver, and trace perihepatic free fluid. If the patient is definitely postcholecystectomy, consider drainage of this fluid collection. Chest X-Ray 01/17/18 05:35 CONCLUSION: No acute cardiopulmonary process. GI Procedure 01/18/18 00:00 CONCLUSION: 1. Filling defects within the common bile duct consistent with choledocholithiasis. 2. Internal biliary stent in good position. Abscess Drainage CT 01/19/18 00:00 CONCLUSION: 1. Large volume pneumoperitoneum. 2. Uncomplicated drainage of a gallbladder fossa fluid collection. This yielded 10 mL of green turbid fluid which was sent for evaluation. Assessment and Plan - Assessment (1) S/P laparoscopic cholecystectomy Code(s): Z90.49 - Acquired absence of other specified parts of digestive tract Status: Acute Plan: 72 year old male s/p lap wandy from prior admission; now back with fevers/chills -s/p ERCP with stent placement -S/p IR placed drain---found to have intraperitoneal air on CT scan during drain placement--- abdominal exam stable -Continue routine drain care -Await today's labs -Continue NPO -ID following -Discussed with GRAYSON Bridges - Plan Personally evaluated the patient in room 1732 this morning at 7:45 AM. The patient indicates he feels a little bit better today than yesterday. He was able to rest overnight. He has had no fever. He is hemodynamically stable. His abdominal exam is totally benign. His laparoscopy incisions are healing. His drain does show evidence of a bile leak with bile and air in the bag. His abdomen again is less distended and essentially nontender. His extremities are nonedematous. Assessment is about 10 days postop laparoscopic cholecystectomy for severe suppurative hemorrhagic cholecystitis with apparent necrosis of the closure of the bottom of the gallbladder/cystic duct with bile leak. The patient is status post ERCP with stent placement. He had free air following the ERCP incidentally discovered when a small gallbladder fossa fluid collection was to be drained under image guidance. With placement of the drain clinically the free air is been evacuated. I believe this was solely from the endoscopic manipulation of the bile duct. With continued drainage and stent of the common bile duct the bile leak should stop. I believe it is okay to go ahead and start full liquid diet and see how he does. His labs from this morning are still pending. I will order a full liquid diet. This was discussed in detail with the patient at his bedside.
[2018-01-20 08:10] LABS: Baso % (Auto) 0.2 % (0.0-2.0); Eos % (Auto) 0.2 % (0.0-4.0); Hematocrit 25.8 % (39.0-51.0); Hemoglobin 8.5 gm/dL (13.0-17.0); Lymph # (Auto) 1.5 th/mm3 (1.0-4.8); Lymph % (Auto) 11.2 % (9.0-44.0); Mean Corpuscular HGB Conc 32.9 % (32.0-36.0); Mean Corpuscular Hemoglobin 32.3 pg (27.0-34.0); Mean Corpuscular Volume 98.2 fL (80.0-100.0); Mean Platelet Volume 8.5 fL (7.0-11.0); Mono # (Auto) 0.7 th/mm3 (0.0-0.9); Mono % (Auto) 5.2 % (0.0-8.0); Neut % (Auto) 83.2 % (16.0-70.0); Platelet Count 334 th/mm3 (150-450); Red Blood Count 2.63 mil/mm3 (4.50-5.90); Red Cell Distribution Width 14.8 % (11.6-17.2); White Blood Count 13.2 th/mm3 (4.0-11.0)
[2018-01-20 08:45] LABS: Calcium 8.4 mg/dL (8.5-10.1); Carbon Dioxide 20.7 meq/L (21.0-32.0); Potassium 3.7 meq/L (3.5-5.1)
--- NOTE | 2018-01-20 08:55 | P.PNIM ---
Subjective Interval history: Patient states that he feels better than he did yesterday. Mild pain in the right upper quadrant. Patient has a good appetite and is requesting breakfast. He does not have any other complaints. Physical Exam Vital signs: Vital Signs 01/19/18 12:00 01/19/18 15:35 01/19/18 15:40 Temperature 98.0 F 98.2 F 98.2 F Pulse Rate 98 H 95 H 83 Respiratory Rate 18 18 20 Blood Pressure 161/73 H 150/77 H 150/77 H Pulse Oximetry 96 94 L 93 L 01/19/18 15:50 01/19/18 16:44 01/19/18 20:00 Temperature 98.2 F 97.8 F 99 F Pulse Rate 92 H 100 H 109 H Respiratory Rate 18 17 17 Blood Pressure 146/75 H 156/79 H 153/72 H Pulse Oximetry 95 97 94 L 01/20/18 00:00 01/20/18 08:00 Temperature 99.2 F 98.2 F Pulse Rate 103 H 95 H Respiratory Rate 17 18 Blood Pressure 145/72 H 137/69 Pulse Oximetry 94 L 96 Intake & Output 01/19/18 01/20/18 01/20/18 18:59 06:59 18:59 Intake Total 100 / 100 1350 / 1350 Output Total 50 / 50 Balance 100 / 100 1300 / 1300 Weight 69.4 kg Intake: IV 100 / 100 1350 / 1350 NS Inj 1,000 ML @ 125 mls/hr IV 1000 / 1000 .CONT .Q8H [facility] Rx#:[id number] Zosyn 2.25 GM Premix 50 ML @ 100 / 100 100 mls/hr IV.SIG Q6H [facility]ARA Rx#: [id number] Vancomycin Inj 1,000 MG In NS 250 / 250 Inj 250 ML @ 200 mls/hr IV.SIG Q24H [facility]ARA Rx#:[id number] Rocephin Inj 1,000 MG In NS Inj 100 / 100 100 ML @ 200 mls/hr IV.SIG Q24H [facility]ARA Rx#:[id number] Output: Wound Drainage 50 / 50 Right Abdomen 50 / 50 Other: # Voids 3 2 Narrative: General patient has mild pain in the right upper quadrant. HEENT extraocular movements are intact, clear oropharyngeal mucosa, no JVD Cardiovascular S1-S2 audible Respiratory clear to auscultation bilaterally Abdomen soft, complains of abdominal pain in the right upper quadrant, improved from yesterday. Drain is in place with a bile colored fluid drainage, normal bowel sounds. Extremities no edema 2+ distal pulses in bilateral upper and lower extremities Neuro no neurological deficits Results - Labs CBC & Chem 7: 01/20/18 07:29 01/20/18 07:29 Laboratory Results - last 24 hr 01/19/18 01/20/18 01/20/18 12:22 07:29 07:29 WBC 13.2 H RBC 2.63 L Hgb 8.5 L Hct 25.8 L MCV 98.2 MCH 32.3 MCHC 32.9 RDW 14.8 Plt Count 334 MPV 8.5 Neut % (Auto) 83.2 H Lymph % (Auto) 11.2 [place] % (Auto) 5.2 Eos % (Auto) 0.2 Baso % (Auto) 0.2 Neut # (Auto) 11.0 H Lymph # (Auto) 1.5 [place] # (Auto) 0.7 Eos # (Auto) 0.0 Baso # (Auto) 0.0 WBC Differential . Differential Comment Auto diff final PT 12.4 H INR 1.2 Sodium 145 Potassium 3.7 Chloride 113 H Carbon Dioxide 20.7 L Anion Gap 11 BUN 24 H Creatinine 1.75 H Estimated GFR 39 L Random Glucose 88 Calcium 8.4 L Microbiology 01/19/18 15:15 Fluid - Gallbladder Gram Stain - Final 01/16/18 21:30 Blood - Peripheral Aerobic Blood Culture - Preliminary No growth in 3 days 01/16/18 21:30 Blood - Peripheral Anaerobic Blood Culture - Preliminary No growth in 3 days 01/16/18 23:05 Blood - Peripheral Aerobic Blood Culture - Preliminary No growth in 3 days 01/16/18 23:05 Blood - Peripheral Anaerobic Blood Culture - Preliminary No growth in 3 days - Imaging Impressions Abscess Drainage CT 01/19/18 00:00 CONCLUSION: 1. Large volume pneumoperitoneum. 2. Uncomplicated drainage of a gallbladder fossa fluid collection. This yielded 10 mL of green turbid fluid which was sent for evaluation. Assessment and Plan - Plan This patient is a 72-year-old male with a diagnosis of hypertension, documented history of myocardial infarction, history of upper GI bleed from bleeding gastric ulcers approximately 1 year ago. He is status post lap wandy from a prior admission a few weeks ago. He presented to our emergency room with complaints of fevers and chills as well as abdominal pain. 1. Sepsis secondary to gallbladder fossa abscess status post CT-guided drainage Status post cholecystectomy for hemorrhagic cholecystitis Status post ERCP and stent placement The patient has a stable vital signs. He had a significant elevation in his WBC count yesterday which was concerning for an intra-abdominal infection. Interventional radiology performed drainage of the gallbladder fossa abscess yesterday and found large pneumoperitoneum. Surgery then evaluated the patient however the physical examination was benign. Nose surgical intervention was recommended. His antibiotics were adjusted. Patient does not have any significant complaints today. Continue IV antibiotics. I will follow-up with recognitions from surgery regarding the drain that is currently in place. His laparoscopic incisions are healing. He has been started on a full liquid diet. We will advance his diet as tolerated if okay with the surgical team. GI recommends ERCP in 6-8 weeks for stent removal. We will follow up with recommendations from ID. Renal panel will be followed up and is still currently pending. 2. Hypertension The patient has had persistent elevated blood pressure since admission. He is currently on Coreg. Amlodipine was started started to the patient's medication regimen, the dose will be increased today. His blood pressure medications will be adjusted as needed. 3. Chronic kidney disease It appears that the patient has some baseline chronic kidney disease. The patient serum creatinine has ranged between 1.7-1.9 during this admission. After discharge the patient should follow-up with his primary care physician and he should also be evaluated by a park maintainer in the outpatient setting. Avoid nephrotoxic agents. Continue IV fluids. Antibiotics were adjusted because of the CKD. No pharmacotherapy for DVT prophylaxis as the patient underwent ERCP yesterday and may need a surgical procedure today or tomorrow.
--- NOTE | 2018-01-20 13:17 | P.PNGI ---
Subjective Interval history: No acute nausea or vomiting, bilious drain right upper quadrant Mild abdominal soreness but no obvious pain <Ivy Tran - Last Filed: 01/20/18 13:12> Physical Exam Vital signs: Vital Signs 01/19/18 15:35 01/19/18 15:40 01/19/18 15:50 Temperature 98.2 F 98.2 F 98.2 F Pulse Rate 95 H 83 92 H Respiratory Rate 18 20 18 Blood Pressure 150/77 H 150/77 H 146/75 H Pulse Oximetry 94 L 93 L 95 01/19/18 16:44 01/19/18 20:00 01/20/18 00:00 Temperature 97.8 F 99 F 99.2 F Pulse Rate 100 H 109 H 103 H Respiratory Rate 17 17 17 Blood Pressure 156/79 H 153/72 H 145/72 H Pulse Oximetry 97 94 L 94 L 01/20/18 08:00 01/20/18 12:00 Temperature 98.2 F 98.4 F Pulse Rate 95 H 90 Respiratory Rate 18 18 Blood Pressure 137/69 130/73 Pulse Oximetry 96 98 Intake & Output 01/19/18 01/20/18 01/20/18 18:59 06:59 18:59 Intake Total 100 / 100 1350 / 1350 1050 / 1050 Output Total 50 / 50 Balance 100 / 100 1300 / 1300 1050 / 1050 Weight 69.4 kg Intake: IV 100 / 100 1350 / 1350 1050 / 1050 NS Inj 1,000 ML @ 125 mls/hr IV 1000 / 1000 1000 / 1000 .CONT .Q8H [facility] Rx#:[id number] Zosyn 2.25 GM Premix 50 ML @ 100 / 100 50 / 50 100 mls/hr IV.SIG Q6H [facility]ARA Rx#: [id number] Vancomycin Inj 1,000 MG In NS 250 / 250 Inj 250 ML @ 200 mls/hr IV.SIG Q24H [facility]ARA Rx#:[id number] Rocephin Inj 1,000 MG In NS Inj 100 / 100 100 ML @ 200 mls/hr IV.SIG Q24H [facility]ARA Rx#:[id number] Output: Wound Drainage 50 / 50 Right Abdomen 50 / 50 Other: # Voids 3 2 - Constitutional no acute distress, cooperative - Routine HEENT Exam Head: Present: normocephalic ENT: Present: mucous membranes moist - Routine Respiratory Exam Present: accessory muscle use (No obvious shortness of breath) - Routine Cardiovascular Exam Present: S1, S2 - Routine Abdominal Exam Present: soft, drain (Right upper quadrant drain, ) - Routine Skin Exam Present: intact - Routine Neurological Exam Present: alert <Ivy Tran Vincent - Last Filed: 01/20/18 13:12> Vital signs: Vital Signs 01/19/18 16:44 01/19/18 20:00 01/20/18 00:00 Temperature 97.8 F 99 F 99.2 F Pulse Rate 100 H 109 H 103 H Respiratory Rate 17 17 17 Blood Pressure 156/79 H 153/72 H 145/72 H Pulse Oximetry 97 94 L 94 L 01/20/18 08:00 01/20/18 12:00 01/20/18 16:00 Temperature 98.2 F 98.4 F 98.2 F Pulse Rate 95 H 90 85 Respiratory Rate 18 18 18 Blood Pressure 137/69 130/73 139/71 Pulse Oximetry 96 98 97 Intake & Output 01/19/18 01/20/18 01/20/18 18:59 06:59 18:59 Intake Total 100 / 100 1350 / 1350 1874 / 1874 Output Total 50 / 50 Balance 100 / 100 1300 / 1300 1874 / 1874 Weight 69.4 kg Intake: IV 100 / 100 1350 / 1350 1874 / 1874 NS Inj 1,000 ML @ 125 mls/hr IV 1000 / 1000 1824 / 1824 .CONT .Q8H [facility] Rx#:[id number] Zosyn 2.25 GM Premix 50 ML @ 100 / 100 50 / 50 100 mls/hr IV.SIG Q6H [facility] Rx#: [id number] Vancomycin Inj 1,000 MG In NS 250 / 250 Inj 250 ML @ 200 mls/hr IV.SIG Q24H [facility] Rx#:[id number] Rocephin Inj 1,000 MG In NS Inj 100 / 100 100 ML @ 200 mls/hr IV.SIG Q24H [facility] Rx#:[id number] Output: Wound Drainage 50 / 50 Right Abdomen 50 / 50 Other: # Voids 3 2 <Joe Awad - Last Filed: 01/20/18 16:25> Results - Labs CBC & Chem 7: 01/20/18 07:29 01/20/18 07:29 Laboratory Results - last 24 hr 01/20/18 01/20/18 07:29 07:29 WBC 13.2 H RBC 2.63 L Hgb 8.5 L Hct 25.8 L MCV 98.2 MCH 32.3 MCHC 32.9 RDW 14.8 Plt Count 334 MPV 8.5 Neut % (Auto) 83.2 H Lymph % (Auto) 11.2 [place] % (Auto) 5.2 Eos % (Auto) 0.2 Baso % (Auto) 0.2 Neut # (Auto) 11.0 H Lymph # (Auto) 1.5 [place] # (Auto) 0.7 Eos # (Auto) 0.0 Baso # (Auto) 0.0 WBC Differential . Differential Comment Auto diff final Sodium 145 Potassium 3.7 Chloride 113 H Carbon Dioxide 20.7 L Anion Gap 11 BUN 24 H Creatinine 1.75 H Estimated GFR 39 L Random Glucose 88 Calcium 8.4 L Microbiology 01/16/18 21:30 Blood - Peripheral Aerobic Blood Culture - Preliminary No growth in 4 days 01/16/18 21:30 Blood - Peripheral Anaerobic Blood Culture - Preliminary No growth in 4 days 01/16/18 23:05 Blood - Peripheral Aerobic Blood Culture - Preliminary No growth in 4 days 01/16/18 23:05 Blood - Peripheral Anaerobic Blood Culture - Preliminary No growth in 4 days 01/19/18 15:15 Fluid - Gallbladder Gram Stain - Final - Imaging Impressions Abscess Drainage CT 01/19/18 00:00 CONCLUSION: 1. Large volume pneumoperitoneum. 2. Uncomplicated drainage of a gallbladder fossa fluid collection. This yielded 10 mL of green turbid fluid which was sent for evaluation. <Ivy Tran - Last Filed: 01/20/18 13:12> - Labs CBC & Chem 7: 01/20/18 07:29 01/20/18 07:29 Laboratory Results - last 24 hr 01/20/18 01/20/18 07:29 07:29 WBC 13.2 H RBC 2.63 L Hgb 8.5 L Hct 25.8 L MCV 98.2 MCH 32.3 MCHC 32.9 RDW 14.8 Plt Count 334 MPV 8.5 Neut % (Auto) 83.2 H Lymph % (Auto) 11.2 [place] % (Auto) 5.2 Eos % (Auto) 0.2 Baso % (Auto) 0.2 Neut # (Auto) 11.0 H Lymph # (Auto) 1.5 [place] # (Auto) 0.7 Eos # (Auto) 0.0 Baso # (Auto) 0.0 WBC Differential . Differential Comment Auto diff final Sodium 145 Potassium 3.7 Chloride 113 H Carbon Dioxide 20.7 L Anion Gap 11 BUN 24 H Creatinine 1.75 H Estimated GFR 39 L Random Glucose 88 Calcium 8.4 L Microbiology 01/19/18 15:15 Fluid - Gallbladder Gram Stain - Final 01/19/18 15:15 Fluid - Gallbladder Body Fluid Culture - Preliminary Staphylococcus aureus 01/16/18 21:30 Blood - Peripheral Aerobic Blood Culture - Preliminary No growth in 4 days 01/16/18 21:30 Blood - Peripheral Anaerobic Blood Culture - Preliminary No growth in 4 days 01/16/18 23:05 Blood - Peripheral Aerobic Blood Culture - Preliminary No growth in 4 days 01/16/18 23:05 Blood - Peripheral Anaerobic Blood Culture - Preliminary No growth in 4 days - Imaging Impressions Abscess Drainage CT 01/19/18 00:00 CONCLUSION: 1. Large volume pneumoperitoneum. 2. Uncomplicated drainage of a gallbladder fossa fluid collection. This yielded 10 mL of green turbid fluid which was sent for evaluation. <Joe Awad E - Last Filed: 01/20/18 16:25> Assessment and Plan - Plan 01/19/2018 patient with choledocholithiasis status post ERCP On ERCP the patient was noted to have a small bile leak. 1 of the stones was removed and there is probably a second retained stone and as such a 10 [place] 9 cm stent was placed CT today for abscess drainage revealed pneumoperitoneum this is probably air the tract from the GI tract no evidence of any peritonitis Drainage of the abscess reveals only bile no official abscess I would advance diet as tolerated as of tomorrow and continue with the antibiotics if patient tolerates intake patient then may be discharged from a GI standpoint follow-up with GI in 2-3 weeks Patient will need an ERCP in 2-3 months to reassess for the bile leak and to remove the stent and to remove any residual stones 01/20/2018 patient is status post ERCP, right upper abdomen with bilious fluids. No nausea no vomiting. Patient has been advanced with diet to full liquids and will continue to advance as long as he tolerates. Patient will need follow- up ERCP with Dr. Awad in 2-3 months to remove stent and remove any residual stones. Current hemoglobin 8.5 no obvious bleeding noted. Patient appears to have gradual improvement Plan Diet advance as tolerated Monitor any acute pain Monitor labs Repeat ERCP in 2-3 months to assess for bowel leak and remove stent and any residual stones. Explained to patient Supportive care Caution with activity and monitor for any dizziness or lightheadedness Okay to DC from a GI standpoint and follow-up Patient was seen per myself and Dr. Awad, note was written on his behalf <Ivy Tran - Last Filed: 01/20/18 13:12> - Plan Patient seen and examined Continue with current supportive care Monitor labs The biloma drain appears to be showing more drainage today and as such we will continue to monitor output hopefully it will slow down with the biliary stent in place and hopefully will be able to remove the drain sometime soon We will continue to monitor <Joe Awad - Last Filed: 01/20/18 16:25>
[2018-01-20] MEDS ORDERED: Sodium Chloride 0.9% 2 ML Flush PRN IV.FLUSH (14:59)
[2018-01-20] MEDS: Sodium Chloride 0.45 % Inj 1,000 ML IV.CONT SCH (16:00)
[2018-01-20] MEDS: Vancomycin Inj 1,000 MG in Sodium Chlor 0.9% Inj 250 ML IV.SIG SCH (22:42)
[2018-01-20] MEDS: Sodium Chloride 0.9% 2 ML Flush BID IV.FLUSH SCH (22:43)
[2018-01-21] MEDS: Sodium Chloride 0.45 % Inj 1,000 ML IV.CONT SCH ×3 (01:10→11:00)
[2018-01-21] MEDS: Morphine Sulfate Inj 2 MG/ML Vial IV.PUSH PRN ×3 (02:57→11:00)
[2018-01-21] MEDS: Piperacil/Tazo 2.25 GM Premix 50 ML IV.SIG SCH ×3 (03:24→16:17)
[2018-01-21] MEDS: metroNIDAZOLE 500 MG Tablet PO SCH ×2 (06:30→14:15)
[2018-01-21] MEDS: Sodium Chloride 0.9% 2 ML Flush BID IV.FLUSH SCH (09:01)
[2018-01-21 12:06] VITALS: O2SAT 99
--- NOTE | 2018-01-21 12:23 | P.PNGS ---
Subjective Interval history: Resting in bed No issues Eager to have lunch Physical Exam Vital signs: Vital Signs 01/20/18 16:00 01/20/18 20:00 01/21/18 00:00 Temperature 98.2 F 97.5 F L 99.4 F Pulse Rate 85 85 92 H Respiratory Rate 18 17 18 Blood Pressure 139/71 150/77 H 140/71 Pulse Oximetry 97 98 96 01/21/18 08:00 01/21/18 12:00 Temperature 97.9 F 97.9 F Pulse Rate 90 93 H Respiratory Rate 17 17 Blood Pressure 146/80 H 133/63 Pulse Oximetry 97 99 Intake & Output 01/20/18 01/21/18 01/21/18 18:59 06:59 18:59 Intake Total 2924 / 2924 1350 / 1350 1050 / 1050 Output Total 375 / 375 70 / 70 Balance 2549 / 2549 1280 / 1280 1050 / 1050 Intake: IV 1924 / 1924 1350 / 1350 1050 / 1050 NS Inj 1,000 ML @ 125 mls/hr IV 1824 / 1824 .CONT .Q8H [facility] Rx#:[id number] 1/2 Normal Saline Inj 1,000 ML 1000 / 1000 1000 / 1000 @ 100 mls/hr IV.CONT .Q10H [facility] Rx#:[id number] Zosyn 2.25 GM Premix 50 ML @ 100 / 100 100 / 100 50 / 50 100 mls/hr IV.SIG Q6H [facility] Rx#: [id number] Vancomycin Inj 1,000 MG In NS 250 / 250 Inj 250 ML @ 200 mls/hr IV.SIG Q24H [facility] Rx#:[id number] Oral 1000 / 1000 Output: Wound Drainage 375 / 375 70 / 70 Right Abdomen 375 / 375 70 / 70 Other: # Voids 4 2 Narrative: Alert and awake Abd: soft; non tender; lap sites with Steri strips in place IR placed drain now with ADRIEL bulb--- thin green tint drainage Results - Labs 01/20/18 07:29 01/20/18 07:29 - Imaging Imaging: ITS Impressions Abdomen/Pelvis CT 01/17/18 00:00 CONCLUSION: 1. Choledocholithiasis with at least 2 stones in the distal common bile duct. There appears to be a small stone in the cystic duct region. The gallbladder is distended. Air seen within the gallbladder lumen. 2. Right inguinal hernia containing a nondilated segment of small bowel. 3. Colonic diverticula particularly in the sigmoid region. 4. Air within the urinary bladder. Cholangiopancreatography MRI 01/17/18 00:00 CONCLUSION: 1. There are 2 distal common bile duct stones correlating with the earlier CT findings. These measure 13 mm and 5 mm. Questionable small filling defect is also seen in the region of the cystic duct. 2. There is an ovoid fluid collection in the region of the gallbladder fossa that has the shape of the gallbladder. However, by history the patient is postcholecystectomy. Therefore, this must represent a postoperative fluid collection, potentially biloma. It contains air which could indicate infection. There is surrounding inflammatory change, edema in the adjacent liver, and trace perihepatic free fluid. If the patient is definitely postcholecystectomy, consider drainage of this fluid collection. Chest X-Ray 01/17/18 05:35 CONCLUSION: No acute cardiopulmonary process. GI Procedure 01/18/18 00:00 CONCLUSION: 1. Filling defects within the common bile duct consistent with choledocholithiasis. 2. Internal biliary stent in good position. Abscess Drainage CT 01/19/18 00:00 CONCLUSION: 1. Large volume pneumoperitoneum. 2. Uncomplicated drainage of a gallbladder fossa fluid collection. This yielded 10 mL of green turbid fluid which was sent for evaluation. Assessment and Plan - Assessment (1) S/P laparoscopic cholecystectomy Code(s): Z90.49 - Acquired absence of other specified parts of digestive tract Status: Acute Plan: 72 year old male s/p lap wandy from prior admission; now back with fevers/chills -s/p ERCP with stent placement -S/p IR placed drain---found to have intraperitoneal air on CT scan during drain placement--- abdominal exam benign -Continue routine drain care -Advanced to regular diet -ID following---ordered Augmentin and Flagyl -Discussed with GRAYSON Bridges -JUAN MANUEL clear for DC---left rx for Ava, Augmentin and Flagyl -Follow up with Dr. Danielle January 28 at 3:40PM - Plan Patient is postop laparoscopic cholecystectomy followed by ERCP with stent placement. There is an apparent bile leak likely through the cystic duct/ gallbladder remnant. The bilious drainage has decreased and now is only bile tinged drainage. It is controlled. The patient is asymptomatic and desires discharge home. His abdominal exam is benign. He is tolerating an oral diet and having normal bowel and bladder function. The exam, history, and the medical decision-making described in the above note were completed with the assistance of the mid-level provider. I reviewed and agree with the findings presented. I attest that I had a [id number] encounter with the patient on the same day, and personally performed and documented my assessment and findings in the medical record.
--- NOTE | 2018-01-21 12:34 | P.PNIM ---
Subjective Interval history: Patient complains of minimal pain in the right upper quadrant. His symptoms are improved significantly. Otherwise he does not have any other complaints. Physical Exam Vital signs: Vital Signs 01/20/18 16:00 01/20/18 20:00 01/21/18 00:00 Temperature 98.2 F 97.5 F L 99.4 F Pulse Rate 85 85 92 H Respiratory Rate 18 17 18 Blood Pressure 139/71 150/77 H 140/71 Pulse Oximetry 97 98 96 01/21/18 08:00 01/21/18 12:00 Temperature 97.9 F 97.9 F Pulse Rate 90 93 H Respiratory Rate 17 17 Blood Pressure 146/80 H 133/63 Pulse Oximetry 97 99 Intake & Output 01/20/18 01/21/18 01/21/18 18:59 06:59 18:59 Intake Total 2924 / 2924 1350 / 1350 1050 / 1050 Output Total 375 / 375 70 / 70 Balance 2549 / 2549 1280 / 1280 1050 / 1050 Intake: IV 1924 / 1924 1350 / 1350 1050 / 1050 NS Inj 1,000 ML @ 125 mls/hr IV 1824 / 1824 .CONT .Q8H [facility] Rx#:[id number] 1/2 Normal Saline Inj 1,000 ML 1000 / 1000 1000 / 1000 @ 100 mls/hr IV.CONT .Q10H [facility]ARA Rx#:[id number] Zosyn 2.25 GM Premix 50 ML @ 100 / 100 100 / 100 50 / 50 100 mls/hr IV.SIG Q6H [facility]ARA Rx#: [id number] Vancomycin Inj 1,000 MG In NS 250 / 250 Inj 250 ML @ 200 mls/hr IV.SIG Q24H [facility]ARA Rx#:[id number] Oral 1000 / 1000 Output: Wound Drainage 375 / 375 70 / 70 Right Abdomen 375 / 375 70 / 70 Other: # Voids 4 2 Narrative: General patient has mild pain in the right upper quadrant. HEENT extraocular movements are intact, clear oropharyngeal mucosa, no JVD Cardiovascular S1-S2 audible Respiratory clear to auscultation bilaterally Abdomen soft, complains of abdominal pain in the right upper quadrant, that continues to improve. Drain is in place with a bile colored fluid drainage, normal bowel sounds. Extremities no edema 2+ distal pulses in bilateral upper and lower extremities Neuro no neurological deficits Results - Labs CBC & Chem 7: 01/20/18 07:29 01/20/18 07:29 Microbiology 01/16/18 21:30 Blood - Peripheral Aerobic Blood Culture - Final No growth in 5 days 01/16/18 21:30 Blood - Peripheral Anaerobic Blood Culture - Final No growth in 5 days 01/16/18 23:05 Blood - Peripheral Aerobic Blood Culture - Final No growth in 5 days 01/16/18 23:05 Blood - Peripheral Anaerobic Blood Culture - Final No growth in 5 days 01/19/18 15:15 Fluid - Gallbladder Gram Stain - Final 01/19/18 15:15 Fluid - Gallbladder Body Fluid Culture - Final Staphylococcus aureus Assessment and Plan - Plan This patient is a 72-year-old male with a diagnosis of hypertension, documented history of myocardial infarction, history of upper GI bleed from bleeding gastric ulcers approximately 1 year ago. He is status post lap wandy from a prior admission a few weeks ago. He presented to our emergency room with complaints of fevers and chills as well as abdominal pain. 1. Sepsis secondary to gallbladder fossa abscess status post CT-guided drainage Status post cholecystectomy for hemorrhagic cholecystitis Status post ERCP and stent placement The patient has a stable vital signs. WBC count down trended significantly. Interventional radiology performed drainage of the gallbladder fossa abscess 2 days ago. Large pneumoperitoneum seen on imaging is likely secondary to the patient's recent procedures. Surgery evaluated the patient however her physical examination was benign and no surgical intervention was recommended. Patient does not have any significant complaints today. He is now tolerating a p.o. diet which will be advanced today. Continue IV antibiotics. Surgery is recommending that the patient be discharged with the drain in place. We plan to possibly discharge the patient tomorrow morning. He can follow-up outpatient with the surgery team for management of the drainage. His laparoscopic incisions are healing. GI recommends ERCP in 6-8 weeks for stent removal. ID following 2. Hypertension The patient has had persistent elevated blood pressure since admission. He is currently on Coreg and amlodipine. His blood pressure medications will be adjusted as needed. 3. Chronic kidney disease It appears that the patient has some baseline chronic kidney disease. The patient serum creatinine has ranged between 1.7-1.9 during this admission. After discharge the patient should follow-up with his primary care physician and he should also be evaluated by a industrial sweeper cleaner in the outpatient setting. Avoid nephrotoxic agents. Continue IV fluids. Antibiotics were adjusted because of the CKD. No pharmacotherapy for DVT prophylaxis as the patient underwent ERCP yesterday and may need a surgical procedure today or tomorrow.
--- NOTE | 2018-01-21 13:24 | P.PNGI ---
Subjective Interval history: Patient laying supine in bed, denies nausea or vomiting. Denies abdominal pain at this time, surgical drain noted to right upper quadrant. 10-20 cc estimated drainage noted. <Mora De La Cruz - Last Filed: 01/21/18 13:15> Physical Exam Vital signs: Vital Signs 01/20/18 16:00 01/20/18 20:00 01/21/18 00:00 Temperature 98.2 F 97.5 F L 99.4 F Pulse Rate 85 85 92 H Respiratory Rate 18 17 18 Blood Pressure 139/71 150/77 H 140/71 Pulse Oximetry 97 98 96 01/21/18 08:00 01/21/18 12:00 Temperature 97.9 F 97.9 F Pulse Rate 90 93 H Respiratory Rate 17 17 Blood Pressure 146/80 H 133/63 Pulse Oximetry 97 99 Intake & Output 01/20/18 01/21/18 01/21/18 18:59 06:59 18:59 Intake Total 2924 / 2924 1350 / 1350 1050 / 1050 Output Total 375 / 375 70 / 70 Balance 2549 / 2549 1280 / 1280 1050 / 1050 Intake: IV 1924 / 1924 1350 / 1350 1050 / 1050 NS Inj 1,000 ML @ 125 mls/hr IV 1824 / 1824 .CONT .Q8H [facility] Rx#:[id number] 1/2 Normal Saline Inj 1,000 ML 1000 / 1000 1000 / 1000 @ 100 mls/hr IV.CONT .Q10H [facility]ARA Rx#:[id number] Zosyn 2.25 GM Premix 50 ML @ 100 / 100 100 / 100 50 / 50 100 mls/hr IV.SIG Q6H SARA Rx#: [id number] Vancomycin Inj 1,000 MG In NS 250 / 250 Inj 250 ML @ 200 mls/hr IV.SIG Q24H SARA Rx#:[id number] Oral 1000 / 1000 Output: Wound Drainage 375 / 375 70 / 70 Right Abdomen 375 / 375 70 / 70 Other: # Voids 4 2 - Constitutional no acute distress - Routine HEENT Exam Head: Present: normocephalic - Routine Respiratory Exam Present: CTA bilaterally. Absent: accessory muscle use - Routine Cardiovascular Exam Present: RRR - Routine Abdominal Exam Present: soft, normoactive bowel sounds. Absent: tenderness, guarding, firm - Routine Extremities Exam Present: full ROM, pulses intact. Absent: edema - Routine Skin Exam Present: dry, warm - Routine Neurological Exam Present: alert, oriented X3 - Detailed Neurological Exam: Coma Scale Eye Opening: Spontaneous Verbal Response: Oriented Motor Response: Obey commands Britt Coma Scale Total: 15 - Routine Psychiatric Exam Present: normal affect, cooperative <De La CruzCherelley - Last Filed: 01/21/18 13:15> Vital signs: Vital Signs 01/20/18 20:00 01/21/18 00:00 01/21/18 08:00 Temperature 97.5 F L 99.4 F 97.9 F Pulse Rate 85 92 H 90 Respiratory Rate 17 18 17 Blood Pressure 150/77 H 140/71 146/80 H Pulse Oximetry 98 96 97 01/21/18 12:00 01/21/18 16:00 Temperature 97.9 F 98.0 F Pulse Rate 93 H 90 Respiratory Rate 17 18 Blood Pressure 133/63 133/70 Pulse Oximetry 99 99 Intake & Output 01/20/18 01/21/18 01/21/18 18:59 06:59 18:59 Intake Total 2924 / 2924 1350 / 1350 1050 / 1050 Output Total 375 / 375 70 / 70 50 / 50 Balance 2549 / 2549 1280 / 1280 1000 / 1000 Intake: IV 1924 / 1924 1350 / 1350 1050 / 1050 NS Inj 1,000 ML @ 125 mls/hr IV 1824 / 1824 .CONT .Q8H SARA Rx#:[id number] 1/2 Normal Saline Inj 1,000 ML 1000 / 1000 1000 / 1000 @ 100 mls/hr IV.CONT .Q10H [facility]ARA Rx#:[id number] Zosyn 2.25 GM Premix 50 ML @ 100 / 100 100 / 100 50 / 50 100 mls/hr IV.SIG Q6H SARA Rx#: [id number] Vancomycin Inj 1,000 MG In NS 250 / 250 Inj 250 ML @ 200 mls/hr IV.SIG Q24H [facility]ARA Rx#:[id number] Oral 1000 / 1000 Output: Wound Drainage 375 / 375 70 / 70 50 / 50 Right Abdomen 375 / 375 70 / 70 50 / 50 Other: # Voids 4 2 Date of Last Bowel Movement 01/21/18 <Joe Awad E - Last Filed: 01/21/18 17:22> Results - Labs CBC & Chem 7: 01/20/18 07:29 01/20/18 07:29 Microbiology 01/16/18 21:30 Blood - Peripheral Aerobic Blood Culture - Final No growth in 5 days 01/16/18 21:30 Blood - Peripheral Anaerobic Blood Culture - Final No growth in 5 days 01/16/18 23:05 Blood - Peripheral Aerobic Blood Culture - Final No growth in 5 days 01/16/18 23:05 Blood - Peripheral Anaerobic Blood Culture - Final No growth in 5 days 01/19/18 15:15 Fluid - Gallbladder Gram Stain - Final 01/19/18 15:15 Fluid - Gallbladder Body Fluid Culture - Final Staphylococcus aureus <Mora De La Cruz - Last Filed: 01/21/18 13:15> - Labs CBC & Chem 7: 01/20/18 07:29 01/20/18 07:29 Microbiology 01/16/18 21:30 Blood - Peripheral Aerobic Blood Culture - Final No growth in 5 days 01/16/18 21:30 Blood - Peripheral Anaerobic Blood Culture - Final No growth in 5 days 01/16/18 23:05 Blood - Peripheral Aerobic Blood Culture - Final No growth in 5 days 01/16/18 23:05 Blood - Peripheral Anaerobic Blood Culture - Final No growth in 5 days 01/19/18 15:15 Fluid - Gallbladder Gram Stain - Final 01/19/18 15:15 Fluid - Gallbladder Body Fluid Culture - Final Staphylococcus aureus <Joe Awad - Last Filed: 01/21/18 17:22> Assessment and Plan - Plan 01/21/18-Post ERCP, patient denies nausea vomiting tolerating diet well advanced as per surgery. Surgical drain in place with approximately 20 cc of pale darrick drainage noted. Discussed follow-up with Dr. Awad in approximately 2-3 months for stent removal and assessment of any possible residual stones. Most recent hemoglobin 8.5 hematocrit 25.8. Total bilirubin 0.6 AST 23 ALT 16 alk phos 349. Plan: -Diet as tolerated -Monitor labs- CMP in AM -Repeat ERCP in approximately 2-[address] Awad -Supportive care -Further recommendations to follow This patient has been seen by myself and Dr. Awad and this note is written on his behalf - Attending Attestation Dr. Awad <Mora De La Cruz - Last Filed: 01/21/18 13:15> - Plan Patient seen and examined Agree with above Continue with current supportive care Monitor labs Follow-up with GI post discharge Repeat ERCP in 2-3 months <Joe Awad - Last Filed: 01/21/18 17:22>
[2018-01-21 16:16] VITALS: BP 133/70; PULSE 90; RESP 18; TEMP 98
--- NOTE | 2018-01-21 16:30 | P.DS ---
Date of admission: 01/17/18 01:40 Primary care physician: Luiza Khan MD Attending physician on discharge: Dr. Ray Brief History from admission: This is a 72-year-old male who came to the hospital on 11/16/2017 with chief complaints of fever proximally 24 hours ago with chills. Patient states his temperature was 101 and insisted that he come to the hospital. Patient had cholecystectomy on 01/09/2018 which according to the record was significantly infected and ADRIEL drain was placed. Patient states the ADRIEL drain was taken out 3 days ago on 01/13/2018. DS: Medications - Discharge Medications Prescriptions: amoxicillin-pot clavulanate [Augmentin] 1 tab PO Q12H 10 Days #20 tab hydrocodone-acetaminophen 1 tab PO Q4H PRN #18 tab PRN Reason: acute post op pain exception metronidazole 500 mg PO Q8HR 10 Days tab DS: Summary Hospital Course: This patient is a 72-year-old male with a diagnosis of hypertension, documented history of myocardial infarction, history of upper GI bleed from bleeding gastric ulcers approximately 1 year ago. He is status post lap wandy from a prior admission a few weeks ago. He presented to our emergency room with complaints of fevers and chills as well as abdominal pain. 1. Sepsis secondary to gallbladder fossa abscess status post CT-guided drainage Status post cholecystectomy for hemorrhagic cholecystitis Status post ERCP and stent placement After the patient was admitted he was started on IV antibiotics and he was monitored closely on the MedSurg unit. The patient's WBC count showed a significant downturn after the initiation of antibiotics. He underwent ERCP and a stent was placed and stone removed. The patient also had a fluid collection intra-abdominally that was drained by IR. During the procedure they noticed a large pneumoperitoneum however on physical examination the patient's abdomen was benign. Surgery did not recommend any surgical intervention as the findings were likely due to the previous procedures. Blood cultures are negative. Infectious disease was also following the patient and recommends p.o. Augmentin and p.o. Flagyl for 10 more days. He will be discharged on p.o. antibiotics. Lincoln will be given for pain control. His appetite is good and he is tolerating a p.o. diet without any complaints of nausea or vomiting. His abdominal pain has nearly completely resolved. He has a intra-abdominal drain in place for now. Surgery is recommending that he follows up outpatient in 1 week to have the drain removed. He is stable for discharge today. He was advised to seek immediate medical attention if he begins to spike fevers or have significant abdominal pain. 2. Hypertension Continue home medications for hypertension. The patient follow-up with his primary care physician in the next 1-2 weeks. His blood pressure medications can be adjusted as needed. 3. Chronic kidney disease the patient has baseline chronic kidney disease I recommend that the patient follows up with his primary care physician and should be evaluated by nephrology for the chronic kidney disease. Avoid nephrotoxic agents and medications. - Time Spent with Patient Total time spent providing and/or coordinating discharge services: Greater than 30 minutes - Quality: VTE Deep Vein Thrombosis/Pulmonary Embolism Present on Admission: No Exam Vital signs: Vital Signs 01/20/18 20:00 01/21/18 00:00 01/21/18 08:00 Temperature 97.5 F L 99.4 F 97.9 F Pulse Rate 85 92 H 90 Respiratory Rate 17 18 17 Blood Pressure 150/77 H 140/71 146/80 H Pulse Oximetry 98 96 97 01/21/18 12:00 01/21/18 16:00 Temperature 97.9 F 98.0 F Pulse Rate 93 H 90 Respiratory Rate 17 18 Blood Pressure 133/63 133/70 Pulse Oximetry 99 99 Intake & Output 01/20/18 01/21/18 01/21/18 18:59 06:59 18:59 Intake Total 2924 / 2924 1350 / 1350 1050 / 1050 Output Total 375 / 375 70 / 70 50 / 50 Balance 2549 / 2549 1280 / 1280 1000 / 1000 Intake: IV 1924 / 1924 1350 / 1350 1050 / 1050 NS Inj 1,000 ML @ 125 mls/hr IV 1824 / 1824 .CONT .Q8H [facility] Rx#:[id number] 1/2 Normal Saline Inj 1,000 ML 1000 / 1000 1000 / 1000 @ 100 mls/hr IV.CONT .Q10H [facility] Rx#:[id number] Zosyn 2.25 GM Premix 50 ML @ 100 / 100 100 / 100 50 / 50 100 mls/hr IV.SIG Q6H [facility]ARA Rx#: [id number] Vancomycin Inj 1,000 MG In NS 250 / 250 Inj 250 ML @ 200 mls/hr IV.SIG Q24H [facility]ARA Rx#:[id number] Oral 1000 / 1000 Output: Wound Drainage 375 / 375 70 / 70 50 / 50 Right Abdomen 375 / 375 70 / 70 50 / 50 Other: # Voids 4 2 Date of Last Bowel Movement 01/21/18 Narrative: General patient in no acute distress HEENT extraocular movements are intact, clear oropharyngeal mucosa, no JVD Cardiovascular S1-S2 audible, RRR, no murmurs rubs or gallops Respiratory clear to auscultation bilaterally Abdomen soft, nontender, nondistended, normal bowel sounds, right-sided abdominal drain in place with bile colored fluid draining. Extremities no edema 2+ distal pulses in bilateral upper and lower extremities Neuro no neurological deficits. Results Procedures completed during hospitalization: IR guided intra abd abscess drainage ERCP - Impressions ITS Impressions Abdomen/Pelvis CT 01/17/18 00:00 CONCLUSION: 1. Choledocholithiasis with at least 2 stones in the distal common bile duct. There appears to be a small stone in the cystic duct region. The gallbladder is distended. Air seen within the gallbladder lumen. 2. Right inguinal hernia containing a nondilated segment of small bowel. 3. Colonic diverticula particularly in the sigmoid region. 4. Air within the urinary bladder. Cholangiopancreatography MRI 01/17/18 00:00 CONCLUSION: 1. There are 2 distal common bile duct stones correlating with the earlier CT findings. These measure 13 mm and 5 mm. Questionable small filling defect is also seen in the region of the cystic duct. 2. There is an ovoid fluid collection in the region of the gallbladder fossa that has the shape of the gallbladder. However, by history the patient is postcholecystectomy. Therefore, this must represent a postoperative fluid collection, potentially biloma. It contains air which could indicate infection. There is surrounding inflammatory change, edema in the adjacent liver, and trace perihepatic free fluid. If the patient is definitely postcholecystectomy, consider drainage of this fluid collection. Chest X-Ray 01/17/18 05:35 CONCLUSION: No acute cardiopulmonary process. GI Procedure 01/18/18 00:00 CONCLUSION: 1. Filling defects within the common bile duct consistent with choledocholithiasis. 2. Internal biliary stent in good position. Abscess Drainage CT 01/19/18 00:00 CONCLUSION: 1. Large volume pneumoperitoneum. 2. Uncomplicated drainage of a gallbladder fossa fluid collection. This yielded 10 mL of green turbid fluid which was sent for evaluation. Discharge Plan - Discharge Disposition Patient Disposition: 01 Discharge Home - Discharge Condition Condition: Good - Discharge Order Discharge Orders: Discharge Order (Routine); Ordered 01/21/18 Ordered By: Jose Ray - Physicians Team Primary Care Provider: Luiza Khan Attending Provider: Jose Ray Other Providers: Surgeons,[facility] ; Frantz Galicia MD ; Mejia Tirado MD ; Mirella Mcduffie MD
== END 2018-01-21 18:43 | disposition home or self-care (01) ==
LOC: NEPE 22:29 → NEDA 01-17 01:40 → N07 01-17 07:29
PROVIDERS: ADMIT Hospitalist; ATTEND Hospitalist

== ENCOUNTER 2018-03-31 05:31 | Inpatient (IN) ==
[~2018-03-31 05:31] MED LIST changes: -CARV3.125 PO; -MAGN400T24 PO; -MULTTAB67 PO; +Metoprolol Tartrate 25 MG Tablet PO SCH; -NORC5TAB PO
[2018-03-31] MEDS ORDERED: Chlorhexidine Gluconate 2% 1 Pack (2 Cloths) TOPICAL ONE (06:03)
[2018-03-31] MEDS ORDERED: Metoprolol Tartrate 25 MG Tablet PO ONE (06:03)
[2018-03-31] MEDS ORDERED: Dextrose 50% in Water 50 ML Vial IV.PUSH PRN ×2 (06:05→11:11)
[2018-03-31] MEDS ORDERED: Insulin Regular (For Infusion) 100 UNIT in Sodium Chlor 0.9% Inj 99 ML IV.CONT PRN ×2 (06:05→11:11)
[2018-03-31] MEDS ORDERED: Chlorhexidine 4% Topical 120 APPLIC/120 ML Bottle TOPICAL SCH (06:15)
[2018-03-31] MEDS ORDERED: Sodium Chloride 0.9% Irr Bot 500 ML, ceFAZolin Inj 500 MG IRRIGATION SCH ×2 (06:15)
[2018-03-31] MEDS ORDERED: Sodium Chlor 0.9% Inj 77.5 ML, Papaverine Inj 60 MG, Nitroglycerin Inj 100 MCG, dilTIAZ... IRRIGATION SCH ×3 (06:15)
[2018-03-31] MEDS ORDERED: Heparin - SQ 10,000 UNITS/ML Vial ONE (06:41)
[2018-03-31] MEDS ORDERED: MethylPREDNISolone Sod Succinate Inj 125 MG/2 ML Vial ONE (06:41)
[2018-03-31] MEDS ORDERED: ceFAZolin Inj 2,000 MG in Sodium Chlor 0.9% Inj 80 ML IV.SIG SCH (07:00)
[2018-03-31] MEDS ORDERED: Sodium Chlor 0.9% Inj 500 ML IV.SIG SCH (07:00)
[2018-03-31] MEDS ORDERED: Cardioplegic Irr Soln 2,000 ML IRRIGATION ONE (07:13)
[2018-03-31] MEDS ORDERED: Potassium Chloride Inj 40 MEQ/20 ML Vial ONE (07:14)
[2018-03-31] MEDS ORDERED: Albumin Human 25% Inj 50 ML IV.SIG ONE (07:14)
[2018-03-31] MEDS ORDERED: Heparin 10,000 UNITS/10 ML Vial (for IV use) ONE (07:15)
[2018-03-31] MEDS ORDERED: Ketamine Inj 50 MG/5 ML Syringe IV.PUSH ONE (08:52)
[2018-03-31] MEDS ORDERED: Clevidipine Inj 25 MG/50 ML VIAL IV.CONT PRN (11:11)
[2018-03-31] MEDS ORDERED: Calcium Chloride Inj 1 GM in Sodium Chlor 0.9% Inj 100 ML IV.SIG PRN (11:11)
[2018-03-31] MEDS ORDERED: hydrALAZINE HCl Inj 20 MG/ML Vial IV.PUSH PRN (11:11)
[2018-03-31] MEDS ORDERED: Albumin Human 5% Inj 250 ML IV.SIG PRN (11:11)
[2018-03-31] MEDS ORDERED: Potassium Chlor 20 mEq Premix 20 MEQ/100 ML PIGGYBACK IV.SIG PRN ×3 (11:11)
[2018-03-31] MEDS ORDERED: Post-op Orders (for Pharmacy) OTHER STA (11:11)
[2018-03-31] MEDS ORDERED: Calcium Chloride Inj 1 GM/10 ML Syringe IV.PUSH PRN (11:11)
[2018-03-31] MEDS ORDERED: Dexmedetomidine Inj 200 MCG in Sodium Chlor 0.9% Inj 50 ML IV.CONT PRN (11:11)
[2018-03-31] MEDS ORDERED: RESP: Racemic Epinephrine 2.25% 0.5 ML Neb NEB PRN (11:11)
[2018-03-31] MEDS ORDERED: Magnesium Sulfate Inj 2 GM in Sodium Chlor 0.9% Inj 96 ML IV.SIG PRN ×4 (11:11)
--- NOTE | 2018-03-31 11:19 | P.OP ---
- Preoperative Diagnosis (1) CAD (coronary artery disease) (2) Angina pectoris Postoperative Diagnosis: same Date of procedure: 03/31/18 Procedure: CABG x 3 WINTERS to LAD - good SVG to OM1 - good SVG to OM@ - good EVH Anesthesia: GETA Surgeon: Chantel Iyer MD Can Stacker: Roger Roberts Operation and Findings: The risks, benefits, complications, treatment options, and expected outcomes were discussed with the patient. The possibilities of reaction to medication, pulmonary aspiration, perforation of viscus, bleeding, recurrent infection, the need for additional procedures, failure to diagnose a condition, and creating a complication requiring transfusion or operation were discussed with the patient. The patient concurred with the proposed plan, giving informed consent. The site of surgery properly noted/marked. The patient was taken to Operating Room, identified as Maxime Zepeda and the procedure verified as CABG, EVH. A Time Out was held and the above information confirmed. Standard monitoring lines and Jimenez catheter were placed. General anesthesia was induced. The patient was prepped and draped in a sterile fashion. A median sternotomy was performed and electrocautery was used to obtain hemostasis. The left internal mammary artery was procured as a pedicle from the 7th rib to the 1st rib in the usual manner. Simultaneously left greater saphenous vein was procured from the left leg using a minimally invasive endoscopic technique. The vein was prepared for anastomosis and the leg wound was irrigated and closed in 2 layers. The pericardium was opened and a pericardial sling was created using interrupted 0 silk sutures. The patient was heparinized for cardiopulmonary bypass and the distal mammary pedicle was instrumented for anastomosis. The heart was instrumented for cardiopulmonary bypass in the usual manner. Antegrade blood cardioplegia was employed. The patient was placed on cardiopulmonary bypass. An aortic cross-clamp was applied and the heart was arrested using cold blood cardioplegia. Antegrade cardioplegia was administered after he each anastomosis. After adequate arrest, the distal right coronary circulation was investigated and the OM2 was opened with a [place] blade and found to be a 1.5 millimeter good target. Saphenous vein was approximated to the OM2 artery using a running 7 0 Prolene suture. The graft was measured for length and orientation and the proximal anastomosis was constructed to the ascending aorta using a running 5 0 Prolene suture after creating an aortotomy with a 5 millimeter punch. The 1st circumflex marginal artery was then opened with a [place] blade and found to be a 1.5 millimeter good target. Saphenous vein was approximated to the OM1 artery using a running 7 0 Prolene suture. The graft was measured for length and orientation and was suspended from the pericardium. The distal LAD was opened with a [place] blade and found to be a 1.5 millimeter good target. The left internal mammary artery was approximated to the LAD using a running 7 0 Prolene suture. The pedicle was attached to the epicardium using interrupted 5 0 silk suture. The patient was systemically rewarmed and received a hotshot dose of warm blood cardioplegia. The aorta was vented and the proximal anastomosis to the OM1 graft was accomplished using a running 5 0 Prolene suture after creating an aortotomy was a 5 millimeter punch. The cross-clamp was removed and all proximal and distal anastomoses were examined for hemostasis. The patient was weaned from cardiopulmonary bypass. Protamine was given. There was no adverse reaction. Decannulation was carried out without incident. Wound was checked for hemostasis which was obtained using electrocautery. A 36 Turkish mediastinal and 32 Turkish left pleural chest tubes were placed and secured to the skin with 0 silk suture. The sternum was closed with stainless steel wire. The fascia was closed with 1. PDS. The subcutaneous tissue was closed using a running 2-0 Vicryl suture. The skin was closed with 4- 0 Monocryl. Sterile dressings were placed. At the end of the operation, all sponge, instruments, and needle counts were correct. The patient was transferred to the CVICU in stable condition. Findings: good distal targets XC: 52 min CPB: 69 min Drains: mediastinal x 1 pleural x 1 Complications: none
[2018-03-31] MEDS ORDERED: fentaNYL Citrate Inj 250 MCG/5 ML Ampul ONE (12:06)
--- NOTE | 2018-03-31 12:21 | XR ---
EXAM DATE: 03/31/2018 12:16 PM EST AGE/SEX: 72 years / Male INDICATIONS: Post op bypass grafting procedure with intubation and central line placement. CLINICAL DATA: This is the patient's initial encounter. Patient reports that signs and symptoms have been present for 1 day and indicates a pain score of Nonresponsive. MEDICAL/SURGICAL HISTORY: Hypertension. Myocardial infarction. aortic regurgitation, C- diff . cardiac cauterization COMPARISON: [facility], CHEST 1V SINGLE AP, 03/22/2018. . FINDINGS: A single AP supine portable view of the chest was obtained and demonstrates patient is status post in terval median sternotomy for bypass grafting procedure. An endotracheal tube has been placed with the tip approximately 3 cm above the glenis. A right internal jugular central venous line has also been placed with no pneumothorax. There is a mediastinal chest tube and left-sided chest tube in place. Th e nasogastric tube has been placed and is seen coursing through the esophagus and into the stomach. T he heart size remains within normal limits. There are no confluent infiltrates or effusions. The bony thorax is otherwise intact. CONCLUSION: 1. Status post median sternotomy with expected postsurgical changes. 2. Placement of central venous line and endotracheal tube with no pneumothorax. Electronically signed by: Hill Hernandez MD 03/31/2018 12:20 PM EST
[2018-03-31] MEDS: ceFAZolin 1 GM Premix Inj 1 GM/50 ML PIGGYBACK IV.SIG SCH (16:23)
[2018-03-31] MEDS: Amiodarone 200 MG Tablet PO SCH ×2 (16:24→22:48)
[2018-03-31] MEDS: fentaNYL Citrate Inj 100 MCG/2 ML Ampul IV.PUSH PRN ×3 (16:25→22:47)
[2018-03-31] MEDS: Ascorbic Acid 500 MG Tablet PO SCH (20:14)
[2018-04-01] MEDS: ceFAZolin 1 GM Premix Inj 1 GM/50 ML PIGGYBACK IV.SIG SCH ×3 (00:08→17:50)
[2018-04-01] MEDS: fentaNYL Citrate Inj 100 MCG/2 ML Ampul IV.PUSH PRN ×6 (01:09→18:32)
[2018-04-01] MEDS: Metoprolol Inj 5 MG/5 ML Vial IV.PUSH PRN ×2 (03:13→05:45)
--- NOTE | 2018-04-01 04:56 | XR ---
EXAM DATE: 04/01/2018 4:38 AM EST AGE/SEX: 72 years / Male INDICATIONS: Shortness of breath, possible pneumothorax. CLINICAL DATA: This is the patient's subsequent encounter. Patient reports that signs and symptoms h ave been present for 2 days and indicates a pain score of 8/10. MEDICAL/SURGICAL HISTORY: Hypertension. Myocardial infarction. CABG. COMPARISON: [facility], CHEST 1V SINGLE AP, 03/31/2018. . FINDINGS: Single AP view the chest. Right IJ central venous catheter remains in place. Endotracheal tube and na sogastric tube no longer seen. Mild bilateral lower lobe atelectasis unchanged. No evidence of pneumo thorax or pleural effusion. Cardiomediastinal silhouette unchanged. CONCLUSION: Endotracheal tube and nasogastric tube no longer seen. Mild bilateral atelectasis unchanged. Electronically signed by: Zhen Ward MD 04/01/2018 4:55 AM EST
[2018-04-01 05:07] LABS: Hematocrit 26.8 % (39.0-51.0); Hemoglobin 9.1 gm/dL (13.0-17.0); Mean Corpuscular HGB Conc 34.1 % (32.0-36.0); Mean Corpuscular Volume 96.8 fL (80.0-100.0); Mean Platelet Volume 8.9 fL (7.0-11.0); Platelet Count 143 th/mm3 (150-450); Red Blood Count 2.76 mil/mm3 (4.50-5.90); Red Cell Distribution Width 15.8 % (11.6-17.2); White Blood Count 16.2 th/mm3 (4.0-11.0)
[2018-04-01 05:26] LABS: Calcium 8.4 mg/dL (8.5-10.1); Carbon Dioxide 20.7 meq/L (21.0-32.0); Potassium 5.3 meq/L (3.5-5.1)
[2018-04-01] MEDS: Amiodarone 200 MG Tablet PO SCH ×3 (05:46→23:06)
--- NOTE | 2018-04-01 07:57 | ECG ---
Date Performed: 04/01/2018 Time Performed: 05:12:20 PTAGE: 72 years EKG: Sinus rhythm with borderline 1st degree A-V block. Cannot rule out inferior CT Borderline ECG Compared to prior e lectrocardiogram, R wave progression has normalized. PREVIOUS TRACING : 03/22/2018 10.31 DOCTOR: Dany Alba Interpretating Date/Time 04/01/2018 07:55:19
[2018-04-01] MEDS: Senna/Docusate Sodium 8.6/50 MG Tablet PO SCH (08:34)
[2018-04-01] MEDS: Ferrous Sulfate 325 MG Tablet PO SCH (08:35)
[2018-04-01] MEDS: Ascorbic Acid 500 MG Tablet PO SCH ×2 (08:35→20:55)
[2018-04-01] MEDS ORDERED: Bisacodyl 10 MG Supp RECTAL PRN (08:44)
--- NOTE | 2018-04-01 08:48 | P.PNCV ---
- Note CVT: Post Op Day #: 1 Subjective/Hospital Course: No complaints, doing well Objective: Vital Signs - 24 hr 03/31/18 11:50 03/31/18 12:00 03/31/18 12:22 Temperature 97 F L Pulse Rate 76 71 Respiratory Rate 13 12 Blood Pressure 128/74 Pulse Oximetry 99 99 03/31/18 12:30 03/31/18 14:11 03/31/18 14:13 Temperature 94.6 F L 95.4 F L Pulse Rate Respiratory Rate 12 Blood Pressure Pulse Oximetry 03/31/18 14:30 03/31/18 15:00 03/31/18 15:05 Temperature 97.7 F Pulse Rate 80 Respiratory Rate 11 L 16 Blood Pressure 138/75 Pulse Oximetry 99 99 98 03/31/18 16:16 03/31/18 16:57 03/31/18 19:00 Temperature 98.0 F Pulse Rate 83 81 Respiratory Rate 18 15 16 Blood Pressure 115/63 Pulse Oximetry 96 03/31/18 21:13 03/31/18 23:00 04/01/18 03:00 Temperature 98.5 F 99.0 F Pulse Rate 96 H 101 H 101 H Respiratory Rate 18 16 16 Blood Pressure 123/70 138/77 Pulse Oximetry 95 93 L 94 L 04/01/18 04:49 Temperature Pulse Rate 97 H Respiratory Rate 18 Blood Pressure Pulse Oximetry Labs: Laboratory Results - last 12 hr 03/31/18 04/01/18 04/01/18 22:04 00:06 01:04 WBC RBC Hgb Hct MCV MCH MCHC RDW Plt Count MPV Sodium Potassium Chloride Carbon Dioxide Anion Gap BUN Creatinine Estimated GFR POC Glucose 141 H 121 H 103 Random Glucose Calcium Magnesium 04/01/18 04/01/18 04/01/18 03:17 04:16 04:40 WBC 16.2 H RBC 2.76 L Hgb 9.1 L Hct 26.8 L MCV 96.8 MCH 33.0 MCHC 34.1 RDW 15.8 Plt Count 143 L MPV 8.9 Sodium Potassium Chloride Carbon Dioxide Anion Gap BUN Creatinine Estimated GFR POC Glucose 115 H 104 Random Glucose Calcium Magnesium 04/01/18 04/01/18 04/01/18 04:40 06:30 07:37 WBC RBC Hgb Hct MCV MCH MCHC RDW Plt Count MPV Sodium 141 Potassium 5.3 H Chloride 109 H Carbon Dioxide 20.7 L Anion Gap 11 BUN 38 H Creatinine 1.85 H Estimated GFR 36 L POC Glucose 125 H 105 Random Glucose 102 Calcium 8.4 L Magnesium 3.0 H Result Diagrams: 04/01/18 04:40 04/01/18 04:40 Imaging: Chest X-Ray 04/01/18 05:00 CONCLUSION: Endotracheal tube and nasogastric tube no longer seen. Mild bilateral atelectasis unchanged. Cardiovascular: RRR Pulmonary: CTA GI/: NABS Incision: dry and intact CT: 250ml/12hrs Continue chest tubes Advance diet Ambulate x 6, up to chair Diurese Start BB. D/C planning
[2018-04-01] MEDS ORDERED: Metoprolol Tartrate 25 MG Tablet PO SCH (09:00)
[2018-04-01] MEDS: Multivitamin/Minerals Therapeutic Tablet PO SCH (10:01)
[2018-04-01] MEDS: Insulin NovoLOG Aspart Correctional Sugar Inj SQ SCH ×4 (11:51→23:11)
--- NOTE | 2018-04-01 12:45 | P.PNCA ---
Subjective Interval history: Patient is doing well today, transferred to [facility]. Currently sitting up in chair, denies any acute cardiac complaints. Chest tube in place, Lisa dressing clean dry and intact. Medications and Allergies Allergies Allergy/AdvReac Type Severity Reaction Status Date / Time broccoli Allergy Intermediate Itching Verified 03/31/18 06:12 Fish Containing Products Allergy Intermediate Hives Verified 03/31/18 06:12 Home Medications Medication Instructions Recorded Confirmed Type ascorbic acid (vitamin C) [Vitamin 500 mg PO BID 01/08/18 03/31/18 History C] carvedilol 3.125 mg PO BID 01/08/18 03/31/18 History magnesium 400 mg PO DAILY 01/08/18 03/31/18 History multivitamin 1 cap PO DAILY 01/08/18 03/31/18 History cetirizine [Zyrtec] 10 mg PO DAILY 01/16/18 03/31/18 History Lactobacillus rhamnosus GG 1 cap PO DAILY 03/22/18 03/31/18 History [Culturelle] atorvastatin 10 mg PO DAILY 03/22/18 03/31/18 History cholestyramine (with sugar) 4 g PO DAILY 03/22/18 03/31/18 History ferrous sulfate [Iron (ferrous 325 mg PO DAILY 03/22/18 03/31/18 History sulfate)] sennosides-docusate sodium [Senna 2 tab PO DAILY 03/22/18 03/31/18 History Plus] aspirin [Aspir-81] 81 mg PO DAILY 03/31/18 03/31/18 History Active Medications: Active Medications Hydrocodone Bitart/Acetaminophen (Jack 5/325) 1 tab PO Q4H PRN PRN Reason: PAIN SCALE 1 TO 10 Last Admin: 04/01/18 10:38 Dose: 1 tab Al Hydroxide/Mg Hydroxide (Milk Of Magnmario Liq) 30 ml PO DAILY MARY Last Admin: 04/01/18 10:00 Dose: Not Given Albuterol (Duoneb Neb (Prn)) 1 ampul NEB Q2HR NEB PRN PRN Reason: WHEEZING Albuterol (Duoneb Neb (Mary)) 1 ampul NEB Q6HR NEB MARY Last Admin: 04/01/18 11:41 Dose: 1 ampul Amiodarone HCl (Cordarone) 400 mg PO Q8HR MARY Last Admin: 04/01/18 05:46 Dose: 400 mg Ascorbic Acid (Vitamin C) 500 mg PO BID [facility] Last Admin: 04/01/18 08:35 Dose: 500 mg Aspirin (Aspirin Chew) 81 mg PO DAILY [facility] Last Admin: 04/01/18 08:33 Dose: 81 mg Atorvastatin Calcium (Lipitor) 10 mg PO DAILY [facility] Last Admin: 04/01/18 08:35 Dose: 10 mg Bisacodyl (Dulcolax Supp) 10 mg RECTAL PRN PRN PRN Reason: SEE LABEL COMMENTS Calcium Chloride (Calcium Chloride Inj) 0.5 gm IV.PUSH UNSCH PRN PRN Reason: SEE LABEL COMMENTS Carvedilol (Coreg) 3.125 mg PO BID [facility] Last Admin: 04/01/18 08:33 Dose: 3.125 mg Cetirizine HCl (Zyrtec) 10 mg PO DAILY [facility] Last Admin: 04/01/18 08:35 Dose: 10 mg Chlorhexidine Gluconate (Hibiclens 4% Topical) 0 applicatio TOPICAL WELDING SPECIALIST [facility] Stop: 04/06/18 06:05 Cholestyramine Resin (Questran 4 Gm Pkt) 4 gm PO DAILY@1100 [facility] Last Admin: 04/01/18 11:52 Dose: Not Given Sodium Chloride 77.5 ml/Papaverine HCl 60 mg/Nitroglycerin 100 mcg/Diltiazem HCl 100 mg 0 ml IRRIGATION WELDING SPECIALIST [facility] Stop: 04/06/18 06:05 Sodium Chloride 500 ml/ (Cefazolin Sodium 500 mg) 0 ml IRRIGATION WELDING SPECIALIST [facility] Stop: 04/06/18 06:06 Dextrose (D50w Vial) 50 ml IV.PUSH UNSCH PRN PRN Reason: PER HYPOGLYCEMIA PROTOCOL Docusate Sodium (Colace) 100 mg PO BID [facility] Epinephrine (Racepinephrine 2.25% Neb) 0.5 ml NEB UNSCH X1 PRN PRN Reason: STRIDOR Fentanyl Citrate (Fentanyl Inj) 25 mcg IV.PUSH Q1H PRN PRN Reason: BREAKTHROUGH PAIN Last Admin: 04/01/18 08:27 Dose: 25 mcg Ferrous Sulfate (Ferosul) 325 mg PO DAILY [facility] Last Admin: 04/01/18 08:35 Dose: 325 mg Furosemide (Lasix Inj) 40 mg IV.PUSH DAILY [facility] Last Admin: 04/01/18 10:00 Dose: 40 mg Glucagon (Glucagon Inj) 1 mg OTHER PRN PRN PRN Reason: For hypoglycemia Hydralazine HCl (Apresoline Inj) 10 mg IV.PUSH Q4H PRN PRN Reason: SEE LABEL COMMENTS Last Admin: 04/01/18 08:37 Dose: 10 mg Sodium Chloride (Ns Inj) 500 mls @ 30 mls/hr IV.SIG .Q10H MARY Cefazolin Sodium 2,000 mg/ (Sodium Chloride) 100 mls @ 200 mls/hr IV.SIG WELDING SPECIALIST [facility] Stop: 04/06/18 06:06 Albumin Human (Buminate 5% Inj) 250 mls @ 250 mls/hr IV.SIG UNSCH PRN PRN Reason: SEE LABEL COMMENTS Calcium Chloride 1 gm/ Sodium (Chloride) 110 mls @ 100 mls/hr IV.SIG PRN PRN PRN Reason: SEE LABEL COMMENTS Clevidipine (Cleviprex Inj) 25 mg in 50 mls @ 2 mls/hr IV.CONT TITRATE PRN; Protocol PRN Reason: Per protocol Last Titration: 04/01/18 05:30 Dose: 0 mg/hr, 0 mls/hr Lactated Ringer's (Lr 1000 Ml Inj) 500 mls @ 500 mls/hr IV.SIG .Q1H PRN PRN Reason: SEE LABEL COMMENTS Magnesium Sulfate 2 gm/ Sodium (Chloride) 100 mls @ 50 mls/hr IV.SIG PRN PRN PRN Reason: SEE LABEL COMMENTS Magnesium Sulfate 2 gm/ Sodium (Chloride) 100 mls @ 50 mls/hr IV.SIG PRN PRN PRN Reason: SEE LABEL COMMENTS Potassium Chloride (Kcl 20 Meq Premix Inj) 20 meq in 100 mls @ 50 mls/hr IV.SIG PRN PRN PRN Reason: SEE LABEL COMMENTS Potassium Chloride (Kcl 20 Meq Premix Inj) 20 meq in 100 mls @ 50 mls/hr IV.SIG PRN PRN PRN Reason: SEE LABEL COMMENTS Potassium Chloride (Kcl 20 Meq Premix Inj) 20 meq in 100 mls @ 50 mls/hr IV.SIG PRN PRN PRN Reason: SEE LABEL COMMENTS Dexmedetomidine HCl 200 mcg/ (Sodium Chloride) 52 mls @ 3.68 mls/hr IV.CONT TITRATE PRN; Protocol PRN Reason: Per Protocol Last Titration: 03/31/18 18:56 Dose: 0 mcg/kg/hr, 0 mls/hr Cefazolin Sodium/Dextrose (Ancef 1 Gm Premix Inj) 1 gm in 50 mls @ 100 mls/hr IV.SIG Q8H [facility] Stop: 04/02/18 00:29 Last Admin: 04/01/18 08:35 Dose: 100 mls/hr Insulin Aspart (Novolog Insulin Correctional Sugar Inj) 0 unit SQ 02,06,10,14, 18,22 [facility]; Protocol Last Admin: 04/01/18 11:51 Dose: 3 unit Metoprolol Tartrate (Lopressor) 12.5 mg PO WELDING SPECIALIST [facility] Stop: 04/06/18 06:06 Metoprolol Tartrate (Lopressor Inj) 2.5 mg IV.PUSH Q1H PRN PRN Reason: SEE LABEL COMMENTS Last Admin: 04/01/18 05:45 Dose: 2.5 mg Metoprolol Tartrate (Lopressor) 12.5 mg PO BID [facility] Multivitamins/Minerals (Theragran-M) 1 tab PO DAILY [facility] Last Admin: 04/01/18 10:01 Dose: 1 tab Ondansetron HCl (Zofran Inj) 4 mg IV.PUSH Q6H PRN PRN Reason: NAUSEA OR VOMITING Pantoprazole Sodium (Protonix) 40 mg PO DAILY@06 [facility] Last Admin: 04/01/18 05:46 Dose: 40 mg Phenylephrine HCl (Neosynephrine Inj) 0.1 mg IV.PUSH UNSCH PRN PRN Reason: SEE LABEL COMMENTS Polyethylene Glycol (Miralax) 17 gm PO DAILY [facility] Potassium Chloride (K-Dur) 20 meq PO UNSCH PRN PRN Reason: SEE LABEL COMMENTS Potassium Chloride (K-Dur) 40 meq PO UNSCH PRN PRN Reason: SEE LABEL COMMENTS Senna/Docusate Sodium (Leila-Colace) 2 tab PO DAILY [facility] Last Admin: 04/01/18 08:34 Dose: 2 tab Sodium Bicarbonate (Sodium Bicarbonate 8.4% Inj) 50 meq IV.PUSH UNSCH PRN PRN Reason: SEE LABEL COMMENTS Sodium Bicarbonate (Sodium Bicarbonate 8.4% Inj) 100 meq IV.PUSH UNSCH PRN PRN Reason: SEE LABEL COMMENTS Sodium Chloride (Ns Flush) 2 ml IV.FLUSH BID [facility] Last Admin: 04/01/18 08:37 Dose: 2 ml Sodium Chloride (Ns Flush) 2 ml IV.FLUSH PRN PRN PRN Reason: FLUSH AFTER USING IV ACCESS Physical Exam Vital signs: Vital Signs 03/31/18 14:11 03/31/18 14:13 03/31/18 14:30 Temperature 95.4 F L Pulse Rate Respiratory Rate 12 11 L Blood Pressure Pulse Oximetry 99 03/31/18 15:00 03/31/18 15:05 03/31/18 16:16 Temperature 97.7 F Pulse Rate 80 83 Respiratory Rate 16 18 Blood Pressure 138/75 Pulse Oximetry 99 98 03/31/18 16:57 03/31/18 19:00 03/31/18 21:13 Temperature 98.0 F Pulse Rate 81 96 H Respiratory Rate 15 16 18 Blood Pressure 115/63 Pulse Oximetry 96 95 03/31/18 23:00 04/01/18 03:00 04/01/18 04:49 Temperature 98.5 F 99.0 F Pulse Rate 101 H 101 H 97 H Respiratory Rate 16 16 18 Blood Pressure 123/70 138/77 Pulse Oximetry 93 L 94 L 04/01/18 07:00 04/01/18 09:31 04/01/18 11:00 Temperature 98.8 F Pulse Rate 78 82 Respiratory Rate 16 16 Blood Pressure 156/72 H 136/76 Pulse Oximetry 96 04/01/18 11:25 04/01/18 11:52 04/01/18 12:00 Temperature 98.8 F Pulse Rate 100 H 74 Respiratory Rate 20 16 16 Blood Pressure 136/76 Pulse Oximetry 95 96 Intake & Output 03/31/18 04/01/18 04/01/18 18:59 06:59 18:59 Intake Total 3921 / 3921 740 / 740 Output Total 2600 / 2600 920 / 920 Balance 1321 / 1321 -180 / -180 Weight 74 kg Intake: IV 241 / 241 260 / 260 Cleviprex Inj 25 mg In 50 ml @ 30 / 30 1 MG/HR 2 mls/hr IV.CONT TITRATE PRN Rx#:[id number] Precedex Inj 200 MCG In NS Inj 10 / 10 50 ML @ 0.2 MCG/KG/HR 3.68 mls/ hr IV.CONT TITRATE PRN Rx#: [id number] NovoLIN R (IV Infusion) 100 51 / 51 10 / 10 UNIT In NS Inj 99 ML @ 3 UNITS/ HR 3 mls/hr IV.CONT TITRATE PRN Rx#:[id number] Ofirmev Inj 1,000 mg In 100 ml 100 / 100 200 / 200 @ 400 mls/hr IV.SIG Q6H MARY Rx# :[id number] Ancef 1 GM Premix Inj 1 gm In 50 / 50 50 / 50 50 ml @ 100 mls/hr IV.SIG Q8H MARY Rx#:[id number] Oral 80 / 80 480 / 480 Anesthesia Amount 3600 / 3600 Output: Estimated Blood Loss 1300 / 1300 Urine Amount (Catheter) 1050 / 1050 670 / 670 Indwelling Temp Sensing 1050 / 1050 670 / 670 Catheter Chest Tube Drainage 250 / 250 250 / 250 #1Y and #2Y Pleural/Mediastinal 250 / 250 250 / 250 - Constitutional no acute distress - Routine HEENT Exam Head: Present: normocephalic, atraumatic Eye: Present: EOMI, PERRL, normal accommodation ENT: Present: mucous membranes moist - Routine Neck Exam Present: supple - Routine Respiratory Exam Present: diminished air movement Comments: chest tube in place - Routine Cardiovascular Exam Present: RRR Comments: NSR HR 80 - Routine Abdominal Exam Present: soft - Routine Extremities Exam Comments: Bilateral kishan bandages in place - Routine Skin Exam Present: wounds - Routine Neurological Exam Present: alert, oriented X3 - Detailed Neurological Exam: Coma Scale Eye Opening: Spontaneous Verbal Response: Oriented Motor Response: Obey commands [place] Coma Scale Total: 15 - Routine Psychiatric Exam Present: normal affect - Urinary Catheter Management Indwelling Temp Sensing Catheter Cath placed during this visit: yes, but has since been removed by the nurse Reason for continuing: Decision to DC catheter Insertion date: 03/31/18 Insertion time: 07:48 Removal date: 04/01/18 Removal time: 06:00 Results 04/02/18 04:50 04/02/18 04:50 CBC 04/01/18 Range/Units 04:40 WBC 16.2 H (4.0-11.0) th/mm3 RBC 2.76 L (4.50-5.90) mil/mm3 Hgb 9.1 L (13.0-17.0) gm/dL Hct 26.8 L (39.0-51.0) % Plt Count 143 L (150-450) th/mm3 Comprehensive Metabolic Panel 04/01/18 Range/Units 04:40 Sodium 141 (136-145) meq/L Potassium 5.3 H (3.5-5.1) meq/L Chloride 109 H (98-107) meq/L Carbon Dioxide 20.7 L (21.0-32.0) meq/L BUN 38 H (7-18) mg/dL Creatinine 1.85 H (0.60-1.30) mg/dL Calcium 8.4 L (8.5-10.1) mg/dL Intake and Output 03/31/18 04/01/18 04/01/18 22:59 06:59 14:59 Intake Total 306 / 306 640 / 640 Output Total 900 / 900 920 / 920 Balance -594 / -594 -280 / -280 Intake: IV 226 / 226 160 / 160 Cleviprex Inj 25 mg In 50 ml @ 30 / 30 1 MG/HR 2 mls/hr IV.CONT TITRATE PRN Rx#:[id number] Precedex Inj 200 MCG In NS Inj 10 / 10 50 ML @ 0.2 MCG/KG/HR 3.68 mls/ hr IV.CONT TITRATE PRN Rx#: [id number] NovoLIN R (IV Infusion) 100 36 / 36 10 / 10 UNIT In NS Inj 99 ML @ 3 UNITS/ HR 3 mls/hr IV.CONT TITRATE PRN Rx#:[id number] Ofirmev Inj 1,000 mg In 100 ml 100 / 100 100 / 100 @ 400 mls/hr IV.SIG Q6H MARY Rx# :[id number] Ancef 1 GM Premix Inj 1 gm In 50 / 50 50 / 50 50 ml @ 100 mls/hr IV.SIG Q8H MARY Rx#:[id number] Oral 80 / 80 480 / 480 Output: Urine Amount (Catheter) 650 / 650 670 / 670 Indwelling Temp Sensing 650 / 650 670 / 670 Catheter Chest Tube Drainage 250 / 250 250 / 250 #1Y and #2Y Pleural/Mediastinal 250 / 250 250 / 250 Other: Weight 74 kg - Imaging and Cardiology Imaging: Impressions Chest X-Ray 03/31/18 11:11 CONCLUSION: 1. Status post median sternotomy with expected postsurgical changes. 2. Placement of central venous line and endotracheal tube with no pneumothorax. Chest X-Ray 04/01/18 05:00 CONCLUSION: Endotracheal tube and nasogastric tube no longer seen. Mild bilateral atelectasis unchanged. Assessment and Plan - Plan Assessment ASHD-status post CABG x [address] Iyer Plan -Status post CABG x3, recovering well. CV following. -On ASA, BB and statin. The patient was seen and evaluated by Dr. Mcconnell who participated in care, management and decision making. The exam, history, and the medical decision-making described in the above note were completed with the assistance of the mid-level provider. I reviewed and agree with the findings presented. I attest that I had a [id number] encounter with the patient on the same day, and personally performed and documented my assessment and findings in the medical record. Overall doing better post op Code Status: Full Code Discussed Condition With: Dr. Mcconnell, RN
[2018-04-01] MEDS: Docusate Sodium 100 MG Capsule PO SCH (20:54)
[2018-04-02] MEDS: Insulin NovoLOG Aspart Correctional Sugar Inj SQ SCH ×6 (03:50→23:37)
[2018-04-02] MEDS: ceFAZolin 1 GM Premix Inj 1 GM/50 ML PIGGYBACK IV.SIG SCH (03:51)
[2018-04-02 05:04] LABS: Baso % (Auto) 0.1 % (0.0-2.0); Hematocrit 22.7 % (39.0-51.0); Hemoglobin 7.5 gm/dL (13.0-17.0); Lymph # (Auto) 2.2 th/mm3 (1.0-4.8); Mean Corpuscular HGB Conc 33.2 % (32.0-36.0); Mean Corpuscular Volume 99.2 fL (80.0-100.0); Mean Platelet Volume 8.5 fL (7.0-11.0); Mono # (Auto) 1.1 th/mm3 (0.0-0.9); Mono % (Auto) 9.4 % (0.0-8.0); Neut # (Auto) 8.7 th/mm3 (1.8-7.7); Neut % (Auto) 72.5 % (16.0-70.0); Platelet Count 123 th/mm3 (150-450); Red Blood Count 2.29 mil/mm3 (4.50-5.90); Red Cell Distribution Width 16.3 % (11.6-17.2)
[2018-04-02] MEDS: Amiodarone 200 MG Tablet PO SCH ×3 (05:23→21:18)
[2018-04-02 05:30] LABS: Calcium 8.2 mg/dL (8.5-10.1); Carbon Dioxide 23.1 meq/L (21.0-32.0); Magnesium 2.7 mg/dL (1.5-2.5); Potassium 4.5 meq/L (3.5-5.1)
[2018-04-02] MEDS: Ferrous Sulfate 325 MG Tablet PO SCH (08:42)
[2018-04-02] MEDS: Polyethylene Glycol 3350 17 GM Packet PO SCH (08:42)
[2018-04-02] MEDS: Senna/Docusate Sodium 8.6/50 MG Tablet PO SCH (08:42)
[2018-04-02] MEDS: Multivitamin/Minerals Therapeutic Tablet PO SCH (08:42)
[2018-04-02] MEDS: Docusate Sodium 100 MG Capsule PO SCH ×2 (08:43→21:17)
[2018-04-02] MEDS: Ascorbic Acid 500 MG Tablet PO SCH ×2 (08:43→21:17)
--- NOTE | 2018-04-02 12:37 | P.PNCV ---
- Note CVT: Post Op Day #: 2 Subjective/Hospital Course: No complaints, doing well 04/02/18 No complaints, doing well Objective: Vital Signs - 24 hr 04/01/18 15:00 04/01/18 15:37 04/01/18 16:00 Temperature 98.6 F Pulse Rate 72 72 79 Respiratory Rate 18 18 Blood Pressure 124/72 Pulse Oximetry 96 04/01/18 17:00 04/01/18 18:00 04/01/18 19:00 Temperature 98.9 F Pulse Rate 75 75 76 Respiratory Rate 16 Blood Pressure 179/81 H Pulse Oximetry 97 04/01/18 20:00 04/01/18 20:28 04/01/18 20:29 Temperature Pulse Rate 74 102 H Respiratory Rate 15 Blood Pressure Pulse Oximetry 98 04/01/18 21:00 04/01/18 22:00 04/01/18 23:00 Temperature 98.9 F Pulse Rate 78 74 88 Respiratory Rate 16 Blood Pressure 137/64 Pulse Oximetry 98 04/02/18 00:00 04/02/18 01:00 04/02/18 02:00 Temperature Pulse Rate 74 82 74 Respiratory Rate Blood Pressure Pulse Oximetry 04/02/18 03:00 04/02/18 04:00 04/02/18 05:00 Temperature 99 F Pulse Rate 73 70 72 Respiratory Rate 16 Blood Pressure 153/68 H Pulse Oximetry 100 04/02/18 06:00 04/02/18 07:00 04/02/18 10:10 Temperature 99.1 F Pulse Rate 72 86 Respiratory Rate 18 Blood Pressure 139/87 Pulse Oximetry 98 94 L Labs: Laboratory Results - last 12 hr 04/02/18 04/02/18 04/02/18 01:58 04:50 04:50 WBC 12.0 H RBC 2.29 L Hgb 7.5 L Hct 22.7 L MCV 99.2 MCH 33.0 MCHC 33.2 RDW 16.3 Plt Count 123 L MPV 8.5 Neut % (Auto) 72.5 H Lymph % (Auto) 18.0 Creek % (Auto) 9.4 H Eos % (Auto) 0.0 Baso % (Auto) 0.1 Neut # (Auto) 8.7 H Lymph # (Auto) 2.2 Creek # (Auto) 1.1 H Eos # (Auto) 0.0 Baso # (Auto) 0.0 WBC Differential . Differential Comment Auto diff final Sodium 137 Potassium 4.5 D Chloride 105 Carbon Dioxide 23.1 Anion Gap 9 BUN 45 H Creatinine 2.33 H Estimated GFR 28 L POC Glucose 115 H Random Glucose 109 H Calcium 8.2 L Magnesium 2.7 H 04/02/18 04/02/18 05:27 08:41 WBC RBC Hgb Hct MCV MCH MCHC RDW Plt Count MPV Neut % (Auto) Lymph % (Auto) Creek % (Auto) Eos % (Auto) Baso % (Auto) Neut # (Auto) Lymph # (Auto) Creek # (Auto) Eos # (Auto) Baso # (Auto) WBC Differential Differential Comment Sodium Potassium Chloride Carbon Dioxide Anion Gap BUN Creatinine Estimated GFR POC Glucose 113 H 170 H Random Glucose Calcium Magnesium Result Diagrams: 04/02/18 04:50 04/02/18 04:50 Imaging: Chest X-Ray 04/01/18 05:00 CONCLUSION: Endotracheal tube and nasogastric tube no longer seen. Mild bilateral atelectasis unchanged. Cardiovascular: RRR Pulmonary: CTA GI/: NABS Incision: Dry and intact Remove chest tubes Increase Coreg dose Diurese Encourage ambulation, stim BM Possible D/C in AM
--- NOTE | 2018-04-02 14:55 | P.PNCA ---
Subjective Interval history: Patient resting in bed. Denies any acute complaints. at bedside. Pt ambulated with PT today. Chest tubes removed. Medications and Allergies Active Medications: Active Medications Hydrocodone Bitart/Acetaminophen ([place] 5/325) 1 tab PO Q4H PRN PRN Reason: PAIN SCALE 1 TO 10 Last Admin: 04/02/18 14:04 Dose: 1 tab Al Hydroxide/Mg Hydroxide (Milk Of Giuseppe Liq) 30 ml PO DAILY [facility] [place] Last Admin: 04/02/18 08:43 Dose: 30 ml Albuterol (Duoneb Neb (Prn)) 1 ampul NEB Q2HR NEB PRN PRN Reason: WHEEZING Albuterol (Duoneb Neb (Mary)) 1 ampul NEB Q6HR NEB [facility] [place] Last Admin: 04/02/18 10:08 Dose: Not Given Amiodarone HCl (Cordarone) 400 mg PO Q8HR [facility] Last Admin: 04/02/18 14:04 Dose: 400 mg Ascorbic Acid (Vitamin C) 500 mg PO BID [facility] Last Admin: 04/02/18 08:43 Dose: 500 mg Aspirin (Aspirin Chew) 81 mg PO DAILY [facility] [place] Last Admin: 04/02/18 08:43 Dose: 81 mg Atorvastatin Calcium (Lipitor) 10 mg PO DAILY [facility] [place] Last Admin: 04/02/18 08:42 Dose: 10 mg Bisacodyl (Dulcolax Supp) 10 mg RECTAL PRN PRN PRN Reason: SEE LABEL COMMENTS Calcium Chloride (Calcium Chloride Inj) 0.5 gm IV.PUSH UNSCH PRN PRN Reason: SEE LABEL COMMENTS Carvedilol (Coreg) 6.25 mg PO BID [facility] Cetirizine HCl (Zyrtec) 10 mg PO DAILY [facility] [place] Last Admin: 04/02/18 08:42 Dose: 10 mg Chlorhexidine Gluconate (Hibiclens 4% Topical) 0 applicatio TOPICAL COVERSTITCH BINDER [facility] Stop: 04/06/18 06:05 Cholestyramine Resin (Questran 4 Gm Pkt) 4 gm PO DAILY@1100 [facility] [place] Last Admin: 04/02/18 11:20 Dose: 4 gm Sodium Chloride 77.5 ml/Papaverine HCl 60 mg/Nitroglycerin 100 mcg/Diltiazem HCl 100 mg 0 ml IRRIGATION COVERSTITCH BINDER [facility] Stop: 04/06/18 06:05 Sodium Chloride 500 ml/ (Cefazolin Sodium 500 mg) 0 ml IRRIGATION COVERSTITCH BINDER [facility] Stop: 04/06/18 06:06 Dextrose (D50w Vial) 50 ml IV.PUSH UNSCH PRN PRN Reason: PER HYPOGLYCEMIA PROTOCOL Docusate Sodium (Colace) 100 mg PO BID [facility] [place] Last Admin: 04/02/18 08:43 Dose: 100 mg Epinephrine (Racepinephrine 2.25% Neb) 0.5 ml NEB UNSCH X1 PRN PRN Reason: STRIDOR Fentanyl Citrate (Fentanyl Inj) 25 mcg IV.PUSH Q1H PRN PRN Reason: BREAKTHROUGH PAIN Last Admin: 04/01/18 18:32 Dose: 25 mcg Ferrous Sulfate (Ferosul) 325 mg PO DAILY [facility] [place] Last Admin: 04/02/18 08:42 Dose: 325 mg Furosemide (Lasix Inj) 40 mg IV.PUSH DAILY [facility] [place] Last Admin: 04/02/18 08:43 Dose: 40 mg Glucagon (Glucagon Inj) 1 mg OTHER PRN PRN PRN Reason: For hypoglycemia Hydralazine HCl (Apresoline Inj) 10 mg IV.PUSH Q4H PRN PRN Reason: SEE LABEL COMMENTS Last Admin: 04/01/18 08:37 Dose: 10 mg Sodium Chloride (Ns Inj) 500 mls @ 30 mls/hr IV.SIG .Q10H [facility] Cefazolin Sodium 2,000 mg/ (Sodium Chloride) 100 mls @ 200 mls/hr IV.SIG COVERSTITCH BINDER [facility] [place] Stop: 04/06/18 06:06 Albumin Human (Buminate 5% Inj) 250 mls @ 250 mls/hr IV.SIG UNSCH PRN PRN Reason: SEE LABEL COMMENTS Calcium Chloride 1 gm/ Sodium (Chloride) 110 mls @ 100 mls/hr IV.SIG PRN PRN PRN Reason: SEE LABEL COMMENTS Clevidipine (Cleviprex Inj) 25 mg in 50 mls @ 2 mls/hr IV.CONT TITRATE PRN; Protocol PRN Reason: Per protocol Last Titration: 04/01/18 05:30 Dose: 0 mg/hr, 0 mls/hr Lactated Ringer's (Lr 1000 Ml Inj) 500 mls @ 500 mls/hr IV.SIG .Q1H PRN PRN Reason: SEE LABEL COMMENTS Magnesium Sulfate 2 gm/ Sodium (Chloride) 100 mls @ 50 mls/hr IV.SIG PRN PRN PRN Reason: SEE LABEL COMMENTS Magnesium Sulfate 2 gm/ Sodium (Chloride) 100 mls @ 50 mls/hr IV.SIG PRN PRN PRN Reason: SEE LABEL COMMENTS Potassium Chloride (Kcl 20 Meq Premix Inj) 20 meq in 100 mls @ 50 mls/hr IV.SIG PRN PRN PRN Reason: SEE LABEL COMMENTS Potassium Chloride (Kcl 20 Meq Premix Inj) 20 meq in 100 mls @ 50 mls/hr IV.SIG PRN PRN PRN Reason: SEE LABEL COMMENTS Potassium Chloride (Kcl 20 Meq Premix Inj) 20 meq in 100 mls @ 50 mls/hr IV.SIG PRN PRN PRN Reason: SEE LABEL COMMENTS Dexmedetomidine HCl 200 mcg/ (Sodium Chloride) 52 mls @ 3.68 mls/hr IV.CONT TITRATE PRN; Protocol PRN Reason: Per Protocol Last Titration: 03/31/18 18:56 Dose: 0 mcg/kg/hr, 0 mls/hr Insulin Aspart (Novolog Insulin Correctional Sugar Inj) 0 unit SQ ACHS CORRECT SUGARS MARY; Protocol Metoprolol Tartrate (Lopressor) 12.5 mg PO COVERSTITCH BINDER [facility] [place] Stop: 04/06/18 06:06 Metoprolol Tartrate (Lopressor Inj) 2.5 mg IV.PUSH Q1H PRN PRN Reason: SEE LABEL COMMENTS Last Admin: 04/01/18 05:45 Dose: 2.5 mg Multivitamins/Minerals (Theragran-M) 1 tab PO DAILY [facility] Last Admin: 04/02/18 08:42 Dose: 1 tab Ondansetron HCl (Zofran Inj) 4 mg IV.PUSH Q6H PRN PRN Reason: NAUSEA OR VOMITING Pantoprazole Sodium (Protonix) 40 mg PO DAILY@06 [facility] [place] Last Admin: 04/02/18 05:23 Dose: 40 mg Phenylephrine HCl (Neosynephrine Inj) 0.1 mg IV.PUSH UNSCH PRN PRN Reason: SEE LABEL COMMENTS Polyethylene Glycol (Miralax) 17 gm PO DAILY [facility] [place] Last Admin: 04/02/18 08:42 Dose: 17 gm Potassium Chloride (K-Dur) 20 meq PO UNSCH PRN PRN Reason: SEE LABEL COMMENTS Potassium Chloride (K-Dur) 40 meq PO UNSCH PRN PRN Reason: SEE LABEL COMMENTS Senna/Docusate Sodium (Leila-Colace) 2 tab PO DAILY [facility] [place] Last Admin: 04/02/18 08:42 Dose: 2 tab Sodium Bicarbonate (Sodium Bicarbonate 8.4% Inj) 50 meq IV.PUSH UNSCH PRN PRN Reason: SEE LABEL COMMENTS Sodium Bicarbonate (Sodium Bicarbonate 8.4% Inj) 100 meq IV.PUSH UNSCH PRN PRN Reason: SEE LABEL COMMENTS Sodium Chloride (Ns Flush) 2 ml IV.FLUSH BID [facility] [place] Last Admin: 04/02/18 08:44 Dose: 2 ml Sodium Chloride (Ns Flush) 2 ml IV.FLUSH PRN PRN PRN Reason: FLUSH AFTER USING IV ACCESS Allergies Allergy/AdvReac Type Severity Reaction Status Date / Time broccoli Allergy Intermediate Itching Verified 03/31/18 06:12 Fish Containing Products Allergy Intermediate Hives Verified 03/31/18 06:12 Home Medications Medication Instructions Recorded Confirmed Type ascorbic acid (vitamin C) [Vitamin 500 mg PO BID 01/08/18 03/31/18 History C] carvedilol 3.125 mg PO BID 01/08/18 03/31/18 History magnesium 400 mg PO DAILY 01/08/18 03/31/18 History multivitamin 1 cap PO DAILY 01/08/18 03/31/18 History cetirizine [Zyrtec] 10 mg PO DAILY 01/16/18 03/31/18 History Lactobacillus rhamnosus GG 1 cap PO DAILY 03/22/18 03/31/18 History [Culturelle] atorvastatin 10 mg PO DAILY 03/22/18 03/31/18 History cholestyramine (with sugar) 4 g PO DAILY 03/22/18 03/31/18 History ferrous sulfate [Iron (ferrous 325 mg PO DAILY 03/22/18 03/31/18 History sulfate)] sennosides-docusate sodium [Senna 2 tab PO DAILY 03/22/18 03/31/18 History Plus] aspirin [Aspir-81] 81 mg PO DAILY 03/31/18 03/31/18 History Physical Exam Vital signs: Vital Signs 04/01/18 15:00 04/01/18 15:37 04/01/18 16:00 Temperature 98.6 F Pulse Rate 72 72 79 Respiratory Rate 18 18 Blood Pressure 124/72 Pulse Oximetry 96 04/01/18 17:00 04/01/18 18:00 04/01/18 19:00 Temperature 98.9 F Pulse Rate 75 75 76 Respiratory Rate 16 Blood Pressure 179/81 H Pulse Oximetry 97 04/01/18 20:00 04/01/18 20:28 04/01/18 20:29 Temperature Pulse Rate 74 102 H Respiratory Rate 15 Blood Pressure Pulse Oximetry 98 04/01/18 21:00 04/01/18 22:00 04/01/18 23:00 Temperature 98.9 F Pulse Rate 78 74 88 Respiratory Rate 16 Blood Pressure 137/64 Pulse Oximetry 98 04/02/18 00:00 04/02/18 01:00 04/02/18 02:00 Temperature Pulse Rate 74 82 74 Respiratory Rate Blood Pressure Pulse Oximetry 04/02/18 03:00 04/02/18 04:00 04/02/18 05:00 Temperature 99 F Pulse Rate 73 70 72 Respiratory Rate 16 Blood Pressure 153/68 H Pulse Oximetry 100 04/02/18 06:00 04/02/18 07:00 04/02/18 10:10 Temperature 99.1 F Pulse Rate 72 86 Respiratory Rate 18 Blood Pressure 139/87 Pulse Oximetry 98 94 L 04/02/18 11:00 Temperature 98.7 F Pulse Rate 89 Respiratory Rate 18 Blood Pressure 147/67 H Pulse Oximetry 93 L Intake & Output 04/01/18 04/02/18 04/02/18 18:59 06:59 18:59 Intake Total 1075 / 1075 240 / 240 Output Total 800 / 800 500 / 500 Balance 275 / 275 -260 / -260 Weight 74.2 kg Intake: IV 50 / 50 Ancef 1 GM Premix Inj 1 gm In 50 / 50 50 ml @ 100 mls/hr IV.SIG Q8H [facility] Rx#:[id number] Oral 1025 / 1025 240 / 240 Output: Urine 800 / 800 430 / 430 Chest Tube Drainage 70 / 70 #1Y and #2Y Pleural/Mediastinal 70 / 70 Other: # Bowel Movements 0 - Constitutional no acute distress, cooperative - Routine HEENT Exam Head: Present: normocephalic, atraumatic Eye: Present: EOMI, PERRL, normal accommodation ENT: Present: mucous membranes moist - Routine Neck Exam Present: supple - Routine Respiratory Exam Present: diminished air movement - Routine Cardiovascular Exam Present: RRR - Routine Abdominal Exam Present: soft - Routine Skin Exam Present: intact Comments: prevena CDI - Routine Neurological Exam Present: alert, oriented X3 - Detailed Neurological Exam: Coma Scale Eye Opening: Spontaneous Verbal Response: Oriented Motor Response: Obey commands Britt Coma Scale Total: 15 - Routine Psychiatric Exam Present: normal affect - Urinary Catheter Management Indwelling Temp Sensing Catheter Cath placed during this visit: yes, but has since been removed by the nurse Reason for continuing: Decision to DC catheter Insertion date: 03/31/18 Insertion time: 07:48 Removal date: 04/01/18 Removal time: 06:00 Results 04/02/18 04:50 04/02/18 04:50 CBC 04/01/18 04/02/18 Range/Units 04:40 04:50 WBC 16.2 H 12.0 H (4.0-11.0) th/mm3 RBC 2.76 L 2.29 L (4.50-5.90) mil/mm3 Hgb 9.1 L 7.5 L (13.0-17.0) gm/dL Hct 26.8 L 22.7 L (39.0-51.0) % Plt Count 143 L 123 L (150-450) th/mm3 Neut # (Auto) 8.7 H (1.8-7.7) th/mm3 Lymph # (Auto) 2.2 (1.0-4.8) th/mm3 [place] # (Auto) 1.1 H (0.0-0.9) th/mm3 Eos # (Auto) 0.0 (0.0-0.4) th/mm3 Baso # (Auto) 0.0 (0.0-0.2) th/mm3 Comprehensive Metabolic Panel 04/01/18 04/02/18 Range/Units 04:40 04:50 Sodium 141 137 (136-145) meq/L Potassium 5.3 H 4.5 D (3.5-5.1) meq/L Chloride 109 H 105 (98-107) meq/L Carbon Dioxide 20.7 L 23.1 (21.0-32.0) meq/L BUN 38 H 45 H (7-18) mg/dL Creatinine 1.85 H 2.33 H (0.60-1.30) mg/dL Calcium 8.4 L 8.2 L (8.5-10.1) mg/dL Intake and Output 04/01/18 04/02/18 04/02/18 22:59 06:59 14:59 Intake Total 1075 / 1075 240 / 240 Output Total 800 / 800 500 / 500 Balance 275 / 275 -260 / -260 Intake: IV 50 / 50 Ancef 1 GM Premix Inj 1 gm In 50 / 50 50 ml @ 100 mls/hr IV.SIG Q8H [facility] Rx#:[id number] Oral 1025 / 1025 240 / 240 Output: Urine 800 / 800 430 / 430 Chest Tube Drainage 70 / 70 #1Y and #2Y Pleural/Mediastinal 70 / 70 Other: # Bowel Movements 0 Weight 74.2 kg - Imaging and Cardiology Imaging: Impressions Chest X-Ray 04/01/18 05:00 CONCLUSION: Endotracheal tube and nasogastric tube no longer seen. Mild bilateral atelectasis unchanged. Assessment and Plan - Plan Assessment ASHD-status post CABG x [address] Iyer Plan -Status post CABG x3, recovering well. CV following. Chest tubes removed. Pt ambulating with PT. -On ASA, BB and statin. -Creatinine trending up, repeat labs ordered for AM. The patient was seen and evaluated by Dr. Mcconnell who participated in care, management and decision making. Code Status: Full Code Discussed Condition With: Dr. Mcconnell,
[2018-04-02] MEDS: fentaNYL Citrate Inj 100 MCG/2 ML Ampul IV.PUSH PRN (21:24)
[2018-04-03] MEDS: fentaNYL Citrate Inj 100 MCG/2 ML Ampul IV.PUSH PRN ×6 (03:25→22:15)
[2018-04-03 06:07] LABS: Mean Corpuscular HGB Conc 33.8 % (32.0-36.0); Mean Corpuscular Hemoglobin 33.4 pg (27.0-34.0); Mean Corpuscular Volume 98.8 fL (80.0-100.0); Mean Platelet Volume 9.1 fL (7.0-11.0); Platelet Count 104 th/mm3 (150-450); White Blood Count 7.7 th/mm3 (4.0-11.0)
[2018-04-03 06:18] LABS: Hemoglobin 6.7 gm/dL (13.0-17.0)
[2018-04-03 06:19] LABS: Hematocrit 19.7 % (39.0-51.0)
[2018-04-03 06:30] LABS: Calcium 7.8 mg/dL (8.5-10.1); Carbon Dioxide 24.3 meq/L (21.0-32.0)
[2018-04-03] MEDS: Amiodarone 200 MG Tablet PO SCH ×3 (06:32→22:00)
[2018-04-03 07:06] LABS: Hematocrit 20.2 % (39.0-51.0); Hemoglobin 6.9 gm/dL (13.0-17.0)
--- NOTE | 2018-04-03 08:37 | P.PNCV ---
- Note Subjective/Hospital Course: No complaints, doing well 04/02/18 No complaints, doing well 04/03 Clinically and hemodynamic stable Anemia We will transfuse 2 units packed RBC with Lasix in between Possible discharge in a.m. Objective: Vital Signs - 24 hr 04/02/18 09:00 04/02/18 10:00 04/02/18 10:10 Temperature Pulse Rate 84 82 Respiratory Rate Blood Pressure Pulse Oximetry 94 L 04/02/18 11:00 04/02/18 12:00 04/02/18 13:00 Temperature 98.7 F Pulse Rate 74 82 72 Respiratory Rate 18 Blood Pressure 147/67 H Pulse Oximetry 93 L 04/02/18 14:00 04/02/18 15:00 04/02/18 16:00 Temperature 98.2 F Pulse Rate 76 78 86 Respiratory Rate 18 Blood Pressure 139/66 Pulse Oximetry 100 04/02/18 16:27 04/02/18 17:00 04/02/18 18:00 Temperature Pulse Rate 58 L 88 78 Respiratory Rate 18 Blood Pressure Pulse Oximetry 04/02/18 19:00 04/02/18 20:00 04/02/18 20:08 Temperature 98.6 F Pulse Rate 82 82 63 Respiratory Rate 22 16 Blood Pressure 130/62 Pulse Oximetry 96 95 04/02/18 21:00 04/02/18 22:00 04/02/18 23:00 Temperature 97.9 F Pulse Rate 89 86 89 Respiratory Rate 20 Blood Pressure 119/59 L Pulse Oximetry 96 04/03/18 00:00 04/03/18 01:00 04/03/18 02:00 Temperature Pulse Rate 79 88 88 Respiratory Rate Blood Pressure Pulse Oximetry 04/03/18 03:00 04/03/18 03:22 04/03/18 04:00 Temperature 98.2 F Pulse Rate 73 80 90 Respiratory Rate 18 16 Blood Pressure 121/57 L Pulse Oximetry 97 96 04/03/18 05:00 04/03/18 06:00 04/03/18 07:00 Temperature 98.6 F Pulse Rate 73 73 95 H Respiratory Rate 20 Blood Pressure 125/60 Pulse Oximetry 97 04/03/18 07:37 Temperature Pulse Rate Respiratory Rate Blood Pressure Pulse Oximetry 97 Labs: Laboratory Results - last 12 hr 03/31/18 04/02/18 04/03/18 06:10 23:27 05:25 WBC RBC Hgb Hct MCV MCH MCHC RDW Plt Count MPV Sodium 139 Potassium 4.0 Chloride 107 Carbon Dioxide 24.3 Anion Gap 8 BUN 43 H Creatinine 2.29 H Estimated GFR 28 L POC Glucose 106 Random Glucose 89 Calcium 7.8 L MTS Gel Crossmatch See Detail 04/03/18 04/03/18 04/03/18 05:25 06:29 07:25 WBC 7.7 RBC 2.00 L Hgb 6.7 L* 6.9 L* Hct 19.7 L* 20.2 L* MCV 98.8 MCH 33.4 MCHC 33.8 RDW 15.0 Plt Count 104 L MPV 9.1 Sodium Potassium Chloride Carbon Dioxide Anion Gap BUN Creatinine Estimated GFR POC Glucose 107 Random Glucose Calcium MTS Gel Crossmatch Result Diagrams: 04/03/18 06:29 04/03/18 05:25
[2018-04-03] MEDS: Polyethylene Glycol 3350 17 GM Packet PO SCH (09:28)
[2018-04-03] MEDS: Multivitamin/Minerals Therapeutic Tablet PO SCH (09:29)
[2018-04-03] MEDS: Ferrous Sulfate 325 MG Tablet PO SCH (09:29)
[2018-04-03] MEDS: Ascorbic Acid 500 MG Tablet PO SCH ×2 (09:30→20:17)
[2018-04-03] MEDS: Senna/Docusate Sodium 8.6/50 MG Tablet PO SCH (09:30)
[2018-04-03] MEDS: Insulin NovoLOG Aspart Correctional Sugar Inj SQ SCH ×3 (10:04→16:35)
[2018-04-03] MEDS: Docusate Sodium 100 MG Capsule PO SCH ×2 (10:05→20:17)
[2018-04-04] MEDS: fentaNYL Citrate Inj 100 MCG/2 ML Ampul IV.PUSH PRN ×2 (02:05→05:11)
[2018-04-04] MEDS: Amiodarone 200 MG Tablet PO SCH ×2 (05:12→13:24)
[2018-04-04 05:54] LABS: Hematocrit 28.1 % (39.0-51.0); Hemoglobin 9.9 gm/dL (13.0-17.0)
[2018-04-04] MEDS: Insulin NovoLOG Aspart Correctional Sugar Inj SQ SCH ×2 (08:05→11:55)
[2018-04-04] MEDS: Polyethylene Glycol 3350 17 GM Packet PO SCH (09:05)
[2018-04-04] MEDS: Senna/Docusate Sodium 8.6/50 MG Tablet PO SCH (09:06)
[2018-04-04] MEDS: Docusate Sodium 100 MG Capsule PO SCH (09:06)
[2018-04-04] MEDS: Ferrous Sulfate 325 MG Tablet PO SCH (09:09)
[2018-04-04] MEDS: Multivitamin/Minerals Therapeutic Tablet PO SCH (09:09)
[2018-04-04] MEDS: Ascorbic Acid 500 MG Tablet PO SCH (09:09)
--- NOTE | 2018-04-04 09:22 | P.PNCV ---
- Note Subjective/Hospital Course: No complaints, doing well 04/02/18 No complaints, doing well 04/03 Clinically and hemodynamic stable Anemia We will transfuse 2 units packed RBC with Lasix in between Possible discharge in a.m. 04/04 Doing well Discharge home today Objective: Vital Signs - 24 hr 04/03/18 10:00 04/03/18 10:58 04/03/18 11:00 Temperature 98.8 F Pulse Rate 101 H 93 H Respiratory Rate 20 Blood Pressure 147/67 H Pulse Oximetry 97 99 04/03/18 12:00 04/03/18 12:08 04/03/18 12:35 Temperature 98.8 F 97.1 F L Pulse Rate 91 H 89 90 Respiratory Rate 20 20 Blood Pressure 122/50 L 131/63 Pulse Oximetry 99 100 04/03/18 13:00 04/03/18 14:00 04/03/18 14:45 Temperature 98.1 F Pulse Rate 88 85 86 Respiratory Rate 20 Blood Pressure 154/70 H Pulse Oximetry 99 04/03/18 15:00 04/03/18 15:37 04/03/18 15:52 Temperature 98.6 F 98.4 F Pulse Rate 86 92 H 92 H Respiratory Rate 14 20 20 Blood Pressure 119/56 L 114/58 L Pulse Oximetry 98 98 04/03/18 16:00 04/03/18 17:00 04/03/18 18:00 Temperature Pulse Rate 87 90 88 Respiratory Rate Blood Pressure Pulse Oximetry 04/03/18 18:44 04/03/18 19:00 04/03/18 20:00 Temperature 99.3 F 97.9 F Pulse Rate 90 87 88 Respiratory Rate 20 18 Blood Pressure 132/61 130/62 Pulse Oximetry 99 98 04/03/18 21:00 04/03/18 21:50 04/03/18 21:51 Temperature Pulse Rate 87 87 Respiratory Rate 20 Blood Pressure Pulse Oximetry 97 04/03/18 23:00 04/04/18 00:00 04/04/18 01:00 Temperature 98.9 F Pulse Rate 86 79 84 Respiratory Rate 18 Blood Pressure 120/63 Pulse Oximetry 96 04/04/18 02:00 04/04/18 03:00 04/04/18 03:21 Temperature 97.9 F Pulse Rate 88 86 87 Respiratory Rate 22 18 Blood Pressure 137/69 Pulse Oximetry 97 04/04/18 04:00 04/04/18 05:00 04/04/18 06:00 Temperature Pulse Rate 90 90 88 Respiratory Rate Blood Pressure Pulse Oximetry 04/04/18 07:00 04/04/18 08:00 04/04/18 08:52 Temperature 98.9 F Pulse Rate 92 H 90 97 H Respiratory Rate 20 18 Blood Pressure 140/75 Pulse Oximetry 97 97 98 Labs: Laboratory Results - last 12 hr 04/03/18 04/04/18 04/04/18 22:11 05:20 08:01 Hgb 9.9 L D Hct 28.1 L POC Glucose 106 98 Result Diagrams: 04/04/18 05:20 04/03/18 05:25
--- NOTE | 2018-04-04 09:26 | P.DS ---
Date of admission: 03/31/18 11:11 Primary care physician: Jozef Odonnell MD Attending physician on discharge: Chantel Iyer Brief History from admission: 72 yo with CAD admitted for surgery DS: Diagnosis - Discharge Diagnosis (1) CAD (coronary artery disease) Status: Acute DS: Medications - Discharge Medications Prescriptions: amiodarone 200 mg PO BID #28 tab DS: Summary Hospital Course: 04/02/18 No complaints, doing well 04/03 Clinically and hemodynamic stable Anemia We will transfuse 2 units packed RBC with Lasix in between Possible discharge in a.m. 04/04 Doing well Discharge home today - Time Spent with Patient Total time spent providing and/or coordinating discharge services: Less than 30 minutes - Quality: VTE Deep Vein Thrombosis/Pulmonary Embolism Present on Admission: No Exam Vital signs: Vital Signs 04/03/18 10:00 04/03/18 10:58 04/03/18 11:00 Temperature 98.8 F Pulse Rate 101 H 93 H Respiratory Rate 20 Blood Pressure 147/67 H Pulse Oximetry 97 99 04/03/18 12:00 04/03/18 12:08 04/03/18 12:35 Temperature 98.8 F 97.1 F L Pulse Rate 91 H 89 90 Respiratory Rate 20 20 Blood Pressure 122/50 L 131/63 Pulse Oximetry 99 100 04/03/18 13:00 04/03/18 14:00 04/03/18 14:45 Temperature 98.1 F Pulse Rate 88 85 86 Respiratory Rate 20 Blood Pressure 154/70 H Pulse Oximetry 99 04/03/18 15:00 04/03/18 15:37 04/03/18 15:52 Temperature 98.6 F 98.4 F Pulse Rate 86 92 H 92 H Respiratory Rate 14 20 20 Blood Pressure 119/56 L 114/58 L Pulse Oximetry 98 98 04/03/18 16:00 04/03/18 17:00 04/03/18 18:00 Temperature Pulse Rate 87 90 88 Respiratory Rate Blood Pressure Pulse Oximetry 04/03/18 18:44 04/03/18 19:00 04/03/18 20:00 Temperature 99.3 F 97.9 F Pulse Rate 90 87 88 Respiratory Rate 20 18 Blood Pressure 132/61 130/62 Pulse Oximetry 99 98 04/03/18 21:00 04/03/18 21:50 12/15/18 21:51 Temperature Pulse Rate 87 87 Respiratory Rate 20 Blood Pressure Pulse Oximetry 97 04/03/18 23:00 04/04/18 00:00 04/04/18 01:00 Temperature 98.9 F Pulse Rate 86 79 84 Respiratory Rate 18 Blood Pressure 120/63 Pulse Oximetry 96 04/04/18 02:00 04/04/18 03:00 04/04/18 03:21 Temperature 97.9 F Pulse Rate 88 86 87 Respiratory Rate 22 18 Blood Pressure 137/69 Pulse Oximetry 97 04/04/18 04:00 04/04/18 05:00 04/04/18 06:00 Temperature Pulse Rate 90 90 88 Respiratory Rate Blood Pressure Pulse Oximetry 04/04/18 07:00 04/04/18 08:00 04/04/18 08:52 Temperature 98.9 F Pulse Rate 92 H 90 97 H Respiratory Rate 20 18 Blood Pressure 140/75 Pulse Oximetry 97 97 98 Intake & Output 04/03/18 04/04/18 04/04/18 18:59 06:59 18:59 Intake Total 1760 / 1760 960 / 960 Output Total 1875 / 1875 1500 / 1500 Balance -115 / -115 -540 / -540 Weight 72 kg Intake: Oral 960 / 960 960 / 960 Intake (Blood Product) Amt 800 / 800 Rbc As-3 Leukoreduced Unit 400 / 400 [id number] Rbc As-3 Leukoreduced Unit 400 / 400 [id number] Output: Urine 1875 / 1875 1500 / 1500 Other: # Voids 7 # Bowel Movements 0 0 Results Procedures completed during hospitalization: Date of procedure: 03/31/18 Procedure: CABG x 3 WINTERS to LAD - good SVG to OM1 - good SVG to OM@ - good EVH Labs on day of discharge: Labs from last 24 hours 04/04/18 04/04/18 04/03/18 08:01 05:20 22:11 Hgb 9.9 L D Hct 28.1 L POC Glucose 98 106 Blood Type Antibody Screen MTS Gel Crossmatch 04/03/18 04/03/18 04/03/18 16:06 13:35 11:00 Hgb Hct POC Glucose 124 H 114 H 123 H Blood Type Antibody Screen MTS Gel Crossmatch 04/03/18 04/03/18 08:39 08:39 Hgb Hct POC Glucose Blood Type O Positive Antibody Screen Negative MTS Gel Crossmatch See Detail - Impressions ITS Impressions Chest X-Ray 04/01/18 05:00 CONCLUSION: Endotracheal tube and nasogastric tube no longer seen. Mild bilateral atelectasis unchanged. Discharge Plan - Discharge Disposition Patient Disposition: Disch W/Home Health Service - Discharge Condition Condition: Good - Discharge Order Discharge Orders: Discharge Order (Routine); Ordered 04/03/18 Ordered By: Chantel Iyer - Discharge Details Anticipated Discharge Date: 04/03/18 - Physicians Team Primary Care Provider: Jozef Odonnell Attending Provider: Chantel Iyer - Rxs /Orders / Referrals /Forms Prescriptions: New amiodarone 200 mg Tablet 200 mg PO BID Qty: 28 RF: 0 carvedilol [Coreg] 3.125 mg Tablet 6.25 mg PO BID Qty: 60 RF: 3 bpwumzik-xnue-LV-calcium-mins [Thera M Plus (ferrous fumarat)] 9 mg iron-400 mcg Tablet 1 tab PO DAILY RF: 0 pantoprazole 40 mg Tablet,Delayed Release (Dr/Ec) 40 mg PO DAILY@06 Qty: 14 RF: 0 Continue ascorbic acid (vitamin C) [Vitamin C] 500 mg Tablet 500 mg PO BID aspirin [Aspir-81] 81 mg Tablet,Delayed Release (Dr/Ec) 81 mg PO DAILY atorvastatin 10 mg Tablet 10 mg PO DAILY cetirizine [Zyrtec] 10 mg Capsule 10 mg PO DAILY cholestyramine (with sugar) 4 gram Powder In Packet 4 g PO DAILY ferrous sulfate [Iron (ferrous sulfate)] 325 mg (65 mg iron) Tablet 325 mg PO DAILY hydrocodone-acetaminophen 5-325 mg Tablet 1 tab PO Q4H PRN (Reason: acute post op pain exception ) Qty: 18 RF: 0 Lactobacillus rhamnosus GG [Culturelle] 10 billion cell Capsule 1 cap PO DAILY magnesium 200 mg Tablet 400 mg PO DAILY multivitamin Capsule 1 cap PO DAILY sennosides-docusate sodium [Senna Plus] 8.6-50 mg tablet 2 tab PO DAILY Discontinued carvedilol 3.125 mg Tablet 3.125 mg PO BID Referrals: Jozef Odonnell MD [Primary Care Provider] - See Instructions ( Your appointment has been scheduled for [04/21/18] at [10:00 am] If you cannot make this appointment, please call the office to reschedule ) Humberto Mcconnell MD [Physician] - See Instructions ( Your appointment has been scheduled for [04/30/18] at [11:45 am] If you cannot make this appointment, please call the office to reschedule ) Keily Solorio [ADVANCE RN PRACTITIONER] - See Instructions ( Your appointment has been scheduled for [04/29/18] at [10:30 am] If you cannot make this appointment, please call the office to reschedule ) - Discharge Instructions Patient Printed Instructions: Coronary Artery Bypass Graft (DC)
--- NOTE | 2018-04-05 10:33 | P.DCO ---
- Diagnosis (1) S/P CABG (coronary artery bypass graft) Status: Acute - Physical Therapy Order: Evaluate and treat, Improve ambulation - Occupational Therapy Order: Evaluate and treat, Improve ADL - Home Health Nursing Order: Medical education, Signs/symptoms of disease process, Nursing assessment with vital signs - Case Management Consult Case Management Consult-Home Health: Yes - Certification I have seen patient Maxime Zepeda on 04/05/18. My clinical findings support the need for the requested home health care services because: Deconditioned with increased weakness, Limited ability to care for self I certify that my clinical findings support that this patient is homebound because: Post-op weakness, Unsafe to leave home unassisted
== END 2018-04-04 18:45 | disposition home health service (06) ==
LOC: HSDC 05:31 → EDSTATUS 07:30 → HSDI 11:11 → HCVI 12:04 → HCPC 04-01 11:43
PROVIDERS: ADMIT Thoracic Surgery (Cardiothoracic Vascular Surgery); ATTEND Thoracic Surgery (Cardiothoracic Vascular Surgery)